=== PATIENT | female | born 1950 | race Caucasian/White ===

== ENCOUNTER 2016-04-01 16:04 | Inpatient (IN) | payer BC, MEDICARE, OTHER ==
[~2016-04-01] VITALS: Ht 167.6 cm; Wt 186.4 kg
[~2016-04-01 16:04] MED LIST: AC325T PO; ACHD5005 PO; AMLO10TA82 PO; AMLO5TAB2 PO; ASP325TEC PO; ASP81CT PO; ASP81TEC PO; CTLP20T PO; DICL75TA2 PO; DICY20TA57 PO; GABA-488 PO; HCT25T PO; INSASP10V SC; INSU100I14 SQ; INSU100I16 SQ; LEVO25TA PO; LIRA0.6P SQ; LISI40TA PO; METO100T5 PO; MTP25TSR PO; PRAS10TA6 PO; TRAM50TA2 PO
[2016-04-01] MEDS ORDERED: RT-ALBUTEROL/IPRATROPIUM 3 ML (DUONEB) VIAL INH PRN (16:15)
[2016-04-01 16:30] VITALS: BP 122/78
--- OUTSIDE RECORDS SUMMARY | 2016-04-01 17:02 | XMS REPORT ---
Author Author ROXIE PONCE Organization [employer] Address Unknown Phone Unavailable Care Team Providers Care Injection Molding Process Technician Name Role Phone ROXIE PONCE CP Unavailable Allergies No Known Allergies Problems Problem Type Condition Code Onset Dates Condition Status Problem Hernia of unspecified site of abdominal cavity without mention of obstruction or gangrene 553.9 Active Problem Depressive disorder, not elsewhere classified 311 Active Problem Cellulitis and abscess of leg, except foot 682.6 Active Problem Diverticulosis of colon (without mention of hemorrhage) 562.10 Active Assessment Hypothyroid E03.9 Active Problem Unspecified peripheral vertigo 386.10 Active Problem CAD (coronary artery disease) 414.00 Active Problem Esophageal reflux 530.81 Active Problem Postprocedural percutaneous transluminal coronary angioplasty status V45.82 Active Problem Unspecified peripheral vascular disease 443.9 Active Problem Abdominal pain, other specified site 789.09 Active Problem Other specified cardiac dysrhythmias 427.89 Active Problem Palpitations 785.1 Active Problem Unspecified hereditary and idiopathic peripheral neuropathy 356.9 Active Problem Unspecified hypothyroidism 244.9 Active Problem Unspecified gastritis and gastroduodenitis without mention of hemorrhage 535.50 Active Problem Atrial fibrillation 427.31 Active Problem Major depressive disorder, recurrent episode, severe, without mention of psychotic behavior 296.33 Active Problem Lumbago 724.2 Active Problem Abdominal pain, generalized 789.07 Active Problem Irritable bowel syndrome 564.1 Active Medications Medication Code System Code Instructions Start Date End Date Status Dosage Levothyroxine Sodium [facility] [address]-95 75 MCG Orally Once a day 1 tablet Results No Known Results Summary Purpose [employer] Submission
[2016-04-01 17:52] LABS: BASOPHILS % (AUTO) 0 % (0-10); EOSINOPHILS # (AUTO) 0.1 10^3/uL (0.0-0.3); EOSINOPHILS % (AUTO) 1 % (0-10); LYMPHOCYTES # (AUTO) 1.1 X 10^3 (1.0-4.0); LYMPHOCYTES % (AUTO) 12 % (12-44); MEAN CORPUSCULAR HEMOGLOBIN 33 PG (25-34); MEAN CORPUSCULAR HGB CONC 32 G/DL (32-36); MEAN CORPUSCULAR VOLUME 101 FL (80-99); MEAN PLATELET VOLUME 13.7 FL (7.4-10.4); MONOCYTES # (AUTO) 0.7 X 10^3 (0.0-1.0); MONOCYTES % (AUTO) 7 % (0-12); NEUTROPHILS # (AUTO) 7.1 X 10^3 (1.8-7.8); NEUTROPHILS % (AUTO) 79 % (42-75); PLATELET COUNT 121 10^3/uL (130-400); RED BLOOD COUNT 4.26 10^6/uL (4.35-5.85); RED CELL DISTRIBUTION WIDTH 14.3 % (10.0-14.5)
[2016-04-01 18:15] LABS: ALBUMIN 3.5 G/DL (3.2-4.5); BILIRUBIN,TOTAL 0.6 MG/DL (0.1-1.0); CALCIUM 9.1 MG/DL (8.5-10.1); CREATININE SERUM 1.05 MG/DL (0.60-1.30); POTASSIUM 4.6 MMOL/L (3.6-5.0); TOTAL PROTEIN 6.6 G/DL (6.4-8.2)
[2016-04-01] MEDS ORDERED: FLU TRIvalent (5 YOA+) 2016-17 (AFLURIA) 0.5 ML IM ONE (18:39)
[2016-04-01] MEDS: FUROSEMIDE 40 MG/4 ML INJ (LASIX) IV SCH (19:37)
[2016-04-01 20:59] VITALS: BP 147/99
[2016-04-01] MEDS: inSUlin ASPART (NovoLOG) 1 UNIT/0.01 ML (CHARGE PER UNIT) SC SCH (21:00)
[2016-04-01] MEDS ORDERED: inSUlin DETERMIR 1 UNIT/0.01 ML (LEVEMIR) CHARGE PER UNIT SQ SCH (21:00)
[2016-04-01] MEDS: meTOprolol SUCCINATE 100 MG (TOPROL XL) TAB PO SCH (21:17)
[2016-04-01] MEDS: inSUlin DETERMIR 1 UNIT/0.01 ML (LEVEMIR) CHARGE PER UNIT SQ SCH (21:18)
[2016-04-01] MEDS: GABAPENTIN 300 MG (NEURONTIN) CAP PO SCH (21:18)
[2016-04-01] MEDS: APIXABAN 5 MG (ELIQUIS) TABLET PO SCH (21:29)
[2016-04-02] VITALS: BP 137/99
[2016-04-02 04:00] VITALS: BP 141/75
[2016-04-02] MEDS: inSUlin ASPART (NovoLOG) 1 UNIT/0.01 ML (CHARGE PER UNIT) SC SCH ×7 (06:00→19:12)
[2016-04-02] MEDS ORDERED: INSULIN ASPART 25 UNIT SQ SCH (06:00)
[2016-04-02] MEDS ORDERED: INSULIN ASPART 15 UNIT SQ SCH (06:00)
[2016-04-02] MEDS ORDERED: FLU TRIvalent (5 YOA+) 2016-17 (AFLURIA) 0.5 ML IM ONE (07:15)
[2016-04-02 08:00] VITALS: BP 149/92
[2016-04-02] MEDS: ASPIRIN E.C. 81 MG (ECOTRIN) TAB PO SCH (08:55)
[2016-04-02] MEDS: APIXABAN 5 MG (ELIQUIS) TABLET PO SCH ×2 (08:55→20:21)
[2016-04-02] MEDS: FUROSEMIDE 40 MG/4 ML INJ (LASIX) IV SCH ×2 (08:55→20:21)
[2016-04-02] MEDS: meTOprolol SUCCINATE 100 MG (TOPROL XL) TAB PO SCH ×2 (08:55→20:21)
[2016-04-02] MEDS: GABAPENTIN 300 MG (NEURONTIN) CAP PO SCH ×2 (08:55→20:21)
[2016-04-02] MEDS: inSUlin DETERMIR 1 UNIT/0.01 ML (LEVEMIR) CHARGE PER UNIT SQ SCH (08:56)
[2016-04-02] MEDS ORDERED: LEVOTHYROXINE 25 MCG (LEVOTHROID) TAB PO SCH (09:00)
[2016-04-02] MEDS ORDERED: LEVO75TA6 PO (09:53)
[2016-04-02] MEDS ORDERED: DILT120C53 PO (09:53)
[2016-04-02] MEDS ORDERED: EXEN2PEN SQ (09:53)
[2016-04-02] MEDS ORDERED: LISI40TA PO (09:53)
[2016-04-02] MEDS ORDERED: APIX5TAB PO (09:53)
[2016-04-02] MEDS ORDERED: PIOG30TA38 PO (09:53)
[2016-04-02] MEDS ORDERED: INSU100I29 SQ (09:53)
[2016-04-02] MEDS ORDERED: INSU100I14 SQ (09:53)
[2016-04-02 12:00] VITALS: BP 112/76
--- NOTE | 2016-04-02 14:20 | History & Physicial (CHS) ---
HPI History of Present Illness: 66 yo Patient that [facility]CP Evita Jackson for worsening shortness of breath. She states that in about 6 weeks she has gained 40 pounds. Patient states that she has noticed in the last few weeks that she has been much more short of breath. She has a h/o CAD with retained heart function. Patient states that she does not wear her CPAP because she is not able to sleep or get comfortable with it on. Denies any chest or abdominal pain. Source: patient, RN/MD Exam Limitations: no limitations Date seen by provider: Apr 02, 2016 Attending Physician Krishna Andino MD PCP Eliz Puri DO Consult Date of Admission Apr 01, 2016 at 4:58 pm Home Medications Home Medications Reviewed patient Home Medication Reconciliation Form Allergies Coded Allergies: liraglutide (Verified Allergy, Intermediate, NAUSEA, 04/01/16) VOMITING AND CHEST PAIN THAT RADIATES TO HER BACK simvastatin (Verified Allergy, Intermediate, 04/01/16) PT HAS ELEVATED LIVER ENZYMES WITH ANY STATIN DRUG Bacitracin Zinc (Verified Allergy, Mild, RASH, 04/01/16) bacitracin (Verified Allergy, Mild, RASH, 04/01/16) colistimethate sodium (Verified Allergy, Mild, RASH, 04/01/16) gramicidin D (Verified Allergy, Mild, RASH, 04/01/16) metformin HCl (Verified Allergy, Mild, 04/01/16) neomycin sulfate (Verified Allergy, Mild, RASH, 04/01/16) polymyxin B (Verified Allergy, Mild, RASH, 04/01/16) polymyxin B sulfate (Verified Allergy, Mild, RASH, 04/01/16) pramoxine HCl (Verified Allergy, Mild, RASH, 04/01/16) TFL-Kapdyt-Tewzcz Hx Patient Social History Alcohol Use: Denies Use Recreational Drug Use: No Smoking Status: Former Smoker Type Used: Cigarettes Recent Foreign Travel: No Contact w/other who traveled: No Recent Hopitalizations: Yes (had gall bladder surgery and uterine cancer) Recent Infectious Disease Expo: No Physical Abuse Screen: No Sexual Abuse: No Immunizations Up To Date Tetanus Booster (TDap): Less than 5yrs Date of Influenza Vaccine: Dec 30, 2013 Past Medical History IDDM II CAD with Stent ALEXIS that needs CPAP but patient does not wear it Paroxysmal Afib Family Medical History Family History: Patient reports no known family medical history. Review of Systems (CHC) Constitutional: no symptoms reportedNo fever, No malaise, weakness EENTM: no symptoms reported Respiratory: No cough, dyspnea on exertionNo hemoptysis, orthopnea short of breathNo wheezing Cardiovascular: no symptoms reportedNo chest pain, edemaNo palpitations Gastrointestinal: no symptoms reportedNo abdominal pain, No constipation, No diarrhea, No hematemesis, No nausea, No vomiting Genitourinary: frequency (with lasix) Musculoskeletal: no symptoms reportedNo back pain, No joint pain, No muscle pain Skin: No rash, other Psychiatric/Neurological: No Symptoms Reported Reviewed Test Results Reviewed Test Results Lab Laboratory Tests Test 04/01/16 17:47 04/01/16 21:06 04/02/16 06:34 04/02/16 11:34 Range/Units Alanine Aminotransferase (ALT/SGPT) 19 0-55 U/L Albumin 3.5 3.2-4.5 G/DL Alkaline Phosphatase 82 40-136 U/L Anion Gap 11 5-14 MMOL/L Aspartate Amino Transf (AST/SGOT) 20 5-34 U/L BUN/Creatinine Ratio 20 Basophils # (Auto) 0.0 0.0-0.1 10^3/uL Basophils (%) (Auto) 0 0-10 % Blood Urea Nitrogen 21 H 7-18 MG/DL Calcium Level 9.1 8.5-10.1 MG/DL Carbon Dioxide Level 28 21-32 MMOL/L Chloride Level 102 98-107 MMOL/L Creatinine 1.05 0.60-1.30 MG/DL Eosinophils # (Auto) 0.1 0.0-0.3 10^3/uL Eosinophils (%) (Auto) 1 0-10 % Estimat Glomerular Filtration Rate 52 Glucose Level 145 H 70-105 MG/DL Hematocrit 43 35-52 % Hemoglobin 13.9 11.5-16.0 G/DL Lymphocytes # (Auto) 1.1 1.0-4.0 X 10^3 Lymphocytes (%) (Auto) 12 12-44 % Mean Corpuscular Hemoglobin 33 25-34 PG Mean Corpuscular Hemoglobin Concent 32 32-36 G/DL Mean Corpuscular Volume 101 H 80-99 FL Mean Platelet Volume 13.7 H 7.4-10.4 FL Monocytes # (Auto) 0.7 0.0-1.0 X 10^3 Monocytes (%) (Auto) 7 0-12 % Neutrophils # (Auto) 7.1 1.8-7.8 X 10^3 Neutrophils (%) (Auto) 79 H 42-75 % Platelet Count 121 L 130-400 10^3/uL Potassium Level 4.6 3.6-5.0 MMOL/L Red Blood Count 4.26 L 4.35-5.85 10^6/uL Red Cell Distribution Width 14.3 10.0-14.5 % Sodium Level 141 135-145 MMOL/L Total Bilirubin 0.6 0.1-1.0 MG/DL Total Protein 6.6 6.4-8.2 G/DL White Blood Count 9.0 4.3-11.0 10^3/uL Glucometer 148 H 110 76 70-110 MG/DL Radiology CXR pending Echo: pending Physical Exam-(CHC) Physical Exam Vital Signs VS - Last 72 Hours, by Label 04/01/16 04/01/16 04/01/16 04/01/16 16:30 17:15 19:00 20:00 Temp 98.8 Pulse 80 131 Resp 22 B/P 122/78 Pulse Ox 93 O2 Delivery Room Air Room Air Room Air 04/01/16 04/01/16 04/01/16 04/02/16 20:59 21:00 22:06 00:00 Temp 98.4 98.3 Pulse 85 105 Resp 24 22 B/P 147/99 137/99 Pulse Ox 93 95 O2 Delivery Room Air Room Air Room Air Room Air 04/02/16 04/02/16 04/02/16 04/02/16 00:58 04:00 07:57 08:00 Temp 99.0 Pulse 93 108 Resp 24 B/P 141/75 Pulse Ox 91 O2 Delivery Nasal Cannula Nasal Cannula Room Air O2 Flow Rate 2.00 2.00 04/02/16 04/02/16 04/02/16 08:00 08:00 12:00 Temp 96.8 98.7 Pulse 105 106 Resp 20 21 B/P 149/92 112/76 Pulse Ox 95 96 O2 Delivery Nasal Cannula Room Air Nasal Cannula O2 Flow Rate 2.00 2.00 Capillary Refill : General Appearance: WD/WN mild distress (2-4 words before short of breath) other (Morbidly obese female) HEENT: PERRL/EOMI normal ENT inspection pharynx normal Neck: non-tender full range of motion supple normal inspection other (Large neck diameter) Respiratory: chest non-tender normal breath sounds other (distant lung sounds due to body habitus, decrease basilar lung sounds) Cardiovascular: normal peripheral pulses regular rate, rhythm systolic murmur Gastrointestinal: normal bowel sounds non tender soft no organomegalyNo distended, No guarding, No tenderness Back: normal inspection no CVA tenderness no vertebral tenderness Extremities: normal range of motion non-tender pedal edema (3 +) 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 no motor/sensory deficits Skin: normal color warm/dry other (chronic venous stasis scars on bilateral LE ) Assessment/Plan Assessment/Plan Admission Dx Acute Respiratory Distress with hypoxia ALEXIS Morbid Obesity Insulin Dependent DM HTN Paroxsymal Atrial Fibrillation CAD with Stent placement Plan 66 yo F admitted for respiratory distress with hypoxia in the 80s, with recent 40 pound weight gain Acute Respiratory Distress with hypoxia DDx: Decompensated CHF vs Decompensated ALEXIS vs morbid obesity vs PE - Concerned for CHF given recent 40 lb weight gain - CXR pending, Echo pending - Lasix 40 mg IV BID, Strict I/Os, daily BMP - Encouraged patient to get up to chair and use IS 3x per hour ALEXIS - Patient does not tolerate CPAP at home because of mask, will need referral to sleep center for desensitization - Discussed the importance of wearing CPAP every time she lays down because of added stress on her heart Morbid Obesity - Patient needs to focus on weight loss Insulin Dependent DM - Started home insulin therapy HTN: Controlled Paroxsymal Atrial Fibrillation: In Sinus, continue rhythm control medications CAD with Stent placement Dispo: Continue admission to Medical [facility] DVT PPX: On PO anticoagulation FEN: CHO diet Diagnosis/Problems: Clinical Quality Measures DVT/VTE Risk/Contraindication: Risk Factor Score Per Nursin RFS Level Per Nursing on Admit: 4+=Very High Contraindications-Mechi: Other *list below* Other: On KRISHNA Alejandro MD Apr 02, 2016 2:20 pm
--- NOTE | 2016-04-02 15:17 | Diagnostic Imaging Report ---
Indication: Dyspnea, heart failure. Discussion: Single portable upright view of the chest was obtained, comparison 11/23/2014. Cardiomegaly is present. Bilateral mixed interstitial and alveolar opacities are noted, consistent with moderate pulmonary edema. No pleural fluid identified. Elevated right hemidiaphragm is stable. No pneumothorax. No acute osseous abnormality. Impression: 1. Cardiomegaly with moderate failure. Dictated by: Dictated on workstation # [id number]
--- NOTE | 2016-04-02 15:57 | Physical Therapy Evaluation ---
PT Evaluation-General Medical Diagnosis Admission Date Apr 01, 2016 at 16:58 Medical Diagnosis: CHF Onset Date: Mar 31, 2016 Therapy Diagnosis Therapy Diagnosis: decreased cardiopulmonary function Height/Weight Height (Feet): 5 Height (Inches): 6.00 Weight (Pounds): 376 Weight (Ounces): 0.0 Precautions Precautions/Isolations: Fall Prevention, Standard Precautions Referral Physician: Sina Reason for Referral: Evaluation/Treatment Medical History Pertinent Medical History: Atrial Fib, CAD, DM, HTN, Smoking Additional Medical History morbid obesity Current History 40# wt gain in 6 wks; increase SOA; resp. distress with hypoxia; has CPap and does not use Reviewed History: Yes Social History Home: Single Level Current Living Status: Children Entry Into Home: Stairs With Railing PT Steps Into Home: 3 Prior/Core FIM Prior Level of Function Functional [place] Measure 0=Not Assessed/NA 4=Minimal Assistance 1=Total Assistance 5=Supervision or Setup 2=Maximal Assistance 6=Modified [place] 3=Moderate Assistance 7=Complete [place] Bed Mobility: 6 Transfers (B,C,W/C) (FIM): 6 Gait: 6 uses a cane, 4WW and a scooter to shop PT Evaluation-Current Subjective Patient agrees to therapy. Pain Numeric Pain Scale: 0-No Pain Location: No Pain Reported Objective Patient Orientation: Normal For Age Problem Solving: Good Attachments: Oxygen 2-3L NC ROM/Strength ROM Lower Extremities bilateral LE WFL Strenght Lower Extremities bilateral LE WFL grossly Integumentary/Posture Integumentary refer to nursing notes Bowel Incontinence: No Bladder Incontinence: No Posture WNL Neuromuscular (Tone, Coordination, Reflexes) grossly intact coordination Transfers Functional [place] Measure 0=Not Assessed/NA 4=Minimal Assistance 1=Total Assistance 5=Supervision or Setup 2=Maximal Assistance 6=Modified [place] 3=Moderate Assistance 7=Complete [place] Transfers (B, C, W/C) (FIM): 5 Scootin Rollin Supine to/from Sit: 5 Sit to/from Stand: 5 Gait Mode of Locomotion: Walk Anticipated Mode of Locomotion: Walk Gait (FIM): 1 Distance (FIM): 1=up to 49 ft Distance: 45' Gait Level of Assist: 5 Gait Assistive Device: Cane Single Point Comments/Gait Description Patient will benefit from use of FWW to advance distance goal and improve function Balance Sitting Static: Normal Sitting Dynamic: Normal Standing Static: Normal Standing Dynamic: Normal Assessment/Needs 66 y.o. female, will benefit from short term skilled PT to address cardiopulmonary function with exercise and increase functional mobility. Rehab Potential: Fair Post Rehab Potential-Barriers: morbid obesity PT Short Term Goals Short Term Goals Time Frame: Apr 05, 2016 Transfers (B,C,W/C) (FIM): 6 Gait (FIM): 2 Distance (FIM): 1=095-12 ft Gait Distance Comment: 125' Gait Level of Assist: 5 Gait Assistive Device: FWW, Cane Single Point PT Plan Problem List Problem List: Activity Tolerance, Functional Strength, Other (diminished cardiopulmonary function) Treatment/Plan Treatment Plan: Continue Plan of Care Treatment Plan: Bed Mobility, Education, Functional Activity Fred, Functional Strength, Gait, Safety, Therapeutic Exercise, Transfers Treatment Duration: Apr 05, 2016 # of days/week 4 Visits Per Week: 4 Pt/Family Agrees w/Plan: Yes Safety Risks/Education Patient Education: Gait Training, Safety Issues Teaching Recipient: Patient, Primary Caregiver Teaching Methods: Discussion Response to Teaching: Verbalize Understanding, Return Demonstration Time/GCodes Time In: 1325 Time Out: 1345 Total Billed Treatment Time: 20 Total Billed Treatment 1 visit EV 20 min CLAUDIA SOLIZ PT Apr 02, 2016 15:57
[2016-04-02 16:06] VITALS: BP 131/78
[2016-04-02 19:28] VITALS: BP 121/74
[2016-04-03] VITALS: BP 124/73
[2016-04-03 04:00] VITALS: BP 132/92
[2016-04-03 05:51] LABS: BASOPHILS % (AUTO) 0 % (0-10); EOSINOPHILS # (AUTO) 0.2 10^3/uL (0.0-0.3); EOSINOPHILS % (AUTO) 3 % (0-10); LYMPHOCYTES # (AUTO) 0.9 X 10^3 (1.0-4.0); LYMPHOCYTES % (AUTO) 11 % (12-44); MEAN CORPUSCULAR HEMOGLOBIN 32 PG (25-34); MEAN CORPUSCULAR HGB CONC 31 G/DL (32-36); MEAN CORPUSCULAR VOLUME 103 FL (80-99); MONOCYTES # (AUTO) 0.8 X 10^3 (0.0-1.0); MONOCYTES % (AUTO) 9 % (0-12); NEUTROPHILS # (AUTO) 6.3 X 10^3 (1.8-7.8); NEUTROPHILS % (AUTO) 77 % (42-75); PLATELET COUNT 124 10^3/uL (130-400); RED BLOOD COUNT 4.48 10^6/uL (4.35-5.85); RED CELL DISTRIBUTION WIDTH 14.4 % (10.0-14.5); WHITE BLOOD COUNT 8.2 10^3/uL (4.3-11.0)
[2016-04-03] MEDS: inSUlin ASPART (NovoLOG) 1 UNIT/0.01 ML (CHARGE PER UNIT) SC SCH ×7 (06:00→20:39)
[2016-04-03 06:10] LABS: CALCIUM 9.1 MG/DL (8.5-10.1); CREATININE SERUM 1.27 MG/DL (0.60-1.30); POTASSIUM 4.4 MMOL/L (3.6-5.0)
[2016-04-03 08:56] VITALS: BP 126/87
[2016-04-03] MEDS ORDERED: DILTIAZEM 120 MG (CARDIZEM CD) CAP PO SCH (09:00)
[2016-04-03] MEDS: FUROSEMIDE 40 MG/4 ML INJ (LASIX) IV SCH (09:01)
[2016-04-03] MEDS: GABAPENTIN 300 MG (NEURONTIN) CAP PO SCH ×2 (09:01→20:44)
[2016-04-03] MEDS: LEVOTHYROXINE 75 MCG (LEVOTHROID) TABLET PO SCH (09:01)
[2016-04-03] MEDS: lisINopril 20 MG (ZESTRIL) TAB PO SCH (09:01)
[2016-04-03] MEDS: APIXABAN 5 MG (ELIQUIS) TABLET PO SCH ×2 (09:01→20:44)
[2016-04-03] MEDS: inSUlin DETERMIR 1 UNIT/0.01 ML (LEVEMIR) CHARGE PER UNIT SQ SCH ×2 (09:02→20:39)
[2016-04-03] MEDS: ASPIRIN E.C. 81 MG (ECOTRIN) TAB PO SCH (09:02)
[2016-04-03] MEDS: meTOprolol SUCCINATE 100 MG (TOPROL XL) TAB PO SCH ×2 (09:09→20:44)
[2016-04-03 12:00] VITALS: BP 126/79
[2016-04-03 16:03] VITALS: BP 135/61
--- NOTE | 2016-04-03 16:03 | Physical Therapy Daily Note ---
PT Daily Note-Current Subjective Pt supine in bed upon arrival. Pt agrees to supine EX for PT. Pain Numeric Pain Scale: 0-No Pain Location: No Pain Reported Mental Status Patient Orientation: Person, Normal For Age Attachments: Oxygen, IV Transfers Functional [place] Measure 0=Not Assessed/NA 4=Minimal Assistance 1=Total Assistance 5=Supervision or Setup 2=Maximal Assistance 6=Modified [place] 3=Moderate Assistance 7=Complete IndependenceIRFPAI Quality Coding Scale 6 Independent with activity with or without an assistive device 5 Patient requires set up or clean up by helper. Patient completes activity by themselves 4 Supervision or touching assist (CGA). [place] provide cues , steadying assist 3 The helper provides less than half the effort to complete the activity 2 The helper provides more than half the effort to complete the activity 1 Dependent. The helper does all the effort to complete an activity 7 Patient refused to complete or attempt activity 9 The patient did not perform the activity before the current illness or injury 88 Not attempted due to Medical conditions or safety concerns Exercises Supine Ex: Ankle pumps, Quad Set, Heel Slides, Straight leg raise, Hip abd/add Supine Reps: 15 Treatments Pt asked to hospital socks at the beginning of tx b/c her feet were cold. Pt agreed to supine EX in bed to work on ROM and strength. Pt was supine in bed with all needs met at end of tx. Assessment Current Status: Fair Progress Pt has difficulty with ROM during EX. Pt weaker on LLE than RLE. Pt wants to get better and discharge. PT Short Term Goals Short Term Goals Time Frame: Apr 05, 2016 Transfers (B,C,W/C) (FIM): 6 Gait (FIM): 2 Distance (FIM): 1=417-42 ft Gait Distance Comment: 125' Gait Level of Assist: 5 Gait Assistive Device: FWW, Cane Single Point PT Plan Problem List Problem List: Activity Tolerance, Functional Strength, Safety, Balance, Gait, Transfer, Bed Mobility, ROM Treatment/Plan Treatment Plan: Continue Plan of Care Treatment Plan: Bed Mobility, Education, Functional Activity Fred, Functional Strength, Gait, Safety, Therapeutic Exercise, Transfers Treatment Duration: Apr 05, 2016 Visits Per Week: 4 Safety Risks/Education Patient Education: Transfer Techniques, Correct Positioning, Safety Issues Teaching Recipient: Patient Teaching Methods: Discussion Response to Teaching: Verbalize Understanding Time/GCodes Time In: 1540 Time Out: 1555 Total Billed Treatment Time: 15 Total Billed Treatment visit, EX (15m) SHRUTI HAGEN CAR JOCKEY Apr 03, 2016 16:03
--- NOTE | 2016-04-03 17:38 | Progress Note (SOAP) ---
Subjective Subjective/Events-last exam Patient laying in bed this AM. States that she has urinated alot in the last 2 days. Feels like her legs are not as heavy. Still on oxygen because it makes her feel more comfortable. + BM last night. States that she walked to the chair and still gets very short of breath with activity. No other concerns this AM Date seen by provider: Apr 03, 2016 Objective Exam Last Set of Vital Signs Vital Signs Date Time Temp Pulse Resp B/P Pulse Ox O2 Delivery O2 Flow Rate FiO2 04/03/16 16:00 98 04/03/16 12:00 98.1 20 126/79 92 Nasal Cannula 2.00 Capillary Refill : I&O Intake and Output 04/03/16 00:00 Intake Total 1800 ml Output Total 2600 ml Balance -800 ml Intake Oral 1800 ml Output Urine Total 2600 ml # Bowel Movements 1 General: Alert, Oriented X3, Cooperative, Other (morbidly obese) Lungs: Clear to Auscultation, Normal Air Movement Heart: Regular Rate, Normal S1, Normal S2, No Murmurs Abdomen: Normal Bowel Sounds, Soft, No Tenderness Extremities: Other (2+ edema equal bilaterally) Skin: No Rashes, No Breakdown Psych/Mental Status: Mental Status NL, Mood NL Results/Procedures Lab Laboratory Tests 04/02/16 18:56: Glucometer 89 04/02/16 20:26: Glucometer 106 04/03/16 03:38: Glucometer 98 04/03/16 05:35: Anion Gap 11, BUN/Creatinine Ratio 19, Basophils # (Auto) 0.0, Basophils (%) ( Auto) 0, Blood Urea Nitrogen 24H, Calcium Level 9.1, Carbon Dioxide Level 29, Chloride Level 98, Creatinine 1.27, Eosinophils # (Auto) 0.2, Eosinophils (%) ( Auto) 3, Estimat Glomerular Filtration Rate 42, Glucose Level 118H, Hematocrit 46, Hemoglobin 14.4, Lymphocytes # (Auto) 0.9L, Lymphocytes (%) (Auto) 11L, Mean Corpuscular Hemoglobin 32, Mean Corpuscular Hemoglobin Concent 31L, Mean Corpuscular Volume 103H, Mean Platelet Volume , Monocytes # (Auto) 0.8, Monocytes (%) (Auto) 9, Neutrophils # (Auto) 6.3, Neutrophils (%) (Auto) 77H, Platelet Count 124L, Potassium Level 4.4, Red Blood Count 4.48, Red Cell Distribution Width 14.4, Sodium Level 138, White Blood Count 8.2 04/03/16 10:46: Glucometer 120H 04/03/16 15:48: Glucometer 103 Radiology CXR: showing moderate pulmonary edema present Procedures Echo: pending Assessment/Plan Assessment/Plan Admission Dx Acute Respiratory Distress with hypoxia ALEXIS Morbid Obesity Insulin Dependent DM HTN Paroxsymal Atrial Fibrillation CAD with Stent placement Plan 66 yo F admitted for respiratory distress with hypoxia in the 80s, with recent 40 pound weight gain Acute Respiratory Distress with hypoxia DDx: Decompensated CHF vs Decompensated ALEXIS vs morbid obesity vs PE - Concerned for CHF given recent 40 lb weight gain - CXR consistent with pulm edema, Echo pending - Lasix decreased to 40 mg PO daily - Strict I/Os, daily BMP - Encouraged patient to get up to chair and use IS 3x per hour ALEXIS - Patient does not tolerate CPAP at home because of mask, will need referral to sleep center for desensitization - Discussed the importance of wearing CPAP every time she lays down because of added stress on her heart - Will notify Dr German of patient's admission as she sees him outpatient Morbid Obesity - Patient needs to focus on weight loss Insulin Dependent DM - Started home insulin therapy HTN: Controlled Paroxsymal Atrial Fibrillation: In Sinus, continue rhythm control medications CAD with Stent placement Debility: - PT evaluated patient and feel that she would benefit from skilled PT Dispo: Continue admission to Medical [facility] DVT PPX: On PO anticoagulation FEN: CHO diet Diagnosis/Problems: Clinical Quality Measures DVT/VTE Risk/Contraindication: Risk Factor Score Per Nursin RFS Level Per Nursing on Admit: 4+=Very High Contraindications-Mechi: Other *list below* Other: On KRISHNA Alejandro MD Apr 03, 2016 17:38
[2016-04-03] MEDS: FUROSEMIDE 40 MG (LASIX) TAB PO SCH (18:08)
[2016-04-03 20:10] VITALS: BP 110/59
[2016-04-03] MEDS: ACETAMINOPHEN 325 MG TABLET/CAPLET (TYLENOL) PO PRN (20:44)
[2016-04-04] VITALS: BP 103/66
[2016-04-04 04:00] VITALS: BP 130/82
[2016-04-04] MEDS: inSUlin ASPART (NovoLOG) 1 UNIT/0.01 ML (CHARGE PER UNIT) SC SCH ×7 (06:00→20:53)
[2016-04-04 07:09] LABS: CALCIUM 9.1 MG/DL (8.5-10.1); CREATININE SERUM 1.36 MG/DL (0.60-1.30); POTASSIUM 4.5 MMOL/L (3.6-5.0)
[2016-04-04 08:00] VITALS: BP 132/72
[2016-04-04] MEDS: GABAPENTIN 300 MG (NEURONTIN) CAP PO SCH ×2 (10:47→21:12)
[2016-04-04] MEDS: lisINopril 20 MG (ZESTRIL) TAB PO SCH (10:47)
[2016-04-04] MEDS: FUROSEMIDE 40 MG (LASIX) TAB PO SCH (10:47)
[2016-04-04] MEDS: LEVOTHYROXINE 75 MCG (LEVOTHROID) TABLET PO SCH (10:47)
[2016-04-04] MEDS: meTOprolol SUCCINATE 100 MG (TOPROL XL) TAB PO SCH ×2 (10:47→21:12)
[2016-04-04] MEDS: ASPIRIN E.C. 81 MG (ECOTRIN) TAB PO SCH (10:48)
[2016-04-04] MEDS: APIXABAN 5 MG (ELIQUIS) TABLET PO SCH ×2 (10:48→21:12)
[2016-04-04] MEDS: inSUlin DETERMIR 1 UNIT/0.01 ML (LEVEMIR) CHARGE PER UNIT SQ SCH ×2 (10:50→21:13)
[2016-04-04 12:00] VITALS: BP 131/78
--- NOTE | 2016-04-04 12:00 | Physical Therapy Daily Note ---
PT Daily Note-Current Subjective Patient is in recliner without O2 in place. Lips cyanotic, PT assessed SAO2 at 72%. 2.5L O2 applied, RN notified and recovery to 92% within 1 min. Pain Numeric Pain Scale: 0-No Pain Location: No Pain Reported Mental Status Patient Orientation: Normal For Age Attachments: Oxygen Transfers Functional [place] Measure 0=Not Assessed/NA 4=Minimal Assistance 1=Total Assistance 5=Supervision or Setup 2=Maximal Assistance 6=Modified [place] 3=Moderate Assistance 7=Complete IndependenceIRFPAI Quality Coding Scale 6 Independent with activity with or without an assistive device 5 Patient requires set up or clean up by helper. Patient completes activity by themselves 4 Supervision or touching assist (CGA). [place] provide cues , steadying assist 3 The helper provides less than half the effort to complete the activity 2 The helper provides more than half the effort to complete the activity 1 Dependent. The helper does all the effort to complete an activity 7 Patient refused to complete or attempt activity 9 The patient did not perform the activity before the current illness or injury 88 Not attempted due to Medical conditions or safety concerns Transfers (B, C, W/C) (FIM): 2 Scootin Sit to/from Stand: 2 required max assist sit to stand from low chair Gait Training Gait (FIM): 2 Distance (FIM): 6=130-58 ft Distance: 100' Gait Level of Assist: 5 Gait Persons Needed: 1 Gait Assistive Device: FWW safe and functional with FWW Assessment Patient remained up in recliner after treatment. Patient continues to be limited with pulmonary function. Patient states she desires to dismiss to [place] in [facility] for continued care. PT Short Term Goals Short Term Goals Time Frame: Apr 05, 2016 Transfers (B,C,W/C) (FIM): 6 Gait (FIM): 2 Distance (FIM): 5=552-43 ft Gait Distance Comment: 125' Gait Level of Assist: 5 Gait Assistive Device: FWW, Cane Single Point PT Plan Treatment/Plan Treatment Plan: Continue Plan of Care Treatment Plan: Bed Mobility, Education, Functional Activity Fred, Functional Strength, Gait, Safety, Therapeutic Exercise, Transfers Treatment Duration: Apr 05, 2016 Visits Per Week: 4 Time/GCodes Time In: 1130 Time Out: 1145 Total Billed Treatment Time: 15 Total Billed Treatment 1 visit FA 15 min CLAUDIA SOLIZ PT Apr 04, 2016 11:59
--- NOTE | 2016-04-04 14:25 | Physician Query-Heart Failure ---
Physician Query-Heart Failure Query to Physician: Provider's Document Request-Please contact youth counselor listed on document for more information. Dear Provider, We need your assistance to accurately capture the severity of the patients heart failure. Physician participation is requested in all cases of rv repairer uncertainty to minimize errors in code assignment and to avoid compliance issues. Please select the type of heart failure the patient has below. Clinical Findings: Treatment given: IV Lasix Type of Heart Failure: Type of Heart Failure: Heart Failure NOS Note Waiting for Echo report in order to code properly If you have questions please contact: Explosives Mixer Operator:Sylvia Sanchez [facility],CCDS Ext:[phone] Thank you for your time and cooperation. Clinical Screen Examiner/Explosives Mixer Operator This is a permanent part of the medical record SYLVIA SANCHEZ Apr 04, 2016 14:25 KRISHNA CABRERA MD Apr 04, 2016 16:35
[2016-04-04 16:00] VITALS: BP_SYST 111; BP_SYST 120; BP_DIAS 74; BP_DIAS 75
--- NOTE | 2016-04-04 16:39 | Progress Note (SOAP) ---
Subjective Subjective/Events-last exam Patient laying in bed this AM taking a nap. States that she feels the same. She has been urinating a lot per patient. Tolerating PO. States that she was up in hallway yesterday 2x walking with PT and nursing. + BM last night. Date seen by provider: Apr 04, 2016 Objective Exam Last Set of Vital Signs Vital Signs Date Time Temp Pulse Resp B/P Pulse Ox O2 Delivery O2 Flow Rate FiO2 04/04/16 15:01 Nasal Cannula 2.00 04/04/16 12:00 97.8 110 20 131/78 97 Capillary Refill : I&O Intake and Output 04/04/16 00:00 Intake Total 1900 ml Output Total 1850 ml Balance 50 ml Intake Oral 1900 ml Output Urine Total 1850 ml # Voids 3 General: Alert, Oriented X3, Cooperative, Mild Distress HEENT: Mucous Memb Moist/[place] Lungs: Clear to Auscultation, Normal Air Movement Heart: Regular Rate, Normal S1, Normal S2, No Murmurs Abdomen: Normal Bowel Sounds, Soft, No Tenderness Extremities: Other (Edema 1+ (improving)) Skin: No Rashes, No Breakdown Neuro: Normal Speech, Sensation Intact, Cranial Nerves 3-12 NL Psych/Mental Status: Mental Status NL, Mood NL Results/Procedures Lab Laboratory Tests 04/03/16 20:30: Glucometer 95 04/04/16 05:20: Glucometer 116H 04/04/16 06:06: Anion Gap 11, BUN/Creatinine Ratio 21, Blood Urea Nitrogen 29H, Calcium Level 9.1, Carbon Dioxide Level 34H, Chloride Level 96L, Creatinine 1.36H, Estimat Glomerular Filtration Rate 39, Glucose Level 124H, Potassium Level 4.5, Sodium Level 141 04/04/16 10:55: Glucometer 176H 04/04/16 16:08: Glucometer 113H Radiology CXR: showing moderate pulmonary edema present Procedures Echo: pending Assessment/Plan Assessment/Plan Admission Dx Acute Respiratory Distress with hypoxia ALEXIS Morbid Obesity Insulin Dependent DM HTN Paroxsymal Atrial Fibrillation CAD with Stent placement Plan 66 yo F admitted for respiratory distress with hypoxia in the 80s, with recent 40 pound weight gain Acute Respiratory Distress with hypoxia DDx: Decompensated CHF vs Decompensated ALEXIS vs morbid obesity vs PE - Concerned for CHF given recent 40 lb weight gain - CXR consistent with pulm edema, Echo pending - Continue lasix 40 mg PO daily - Strict I/Os, daily BMP - 2 L fluid restriction - Encouraged patient to get up to chair and use IS 3x per hour ALEXIS - Patient does not tolerate CPAP at home because of mask, will need referral to sleep center for desensitization - Discussed the importance of wearing CPAP every time she lays down because of added stress on her heart - Will notify Dr German of patient's admission as she sees him outpatient Morbid Obesity - Patient needs to focus on weight loss Insulin Dependent DM - Started home insulin therapy HTN: Controlled Paroxsymal Atrial Fibrillation: In Sinus, continue rhythm control medications CAD with Stent placement Debility: - PT evaluated patient and feel that she would benefit from skilled PT, SW notified Dispo: [facility] admission to [facility] Social: See SW note, patient will d/c to SNF for PT DVT PPX: On PO anticoagulation FEN: CHO diet Diagnosis/Problems: Clinical Quality Measures DVT/VTE Risk/Contraindication: Risk Factor Score Per Nursin RFS Level Per Nursing on Admit: 4+=Very High Contraindications-Mechi: Other *list below* Other: On KRISHNA Alejandro MD Apr 04, 2016 16:39
[2016-04-04 19:51] VITALS: BP 111/74
[2016-04-05] VITALS (7 sets, daily range): BP systolic 105–135; BP diastolic 62–81
[2016-04-05] MEDS: inSUlin ASPART (NovoLOG) 1 UNIT/0.01 ML (CHARGE PER UNIT) SC SCH ×7 (05:53→21:00)
[2016-04-05 06:42] LABS: BASOPHILS % (AUTO) 1 % (0-10); EOSINOPHILS # (AUTO) 0.3 10^3/uL (0.0-0.3); EOSINOPHILS % (AUTO) 4 % (0-10); LYMPHOCYTES % (AUTO) 14 % (12-44); MEAN CORPUSCULAR HEMOGLOBIN 33 PG (25-34); MEAN CORPUSCULAR HGB CONC 32 G/DL (32-36); MEAN CORPUSCULAR VOLUME 103 FL (80-99); MEAN PLATELET VOLUME 13.8 FL (7.4-10.4); MONOCYTES # (AUTO) 0.8 X 10^3 (0.0-1.0); MONOCYTES % (AUTO) 11 % (0-12); NEUTROPHILS % (AUTO) 70 % (42-75); PLATELET COUNT 110 10^3/uL (130-400); RED BLOOD COUNT 4.14 10^6/uL (4.35-5.85); RED CELL DISTRIBUTION WIDTH 13.9 % (10.0-14.5); WHITE BLOOD COUNT 7.2 10^3/uL (4.3-11.0)
[2016-04-05 06:57] LABS: CALCIUM 8.4 MG/DL (8.5-10.1); CREATININE SERUM 0.99 MG/DL (0.60-1.30); POTASSIUM 4.1 MMOL/L (3.6-5.0)
[2016-04-05] MEDS: ASPIRIN E.C. 81 MG (ECOTRIN) TAB PO SCH (08:05)
[2016-04-05] MEDS: APIXABAN 5 MG (ELIQUIS) TABLET PO SCH ×2 (08:05→21:00)
[2016-04-05] MEDS: FUROSEMIDE 40 MG (LASIX) TAB PO SCH (08:05)
[2016-04-05] MEDS: lisINopril 20 MG (ZESTRIL) TAB PO SCH (08:05)
[2016-04-05] MEDS: meTOprolol SUCCINATE 100 MG (TOPROL XL) TAB PO SCH ×2 (08:06→21:00)
[2016-04-05] MEDS: GABAPENTIN 300 MG (NEURONTIN) CAP PO SCH ×2 (08:06→21:00)
[2016-04-05] MEDS: LEVOTHYROXINE 75 MCG (LEVOTHROID) TABLET PO SCH (08:06)
[2016-04-05] MEDS: inSUlin DETERMIR 1 UNIT/0.01 ML (LEVEMIR) CHARGE PER UNIT SQ SCH ×2 (08:07→21:00)
--- NOTE | 2016-04-05 09:49 | Physical Therapy Daily Note ---
PT Daily Note-Current Subjective Patient is in recliner and agrees to therapy. No c/o at this time. Pain Numeric Pain Scale: 0-No Pain Location: No Pain Reported Mental Status Patient Orientation: Normal For Age Attachments: Oxygen (2-3L) Transfers Functional [place] Measure 0=Not Assessed/NA 4=Minimal Assistance 1=Total Assistance 5=Supervision or Setup 2=Maximal Assistance 6=Modified [place] 3=Moderate Assistance 7=Complete IndependenceIRFPAI Quality Coding Scale 6 Independent with activity with or without an assistive device 5 Patient requires set up or clean up by helper. Patient completes activity by themselves 4 Supervision or touching assist (CGA). [employer] provide cues , steadying assist 3 The helper provides less than half the effort to complete the activity 2 The helper provides more than half the effort to complete the activity 1 Dependent. The helper does all the effort to complete an activity 7 Patient refused to complete or attempt activity 9 The patient did not perform the activity before the current illness or injury 88 Not attempted due to Medical conditions or safety concerns Transfers (B, C, W/C) (FIM): 5 Scootin Sit to/from Stand: 5 Gait Training Gait (FIM): 2 Distance (FIM): 7=591-54 ft Distance: 125' Gait Level of Assist: 6 Gait Persons Needed: 1 Gait Assistive Device: FWW functional with FWW; patient fatigues quickly with minimal activity due to decreased cardiopulmonary function and morbid obesity Assessment Patient continues to be limited with cardiopulmonary function due to inactivity PLOF. [facility] PT Short Term Goals Short Term Goals Time Frame: Apr 05, 2016 Transfers (B,C,W/C) (FIM): 6 Gait (FIM): 2 Distance (FIM): 9=121-26 ft Gait Distance Comment: 125' Gait Level of Assist: 5 Gait Assistive Device: FWW, Cane Single Point PT Plan Treatment/Plan Treatment Plan: Discontinue PT, goals met Treatment Plan: Bed Mobility, Education, Functional Activity Fred, Functional Strength, Gait, Safety, Therapeutic Exercise, Transfers Treatment Duration: Apr 05, 2016 Visits Per Week: 4 Time/GCodes Time In: 855 Time Out: 905 Total Billed Treatment Time: 10 Total Billed Treatment 1 visit GT 10 min CLAUDIA SOLIZ PT Apr 05, 2016 09:49
--- NOTE | 2016-04-05 11:35 | Progress Note (SOAP) ---
Subjective Subjective/Events-last exam Patient states that she is tired and worn out from walking this AM. States that she is still having alot of shortness of breath with ambulation. Continues to have good UOP. Tolerating PO. Denies any pain. Date seen by provider: Apr 05, 2016 Objective Exam Last Set of Vital Signs Vital Signs Date Time Temp Pulse Resp B/P Pulse Ox O2 Delivery O2 Flow Rate FiO2 04/05/16 09:00 94 Nasal Cannula 2.00 04/05/16 08:44 98.2 90 20 128/73 Capillary Refill : I&O Intake and Output 04/05/16 00:00 Intake Total 1270 ml Output Total 950 ml Balance 320 ml Intake Oral 1270 ml Output Urine Total 950 ml # Voids 3 General: Alert, Oriented X3, Cooperative, Mild Distress (improving, dyspneic with converstation) HEENT: Mucous Memb Moist/[place] Lungs: Clear to Auscultation, Normal Air Movement Heart: Regular Rate, No Murmurs Abdomen: Normal Bowel Sounds, Soft, No Tenderness Extremities: Other (2+ pitting edema bilaterally) Neuro: Normal Gait Psych/Mental Status: Mental Status NL, Mood NL Results/Procedures Lab Laboratory Tests 04/04/16 16:08: Glucometer 113H 04/04/16 20:44: Glucometer 125H 04/05/16 05:17: Glucometer 121H 04/05/16 05:53: Anion Gap 10, BUN/Creatinine Ratio 28, Basophils # (Auto) 0.0, Basophils (%) ( Auto) 1, Blood Urea Nitrogen 28H, Calcium Level 8.4L, Carbon Dioxide Level 34H, Chloride Level 96L, Creatinine 0.99, Eosinophils # (Auto) 0.3, Eosinophils (%) ( Auto) 4, Estimat Glomerular Filtration Rate 56, Glucose Level 126H, Hematocrit 43, Hemoglobin 13.5, Lymphocytes # (Auto) 1.0, Lymphocytes (%) (Auto) 14, Mean Corpuscular Hemoglobin 33, Mean Corpuscular Hemoglobin Concent 32, Mean Corpuscular Volume 103H, Mean Platelet Volume 13.8H, Monocytes # (Auto) 0.8, Monocytes (%) (Auto) 11, Neutrophils # (Auto) 5.0, Neutrophils (%) (Auto) 70, Platelet Count 110L, Potassium Level 4.1, Red Blood Count 4.14L, Red Cell Distribution Width 13.9, Sodium Level 140, White Blood Count 7.2 04/05/16 11:03: Glucometer 112H Radiology CXR: showing moderate pulmonary edema present Procedures Echo: pending Assessment/Plan Assessment/Plan Admission Dx Acute Respiratory Distress with hypoxia ALEXIS Morbid Obesity Insulin Dependent DM HTN Paroxsymal Atrial Fibrillation CAD with Stent placement Plan 66 yo F admitted for respiratory distress with hypoxia in the 80s, with recent 40 pound weight gain Acute Respiratory Distress with hypoxia DDx: Decompensated CHF vs Decompensated ALEXIS vs morbid obesity vs PE - Concerned for CHF given recent 40 lb weight gain - CXR consistent with pulm edema, Echo pending - Continue lasix 40 mg PO daily - Strict I/Os, daily BMP - 2 L fluid restriction - Encouraged patient to get up to chair and use IS 3x per hour - Titrated Oxygen as tolerated to maintain > 92 % ALEXIS - Patient does not tolerate CPAP at home because of mask, will need referral to sleep center for desensitization - Discussed the importance of wearing CPAP every time she lays down because of added stress on her heart - Will notify Dr German of patient's admission as she sees him outpatient Morbid Obesity - Patient needs to focus on weight loss Insulin Dependent DM - Started home insulin therapy HTN: Controlled Paroxsymal Atrial Fibrillation: In Sinus, continue rhythm control medications CAD with Stent placement Debility: - Patient to go to [facility] Dispo: Continue admission to [facility] Social: See SW note, patient will d/c to SNF for PT DVT PPX: On PO anticoagulation FEN: CHO diet Diagnosis/Problems: Clinical Quality Measures DVT/VTE Risk/Contraindication: Risk Factor Score Per Nursin RFS Level Per Nursing on Admit: 4+=Very High Contraindications-Mechi: Other *list below* Other: On KRISHNA Alejandro MD Apr 05, 2016 11:35
[2016-04-05] MEDS ORDERED: IPRA3AMP INH (11:39)
[2016-04-05] MEDS ORDERED: INSU100V5 SQ (11:39)
--- NOTE | 2016-04-05 11:43 | ECHOCARDIOGRAPHY REPORT ---
PROCEDURE PHYSICIAN: ILIANA MILLER DATE OF PROCEDURE: 04/02/2016 TWO DIMENSIONAL ECHOCARDIOGRAM REPORT PRIMARY PHYSICIAN: Eliz Puri OTHER PHYSICIAN: Evita Jackson APRN REFERRING PHYSICIAN: ORDERING PHYSICIAN: ATTENDING PHYSICIAN: Jamaica Andino FAMILY PHYSICIAN: READING PHYSICIAN: INDICATION FOR THE PROCEDURE: Congestive heart failure. MEASUREMENTS DERIVED VALUES LV DIAMETER (LAX) NORMALS NORMALS Diastolic (3.6-5.2) Eject. Fract. (60%+/-6%) Systolic (2.3-3.9) Diastolic Vol. % Shortening (0.22-0.42) Systolic Vol. Aortic Root IVS THICKNESS Diastolic (0.6-1.1) LVPW THICKNESS Diastolic (0.6-1.1) LA DIAMETER Systolic (2.1-3.7) FINDINGS: 1. Atrial fibrillation. 2. This is a technically difficult study because of obesity. 3. The left atrial enlargement is noted. Left atrial diameter is 5.1 cm. 4. LV function is mildly reduced. LV EF is 40%. Mild concentric LVH present. Diastolic intraventricular septal diameter is 1.2 centimeters. However the study is limited and some osorio are not well visualized. 5. On the osorio that are visualized, there is no significant wall motion abnormality. 6. RV size and function is normal. 7. IVC is 1.2 cm. 8. Diastolic evaluation was not performed due to atrial fibrillation. 9. There is no pericardial effusion. VALVULAR STRUCTURE OF THE HEART: 1. Mild tricuspid regurgitation with RVSP of 39 mmHg. 2. Aortic valve is sclerotic with no significant stenosis. 3. There is no significant mitral valve or pulmonic valve disease. CONCLUSION: 1. This is a technically difficult study secondary to obesity. If accurate delineation of LV function and wall motion is required, then contrast echocardiogram is recommended. 2. In the views that are visualized, there is mildly reduced LV function with an EF of 40%. 3. Study was performed in atrial fibrillation. 4. There is mild concentric LVH present. 5. There is left atrial enlargement noted. 6. Mild pulmonary hypertension with RVSP of 39 mmHg is noted. Job ID: [id number] Dictated Date: 04/04/2016 21:02:05 Corrections Specialist Date: 04/05/2016 11:36:10 / nichelle BAKER
[2016-04-05] MEDS: ACETAMINOPHEN 325 MG TABLET/CAPLET (TYLENOL) PO PRN (11:52)
[2016-04-06] VITALS: BP 106/66
[2016-04-06 04:00] VITALS: BP 117/64
[2016-04-06] MEDS: ACETAMINOPHEN 325 MG TABLET/CAPLET (TYLENOL) PO PRN (05:33)
[2016-04-06] MEDS: inSUlin ASPART (NovoLOG) 1 UNIT/0.01 ML (CHARGE PER UNIT) SC SCH ×2 (05:34→08:21)
[2016-04-06 06:31] LABS: ANION GAP 10 MMOL/L (5-14); BLOOD UREA NITROGEN 29 MG/DL (7-18); BUN/CREATININE RATIO 33; CALCIUM 8.8 MG/DL (8.5-10.1); CARBON DIOXIDE 33 MMOL/L (21-32); CHLORIDE 97 MMOL/L (98-107); CREATININE SERUM 0.87 MG/DL (0.60-1.30); GFR ESTIMATED > 60; GLUCOSE 138 MG/DL (70-105); POTASSIUM 4.4 MMOL/L (3.6-5.0); SODIUM 140 MMOL/L (135-145)
[2016-04-06] MEDS: inSUlin DETERMIR 1 UNIT/0.01 ML (LEVEMIR) CHARGE PER UNIT SQ SCH (08:20)
[2016-04-06] MEDS: FUROSEMIDE 40 MG (LASIX) TAB PO SCH (08:20)
[2016-04-06] MEDS: lisINopril 20 MG (ZESTRIL) TAB PO SCH (08:20)
[2016-04-06] MEDS: GABAPENTIN 300 MG (NEURONTIN) CAP PO SCH (08:20)
[2016-04-06] MEDS: LEVOTHYROXINE 75 MCG (LEVOTHROID) TABLET PO SCH (08:20)
[2016-04-06] MEDS: APIXABAN 5 MG (ELIQUIS) TABLET PO SCH (08:20)
[2016-04-06] MEDS: ASPIRIN E.C. 81 MG (ECOTRIN) TAB PO SCH (08:20)
[2016-04-06] MEDS: meTOprolol SUCCINATE 100 MG (TOPROL XL) TAB PO SCH (08:20)
[2016-04-06 08:32] VITALS: BP 107/64
--- NOTE | 2016-04-06 09:47 | Discharge Inst-Skilled Nursing ---
Discharge Inst-Skilled NF Patient Instructions Patient Problems: Acute Respiratory Distress CHF Insulin Dependent DM ALEXIS on CPAP Paroxysmal A fib Morbid Obesity Deconditioning and debility Goal: - Improve overall endurance with activity - Weight loss - Decrease fall risk Patient Instructions: It is important for you to have your son bring you CPAP machine to use at the SNF Consult/Follow Up/Orders Follow up appt.: Evita Jackson your PCP will see you in the SNF Skilled NF Admit to: [facility] Certifications SNF I certify that SNF services are required to be given on an inpatient basis because of the above named patient's need for [facility] care on a continuing basis for the conditions(s) for which he/she was receiving inpatient hospital services prior to his/her transfer to the SNF. Halfway Facility Order: Nursing Services, Luggage Repairer-Evaluate & Treat, Physical Therapy-Evaluate & Treat Discharge Diet: ADA Diet (1600 minnie diet with 2L fluid restriction) Daily Activity as Tolerated: Yes New & Resume Previous Orders New & Resume Previous Orders Daily PT Evaluate and Treat [address] diet restriction 2L fluid restriction Bariatric bed Pneu Vac Indicated: Yes Discharge Medications New, Converted or Re-Newed RX: Call to Patients Pharmacy New Medications: Insulin Determir (Levemir) 1,000 Units/10 Ml Soln 10 UNIT SQ BID Days 30 EA Ipratropium/Albuterol Sulfate (Iprat-Albut 0.5-3(2.5) mg/3 ml) 3 Ml Ampul.neb 3 ML INH Q6HR PRN shortness of breath Days 30 INHALER Continued Medications: Apixaban (Eliquis) 5 Mg Tablet 5 MG PO BID TAB Aspirin (Aspirin Ec 81 Mg) 81 Mg Tabec 81 MG PO DAILY Diltiazem HCl (Cartia Xt) 120 Mg Cap.er.24h 120 MG PO DAILY CAP Exenatide Microspheres (Bydureon Pen) 2 Mg/0.65 Ml Pen.injctr 2 MG SQ WEEK INJECTS EVERY SATURDAYS Gabapentin (Gabapentin) 300 Mg Capsule 300 MG PO TID Insulin Aspart (Novolog Flexpen) 300 Units/3 Ml Solution 15 UNITS SQ AC Levothyroxine Sodium (Levothyroxine Sodium) 75 Mcg Tablet 75 MCG PO DAILY TAB Lisinopril (Lisinopril) 40 Mg Tablet 40 MG PO DAILY TAB Metoprolol Succinate (Metoprolol Succinate Xl 100 Mg) 100 Mg Tab.sr.24h 100 MG PO DAILY Metoprolol Succinate (Metoprolol Succinate Xl 100 Mg) 100 Mg Tab.sr.24h 50 MG PO HS TAKES 1/2 (100MG) TABLET Pioglitazone HCl (Actos) 30 Mg Tablet 30 MG PO DAILY TAB Discontinued Medications: Insulin Detemir (Levemir Flextouch) 100 Unit/1 Ml Insuln.pen 20 UNITS SQ BID Krishna Andino Apr 05, 2016 11:40 KRISHNA ANDINO MD Apr 05, 2016 11:50 am
--- NOTE | 2016-04-06 09:48 | Discharge Summary ---
Diagnosis/Chief Complaint Date of Admission Apr 01, 2016 at 4:58 pm Date of Discharge Apr 06, 2016 Admission Diagnosis Admission Diagnosis Acute Respiratory Distress with hypoxia ALEXIS Morbid Obesity Insulin Dependent DM HTN Paroxsymal Atrial Fibrillation CAD with Stent placement Discharge Diagnosis See Above Chief Complaint/HPI Chief Complaint/HPI 66 yo Patient that presented to [facility] to see her PCP Evita Jackson for worsening shortness of breath. She states that in about 6 weeks she has gained 40 pounds. Patient states that she has noticed in the last few weeks that she has been much more short of breath. She has a h/o CAD with retained heart function. Patient states that she does not wear her CPAP because she is not able to sleep or get comfortable with it on. Denies any chest or abdominal pain. Discharge Summary-Simple/Stand Procedures Echo: pending Consultations Discharge Physical Examination Allergies: Coded Allergies: liraglutide (Verified Allergy, Intermediate, NAUSEA, 04/01/16) VOMITING AND CHEST PAIN THAT RADIATES TO HER BACK simvastatin (Verified Allergy, Intermediate, 04/01/16) PT HAS ELEVATED LIVER ENZYMES WITH ANY STATIN DRUG Bacitracin Zinc (Verified Allergy, Mild, RASH, 04/01/16) bacitracin (Verified Allergy, Mild, RASH, 04/01/16) colistimethate sodium (Verified Allergy, Mild, RASH, 04/01/16) gramicidin D (Verified Allergy, Mild, RASH, 04/01/16) metformin HCl (Verified Allergy, Mild, 04/01/16) neomycin sulfate (Verified Allergy, Mild, RASH, 04/01/16) polymyxin B (Verified Allergy, Mild, RASH, 04/01/16) polymyxin B sulfate (Verified Allergy, Mild, RASH, 04/01/16) pramoxine HCl (Verified Allergy, Mild, RASH, 04/01/16) Vitals & I&Os Vital Sign - Last 12Hours Date Time Temp Pulse Resp B/P Pulse Ox O2 Delivery O2 Flow Rate FiO2 04/06/16 09:00 Nasal Cannula 2.00 04/06/16 08:32 97.1 103 18 107/64 94 Intake and Output 04/06/16 00:00 Intake Total 1580 ml Output Total 400 ml Balance 1180 ml General Appearance: Alert, Oriented X3, Cooperative, Mild Distress (with minimal activity), Other (Morbid obesity) HEENT: Atraumatic, PERRLA, EOMI, Mucous Memb Moist/[employer] Respiratory: Clear to Auscultation, Normal Air Movement Cardiovascular: Regular Rate, No Murmurs Abdominal: Normal Bowel Sounds, Soft, No Tenderness Extremities: No Clubbing, No Cyanosis, No Tenderness/Swelling, Other (2+ edema LE bilatearlly) Skin: No Rashes, No Breakdown, Other (Chronic hemociderin deposition on LE bilaterally) Neuro: Normal Speech, Sensation Intact, Cranial Nerves 3-12 NL Psych/Mental Status: Mental Status NL, Mood NL Hospital Course See final discharge diagnosis. Pending Labs none Other pending tests Echo: pending Radiology Reviewed CXR: showing moderate pulmonary edema present Discussion & Recommendations 66 yo morbidly obese F admitted for weight gain increasing shortness of breath for clinic. Patient was placed on IV lasix and diuresed with improving shortness of breath. She is very deconditioned and would benefit from SNF placement for PT and calorie restriction. [facility] [place] Patient has not been wearing CPAP at home which could be playing a role in decompensation of heart. F/u Needs - Desensitization to CPAP at sleep lab Discharge Condition at discharge Stable Instructions to patient/family Please see electonic discharge instructions given to patient. Discharge Medications Reviewed and agree with Discharge Medication list on patient's Discharge Instruction sheet Clinical Quality Measures DVT/VTE Risk/Contraindication: Risk Factor Score Per Nursin RFS Level Per Nursing on Admit: 4+=Very High Contraindications-Mechi: Other *list below* Other: On [employer]al[employer] Copy Copies To 1: [facility] KRISHNA Horne MD Apr 06, 2016 09:48
--- NOTE | 2016-04-09 10:27 | Physician Query-General Query ---
Physician Query-General Query to Physician: 1.What is the underlying cause of the acute respiratory distress with hypoxia? 2. The CXR lists moderate failure. EF is 40%, Pt treated with 40 mg IV lasix. Please clarify if this is: a. systolic, diastolic or both systolic and diastolic b. acute, chronic or acute on chronic. PHYSICIAN RESPONSE: Based on the clinical findings in the record, please respond to the query above on this document as an addendum. Possible, probable, or questionable diagnosis can be coded for INPATIENTS ONLY. Physician Response: Physician Response Acute systolic failure If you have questions please contact: Rn Private Duty: Jean Ext: [phone] Thank you for your time and cooperation. Clinical Youth Career Specialist/Rn Private Duty This is a permanent part of the medical record JEAN RODRÍGUEZ Apr 09, 2016 10:27 KRISHNA CABRERA MD Apr 17, 2016 13:17
[2016-06-07] MEDS ORDERED: VANC1PLA9 IV (10:05)
== END 2016-04-06 12:41 | DRG 292 ==
LOC: 4TH 16:58
PROVIDERS: ADMIT Family Medicine; ATTEND Family Medicine
DX: I11.0 Hypertensive heart disease with heart failure (principal); I50.21 Acute systolic (congestive) heart failure; G47.33 Obstructive sleep apnea (adult) (pediatric); R09.02 Hypoxemia; E66.01 Morbid (severe) obesity due to excess calories; Z68.44 Body mass index [BMI] 60.0-69.9, adult; I25.10 Atherosclerotic heart disease of native coronary artery without angina pectoris; I48.0 Paroxysmal atrial fibrillation; E11.9 Type 2 diabetes mellitus without complications; R53.81 Other malaise; Z91.19 Patient's noncompliance with other medical treatment and regimen; Z95.5 Presence of coronary angioplasty implant and graft; Z87.891 Personal history of nicotine dependence; Z85.42 Personal history of malignant neoplasm of other parts of uterus; Z79.4 Long term (current) use of insulin; Z23 Encounter for immunization
CPT/HCPCS: 36415; 71010; 80048; 80053; 82962; 85025; 93306; 94664; 94760; G0378

== ENCOUNTER → 2016-05-04 | Outpatient (CLI) | payer MEDICARE, OTHER ==
[~2016-05-04] MED LIST changes: +ACET-2267 PO; +ACET-789 PO; +APIX5TAB PO; +DILT120C53 PO; +DILT180C PO; +DILT180C84 PO; +EXEN2PEN SQ; +FURO40TA4 PO; +IBUP-1773 PO; +INSU100I29 SC; +INSU100I29 SQ; +INSU100V5 SQ; +IPRA3AMP IH; +IPRA3AMP INH; +LEVO75TA6 PO; +MAGN400O7 PO; +METO-333 PO; +NYST15CR TP; +PIOG30TA38 PO; +VANC1PLA9 IV
[2016-05-04 17:56] LABS: KETONES,URINE NEGATIVE (NEGATIVE); LEUKOCYTE ESTERASE ,URINE 3+ (NEGATIVE); NITRITE,URINE NEGATIVE (NEGATIVE); PH,URINE 5 (5-9); PROTEIN,URINE 3+ (NEGATIVE); UROBILINOGEN,URINE 1 MG/DL (NORMAL)
[2016-05-04 18:10] LABS: BILIRUBIN,URINE NEGATIVE (NEGATIVE); SQUAMOUS EPITHELIAL CELL,UR 0-2 /HPF; WBC,URINE >100 /HPF
== END ==
PROVIDERS: ATTEND Nurse Practitioner Community Health
DX: N39.0 Urinary tract infection, site not specified (principal)
CPT/HCPCS: 81000; 87077; 87088; 87186

== ENCOUNTER 2016-05-07 15:05 | Inpatient (IN) | payer MEDICARE, OTHER ==
[2016-05-07] VITALS (11 sets, daily range): BP systolic 83–122; BP diastolic 50–86
[~2016-05-07] VITALS: Ht 167.6 cm; Wt 203.7 kg
[~2016-05-07 15:05] MED LIST changes: -ACET-2267 PO; -ACET-789 PO; -DILT180C PO; -DILT180C84 PO; -FURO40TA4 PO; -IBUP-1773 PO; -INSU100I29 SC; -IPRA3AMP IH; -MAGN400O7 PO; -METO-333 PO; -NYST15CR TP; -VANC1PLA9 IV
[2016-05-07 15:37] LABS: BASOPHILS % (AUTO) 0 % (0-10); EOSINOPHILS # (AUTO) 0.1 10^3/uL (0.0-0.3); EOSINOPHILS % (AUTO) 2 % (0-10); LYMPHOCYTES # (AUTO) 0.7 X 10^3 (1.0-4.0); LYMPHOCYTES % (AUTO) 11 % (12-44); MEAN CORPUSCULAR HEMOGLOBIN 32 PG (25-34); MEAN CORPUSCULAR HGB CONC 30 G/DL (32-36); MEAN CORPUSCULAR VOLUME 109 FL (80-99); MONOCYTES # (AUTO) 0.7 X 10^3 (0.0-1.0); MONOCYTES % (AUTO) 12 % (0-12); NEUTROPHILS # (AUTO) 4.5 X 10^3 (1.8-7.8); NEUTROPHILS % (AUTO) 75 % (42-75); PLATELET COUNT 76 10^3/uL (130-400); RED BLOOD COUNT 3.71 10^6/uL (4.35-5.85); RED CELL DISTRIBUTION WIDTH 14.9 % (10.0-14.5); WHITE BLOOD COUNT 5.9 10^3/uL (4.3-11.0)
[2016-05-07] MEDS ORDERED: ACET-789 PO (15:40)
[2016-05-07] MEDS ORDERED: NYST15CR TP (15:42)
[2016-05-07 15:57] LABS: ALBUMIN 3.3 G/DL (3.2-4.5); BILIRUBIN,TOTAL 0.4 MG/DL (0.1-1.0); CALCIUM 9.2 MG/DL (8.5-10.1); CREATININE SERUM 1.58 MG/DL (0.60-1.30); POTASSIUM 5.7 MMOL/L (3.6-5.0); TOTAL PROTEIN 6.6 G/DL (6.4-8.2)
[2016-05-07 16:17] LABS: THYROID STIMULATING HORMONE 3.3 UIU/ML (0.35-4.94)
--- NOTE | 2016-05-07 16:22 | Diagnostic Imaging Report ---
Portable upright radiograph of the chest. INDICATION: Shortness of breath. FINDINGS: The heart size is markedly enlarged. There is interstitial thickening in a diffuse fashion suggestive of interstitial pulmonary edema. The right hemidiaphragm is elevated with lateralization of the diaphragm peak, which may relate to subpulmonic effusion. No pneumothorax. Mediastinum and maryjane appear similar to 04/02/2016. IMPRESSION: Cardiomegaly with interstitial pulmonary edema. Question of right subpulmonic effusion. Dictated by: Dictated on workstation # [id number]
[2016-05-07] MEDS ORDERED: RT-ALBUTEROL/IPRATROPIUM 3 ML (DUONEB) VIAL INH ONE (16:30)
[2016-05-07] MEDS ORDERED: cefTRIAXone INJECTION 1,000 MG in NS (IVPB) 50 ML IV ONE (16:45)
[2016-05-07 16:59] LABS: ABG BASE EXCESS 6.5 MMOL/L (-2.5-2.5); ABG HCO3 38 MMOL/L (23-27); ABG OXYGEN SATURATION 95 % (94-100); ABG PO2 77 MMHG (79-93); ABG TCO2 41.3 MMOL/L (21.0-31.0)
[2016-05-07 17:02] LABS: ABG PCO2 100 MMHG (35-45); ABG PH 7.19 (7.37-7.43); ALLENS TEST POSITIVE; PATIENT TEMP 96.3
[2016-05-07] MEDS ORDERED: FUROSEMIDE 40 MG/4 ML INJ (LASIX) IVP ONE (17:45)
[2016-05-07] MEDS ORDERED: SOD POLYSTERENE 15 GM/60 ML (KAYEXALATE) UNIT DOSE PO ONE (17:45)
--- NOTE | 2016-05-07 17:54 | ED General ---
General Chief Complaint: Altered Mental Status Stated Complaint: AMS Nursing Triage Note: pt sent from [facility] for altered mental status. Upon arrival pt alert and oriented and able to follow commands. Pt denies any pain or known illness at this time. Nursing Sepsis Screen: No Definite Risk Source of Information: Patient Exam Limitations: No Limitations History of Present Illness Time Seen by Provider: 15:05 Initial Comments This 66-year-old woman presents to the emergency room via EMS from [facility] in [place] with primary complaint of altered mental status per staff. Change in mental status occurred rather abruptly. She reportedly had stable blood sugars in the 110s. Oxygen saturation was in the low 90s on 3 L nasal cannula. A urinalysis performed on May for grew out Proteus sensitive to most antibiotics. Patient reportedly has had significant weight gain, presumably from water weight, since the beginning of February. longterm staff reported nearly 60 pounds in weight gain during that time. She is also morbidly obese. They also reported leg weeping this morning. She has a history of acute respiratory failure for which she was admitted in March. The H&P from that visit notes that she is not comfortable with her CPAP. Patient reportedly had normal mental status earlier in the day until she abruptly became obtunded this afternoon. She was actually alert and oriented and conversational upon arrival to the ER. She has a history of atrial fibrillation and is anticoagulated with Eliquis. She also has a history of coronary artery disease with her last heart catheter in 2013 demonstrating a patent stent with otherwise mild coronary artery disease. An echocardiogram one month ago reported an ejection fraction of 40 percent. Patient denies any shortness of breath or chest pain. Allergies and Home Medications Allergies Coded Allergies: liraglutide (Verified Allergy, Intermediate, NAUSEA, 04/01/16) VOMITING AND CHEST PAIN THAT RADIATES TO HER BACK simvastatin (Verified Allergy, Intermediate, 04/01/16) PT HAS ELEVATED LIVER ENZYMES WITH ANY STATIN DRUG Bacitracin Zinc (Verified Allergy, Mild, RASH, 04/01/16) bacitracin (Verified Allergy, Mild, RASH, 04/01/16) colistimethate sodium (Verified Allergy, Mild, RASH, 04/01/16) gramicidin D (Verified Allergy, Mild, RASH, 04/01/16) metformin HCl (Verified Allergy, Mild, 04/01/16) neomycin sulfate (Verified Allergy, Mild, RASH, 04/01/16) polymyxin B (Verified Allergy, Mild, RASH, 04/01/16) polymyxin B sulfate (Verified Allergy, Mild, RASH, 04/01/16) pramoxine HCl (Verified Allergy, Mild, RASH, 04/01/16) Home Medications Apixaban 5 Mg Tablet 5 MG PO BID (Reported) Aspirin 81 Mg Tabec 81 MG PO DAILY (Reported) Diltiazem HCl 180 Mg Cap.er.24h 180 MG PO DAILY (Reported) Exenatide Microspheres 2 Mg/0.65 Ml Pen.injctr 2 MG SQ Sa (Reported) Furosemide 40 Mg Tablet 40 MG PO DAILY (Reported) Gabapentin 300 Mg Capsule 300 MG PO TID (Reported) Ibuprofen 600 Mg Tablet 600 MG PO Q6H PRN PRN PAIN (Reported) Insulin Aspart 300 Units/3 Ml Solution 15 UNITS SQ AC (Reported) Insulin Detemir 100 Unit/1 Ml Insuln.pen 10 UNITS SC BID (Reported) Ipratropium/Albuterol Sulfate 3 Ml Ampul.neb 3 ML IH Q6H PRN PRN SHORTNESS OF BREATH (Reported) Levothyroxine Sodium 75 Mcg Tablet 75 MCG PO DAILY (Reported) Metoprolol Tartrate 25 Mg Tablet 25 MG PO BID (Reported) Nystatin 15 Gm Cream..g. TP BID (Reported) APPLY TO ABDOMINAL FOLDS Pioglitazone HCl 30 Mg Tablet 30 MG PO DAILY (Reported) Constitutional: no symptoms reported EENTM: no symptoms reported Respiratory: see HPI Cardiovascular: see HPI Gastrointestinal: no symptoms reported Genitourinary: see HPI : No Musculoskeletal: no symptoms reported Skin: see HPI Psychiatric/Neurological: See HPI Hematologic/Lymphatic: No Symptoms Reported Immunological/Allergic: no symptoms reported Past Awzunxp-Ycjmyn-Wsxgla Hx Patient Social History Alcohol Use: Denies Use Recreational Drug Use: No Smoking Status: Former Smoker Type Used: Cigarettes Recent Foreign Travel: No Contact w/Someone Who Travel: No Recent Infectious Disease Expo: No Recent Hopitalizations: Yes (had gall bladder surgery and uterine cancer) Immunizations Up To Date Tetanus Booster (TDap): Less than 5yrs Date of Influenza Vaccine: Jan 09, 2016 Seasonal Allergies Seasonal Allergies: No Surgeries HX Surgeries: Yes (CARDIAC STENT, hernia) Surgeries: Coronary Stent, Gallbladder, Hysterectomy Respiratory Hx Respiratory Disorders: Yes (history of respiratory failure) Respiratory Disorders: Sleep Apnea Cardiovascular Hx Cardiac Disorders: Yes (palpitations, congestive heart failure) Cardiac Disorders: Atrial Fibrillation, Coronary Artery Disease, Hypertension Neurological Hx Neurological Disorders: Yes Neurological Disorders: Neuropathy Reproductive System Hx Reproductive Disorders: No Sexually Transmitted Disease: No HIV/AIDS: No Female Reproductive Disorders: Denies Genitourinary Hx Genitourinary Disorders: No Gastrointestinal Hx Gastrointestinal Disorders: No Musculoskeletal Hx Musculoskeletal Disorders: Yes (muscle weakness) Endocrine Hx Endocrine Disorders: Yes (morbid obesity) Endocrine Disorders: Diabetes, Insulin dep, Hypothyroidsim HEENT HX ENT Disorders: No Cancer Hx Cancer: Yes (uterine) Cancer: Uterine Psychosocial Hx Psychiatric Problems: No (does take celexa) Integumentary HX Skin/Integumentary Disorder: No Blood Transfusions Hx Blood Disorders: No Adverse Reaction to a Blood Tr: No Family Medical History Family Medial History: Patient reports no known family medical history. Physical Exam Vital Signs Vital Sign - Last 12Hours 05/10/16 00:00 Temp 99.0 Pulse 130 Resp 25 B/P 105/59 Pulse Ox 94 O2 Delivery Nasal Cannula O2 Flow Rate 5.00 Capillary Refill : Less Than 3 Seconds General Appearance: No Apparent Distress WD/WN Obese HEENT: PERRL/EOMI Normal ENT Inspection Neck: Normal Inspection Respiratory: Decreased Breath Sounds Other (diminished breath sounds without crackles or wheezing. 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 No focal deficits identified) Skin: Normal Color Warm/Dry Progress/Results/Core Measures Results/Orders Lab Results My Orders Medications Given in ED Vital Signs/I&O Blood Pressure Mean: 80 Point of Care Testing Finger Stick Blood Glucose: 114 Progress Note : Time: 18:37 Progress Note Patient was actually alert and oriented on arrival. However, as staff interventions became less frequent, she became more relaxed and subsequently became less alert. CO2 retention was suspected. ABG showed a marked hypercarbia. BiPAP was initiated along with a DuoNeb treatment. Patient was felt to have fluid overload, especially as evidenced by the pulmonary edema on chest x-ray. Lasix 40 mg IV was administered. A Moulton catheter was placed. There is some gross blood in the urine. For this reason, anticoagulation will be suspended. Prior urine culture from May 04 was reviewed and Rocephin was initiated. Patient did not appear septic as she was afebrile without tachycardia or leukocytosis. Case was reviewed with Dr. Bansal who requested a pulmonary and cardiology consultation. Dr. Hanson excepts consultation and agrees with Lasix administration. He also requested Kayexalate for treatment of hyperkalemia. Patient was not alert enough to take oral at the time of this dictation and Kayexalate was therefore being temporarily deferred. Dr. German was notified of the pulmonary consult. The eICU physician was notified of patient's condition. He requested a repeat potassium level be drawn around 19: 30. This was placed on the admission order set. An ABG was ordered for the same time. Blood sugars were monitored closely while in the emergency room. Although very somnolent, patient remained arousable. Diagnostic Imaging Diagonstic Imaging: Xray Plain Films/CT/US/NM/MRI: chest Comments Chest x-ray viewed by me and report reviewed. See report below: NAME: RYAN MENDIETA [facility] REC#: [id number] PT STATUS: REG ER : 1950 PHYSICIAN: KALEB BRAGA MD ADMIT DATE: 05/07/16/ER Signed Date of Exam:05/07/16 CHEST 1 VIEW, AP/PA ONLY Portable upright radiograph of the chest. INDICATION: Shortness of breath. FINDINGS: The heart size is markedly enlarged. There is interstitial thickening in a diffuse fashion suggestive of interstitial pulmonary edema. The right hemidiaphragm is elevated with lateralization of the diaphragm peak, which may relate to subpulmonic effusion. No pneumothorax. Mediastinum and maryjane appear similar to 04/02/2016. IMPRESSION: Cardiomegaly with interstitial pulmonary edema. Question of right subpulmonic effusion. Dictated by: Dictated on workstation # [id number] Dict: 05/07/16 1559 Trans: 05/07/16 1639 [id number] Interpreted by: OLEGARIO PHELPS MD Electronically signed by: OLEGARIO PHELPS MD 05/07/16 1641 Departure Impression Impression: Primary Impression: Hypoventilation associated with obesity Additional Impressions: Hypercarbia Respiratory acidosis Fluid overload Qualified Code: E87.70 - Fluid overload, unspecified Urinary tract infection Qualified Code: N39.0 - Urinary tract infection, site not specified Hyperkalemia Hematuria Renal insufficiency Disposition: ADMITTED INPATIENT Condition: Stable Decision to Admit Reason: Admit from ER (General) Decision to Admit/Date: May 07, 2016 Time/Decision to Admit Time: 19:50 Departure-Patient Inst. Referrals: KRISHNA CABRERA MD (PCP/Family) Primary Care Physician KALEB BRAGA MD May 07, 2016 17:54 32-36 G/DL Mean Corpuscular Volume 109 H 80-99 FL Mean Platelet Volume 7.4-10.4 FL Monocytes # (Auto) 0.7 0.0-1.0 X 10^3 Monocytes (%) (Auto) 12 0-12 % Neutrophils # (Auto) 4.5 1.8-7.8 X 10^3 Neutrophils (%) (Auto) 75 42-75 % Platelet Count 76 L 130-400 10^3/uL Potassium Level 5.7 H 3.6-5.0 MMOL/L Red Blood Count 3.71 L 4.35-5.85 10^6/uL Red Cell Distribution Width 14.9 H 10.0-14.5 % Sodium Level 138 135-145 MMOL/L Thyroid Stimulating Hormone (TSH) 3.30 0.35-4.94 UIU/ML Total Bilirubin 0.4 0.1-1.0 MG/DL Total Protein 6.6 6.4-8.2 G/DL White Blood Count 5.9 4.3-11.0 10^3/uL Ben Test POSITIVE Arterial Blood Base Excess 6.5 H -2.5-2.5 MMOL/L Arterial Blood HCO3 38 H 23-27 MMOL/L Arterial Blood Oxygen Saturation 95 94-100 % Arterial Blood Partial Pressure CO2 100 *H 35-45 MMHG Arterial Blood Partial Pressure O2 77 L 79-93 MMHG Arterial Blood Total CO2 41.3 H 21.0-31.0 MMOL/L Arterial Blood pH 7.19 *L 7.37-7.43 Blood Gas Inspired Oxygen 4L Blood Gas Patient Temperature 96.3 Blood Gas Puncture Site LEFT RADIAL Blood Gas Ventilator Setting NO Urine Bacteria FEW H /HPF Urine Bilirubin 1+ H NEGATIVE Urine Casts NONE /LPF Urine Clarity BLOODY H Urine Color BROWN H Urine Crystals NONE /LPF Urine Culture Indicated YES Urine Glucose (UA) NEGATIVE NEGATIVE Urine Ketones NEGATIVE NEGATIVE Urine Leukocyte Esterase 3+ H NEGATIVE Urine Mucus NEGATIVE /LPF Urine Nitrite POSITIVE H NEGATIVE Urine Protein 3+ H NEGATIVE Urine RBC TNTC H /HPF Urine RBC (Auto) 5+ H NEGATIVE Urine Specific [place] 1.025 H 1.016-1.022 Urine Squamous Epithelial Cells NONE /HPF Urine Urobilinogen 1 NORMAL MG/DL Urine WBC >100 H /HPF Urine pH 5 5-9 Glucometer 114 H 70-110 MG/DL My Orders Orders-KALEB BRAGA MD Chest 1 View, Ap/Pa Only (05/07/16 15:27) BNP (05/07/16 15:27) Cbc With Automated Diff (05/07/16 15:27) Comprehensive Metabolic Panel (05/07/16 15:27) Thyroid Stimulating Hormone (05/07/16 15:27) Saline Lock/Iv-Start (05/07/16 15:27) O2 (05/07/16 15:27) Monitor-Rhythm Ecg Trace Only (05/07/16 15:27) Free T4 (Free Thyroxine) (05/07/16 15:27) Arterial Blood Gas (05/07/16 16:28) Accucheck Stat ONCE (05/07/16 16:28) Albuterol/Ipra Inhalation Soln (Duoneb I (05/07/16 16:30) Svn Sm Volume Nebulizer Rt-Rfs (05/07/16 16:28) CPAP (05/07/16 16:28) Ceftriaxone Injection (Rocephin Injectio (05/07/16 16:45) Furosemide Injection (Lasix Injection) (05/07/16 17:45) Sodium Polystyrene Sulfonate (Kayexalate (05/07/16 17:45) Accucheck Stat ONCE (05/07/16 17:46) Accucheck Stat ONCE (05/07/16 17:46) Ua Culture If Indicated (05/07/16 17:48) Urine Culture (05/07/16 17:02) Medications Given in ED Current Medications Medications Dose Ordered Sig/Essence Route Start Time Stop Time Status Last Admin Dose Admin Ceftriaxone Sodium/Sodium Chloride 50 ml @ 100 mls/hr ONCE ONCE IV 05/07/16 16:45 05/07/16 17:14 DC 05/07/16 17:08 100 MLS/HR Vital Signs/I&O Vital Sign - Last 12Hours 05/07/16 05/07/16 05/07/16 15:18 15:31 16:55 Temp 96.5 Pulse 84 88 Resp 18 18 B/P 98/71 Pulse Ox 96 100 O2 Delivery Nasal Cannula O2 Flow Rate 4 50 Blood Pressure Mean: 80 Point of Care Testing Finger Stick Blood Glucose: 114 Progress Note : Time: 18:37 Progress Note Patient was actually alert and oriented on arrival. However, as staff interventions became less frequent, she became more relaxed and subsequently became less alert. ABG showed a marked hypercarbia. BiPAP was initiated along with a DuoNeb treatment. Patient was felt to have fluid overload, especially as evidenced by the pulmonary edema on chest x-ray. Lasix 40 mg IV was administered. A Moulton catheter was placed. There is some gross blood in the urine. For this reason, anticoagulation will be suspended. Prior urine culture from May 04 was reviewed and Rocephin was initiated. Patient did not appear septic as she was afebrile without tachycardia or leukocytosis. After Nimisha who requested a pulmonary and cardiology consultation. Dr. Hanson excepts consultation and agrees with Lasix administration. He also requested Kayexalate for treatment of hyperkalemia. Patient was not alert enough to take oral at the time of this dictation and Kayexalate was therefore being temporarily deferred. Dr. German was notified of the pulmonary consult. The eICU physician was notified of patient's condition. He requested a repeat potassium level be drawn around 19:30. This was placed on the admission order set. An ABG was ordered for the same time. Blood sugars were monitored closely while in the emergency room. Although very somnolent, patient remained arousable. Diagnostic Imaging Diagonstic Imaging: Xray Plain Films/CT/US/NM/MRI: chest Comments Chest x-ray viewed by me and report reviewed. See report below: NAME: RYAN MENDIETA [facility] REC#: [id number] PT STATUS: REG ER : 1950 PHYSICIAN: KALEB BRAGA MD ADMIT DATE: 05/07/16/ER Signed Date of Exam:05/07/16 CHEST 1 VIEW, AP/PA ONLY Portable upright radiograph of the chest. INDICATION: Shortness of breath. FINDINGS: The heart size is markedly enlarged. There is interstitial thickening in a diffuse fashion suggestive of interstitial pulmonary edema. The right hemidiaphragm is elevated with lateralization of the diaphragm peak, which may relate to subpulmonic effusion. No pneumothorax. Mediastinum and maryjane appear similar to 04/02/2016. IMPRESSION: Cardiomegaly with interstitial pulmonary edema. Question of right subpulmonic effusion. Dictated by: Dictated on workstation # [id number] Dict: 05/07/16 1559 Trans: 05/07/16 1639 [id number] Interpreted by: OLEGARIO PHELPS MD Electronically signed by: OLEGARIO PHELPS MD 05/07/16 1641 Departure Impression Impression: Primary Impression: Hypoventilation associated with obesity Additional Impressions: Hypercarbia Respiratory acidosis Fluid overload Qualified Code: E87.70 - Fluid overload, unspecified Urinary tract infection Qualified Code: N39.0 - Urinary tract infection, site not specified Hyperkalemia Hematuria Renal insufficiency Disposition: 09 ADMITTED INPATIENT Condition: Stable Decision to Admit Reason: Admit from ER (General) Decision to Admit/Date: May 07, 2016 Time/Decision to Admit Time: 19:50 Departure-Patient Inst. Referrals: KRISHNA CABRERA MD (PCP/Family) Primary Care Physician KALEB BRAGA MD May 07, 2016 17:54
[2016-05-07 18:06] LABS: BILIRUBIN,URINE 1+ (NEGATIVE); KETONES,URINE NEGATIVE (NEGATIVE); LEUKOCYTE ESTERASE ,URINE 3+ (NEGATIVE); NITRITE,URINE POSITIVE (NEGATIVE); PH,URINE 5 (5-9); PROTEIN,URINE 3+ (NEGATIVE); UROBILINOGEN,URINE 1 MG/DL (NORMAL); WBC,URINE >100 /HPF
[2016-05-07] MEDS: inSUlin (REGULAR) HUMAN 1 UNIT/0.01 ML (CHARGE PER UNIT) SC SCH ×5 (19:30→23:30)
[2016-05-07] MEDS ORDERED: ONDANSETRON 4 MG/2 ML (SDV) Z0FRAN IV PRN (19:30)
[2016-05-07] MEDS ORDERED: CATHETER FLUSH 10 ML SYR IV PRN (19:30)
[2016-05-07 20:12] LABS: CALCIUM 9.1 MG/DL (8.5-10.1); CREATININE SERUM 1.5 MG/DL (0.60-1.30); POTASSIUM 5.8 MMOL/L (3.6-5.0)
[2016-05-07 20:18] LABS: ABG BASE EXCESS 5.9 MMOL/L (-2.5-2.5); ABG HCO3 37 MMOL/L (23-27); ABG OXYGEN SATURATION 99 % (94-100); ABG PO2 199 MMHG (79-93); ABG TCO2 39.4 MMOL/L (21.0-31.0)
[2016-05-07 20:22] LABS: ABG PCO2 92 MMHG (35-45); ABG PH 7.21 (7.37-7.43); ALLENS TEST POSITIVE
[2016-05-07 20:23] LABS: PATIENT TEMP 98.1
[2016-05-07] MEDS ORDERED: RT-ALBUTEROL/IPRATROPIUM 3 ML (DUONEB) VIAL INH PRN (22:00)
[2016-05-07] MEDS: RT-ALBUTEROL/IPRATROPIUM 3 ML (DUONEB) VIAL INH SCH (22:15)
[2016-05-08] VITALS (18 sets, daily range): BP systolic 82–142; BP diastolic 32–111
[2016-05-08] MEDS: inSUlin (REGULAR) HUMAN 1 UNIT/0.01 ML (CHARGE PER UNIT) SC SCH ×12 (00:23→20:16)
[2016-05-08] MEDS ORDERED: FUROSEMIDE 40 MG/4 ML INJ (LASIX) IV ONE (00:45)
[2016-05-08] MEDS: RT-ALBUTEROL/IPRATROPIUM 3 ML (DUONEB) VIAL INH SCH ×6 (02:28→21:58)
[2016-05-08 04:34] LABS: BASOPHILS % (AUTO) 1 % (0-10); EOSINOPHILS # (AUTO) 0.2 10^3/uL (0.0-0.3); EOSINOPHILS % (AUTO) 4 % (0-10); LYMPHOCYTES # (AUTO) 0.8 X 10^3 (1.0-4.0); LYMPHOCYTES % (AUTO) 15 % (12-44); MEAN CORPUSCULAR HEMOGLOBIN 32 PG (25-34); MEAN CORPUSCULAR HGB CONC 30 G/DL (32-36); MEAN CORPUSCULAR VOLUME 108 FL (80-99); MONOCYTES # (AUTO) 0.6 X 10^3 (0.0-1.0); MONOCYTES % (AUTO) 12 % (0-12); NEUTROPHILS # (AUTO) 3.5 X 10^3 (1.8-7.8); NEUTROPHILS % (AUTO) 69 % (42-75); PLATELET COUNT 64 10^3/uL (130-400); RED BLOOD COUNT 3.54 10^6/uL (4.35-5.85); RED CELL DISTRIBUTION WIDTH 14.8 % (10.0-14.5); WHITE BLOOD COUNT 5.1 10^3/uL (4.3-11.0)
[2016-05-08 05:11] LABS: CALCIUM 9.1 MG/DL (8.5-10.1); CREATININE SERUM 1.32 MG/DL (0.60-1.30); PHOSPHORUS 4.1 MG/DL (2.3-4.7)
[2016-05-08 05:15] LABS: POTASSIUM 5.4 MMOL/L (3.6-5.0)
[2016-05-08] MEDS ORDERED: KCL 20 MEQ TAB (K-DUR) PO SCH (06:00)
[2016-05-08] MEDS ORDERED: MAGNESIUM 1 GM/100 ML IVPB 100 ML IV SCH (06:00)
[2016-05-08] MEDS ORDERED: POTASSIUM CL 10MEQ/50ML IVPB 50 ML IV SCH (06:00)
[2016-05-08] MEDS: NS IV 1000 ML 1,000 ML IV SCH ×2 (06:27→13:46)
--- NOTE | 2016-05-08 06:45 | Pulmonary Consultation ---
History of Present Illness History of Present Illness Date of Consultation 05/08/16 06:37 Date of Admission History of Present Illness 66yo presented from [facility] in [place] secondary to MS changes. SHe recently treated for UTI that grew Proteus. SHe has also had a 60lb wt gain and bilateral LE edema. An echocardiogram one month ago reported an ejection fraction of 40 percent. Allergies and Home Medications Allergies Coded Allergies: liraglutide (Verified Allergy, Intermediate, NAUSEA, 04/01/16) VOMITING AND CHEST PAIN THAT RADIATES TO HER BACK simvastatin (Verified Allergy, Intermediate, 04/01/16) PT HAS ELEVATED LIVER ENZYMES WITH ANY STATIN DRUG Bacitracin Zinc (Verified Allergy, Mild, RASH, 04/01/16) bacitracin (Verified Allergy, Mild, RASH, 04/01/16) colistimethate sodium (Verified Allergy, Mild, RASH, 04/01/16) gramicidin D (Verified Allergy, Mild, RASH, 04/01/16) metformin HCl (Verified Allergy, Mild, 04/01/16) neomycin sulfate (Verified Allergy, Mild, RASH, 04/01/16) polymyxin B (Verified Allergy, Mild, RASH, 04/01/16) polymyxin B sulfate (Verified Allergy, Mild, RASH, 04/01/16) pramoxine HCl (Verified Allergy, Mild, RASH, 04/01/16) Home Medications Acetaminophen with Codeine 1 Each Tablet 1 EACH PO Q6H (Reported) Apixaban 5 Mg Tablet 5 MG PO BID (Reported) Aspirin 81 Mg Tabec 81 MG PO DAILY (Reported) Diltiazem HCl 120 Mg Cap.er.24h 120 MG PO DAILY (Reported) Exenatide Microspheres 2 Mg/0.65 Ml Pen.injctr 2 MG SQ WEEK (Reported) INJECTS EVERY SATURDAYS Gabapentin 300 Mg Capsule 300 MG PO TID (Reported) Insulin Aspart 300 Units/3 Ml Solution 15 UNITS SQ AC (Reported) Insulin Determir 1,000 Units/10 Ml Soln 30Days 10 UNIT SQ BID Prescribed by: KRISHNA CABRERA on 04/05/16 1139 Ipratropium/Albuterol Sulfate 3 Ml Ampul.neb 30Days 3 ML INH Q6HR PRN PRN shortness of breath Prescribed by: KRISHNA CABRERA on 04/05/16 1139 Levothyroxine Sodium 75 Mcg Tablet 75 MCG PO DAILY (Reported) Lisinopril 40 Mg Tablet 40 MG PO DAILY (Reported) Metoprolol Succinate 100 Mg Tab.sr.24h 100 MG PO DAILY (Reported) Metoprolol Succinate 100 Mg Tab.sr.24h 50 MG PO HS (Reported) TAKES 1/2 (100MG) TABLET Nystatin 15 Gm Cream..g. 1 GM TP (Reported) Pioglitazone HCl 30 Mg Tablet 30 MG PO DAILY (Reported) Past Xweozex-Udoopg-Uydmdw Hx Patient Social History Alcohol Use: Denies Use Recreational Drug Use: No Smoking Status: Former Smoker Type Used: Cigarettes Recent Foreign Travel: No Contact w/Someone Who Travel: No Recent Infectious Disease Expo: No Recent Hopitalizations: Yes (had gall bladder surgery and uterine cancer) Physical Abuse Screen: No Sexual Abuse: No Immunizations Up To Date Tetanus Booster (TDap): Less than 5yrs Date of Influenza Vaccine: Jan 09, 2016 Seasonal Allergies Seasonal Allergies: No Surgeries HX Surgeries: Yes (CARDIAC STENT, hernia) Surgeries: Coronary Stent, Gallbladder, Hysterectomy Respiratory Hx Respiratory Disorders: Yes (history of respiratory failure) Respiratory Disorders: Sleep Apnea Cardiovascular Hx Cardiac Disorders: Yes (palpitations, congestive heart failure) Cardiac Disorders: Atrial Fibrillation, Coronary Artery Disease, Hypertension Neurological Hx Neurological Disorders: Yes Neurological Disorders: Neuropathy Reproductive System Hx Reproductive Disorders: No Sexually Transmitted Disease: No HIV/AIDS: No Female Reproductive Disorders: Denies Genitourinary Hx Genitourinary Disorders: No Gastrointestinal Hx Gastrointestinal Disorders: No Musculoskeletal Hx Musculoskeletal Disorders: Yes (muscle weakness) Endocrine Hx Endocrine Disorders: Yes (morbid obesity) Endocrine Disorders: Diabetes, Insulin dep, Hypothyroidsim HEENT HX ENT Disorders: No Cancer Hx Cancer: Yes (uterine) Cancer: Uterine Psychosocial Hx Psychiatric Problems: No (does take celexa) Integumentary HX Skin/Integumentary Disorder: No Blood Transfusions Hx Blood Disorders: No Adverse Reaction to a Blood Tr: No Family Medical History Family Medial History: Patient reports no known family medical history. Exam Exam Vital Signs Date Time Temp Pulse Resp B/P Pulse Ox O2 Delivery O2 Flow Rate FiO2 05/08/16 06:00 108 32 82 NIV Bilevel 35.00 05/08/16 05:00 101 20 101/32 95 NIV Bilevel 35.00 05/08/16 04:00 93 5.00 05/08/16 04:00 91 17 129/96 NIV Bilevel 35.00 05/08/16 03:22 97.0 05/08/16 03:00 92 12 113/57 NIV Bilevel 35.00 05/08/16 02:28 89 18 100 35.00 05/08/16 02:22 96.0 05/08/16 02:00 93 19 124/98 95 NIV Bilevel 35.00 05/08/16 01:00 82 19 82/57 100 NIV Bilevel 35.00 05/08/16 01:00 82 05/08/16 00:14 91 18 98 35.00 05/08/16 00:00 93 35.00 05/08/16 00:00 91 17 129/96 NIV Bilevel 35.00 05/07/16 23:00 104 21 93/66 98 NIV Bilevel 35.00 05/07/16 22:15 89 18 98 35.00 05/07/16 22:00 81 19 122/85 91 NIV Bilevel 35.00 05/07/16 21:50 98 35 05/07/16 21:46 100 05/07/16 21:30 81 11 83/50 92 NIV Bilevel 35.00 05/07/16 21:00 90 21 100/85 100 NIV Bilevel 35.00 05/07/16 20:30 84 14 117/82 100 NIV Bilevel 35.00 05/07/16 20:00 95.8 77 27 121/86 98 NIV Bilevel 35.00 05/07/16 20:00 98 35.00 05/07/16 20:00 100 35.00 05/07/16 19:45 94 13 97/70 97 NIV Bilevel 35.00 05/07/16 19:30 95.8 05/07/16 19:30 77 16 104/68 97 NIV Bilevel 35.00 05/07/16 19:15 83 16 89/70 98 NIV Bilevel 35.00 05/07/16 19:00 89 15 102/72 98 NIV Bilevel 35.00 05/07/16 19:00 89 05/07/16 18:50 105 21 98 50.00 05/07/16 18:27 96.5 88 18 100 50 05/07/16 16:55 88 18 100 50 05/07/16 15:31 96 Nasal Cannula 4 05/07/16 15:18 96.5 84 18 98/71 I & O 05/08/16 07:00 Intake Total 50 ml Balance 50 ml General Appearance: No Apparent Distress WD/WN Obese HEENT: PERRL/EOMI Normal ENT Inspection Neck: Normal Inspection Respiratory: Decreased Breath Sounds Other (diminished breath sounds without crackles or wheezing. 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 No focal deficits identified) Skin: Normal Color Warm/Dry Results Lab Laboratory Tests 05/07/16 15:25 05/07/16 19:34 05/08/16 04:05 Assessment/Plan Assessment/Plan Unresponsive on admission - now A&0x 3 -continue neuro checks Q2hrs CHFAE with EF 40% per echo -start Lasix ( pt was not on lasix as out patient) Morbid obesity with obesity hypoventilation syndrome Acute on chronic respiratory failure -BiPAP PRN -repeat ABG UTI -Rocephin Debility -PT/OT -increase activity Transfer to ICU stepdown status. Clinical Quality Measures DVT/VTE Risk/Contraindication: Risk Factor Score Per Nursin RFS Level Per Nursing on Admit: 4+=Very High STAN BOOKER DO May 08, 2016 06:45
[2016-05-08] MEDS ORDERED: cefTRIAXone 1 GM (ROCEPHIN) VIAL ONE (08:01)
[2016-05-08] MEDS ORDERED: NS (IVPB) 50 ML ONE (08:02)
[2016-05-08] MEDS: FUROSEMIDE 40 MG/4 ML INJ (LASIX) IVP SCH ×2 (08:34→20:06)
[2016-05-08] MEDS: cefTRIAXone 1 GM/NS 50 ML IVPB IV SCH ×2 (08:34)
[2016-05-08] MEDS ORDERED: INSU100I29 SC (08:42)
[2016-05-08] MEDS ORDERED: IBUP-1773 PO (08:42)
[2016-05-08] MEDS ORDERED: ACET-2267 PO (08:42)
[2016-05-08] MEDS ORDERED: MAGN400O7 PO (08:42)
[2016-05-08] MEDS ORDERED: IPRA3AMP IH (08:42)
--- NOTE | 2016-05-08 08:58 | Diagnostic Imaging Report ---
EXAMINATION: Portable semi-upright radiograph of the chest. INDICATION: Dyspnea. FINDINGS: There is moderate cardiomegaly with interstitial pulmonary edema and some alveolar component noted at this time. There is no definite effusion. No pneumothorax. IMPRESSION: Extensive mixed interstitial and alveolar infiltrates, increased from the prior study, presumably worsening pulmonary edema. Dictated by: Dictated on workstation # [id number]
[2016-05-08] MEDS ORDERED: FUROSEMIDE 40 MG/4 ML INJ (LASIX) IVP NR (09:45)
[2016-05-08] MEDS ORDERED: SOD POLYSTERENE 15 GM/60 ML (KAYEXALATE) UNIT DOSE PO NR (09:45)
--- NOTE | 2016-05-08 09:50 | Consultation-Cardiology ---
HPI-Cardiology Cardiology Consultation: Date of Consultation 05/08/16 Date of Admission 05-07-16 Attending Physician Jamaica Andino MD Admitting Physician Jamaica Andino MD Consulting Physician Bartolome Hanson MD HPI: Chief Complaint: Dyspnea Ms. Gallego is a 66 year old female admitted to ICU 12 from the ED. She resides at [facility]. She reports increasing shortness of breath over the last few weeks. She also has had increasing weight gain over the last couple months. She has had increasing LE edema over the last couple months. She currently has bi-pap in place. She is not reporting any c/o CP, palpitations. She is reporting dyspnea. Review of Systems-Cardiology Review of Systems Constitutional: As described under HPI Eyes: No blurred vision, No drainage, No pain, No vision change Ears/Nose/Throat: No ear discharge, No ear pain, No nasal drainage, No ulcerations Respiratory: As described under HPI Cardiovascular: As described under HPI Gastrointestinal: No constipation, No diarrhea, No nausea, No vomiting, No stool coloration changes Genitourinary: No dysuria, No discharge, No frequency, No hematuria, No urgency : No Skin: No rash, No skin related problems, No ulcerations Psychiatric/Neurological: No anxiety, No depression, No focal weakness, No seizure, No syncope Hematologic: No bleeding abnormalities ULA-Pomxrp-Uyfabq Hx Patient Social History Alcohol Use: Denies Use Recreational Drug Use: No Smoking Status: Former Smoker Type Used: Cigarettes Recent Foreign Travel: No Recent Infectious Disease Expo: No Physical Abuse Screen: No Sexual Abuse: No Immunizations Up To Date Tetanus Booster (TDap): Less than 5yrs Date of Influenza Vaccine: Jan 09, 2016 Past Medical History PMH As described under Assessment. Family Medical History Family History: Patient reports no known family medical history. Allergies and Home Medications Allergies Coded Allergies: liraglutide (Verified Allergy, Intermediate, NAUSEA, 04/01/16) VOMITING AND CHEST PAIN THAT RADIATES TO HER BACK simvastatin (Verified Allergy, Intermediate, 04/01/16) PT HAS ELEVATED LIVER ENZYMES WITH ANY STATIN DRUG Bacitracin Zinc (Verified Allergy, Mild, RASH, 04/01/16) bacitracin (Verified Allergy, Mild, RASH, 04/01/16) colistimethate sodium (Verified Allergy, Mild, RASH, 04/01/16) gramicidin D (Verified Allergy, Mild, RASH, 04/01/16) metformin HCl (Verified Allergy, Mild, 04/01/16) neomycin sulfate (Verified Allergy, Mild, RASH, 04/01/16) polymyxin B (Verified Allergy, Mild, RASH, 04/01/16) polymyxin B sulfate (Verified Allergy, Mild, RASH, 04/01/16) pramoxine HCl (Verified Allergy, Mild, RASH, 04/01/16) Home Medications Acetaminophen 500 Mg Tablet 500 MG PO Q8H PRN PRN PAIN (Reported) Acetaminophen with Codeine 1 Each Tablet 1 TAB PO Q6H PRN PRN PAIN (Reported) Apixaban 5 Mg Tablet 5 MG PO BID (Reported) Aspirin 81 Mg Tabec 81 MG PO DAILY (Reported) Diltiazem HCl 120 Mg Cap.er.24h 120 MG PO DAILY (Reported) Exenatide Microspheres 2 Mg/0.65 Ml Pen.injctr 2 MG SQ Sa (Reported) Gabapentin 300 Mg Capsule 300 MG PO TID (Reported) Ibuprofen 600 Mg Tablet 600 MG PO Q6H PRN PRN PAIN (Reported) Insulin Aspart 300 Units/3 Ml Solution 15 UNITS SQ AC (Reported) Insulin Detemir 100 Unit/1 Ml Insuln.pen 10 UNITS SC 0600,1999 (Reported) Ipratropium/Albuterol Sulfate 3 Ml Ampul.neb 3 ML IH Q6H PRN PRN SHORTNESS OF BREATH (Reported) Levothyroxine Sodium 75 Mcg Tablet 75 MCG PO DAILY (Reported) Lisinopril 40 Mg Tablet 40 MG PO DAILY (Reported) Magnesium Hydroxide 400 Mg/5 Ml Oral.susp 30 ML PO DAILY PRN PRN CONSTIPATION ( Reported) Metoprolol Succinate 100 Mg Tab.sr.24h 100 MG PO DAILY (Reported) Metoprolol Succinate 100 Mg Tab.sr.24h 50 MG PO HS (Reported) TAKES 1/2 (100MG) TABLET Nystatin 15 Gm Cream..g. TP BID (Reported) APPLY TO ABDOMINAL FOLDS Pioglitazone HCl 30 Mg Tablet 30 MG PO DAILY (Reported) Physical Exam-Cardiology Physical Exam Vital Signs/I&O Vital Sign - Last 12Hours 05/08/16 05/08/16 05/08/16 05/08/16 05:00 06:00 06:00 07:00 Temp 98.0 Pulse 101 117 108 121 Resp 20 27 32 B/P 101/32 129/89 Pulse Ox 95 92 82 O2 Delivery NIV Bilevel Room Air NIV Bilevel O2 Flow Rate 35.00 35.00 05/08/16 05/08/16 05/08/16 05/08/16 07:14 11:07 13:00 13:27 Temp 98.8 Pulse 130 Pulse Ox 92 98 O2 Flow Rate 3.00 3.00 05/08/16 15:00 Pulse 89 Resp 18 Pulse Ox 100 O2 Flow Rate 35.00 Intake and Output 05/08/16 00:00 Intake Total 50 ml Balance 50 ml Capillary Refill : Less Than 3 SecondsLess Than 3 Seconds Constitutional: appears stated ageNo apparent distress, well-developed well- nourished HEENT: PERRLNo discharge, hearing is well preserved oral hygience is goodNo ulceration, No xanthelasmas are seen Neck: No carotid bruit, carotid pulses are 2 + bilaterally Respiratory: chest expansion is symmetric chest is bilaterally symmetric crackles (bilat lower lobes) Cardiovascular: irregularly irregular S1 and S2 systolic murmur Gastrointestinal: No tender, soft roundNo spleenomegaly Extremities: No clubbing, No cyanosis, significant edema (2-3 (+) bilat LE) Neurologic/Psychiatric: alert oriented x 3 power is 5/5 both on sides Skin: No rash, No ulcerations, other (scaling to bilat lower limbs) Data Review Labs Laboratory Tests 05/07/16 17:02: Urine Bacteria FEWH, Urine Bilirubin 1+H, Urine Casts NONE, Urine Clarity BLOODYH, Urine Color BROWNH, Urine Crystals NONE, Urine Culture Indicated YES, Urine Glucose (UA) NEGATIVE, Urine Ketones NEGATIVE, Urine Leukocyte Esterase 3+ H, Urine Mucus NEGATIVE, Urine Nitrite POSITIVEH, Urine Protein 3+H, Urine RBC TNTCH, Urine RBC (Auto) 5+H, Urine Specific [place] 1.025H, Urine Squamous Epithelial Cells NONE, Urine Urobilinogen 1, Urine WBC >100H, Urine pH 5 05/07/16 17:24: Glucometer 114H 05/07/16 18:24: Glucometer 105 05/07/16 19:34: Anion Gap 5, BUN/Creatinine Ratio 41, Blood Urea Nitrogen 62H, Calcium Level 9.1 , Carbon Dioxide Level 34H, Chloride Level 100, Creatinine 1.50H, Estimat Glomerular Filtration Rate 35, Glucose Level 119H, Potassium Level 5.8H, Sodium Level 139 05/07/16 19:51: Glucometer 124H 05/07/16 20:05: Ben Test POSITIVE, Arterial Blood Base Excess 5.9H, Arterial Blood HCO3 37H, Arterial Blood Oxygen Saturation 99, Arterial Blood Partial Pressure CO2 92*H, Arterial Blood Partial Pressure O2 199H, Arterial Blood Total CO2 39.4H, Arterial Blood pH 7.21*L, Blood Gas Inspired Oxygen 50% BIPAP, Blood Gas Patient Temperature 98.1, Blood Gas Puncture Site LEFT RADIAL, Blood Gas Ventilator Setting NO 05/07/16 22:46: Glucometer 107 05/08/16 04:05: Anion Gap 9, BUN/Creatinine Ratio 44, Basophils # (Auto) 0.0, Basophils (%) ( Auto) 1, Blood Urea Nitrogen 58H, Calcium Level 9.1, Carbon Dioxide Level 32, Chloride Level 101, Creatinine 1.32H, Eosinophils # (Auto) 0.2, Eosinophils (%) (Auto) 4, Estimat Glomerular Filtration Rate 40, Glucose Level 92, Hematocrit 38 , Hemoglobin 11.4L, Lymphocytes # (Auto) 0.8L, Lymphocytes (%) (Auto) 15, Magnesium Level 2.0, Mean Corpuscular Hemoglobin 32, Mean Corpuscular Hemoglobin Concent 30L, Mean Corpuscular Volume 108H, Mean Platelet Volume , Monocytes # (Auto) 0.6, Monocytes (%) (Auto) 12, Neutrophils # (Auto) 3.5, Neutrophils (%) (Auto) 69, Phosphorus Level 4.1, Platelet Count 64L, Potassium Level 5.4H, Red Blood Count 3.54L, Red Cell Distribution Width 14.8H, Sodium Level 142, White Blood Count 5.1 05/08/16 08:47: Glucometer 93 05/08/16 13:28: Glucometer 82 Microbiology 05/07/16 Urine Culture - Preliminary, Resulted [facility]us [facility] NAME: ANAMRYAN D [facility] REC#: [id number] PT STATUS: ADM IN : 1950 PHYSICIAN: RADHA VO DO ADMIT DATE: 05/07/16/ICU Draft Date of Exam:05/08/16 CHEST 1 VIEW, AP/PA ONLY EXAMINATION: Portable semi-upright radiograph of the chest. INDICATION: Dyspnea. FINDINGS: There is moderate cardiomegaly with interstitial pulmonary edema and some alveolar component noted at this time. There is no definite effusion. No pneumothorax. IMPRESSION: Extensive mixed interstitial and alveolar infiltrates, increased from the prior study, presumably worsening pulmonary edema. Dictated on workstation # [id number] Dict: 05/08/16 0824 Trans: 05/08/16 0858 [id number] Interpreted by: OLEGARIO PHELPS MD Electronically signed by: ECG Impression ECG Initial ECG Impression: Atrial Fibrillation A/P-Cardiology Assessment/Admission Diagnosis Paroxysmal A-flutter/A-fib per Holter study of 02-10-2014. Currently a-fib with RVR. CAD. CAROLYN of LAD with Oberon 3.5x30 mm in Nov 2010. Repeat cath of 01/25/14 showed patent stent, mild CAD and some elevation of LVEDP, indicating diastolic dysfunction Echo of 09/26/14 showed LVEF 60%, triv TR, and PASP 40 mmHg. This is a technically difficult study secondary to obesity. If accurate delineation of LV function and wall motion is required, then contrast echocardiogram is recommended. In the views that are visualized, there is mildly reduced LV function with an EF of 40%. Study was performed in atrial fibrillation. There is mild concentric LVH present. There is left atrial enlargement noted. Mild pulmonary hypertension with RVSP of 39 mmHg is noted. Per echo of March [address] Gutierrez. Chronic LBBB Chronic chest and mid back pain, etiology undetermined, currently unchanged and stable H/o intermittent hyperkalemia Hypertension - currently low blood pressure DM II Obesity with BMI 72 Intolerance to statins and refusal to take fibrates H/o leg venous ulcers, managed by Dr Yu in [facility] No significant PAD on angio of 01/25/14 Chronic anticoagulation with Eliquis Chronic leg swelling, likely due to venous insufficiency along with acute on chronic diastolic CHF Discussion and Recomendations Complex management issue. A-fib with RVR. Rate not well controlled. We will continue the Cardizem CD. D/t low blood pressure we will hold on her home dose of Metoprolol for now and increase her Cardizem CD dose. H/O PAF, she is on OAC with Eliquis which we will continue. Thrombocytopenia of undetermined etiology, medical services managing. Acute on chronic diastolic CHF for which we will give diuretics. Echocardiogram today. Hyperkalemia for which we will give Kayexalate. Obesity hypoventilation for which she is on Bi-pap and is being managed by Dr. German. Monitor lab closely. We would like to thank Dr. Vo for this consult. Further recommendations will be based on her hospital course. This consult is being scribed by Amanda Carmen APRN on behalf of Dr. Hanson after discussion regarding plan of care. Clinical Quality Measures DVT/VTE Risk/Contraindication: Risk Factor Score Per Nursin RFS Level Per Nursing on Admit: 4+=Very High Physician Assessment Physician Assessment Lungs: diminished air entry at bases; prolonged exp; exp wheezes Cor: irreg Generalized swelling A&R * As documented in our note above * Very complex management due to multiple advanced comorbidities * I discussed her issues with her and answered questions * I also discussed her case with Dr Vo this am * Monitor closely MIGUEL ANGEL CARMEN May 08, 2016 09:50 BARTOLOME HANSON MD [facility] May 08, 2016 16:56 H/o leg venous ulcers, managed by Dr Yu in [facility] No significant PAD on angio of 01/25/14 Chronic anticoagulation with Eliquis Chronic leg swelling, likely due to venous insufficiency along with acute on chronic diastolic CHF Discussion and Recomendations Complex management issue. A-fib with RVR. Rate not well controlled. We will continue the Cardizem CD. D/t low blood pressure we will hold on her home dose of Metoprolol for now and increase her Cardizem CD dose. H/O PAF, she is on OAC with Eliquis which we will continue. Thrombocytopenia of undetermined etiology, medical services managing. Acute on chronic diastolic CHF for which we will give diuretics. Echocardiogram today. Hyperkalemia for which we will give Kayexalate. Obesity hypoventilation for which she is on Bi-pap and is being managed by Dr. German. Monitor lab closely. We would like to thank Dr. Vo for this consult. Further recommendations will be based on her hospital course. This consult is being scribed by Amanda Carmen APRN on behalf of Dr. Hanson after discussion regarding plan of care. Clinical Quality Measures DVT/VTE Risk/Contraindication: Risk Factor Score Per Nursin RFS Level Per Nursing on Admit: 4+=Very High MIGUEL ANGEL CARMEN May 08, 2016 09:50 Complex management issue. A-fib with RVR. Rate not well controlled. We will continue the Cardizem CD. D/t low blood pressure we will hold on her home dose of Metoprolol for now and increase her Cardizem CD dose. H/O PAF, she is on OAC with Eliquis which we will continue. Thrombocytopenia of undetermined etiology, medical services managing. Acute on chronic diastolic CHF for which we will give diuretics. Echocardiogram today. Hyperkalemia for which we will give Kayexalate. Obesity hypoventilation for which she is on Bi-pap and is being managed by Dr. German. Monitor lab closely. We would like to thank Dr. Vo for this consult. Further recommendations will be based on her hospital course. This consult is being scribed by Amanda Carmen APRN on behalf of Dr. Hanson after discussion regarding plan of care. Clinical Quality Measures DVT/VTE Risk/Contraindication: Risk Factor Score Per Nursin RFS Level Per Nursing on Admit: 4+=Very High MIGUEL ANGEL CARMEN May 08, 2016 09:50 MIGUEL ANGEL CARMEN May 08, 2016 09:50
[2016-05-08] MEDS ORDERED: MILK OF MAGNESIA 400 MG/5 ML 30 ML UDC PO PRN (10:00)
[2016-05-08] MEDS ORDERED: RT-ALBUTEROL/IPRATROPIUM 3 ML (DUONEB) VIAL IH PRN (10:00)
[2016-05-08] MEDS ORDERED: DILTIAZEM 240 MG (CARDIZEM CD) CAP PO ONE (10:18)
--- NOTE | 2016-05-08 10:47 | History & Physical-Hospitalist ---
HPI History of Present Illness: HPI/Chief Complaint CC: CO2 narcosis HPI: This is a 66yo[place] [facility] Pt of Dr. Andino with hx of morbid obesity and severe ALEXIS, AF on Eliquis, and DM that presents to the ER with altered mental status per senior living. Upon arrival, pt denied any of those symptoms but when left alone during workup she became semi-unresponsive and workup revealed elevated CO2 requiring BiPAP. She has hx of noncompliance with CPAP. I have consulted Cardiology for elevated BNP with vascular congestion on CXR. WBC 5.1, Hgb 11.4, Platelets 64k- appears to be chronic. Will obtain records from [facility] to evaluate thrombocytopenia source. ABG reveals 7./199 on BiPAP 50%. Ua shows >100 WBCs, Ucx shows Proteus, pt empirically on Rocephin. 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 Pt placed back on BiPAP Pt is supposed to use CPAP at senior living but is noncompliant and often does not use CPAP or O2. Patient Interview: Physical exam stable. Pt was non-responsive during visit. Scribed by Vinay Palacios under the direct supervision of Dr. Bansal. Source: RN/MD Exam Limitations: clinical condition Date Seen 05/08/16 Attending Physician Jamaica Andino MD PCP Jamaica Andino MD Referring Physician Date of Admission May 07, 2016 at 17:30 Home Medications & Allergies Home Medications Reviewed patient Home Medication Reconciliation Form Allergies Coded Allergies: liraglutide (Verified Allergy, Intermediate, NAUSEA, 04/01/16) VOMITING AND CHEST PAIN THAT RADIATES TO HER BACK simvastatin (Verified Allergy, Intermediate, 04/01/16) PT HAS ELEVATED LIVER ENZYMES WITH ANY STATIN DRUG Bacitracin Zinc (Verified Allergy, Mild, RASH, 04/01/16) bacitracin (Verified Allergy, Mild, RASH, 04/01/16) colistimethate sodium (Verified Allergy, Mild, RASH, 04/01/16) gramicidin D (Verified Allergy, Mild, RASH, 04/01/16) metformin HCl (Verified Allergy, Mild, 04/01/16) neomycin sulfate (Verified Allergy, Mild, RASH, 04/01/16) polymyxin B (Verified Allergy, Mild, RASH, 04/01/16) polymyxin B sulfate (Verified Allergy, Mild, RASH, 04/01/16) pramoxine HCl (Verified Allergy, Mild, RASH, 04/01/16) Past [id number] Hx Patient Social History Marrital Status: single Employed/Student: unemployed Alcohol Use: Denies Use Recreational Drug Use: No Smoking Status: Former Smoker Type Used: Cigarettes Physical Abuse Screen: No Sexual Abuse: No Recent Foreign Travel: No Contact w/other who traveled: No Recent Hopitalizations: Yes (had gall bladder surgery and uterine cancer) Recent Infectious Disease Expo: No Immunizations Up To Date Tetanus Booster (TDap): Less than 5yrs Date of Influenza Vaccine: Jan 09, 2016 Seasonal Allergies Seasonal Allergies: No Surgeries HX Surgeries: Yes (CARDIAC STENT, hernia) Surgeries: Coronary Stent, Gallbladder, Hysterectomy Respiratory Hx Respiratory Disorders: Yes (history of respiratory failure) Respiratory Disorders: Sleep Apnea Cardiovascular Hx Cardiovascular Disorders: Yes (palpitations, congestive heart failure) Cardiac Disorders: Atrial Fibrillation, Coronary Artery Disease, Hypertension Neurological Hx Neurological Disorders: Yes Neurological Disorders: Neuropathy Reproductive System Hx Reproductive Disorders: No Sexually Transmitted Disease: No HIV/AIDS: No Female Reproductive Disorders: Denies Genitourinary Hx Genitourinary Disorders: Yes Genitourinary Disorders: Renal Failure Gastrointestinal Hx Gastrointestinal Disorders: No Musculoskeletal Hx Musculoskeletal Disorders: Yes (muscle weakness) Endocrine Hx Endocrine Disorders: Yes (morbid obesity) Endocrine Disorders: Diabetes, Insulin dep, Hypothyroidsim HEENT HX ENT Disorders: No Cancer Hx Cancer: Yes (uterine) Cancer: Uterine Psychosocial Hx Psychiatric Problems: No (does take celexa) Integumentary HX Skin/Integumentary Disorder: No Blood Transfusions Hx Blood Disorders: No Adverse Reaction to a Blood Tr: No Family Medical History Family Hx: Patient reports no known family medical history. Review of Systems ROS-Unable to Obtain: patient on noninvasive ventilator support unable to respond to questions Constitutional: see HPI Physical Exam Physical Exam Vital Signs Vital Sign - Last 12Hours 05/07/16 05/07/16 05/07/16 15:18 15:31 21:50 Temp 96.5 Pulse 84 Resp 18 B/P 98/71 Pulse Ox 96 O2 Delivery Nasal Cannula O2 Flow Rate 4 FiO2 35 Capillary Refill : Less Than 3 SecondsLess Than 3 Seconds General Appearance: WD/WN Chronically ill Mild Distress Eyes: Bilateral Eye Normal Inspection, Bilateral Eye PERRL HEENT: PERRL/EOMI Other (Limited exam due to BiPAP) Neck: Full Range of Motion Normal Inspection Non Tender Supple Carotid Bruit Respiratory: Chest Non Tender No Accessory Muscle Use No Respiratory Distress Crackles Decreased Breath Sounds Cardiovascular: Regular Rate, Rhythm No Edema No Gallop No JVD No Murmur Normal Peripheral Pulses Gastrointestinal: Normal Bowel Sounds No Organomegaly No Pulsatile Mass Non Tender Soft Back: Normal Inspection No CVA Tenderness No Vertebral Tenderness Extremity: Normal Capillary Refill Normal Inspection Normal Range of Motion Non Tender No Calf Tenderness Swelling Neurologic/Psychiatric: Alert Other (incomplete exam due to respiratory failure but does move all extremities) Skin: Normal Color Warm/Dry Lymphatic: No Adenopathy Results Results/Procedures Lab Laboratory Tests 05/07/16 15:25 05/07/16 19:34 05/08/16 04:05 Assessment/Plan Admission Diagnosis Assessment: CO2 Narcosis Respiratory failure ALEXIS severe Super obesity Volume overload Systolic Dysfunction EF of 40% AF DM HTN CAD two stents placed 12/09 Uterine CA hx Assessment and Plan Plan: Reconciled home meds Will obtain records from [facility] to evaluate thrombocytopenia source. Midline SCDs Clinical Quality Measures DVT/VTE Risk/Contraindication: Risk Factor Score Per Nursin RFS Level Per Nursing on Admit: 4+=Very High RADHA BANSAL DO May 08, 2016 10:47
--- NOTE | 2016-05-08 10:52 | Physical Therapy Evaluation ---
PT Evaluation-General Medical Diagnosis Admission Date May 07, 2016 at 17:30 Onset Date: May 04, 2016 Therapy Diagnosis Therapy Diagnosis: immobility Height/Weight Height (Feet): 5 Height (Inches): 6.00 Weight (Pounds): 449 Weight (Ounces): 2.0 Precautions Precautions/Isolations: Standard Precautions Referral Physician: Dusty German Reason for Referral: Up in Chair, ROM Medical History Pertinent Medical History: Atrial Fib, CAD, DM, HTN, Neuropathy, Smoking Current History altered mental status, wt gain Social History Home: Detention Pt was limited in mobility prior to this admission. she was a 4 [facility] transfer [facility] the [place]. Pt is not a reliable historian due to confusion. Prior/Core FIM Prior Level of Function Functional [place] Measure 0=Not Assessed/NA 4=Minimal Assistance 1=Total Assistance 5=Supervision or Setup 2=Maximal Assistance 6=Modified [place] 3=Moderate Assistance 7=Complete [place] Bed Mobility: 1 Transfers (B,C,W/C) (FIM): 1 Gait: 0 Locomotion: 0 PT Evaluation-Current Subjective Pt reports she does not know how she got here. She is confused as to her location, medical history, and current state of physical ability. Objective Patient Orientation: Confused Problem Solving: Poor Attachments: Central Line, Oxygen, [place] Catheter ROM/Strength ROM Upper Extremities WFL ROM Lower Extremities In supine: (B) knee flexion 20 degrees, hip flexion 15 degrees, hip abduction 10 degrees. ROM limited by positioning and obesity causing tissue approximation. Strength Upper Extremities 4/5 throughout Strenght Lower Extremities gross 2/5 throughout Sensory Vision: Functional Hearing: Functional Hand Dominance: Right Sensation Right Upper Extremit: Intact Sensation Left Upper Extremity: Intact Sensation Right Lower Extremit: Impaired Sensation Left Lower Extremity: Impaired Transfers Functional [place] Measure 0=Not Assessed/NA 4=Minimal Assistance 1=Total Assistance 5=Supervision or Setup 2=Maximal Assistance 6=Modified [place] 3=Moderate Assistance 7=Complete [place] transfers not tested at initial evaluation due to elevated HR and decreased O2 sats. She is expected to be a dependent transfer utilizing kwame lift. Gait Comments/Gait Description non ambulatory prior to this admission Assessment/Needs Pt has poor potential for improved function based on the complexity of her medical history, obesity, and mental confusion. She will benefit from therapy to assist up to chair and perform LE ROM as tolerated in order to prevent further decline in skin integrity and lung function. Rehab Potential: Poor Equipment Needs Kwame lift PT Snf Goals Snf Goals PT Snf Goals Time Frame: May 15, 2016 Transfers (B,C,W/C) (FIM): 1 Primary purpose of therapy will be to prevent skin breakdown and joint contracture through positioning, ROM, and Kwame transfers to chair. PT Plan Problem List Problem List: Transfer, ROM Treatment/Plan Treatment Plan: Continue Plan of Care Treatment Plan: Therapeutic Exercise, Transfers # of days/week 5 Visits Per Week: 5 Pt/Family Agrees w/Plan: Yes Safety Risks/Education Patient Education: Transfer Techniques Teaching Recipient: Patient Teaching Methods: Demonstration Discharge Recommendations Therapy D/C Recommendations: Detention Placement Barriers to Progress medical complexity, obesity, mental confusion Time/GCodes Time In: 1030 Time Out: 1100 Total Billed Treatment 30 minute EValuation complex, visit G Codes Necessary: No KIMBERLY BLACKWELL PT May 08, 2016 10:52
--- NOTE | 2016-05-08 11:04 | ST Dysphagia Evaluation ---
Speech Evaluation-General Medical Diagnosis Altered Mental Status Onset Date: May 04, 2016 Therapy Diagnosis Therapy Diagnosis: Questionable Oropharyngeal Dysphagia Precautions Precautions/Isolations: Standard Precautions Referral Referring Physician: Dr. Mariana Bansal Reason for Referral: Evaluation/Treatment Clinical Bedside Swallowing Evaluation Medical History Pertinent Medical History: Atrial Fib, CAD, DM, HTN, Neuropathy, Smoking Reviewed History: Yes Speech PLF/Current-Dysphagia Prior Level of Function The patient denied signs/symptoms of aspiration or laryngeal penetration with any consistency she currently consumes (regular diet with thin liquids). Subjective The patient was recently admitted to [facility] with a diagnosis of altered mental status. The patient was seated upright in bed upon entrance and greeted the clinician appropriately. The patient agreed to participate in the dysphagia evaluation on this date. The patient is currently using 5L supplemental oxygen via nasal cannula. Prior to bolus trials, the patient SpO2% was 98%. 05/08/16: Extensive mixed interstitial and alveolar infiltrates, increased from the prior study, presumably worsening pulmonary edema. Cognitive Status Patient Orientation: Person, Place Oral Motor Skills Dentition: Natural (Missing dentition noted.) Current Food Consistancy: Regular, Thin Liquids Ability to Follow Directions: Good Oral Expression Ability: No Impairment Voice Voice Phonatory-Based Quality: Glottal Dumont Voice Pitch: Normal Voice Loudness: Mildly Soft/Quiet Face Facial Symmetry: Symmetrical Oral-Facial Assessment Oral-Facial Dentition: Normal Labial Seal Description: Normal Smile: Normal Puff Cheeks: Normal Lingual Protrusion: Normal Lingual ROM: Normal Lingual Strength: Normal Pharynx Velopharyngeal Move.: Normal Volitional Dry Swallow: Yes Dysphagia Evaluation Consistencies Presented: Regular, Thin Liquid, Pureed No oral impairments were noted throughout the evaluation. No pharyngeal impairments were noted throughout the evaluation. - Thin Liquid (via teaspoon, straw), Puree, Solid: No signs/symptoms of aspiration were demonstrated with any consistency tested throughout the evaluation. The patient's SpO2% remained stable at 98% throughout the evaluation. Dietary Recommendations: Regular Liquid Recommendations: Thin Swallowing Precautions: Decreased Bolus 1/2 Tsp, Decreased Rate of Oral Intake , Small Bites and Sips, Sitting Upright 90 Degrees Dysphagia Evaluation Summary The patient demonstrated an oropharyngeal swallow function grossly within functional limits. Speech-Plan Treatment Plan Speech Therapy Treatment Plan: Discontinue ST Eval, only. Rehab Potential: Fair Safety Risks/Education Teaching Recipient: Patient Teaching Methods: Discussion Response to Teaching: Verbalize Understanding Education Topics Provided: Signs/symptoms of aspiration, Swallowing Strategies, Results, Recommendations Time Speech Therapy Time In: 11:00 Speech Therapy Time Out: 11:20 Total Billed Time: 20 Billed Treatment Time 1NATHANAEL ELIZABETH ST May 08, 2016 11:04
[2016-05-08] MEDS ORDERED: DIGOXIN 0.25 MG/ML (LANOXIN) 2 ML AMP IV ONE (11:15)
[2016-05-08] MEDS: inSUlin ASPART (NovoLOG) 1 UNIT/0.01 ML (CHARGE PER UNIT) SC SCH ×2 (13:43→17:39)
--- NOTE | 2016-05-08 14:49 | Occ Therapy Progress Note ---
Therapy Progress Note Order received for OT eval and treat. Chart review completed. Attempted evaluation x2 this pm. Pt unavailable on first attempt secondary to midline placement. Discussed pt status with RN. Pt has increased heart rate at this time. Will hold therapy today and attempt to complete evaluation tomorrow as pt able to tolerate and participate. RN in agreement with plan. NOEMI AUGUSTINE OT May 08, 2016 14:49
--- NOTE | 2016-05-08 14:57 | Physical Therapy Daily Note ---
PT Daily Note-Current Subjective Nursing requesting assistance to help position patient, change bedding, and do skin checks. Pt minimally responsive to treatment. Transfers Functional [place] Measure 0=Not Assessed/NA 4=Minimal Assistance 1=Total Assistance 5=Supervision or Setup 2=Maximal Assistance 6=Modified [place] 3=Moderate Assistance 7=Complete IndependenceIRFPAI Quality Coding Scale 6 Independent with activity with or without an assistive device 5 Patient requires set up or clean up by helper. Patient completes activity by themselves 4 Supervision or touching assist (CGA). [place] provide cues , steadying assist 3 The helper provides less than half the effort to complete the activity 2 The helper provides more than half the effort to complete the activity 1 Dependent. The helper does all the effort to complete an activity 7 Patient refused to complete or attempt activity 9 The patient did not perform the activity before the current illness or injury 88 Not attempted due to Medical conditions or safety concerns Treatments Rolling (L) and (R) with assist of 4 people. During this time was able to work on LE ROM for hip abduction and flexion, and knee flexion. Pt required assist of 4 people for sliding up in bed and positioning. Assessment Pt will benefit from continued ROM and transfers to sitting in order to prevent contracture and skin breakdown. Use of Kwame lift is recommended for any out of bed transfer for patient and caregiver safety. PT Nutrition Assistant Goals [facility] Goals PT Nutrition Assistant Goals Time Frame: May 15, 2016 Transfers (B,C,W/C) (FIM): 1 PT Plan Problem List Problem List: Transfer, ROM Treatment/Plan Treatment Plan: Continue Plan of Care Treatment Plan: Bed Mobility, Therapeutic Exercise, Transfers Visits Per Week: 5 Time/GCodes Time In: 1430 Time Out: 1455 Total Billed Treatment Time: 25 Total Billed Treatment visit, KIMBERLY FINN PT May 08, 2016 14:57
[2016-05-08] MEDS ORDERED: ALPRAZolam 0.25 MG (XANAX) TAB ONE (20:02)
[2016-05-08] MEDS: APIXABAN 5 MG (ELIQUIS) TABLET PO SCH (20:06)
[2016-05-08] MEDS: ACETAMINOPHEN 500 MG TAB (TYLENOL) PO PRN (20:06)
[2016-05-08] MEDS: ALPRAZolam 0.25 MG (XANAX) TAB PO PRN (20:07)
[2016-05-08] MEDS ORDERED: NYSTATIN CREAM (MYCOSTATIN) 30 GM TUBE TP SCH (21:00)
[2016-05-08] MEDS ORDERED: meTOproloL SUCCINATE 50 MG (TOPROL XL) TAB PO SCH (21:00)
[2016-05-08] MEDS: MICONAZOLE 2% POWDER (DESENEX AF) 90 GM TOP SCH (22:11)
[2016-05-08] MEDS: inSUlin DETERMIR 1 UNIT/0.01 ML (LEVEMIR) CHARGE PER UNIT SQ SCH (22:17)
[2016-05-09] VITALS (9 sets, daily range): BP systolic 107–135; BP diastolic 56–83
[2016-05-09] MEDS: IBUPROFEN 600 MG (MOTRIN) TAB PO PRN (00:26)
[2016-05-09] MEDS: ALPRAZolam 0.25 MG (XANAX) TAB PO PRN ×4 (00:26→22:06)
[2016-05-09] MEDS: RT-ALBUTEROL/IPRATROPIUM 3 ML (DUONEB) VIAL INH SCH ×6 (02:08→22:14)
[2016-05-09 04:54] LABS: BASOPHILS % (AUTO) 1 % (0-10); EOSINOPHILS # (AUTO) 0.3 10^3/uL (0.0-0.3); EOSINOPHILS % (AUTO) 5 % (0-10); LYMPHOCYTES # (AUTO) 0.8 X 10^3 (1.0-4.0); LYMPHOCYTES % (AUTO) 15 % (12-44); MEAN CORPUSCULAR HEMOGLOBIN 32 PG (25-34); MEAN CORPUSCULAR HGB CONC 31 G/DL (32-36); MEAN CORPUSCULAR VOLUME 105 FL (80-99); MONOCYTES # (AUTO) 0.7 X 10^3 (0.0-1.0); MONOCYTES % (AUTO) 12 % (0-12); NEUTROPHILS # (AUTO) 3.8 X 10^3 (1.8-7.8); NEUTROPHILS % (AUTO) 68 % (42-75); PLATELET COUNT 69 10^3/uL (130-400); RED BLOOD COUNT 3.37 10^6/uL (4.35-5.85); RED CELL DISTRIBUTION WIDTH 14.8 % (10.0-14.5); WHITE BLOOD COUNT 5.6 10^3/uL (4.3-11.0)
--- NOTE | 2016-05-09 05:01 | Pulmonary Progress Note ---
Subjective Subjective/Events-last exam PT is doing better however she is very weak. Exam Exam Vital Signs Date Time Temp Pulse Resp B/P Pulse Ox O2 Delivery O2 Flow Rate FiO2 05/09/16 03:49 5.00 05/09/16 03:10 98.2 05/09/16 02:08 94 5.00 05/09/16 01:18 98.9 05/09/16 01:00 151 05/09/16 00:47 5.00 05/09/16 00:14 115 19 97 35.00 05/09/16 00:00 111 22 126/60 94 Nasal Cannula 5.00 05/08/16 22:19 98.9 05/08/16 22:18 98.9 05/08/16 21:58 94 6.00 05/08/16 21:30 98.8 05/08/16 20:00 5.00 05/08/16 20:00 113 23 104/51 96 Nasal Cannula 5.00 05/08/16 19:00 113 05/08/16 18:35 93 5.00 05/08/16 18:00 115 16 118/86 98 Nasal Cannula 5.00 05/08/16 17:00 101 21 104/70 91 Nasal Cannula 5.00 05/08/16 16:00 5.00 05/08/16 16:00 99.2 121 30 113/86 89 NIV Bilevel 35.00 05/08/16 15:00 89 18 100 35.00 05/08/16 15:00 110 15 97/82 90 Nasal Cannula 5.00 05/08/16 14:00 110 13 122/75 89 NIV Bilevel 35.00 05/08/16 13:27 98.8 05/08/16 13:00 128 14 90 Nasal Cannula 5.00 05/08/16 13:00 130 05/08/16 12:00 5.00 05/08/16 12:00 128 16 97 Nasal Cannula 5.00 05/08/16 11:07 98 3.00 05/08/16 11:00 147 14 140/107 97 NIV Bilevel 35.00 05/08/16 10:00 97.8 106 23 142/111 90 NIV Bilevel 35.00 05/08/16 09:00 105 18 117/101 91 NIV Bilevel 35.00 05/08/16 08:00 5.00 05/08/16 08:00 106 23 142/111 90 Nasal Cannula 5.00 05/08/16 07:14 92 3.00 05/08/16 07:00 110 28 140/90 92 Nasal Cannula 5.00 05/08/16 07:00 121 05/08/16 06:00 108 32 82 NIV Bilevel 35.00 05/08/16 06:00 98.0 117 27 129/89 92 Room Air 05/08/16 05:00 101 20 101/32 95 NIV Bilevel 35.00 I & O 05/09/16 07:00 Intake Total 450 ml Output Total 4625 ml Balance -4175 ml General Appearance: WD/WN Chronically ill Mild Distress HEENT: PERRL/EOMI Other (Limited exam due to BiPAP) Neck: Full Range of Motion Normal Inspection Non Tender Supple Carotid Bruit Respiratory: Chest Non Tender No Accessory Muscle Use No Respiratory Distress Crackles Decreased Breath Sounds Cardiovascular: Regular Rate, Rhythm No Edema No Gallop No JVD No Murmur Normal Peripheral Pulses Capillary Refill: Less Than 3 Seconds Extremity: Normal Capillary Refill Normal Inspection Normal Range of Motion Non Tender No Calf Tenderness Swelling Neurologic/Psychiatric: Alert Other (incomplete exam due to respiratory failure but does move all extremities) Skin: Normal Color Warm/Dry Lymphatic: No Adenopathy Results Lab Laboratory Tests 05/07/16 15:25 05/07/16 19:34 05/08/16 04:05 Assessment/Plan Assessment/Plan Unresponsive on admission - now A&0x 3 -now much improved. CHFAE with EF 40% per echo -Lasix ( pt was not on lasix as out patient) Morbid obesity with obesity hypoventilation syndrome and severe ALEXIS -Pt would be a good candidate for home vent to mask however she is so weak currently and with confusion i do not believe she would be able to manage any type of equipment like this. -PT has CPAP however she is noncompliant with it Acute on chronic respiratory failure -BiPAP PRN -repeat ABG COPD quit smoking in 2003 -She is on 3 liters of oxygen 24/ UTI with proteus -Rocephin Debility -PT/OT -increase activity Thrombocytopenia -Consider consulting oncology if pt does not want to go on hospice care. 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 She is going to be even more weak with this hospitalization. PT/OT is consulted currently and did work with her yesterday. Overall prognosis is very poor. Hospice care should be strongly considered. -Will consult hospice for eduction Clinical Quality Measures DVT/VTE Risk/Contraindication: Risk Factor Score Per Nursin RFS Level Per Nursing on Admit: 4+=Very High STAN BOOKER DO May 09, 2016 05:01
[2016-05-09 05:37] LABS: ALBUMIN 2.9 G/DL (3.2-4.5); BILIRUBIN,TOTAL 0.5 MG/DL (0.1-1.0); CALCIUM 8.8 MG/DL (8.5-10.1); CREATININE SERUM 1.08 MG/DL (0.60-1.30); MAGNESIUM 1.7 MG/DL (1.8-2.4); PHOSPHORUS 3.4 MG/DL (2.3-4.7); POTASSIUM 4.8 MMOL/L (3.6-5.0); TOTAL PROTEIN 5.7 G/DL (6.4-8.2)
[2016-05-09] MEDS: inSUlin ASPART (NovoLOG) 1 UNIT/0.01 ML (CHARGE PER UNIT) SC SCH (06:00)
[2016-05-09] MEDS: inSUlin (REGULAR) HUMAN 1 UNIT/0.01 ML (CHARGE PER UNIT) SC SCH ×4 (06:00→20:57)
[2016-05-09] MEDS: LEVOTHYROXINE 75 MCG (LEVOTHROID) TABLET PO SCH (06:40)
[2016-05-09] MEDS: PIOGLITAZONE 30MG (ACTOS) TAB PO SCH (07:12)
[2016-05-09] MEDS ORDERED: cefTRIAXone 1 GM (ROCEPHIN) VIAL ONE (08:01)
[2016-05-09] MEDS ORDERED: NS (IVPB) 50 ML ONE (08:01)
[2016-05-09] MEDS: cefTRIAXone 1 GM/NS 50 ML IVPB IV SCH ×2 (08:04)
[2016-05-09] MEDS: ASPIRIN E.C. 81 MG (ECOTRIN) TAB PO SCH (08:05)
[2016-05-09] MEDS: inSUlin DETERMIR 1 UNIT/0.01 ML (LEVEMIR) CHARGE PER UNIT SQ SCH ×2 (08:05→22:05)
[2016-05-09] MEDS: APIXABAN 5 MG (ELIQUIS) TABLET PO SCH ×2 (08:05→22:05)
[2016-05-09] MEDS: FUROSEMIDE 40 MG/4 ML INJ (LASIX) IVP SCH ×2 (08:05→22:05)
--- NOTE | 2016-05-09 08:06 | Diagnostic Imaging Report ---
INDICATION: Dyspnea 0536 hours Comparison is made to study of 05/08/2016. Cardiomegaly and prominence of the mediastinum have not significantly changed. There is also persistent bilateral airspace disease without pneumothorax or other significant change appreciated. IMPRESSION: Bilateral airspace disease likely represents edema without significant change from previous study. There is unchanged cardiomegaly and prominence of the mediastinum compared to previous exam. Dictated by: Dictated on workstation # [id number]
[2016-05-09] MEDS: MICONAZOLE 2% POWDER (DESENEX AF) 90 GM TOP SCH ×2 (08:10→22:06)
--- NOTE | 2016-05-09 08:38 | Progress Note-Cardiology ---
Cardiology SOAP Progress Note Subjective: In bed. No new c/o. Objective: I&O/Vital Signs Vital Sign - Last 12Hours 05/08/16 05/08/16 05/09/16 05/09/16 22:18 22:19 00:00 00:14 Temp 98.9 98.9 Pulse 111 115 Resp 22 19 B/P 126/60 Pulse Ox 94 97 O2 Delivery Nasal Cannula O2 Flow Rate 5.00 35.00 05/09/16 05/09/16 05/09/16 05/09/16 00:47 01:00 01:18 02:08 Temp 98.9 Pulse 151 Pulse Ox 94 O2 Flow Rate 5.00 5.00 05/09/16 05/09/16 05/09/16 05/09/16 03:10 03:49 07:00 07:04 Temp 98.2 Pulse 90 Pulse Ox 93 O2 Flow Rate 5.00 5.00 Intake and Output 05/09/16 00:00 Intake Total 360 ml Output Total 2850 ml Balance -2490 ml Weight (Pounds): 449 Weight (Ounces): 2.0 Weight (Calculated Kilograms): 203.952459 Constitutional: appears stated ageNo apparent distress, well-developed well- nourished Respiratory: chest expansion is symmetric chest is bilaterally symmetric crackles (bilat lower lobes) other (diminished AE) Cardiovascular: irregularly irregular S1 and S2 systolic murmur Gastrointestional: No tender, soft roundNo spleenomegaly Extremities: No clubbing, No cyanosis, significant edema (2-3 (+) bilat LE) Neurologic/Psychiatric: alert oriented x 3 power is 5/5 both on sides Skin: No rash, No ulcerations, other (scaling to bilat lower limbs) Results/Procedures: Labs Laboratory Tests 05/08/16 13:28: Glucometer 82 05/08/16 17:30: Glucometer 125H 05/08/16 20:12: Glucometer 134H 05/09/16 03:47: Alanine Aminotransferase (ALT/SGPT) 10, Albumin 2.9L, Alkaline Phosphatase 60, Anion Gap 11, Aspartate Amino Transf (AST/SGOT) 14, BUN/Creatinine Ratio 47, Basophils # (Auto) 0.0, Basophils (%) (Auto) 1, Blood Urea Nitrogen 51H, Calcium Level 8.8, Carbon Dioxide Level 34H, Chloride Level 99, Cholesterol Level 88, Creatinine 1.08, Eosinophils # (Auto) 0.3, Eosinophils (%) (Auto) 5, Estimat Glomerular Filtration Rate 51, Glucose Level 99, HDL Cholesterol 39L, Hematocrit 35, Hemoglobin 10.9L, LDL Cholesterol Direct 37, Lymphocytes # (Auto ) 0.8L, Lymphocytes (%) (Auto) 15, Magnesium Level 1.7L, Mean Corpuscular Hemoglobin 32, Mean Corpuscular Hemoglobin Concent 31L, Mean Corpuscular Volume 105H, Mean Platelet Volume , Monocytes # (Auto) 0.7, Monocytes (%) (Auto) 12, Neutrophils # (Auto) 3.8, Neutrophils (%) (Auto) 68, Phosphorus Level 3.4, Platelet Count 69L, Potassium Level 4.8, Red Blood Count 3.37L, Red Cell Distribution Width 14.8H, Sodium Level 144, Total Bilirubin 0.5, Total Protein 5.7L, Triglycerides Level 77, VLDL Cholesterol 15, White Blood Count 5.6 05/09/16 03:48: Glucometer 103 Microbiology 05/07/16 Urine Culture - Preliminary, Resulted Proteus Mirabilis Procedures NAME: RYAN MENDIETA [facility] REC#: [id number] PT STATUS: ADM IN : 1950 PHYSICIAN: RADHA VO DO ADMIT DATE: 05/07/16/ICU Draft Date of Exam:05/09/16 CHEST 1 VIEW, AP/PA ONLY INDICATION: Dyspnea 0536 hours Comparison is made to study of 05/08/2016. Cardiomegaly and prominence of the mediastinum have not significantly changed. There is also persistent bilateral airspace disease without pneumothorax or other significant change appreciated. IMPRESSION: Bilateral airspace disease likely represents edema without significant change from previous study. There is unchanged cardiomegaly and prominence of the mediastinum compared to previous exam. Dictated on workstation # [id number] Dict: 05/09/16 0751 Trans: 05/09/16 0805 BRAULIO [id number] Interpreted by: SIXTO SHUKLA MD Electronically signed by: A/P: Assessment: Paroxysmal A-flutter/A-fib per Holter study of 02-10-2014. Currently a-fib with RVR. CAD. CAROLYN of LAD with [place] 3.5x30 mm in Nov 2010. Repeat cath of 01/25/14 showed patent stent, mild CAD and some elevation of LVEDP, indicating diastolic dysfunction Echo of 09/26/14 showed LVEF 60%, triv TR, and PASP 40 mmHg. This is a technically difficult study secondary to obesity. If accurate delineation of LV function and wall motion is required, then contrast echocardiogram is recommended. In the views that are visualized, there is mildly reduced LV function with an EF of 40%. Study was performed in atrial fibrillation. There is mild concentric LVH present. There is left atrial enlargement noted. Mild pulmonary hypertension with RVSP of 39 mmHg is noted. Per echo of March [address] Gutierrez. Chronic LBBB Chronic chest and mid back pain, etiology undetermined, currently unchanged and stable H/o intermittent hyperkalemia - currently WNL Hypertension - currently low blood pressure DM II Obesity with BMI 72 Intolerance to statins and refusal to take fibrates H/o leg venous ulcers, managed by Dr Yu in [facility] No significant PAD on angio of 01/25/14 Chronic anticoagulation with Eliquis Chronic leg swelling, likely due to venous insufficiency along with acute on chronic diastolic CHF Plan: Complex management issue. A-fib with RVR. Rate not well controlled. We will increase the Cardizem CD to 360mg We will add Dig Low blood pressure prevents us from adding BB at this time OAC with Eliquis which we will continue. Thrombocytopenia of undetermined etiology, medical services managing. Acute on chronic diastolic CHF for which we will give diuretics. Echocardiogram today. Hyperkalemia resolved Obesity hypoventilation for which she is on Bi-pap and is being managed by Dr. German. Monitor lab closely Physician Assessment Physician Assessment Lungs: dec bs at bases, increased exp phase Cor: irreg Gen swelling A&R * As documented in our note above * Complex management due to multiple comorbidities that primarily seem to be emanating from morbid obesity * Focus of CV management on vent rate control and diuresis * I spoke with her and explained management plan and answered questions MIGUEL ANGEL TELLEZ May 09, 2016 08:38 ANGELA ROBERT MD FACP FAC CCDS May 09, 2016 10:01 MIGUEL ANGEL TELLEZ May 09, 2016 08:38
[2016-05-09] MEDS ORDERED: FUROSEMIDE 40 MG/4 ML INJ (LASIX) IVP NR (08:45)
[2016-05-09] MEDS ORDERED: DILTIAZEM 240 MG (CARDIZEM CD) CAP PO SCH (09:00)
[2016-05-09] MEDS ORDERED: DILTIAZEM 120 MG (CARDIZEM CD) CAP PO SCH ×2 (09:00)
[2016-05-09] MEDS ORDERED: lisINopril 20 MG (ZESTRIL) TAB PO SCH (09:00)
[2016-05-09] MEDS ORDERED: meTOprolol SUCCINATE 100 MG (TOPROL XL) TAB PO SCH (09:00)
[2016-05-09] MEDS: DIGOXIN 0.25 MG/ML (LANOXIN) 2 ML AMP IV SCH (09:32)
[2016-05-09] MEDS: NS IV 1000 ML 1,000 ML IV SCH (10:53)
[2016-05-09] MEDS: inSUlin ASPART (NovoLOG) 1 UNIT/0.01 ML (CHARGE PER UNIT) SC PRN (11:33)
--- NOTE | 2016-05-09 11:44 | Progress Note-Hospitalist ---
Progress Note HPI/CC on Admission CC: CO2 narcosis HPI: This is a 66yo[place] Pt of Dr. Andino with hx of morbid obesity and severe ALEXIS, AF on Eliquis, and DM that presents to the ER with altered mental status per [facility]. Upon arrival, pt denied any of those symptoms but when left alone during workup she became semi-unresponsive and workup revealed elevated CO2 requiring BiPAP. She has hx of noncompliance with CPAP. I have consulted Cardiology for elevated BNP with vascular congestion on CXR. WBC 5.1, Hgb 11.4, Platelets 64k- appears to be chronic. Will obtain records from [facility] to evaluate thrombocytopenia source. ABG reveals 7.21//199 on BiPAP 50%. Ua shows >100 WBCs, Ucx shows Proteus, pt empirically on Rocephin. 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 Pt placed back on BiPAP Pt is supposed to use CPAP at [facility] but is noncompliant and often does not use CPAP or O2. Patient Interview: Physical exam stable. Pt was non-responsive during visit. Scribed by Vinay Palacios under the direct supervision of Dr. Vo. Progress Notes/Assess & Plan Date Seen 05/09/16 Admission Dx/Process Assessment: CO2 Narcosis Respiratory failure ALEXIS severe Super obesity Volume overload Systolic Dysfunction EF of 40% AF DM HTN CAD two stents placed 12/09 Uterine CA hx Diagonsis/Assessment & Plan Chart Review: WBC 5.6 Hgb 10.9 Creat 1.08 Did have Hypoglycemia so adjusted insulin. Pt on Rocephin and on Cardizem po. 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 Cardizem has been increased. Pt is on-and-off BIPAP whenever pt allows it to be used. Hospice will be up to see pt today. Patient Interview: Pt feels that she is improving. Pt was tired during visit. Physical exam stable. Pt denies having pain currently. No fever, vital signs stable, pleasant, lying supine, tachypneic Irregular irregular rhythm with heart rate of 102, clear to auscultation bilaterally but distant breath sounds all fitzgerald 1+ pitting edema lower legs Laboratory Tests 05/09/16 03:47 Assessment: CO2 Narcosis Respiratory failure ALEXIS severe UTI Super obesity Volume overload Systolic Dysfunction EF of 40% AF DM HTN CAD two stents placed 12/09 Uterine CA hx Plan: NovoLog 5 units before meals prn sugar>150 ventilator support Hospice consult Poor prognosis Scribed by Vinay Palacios under the direct supervision of Dr. Vo. RADHA VO DO May 09, 2016 11:44
--- NOTE | 2016-05-09 13:50 | Occupational Therapy Eval ---
OT Evaluation-General/PLF Medical Diagnosis Admission Date May 07, 2016 at 17:30 Medical Diagnosis: Altered Mental Status Onset Date: May 04, 2016 Therapy Diagnosis Therapy Diagnosis: weakness, impaired self care Height/Weight Height (Feet): 5 Height (Inches): 6.00 Weight (Pounds): 449 Weight (Ounces): 2.0 Precautions Precautions/Isolations: Fall Prevention, Standard Precautions, Pressure Ulcer Safety Interventions: None Referral Physician: Dusty German Medical History Pertinent Medical History: Atrial Fib, CAD, DM, HTN, Neuropathy, Smoking Additional Medical History coronary stent, sleep apnea, morbid obesity, uterine cancer Reviewed History: Yes Social History Home: [facility] ADL-Prior Level of Function ADL PLOF Comments Pt unable to provide detailed information regarding PLOF. RN reports pt required assist x4 for transfers at [place]. Pt had assist for ADLs. OT Current Status Subjective Pt in bed, agrees to treatment. Pt states she is not currently having any pain. Mental Status/Objective Patient Orientation: Person, Place Attachments: IV, Oxygen Current Glasses/Contacts: Yes (reading) Hearing Aids: No Dentures/Partials: No Hand Dominance: Right Upper Extremity ROM Shoulder flexion 90degrees Upper Extremity Coordination Fair. Upper Extremity Strength Unable to perform formal MMT. Pt has impaired strength bilateral UE ADL-Treatment ADL-Current Pt in bed, finishing lunch. Pt is feeding self after set up. UE assessment completed with pt in supine. Pt has shortness of breath with activity and requires rest breaks to recover. Unable to perform ADL assessment or transfers at this time. Will assess as pt able to tolerate. Pt in bed with needs met and RN present after session. Functional [place] Measure 0=Not Assessed/NA 4=Minimal Assistance 1=Total Assistance 5=Supervision or Setup 2=Maximal Assistance 6=Modified [place] 3=Moderate Assistance 7=Complete IndependenceIRFPAI Quality Coding Scale 6 Independent with activity with or without an assistive device 5 Patient requires set up or clean up by helper. Patient completes activity by themselves 4 Supervision or touching assist (CGA). [place] provide cues , steadying assist 3 The helper provides less than half the effort to complete the activity 2 The helper provides more than half the effort to complete the activity 1 Dependent. The helper does all the effort to complete an activity 7 Patient refused to complete or attempt activity 9 The patient did not perform the activity before the current illness or injury 88 Not attempted due to Medical conditions or safety concerns Eating (FIM): 5 Education OT Patient Education: Rehab process Teaching Recipient: Patient Teaching Methods: Discussion Response to Teaching: Reinforcement Needed OT Short Term Goals Short Term Goals 1=Demonstrate adherence to instructed precautions during ADL tasks. 2=Patient will verbalize/demonstrate understanding of assistive devices/ modifications for ADL. 3=Patient will improve strength/tolerance for activity to enable patient to perform ADL's. OT Detention Goals Detention Goals Time Frame: May 23, 2016 Eating (FIM): 6 Grooming(FIM): 5 Additional Goals: 1-Demonstrate ADL Tasks, 2-Verbalize Understanding, 3- ImproveStrength/Fred 1=Demonstrate adherence to instructed precautions during ADL tasks. 2=Patient will verbalize/demonstrate understanding of assistive devices/ modifications for ADL. 3=Patient will improve strength/tolerance for activity to enable patient to perform ADL's. OT Education/Plan Problem List/Assessment Assessment: Decreased Activ Tolerance, Decreased Safety Aware, Decreased UE Strength, Dependent Transfers, Impaired Self-Care Skills Pt demonstrates decreased strength, mobility, ADL functioning, and activity tolerance. Pt to benefit from skilled OT intervention for UE ADL completion and strengthening to promote increased participation in ADLs. Discharge Recommendations Plan/Recommendations: Continue POC Treatment Plan/Plan of Care Treatment,Training & Education: Yes Patient would benefit from OT for education, treatment and training to promote independence in ADL's, mobility, safety and/or upper extremity function for ADL' s. Plan of Care: ADL Retraining, UE Funct Exercise/Act Treatment Duration: May 23, 2016 # of days/week 5 Visits Per Week: 5 Rehab Potential: Poor Time/GCodes Start Time: 11:13 Stop Time: 11:28 Total Time Billed (hr/min): 15 Billed Treatment Time 1 visit, KAIDEN(15minutes) NOEMI AUGUSTINE OT May 09, 2016 13:49
--- NOTE | 2016-05-09 16:33 | Physical Therapy Daily Note ---
PT Daily Note-Current Subjective Pt reports she is willing to get into the chair but notes that she is nervous about it. Transfers Functional [place] Measure 0=Not Assessed/NA 4=Minimal Assistance 1=Total Assistance 5=Supervision or Setup 2=Maximal Assistance 6=Modified [place] 3=Moderate Assistance 7=Complete IndependenceIRFPAI Quality Coding Scale 6 Independent with activity with or without an assistive device 5 Patient requires set up or clean up by helper. Patient completes activity by themselves 4 Supervision or touching assist (CGA). [place] provide cues , steadying assist 3 The helper provides less than half the effort to complete the activity 2 The helper provides more than half the effort to complete the activity 1 Dependent. The helper does all the effort to complete an activity 7 Patient refused to complete or attempt activity 9 The patient did not perform the activity before the current illness or injury 88 Not attempted due to Medical conditions or safety concerns Transfers (B, C, W/C) (FIM): 1 Total assist of 4 people to roll patient and place terrie lift sling. Pt transferred to a bedside chair using a terrie l lift. [address] her into a bedside chair. Assessment Patient was totally dependent for transfer. She was able to initiate lifting her legs but had only trace movement. Pt left up in bedside chair with nursing instructed on how to transfer pt back to bed. PT Senior Living Goals Cable Tower Operator Goals PT Cable Tower Operator Goals Time Frame: May 15, 2016 Transfers (B,C,W/C) (FIM): 1 PT Plan Problem List Problem List: Bed Mobility, ROM Treatment/Plan Treatment Plan: Continue Plan of Care Treatment Plan: Bed Mobility, Therapeutic Exercise, Transfers # of days/week 5 Visits Per Week: 5 Pt/Family Agrees w/Plan: Yes Time/GCodes Time In: 1320 Time Out: 1340 Total Billed Treatment Time: 20 Total Billed Treatment visit, Functional activity 20 min KIMBERLY BLACKWELL PT May 09, 2016 16:33
[2016-05-09] MEDS: ACETAMINOPHEN 500 MG TAB (TYLENOL) PO PRN (23:19)
[2016-05-10] VITALS (7 sets, daily range): BP systolic 105–157; BP diastolic 56–98
[2016-05-10] MEDS: IBUPROFEN 600 MG (MOTRIN) TAB PO PRN (02:34)
[2016-05-10] MEDS: RT-ALBUTEROL/IPRATROPIUM 3 ML (DUONEB) VIAL INH SCH ×6 (02:48→22:13)
[2016-05-10 04:41] LABS: BASOPHILS % (AUTO) 0 % (0-10); EOSINOPHILS # (AUTO) 0.4 10^3/uL (0.0-0.3); EOSINOPHILS % (AUTO) 7 % (0-10); LYMPHOCYTES % (AUTO) 16 % (12-44); MEAN CORPUSCULAR HEMOGLOBIN 32 PG (25-34); MEAN CORPUSCULAR HGB CONC 31 G/DL (32-36); MEAN CORPUSCULAR VOLUME 103 FL (80-99); MONOCYTES # (AUTO) 0.8 X 10^3 (0.0-1.0); MONOCYTES % (AUTO) 14 % (0-12); NEUTROPHILS # (AUTO) 3.7 X 10^3 (1.8-7.8); NEUTROPHILS % (AUTO) 63 % (42-75); PLATELET COUNT 69 10^3/uL (130-400); RED BLOOD COUNT 3.42 10^6/uL (4.35-5.85)
[2016-05-10 04:55] LABS: CALCIUM 9.1 MG/DL (8.5-10.1); CREATININE SERUM 0.98 MG/DL (0.60-1.30); MAGNESIUM 1.4 MG/DL (1.8-2.4); PHOSPHORUS 2.6 MG/DL (2.3-4.7); POTASSIUM 4.2 MMOL/L (3.6-5.0)
[2016-05-10] MEDS: inSUlin (REGULAR) HUMAN 1 UNIT/0.01 ML (CHARGE PER UNIT) SC SCH ×4 (04:57→22:09)
[2016-05-10 05:02] LABS: DIGOXIN 0.48 NG/ML (0.80-2.00)
[2016-05-10] MEDS: ACETAMINOPHEN 500 MG TAB (TYLENOL) PO PRN ×2 (05:41→22:13)
[2016-05-10] MEDS: NS IV 1000 ML 1,000 ML IV SCH (06:36)
[2016-05-10] MEDS: PIOGLITAZONE 30MG (ACTOS) TAB PO SCH (06:53)
[2016-05-10] MEDS: LEVOTHYROXINE 75 MCG (LEVOTHROID) TABLET PO SCH (06:53)
[2016-05-10] MEDS: ALPRAZolam 0.25 MG (XANAX) TAB PO PRN (06:53)
[2016-05-10] MEDS: inSUlin DETERMIR 1 UNIT/0.01 ML (LEVEMIR) CHARGE PER UNIT SQ SCH ×2 (06:54→22:13)
--- NOTE | 2016-05-10 07:12 | Diagnostic Imaging Report ---
INDICATION: Shortness of breath. Portable chest 5:37 AM. Image is underpenetrated. Heart size and pulmonary vascularity are normal. Lungs are clear. There are no effusions or pneumothoraces. IMPRESSION: No acute abnormalities in the chest. There appears to be less vascular congestion compared to the previous day. Dictated by: Dictated on workstation # [id number]
--- NOTE | 2016-05-10 07:22 | Pulmonary Progress Note ---
Subjective Subjective/Events-last exam PT is much more awake and appears much improved. Exam Exam Vital Signs Date Time Temp Pulse Resp B/P Pulse Ox O2 Delivery O2 Flow Rate FiO2 05/10/16 04:00 122 29 113/72 89 Nasal Cannula 5.00 05/10/16 02:49 107 26 93 35.00 05/10/16 01:00 112 05/10/16 00:00 130 25 105/59 94 Nasal Cannula 5.00 05/10/16 00:00 99.0 05/09/16 23:00 117 28 111/64 91 Nasal Cannula 5.00 05/09/16 22:15 93 4.00 05/09/16 22:00 96 22 112/83 92 Nasal Cannula 5.00 05/09/16 21:00 112 22 122/80 95 Nasal Cannula 5.00 05/09/16 20:00 5.00 05/09/16 20:00 97.6 113 22 135/76 Nasal Cannula 5.00 05/09/16 19:06 95 4.00 05/09/16 19:00 111 24 128/77 100 Nasal Cannula 5.00 05/09/16 19:00 111 05/09/16 18:00 102 36 114/77 Nasal Cannula 5.00 05/09/16 16:00 98.6 05/09/16 13:50 92 4.00 05/09/16 13:00 104 05/09/16 12:00 113 29 115/71 95 Nasal Cannula 5.00 05/09/16 11:56 97.8 05/09/16 10:22 94 5.00 05/09/16 08:00 5.00 05/09/16 08:00 96.9 05/09/16 08:00 121 23 107/56 97 Nasal Cannula 5.00 I & O 05/10/16 06:59 Intake Total 1090 ml Output Total 5025 ml Balance -3935 ml General Appearance: WD/WN Chronically ill Mild Distress HEENT: PERRL/EOMI Other (Limited exam due to BiPAP) Neck: Full Range of Motion Normal Inspection Non Tender Supple Carotid Bruit Respiratory: Chest Non Tender No Accessory Muscle Use No Respiratory Distress Crackles Decreased Breath Sounds Cardiovascular: Regular Rate, Rhythm No Edema No Gallop No JVD No Murmur Normal Peripheral Pulses Capillary Refill: Less Than 3 Seconds Extremity: Normal Capillary Refill Normal Inspection Normal Range of Motion Non Tender No Calf Tenderness Swelling Neurologic/Psychiatric: Alert Other (incomplete exam due to respiratory failure but does move all extremities) Skin: Normal Color Warm/Dry Lymphatic: No Adenopathy Results Lab Laboratory Tests 05/09/16 03:47 05/10/16 03:58 Assessment/Plan Assessment/Plan Unresponsive on admission - now A&0x 3 -now much improved. CHFAE with EF 40% per echo -Lasix ( pt was not on lasix as out patient) Morbid obesity with obesity hypoventilation syndrome and severe ALEXIS -Pt would be a good candidate for home vent to mask however she is so weak currently and with confusion i do not believe she would be able to manage any type of equipment like this. -PT has CPAP however she is noncompliant with it Acute on chronic respiratory failure -BiPAP PRN COPD quit smoking in 2003 -She is on 3 liters of oxygen 24/ UTI with proteus -Rocephin Debility -PT/OT -increase activity Thrombocytopenia -Consider consulting oncology if pt does not want to go on hospice care. -monitor Afib RVR - on PO Cardizem CAD with hx of stent placement Chronic LBBB H/o leg venous ulcers, managed by Dr Yu in [facility] Chronic leg swelling, likely due to venous insufficiency along with acute on chronic diastolic CHF Pt is ok to transfer to 4th floor with telemetry. Clinical Quality Measures DVT/VTE Risk/Contraindication: Risk Factor Score Per Nursin RFS Level Per Nursing on Admit: 4+=Very High STAN BOOKER DO May 10, 2016 07:22
[2016-05-10] MEDS: FUROSEMIDE 40 MG/4 ML INJ (LASIX) IVP SCH ×2 (08:04→22:13)
[2016-05-10] MEDS: ASPIRIN E.C. 81 MG (ECOTRIN) TAB PO SCH (08:04)
[2016-05-10] MEDS: DIGOXIN 0.25 MG/ML (LANOXIN) 2 ML AMP IV SCH (08:04)
[2016-05-10] MEDS: DILTIAZEM 180 MG (CARDIZEM CD) CAP PO SCH (08:04)
[2016-05-10] MEDS: APIXABAN 5 MG (ELIQUIS) TABLET PO SCH ×2 (08:04→22:13)
[2016-05-10] MEDS: cefTRIAXone 1 GM/NS 50 ML IVPB IV SCH ×2 (09:29)
[2016-05-10] MEDS: MICONAZOLE 2% POWDER (DESENEX AF) 90 GM TOP SCH ×2 (09:29→22:16)
--- NOTE | 2016-05-10 09:45 | Progress Note-Cardiology ---
Cardiology SOAP Progress Note Subjective: Transferred to 414 from ICU. Feels somewhat better today. No c/o CP or palpitations. Objective: I&O/Vital Signs Vital Sign - Last 12Hours 05/10/16 05/10/16 05/10/16 05/10/16 04:00 07:00 07:10 08:00 Pulse 122 131 Resp 29 B/P 113/72 Pulse Ox 89 94 O2 Delivery Nasal Cannula O2 Flow Rate 5.00 4.00 5.00 05/10/16 05/10/16 05/10/16 05/10/16 08:00 08:30 08:40 09:28 Temp 97.0 Pulse 122 120 98 Resp 21 18 B/P 157/98 119/57 Pulse Ox 94 90 90 O2 Delivery Nasal Cannula Nasal Cannula Nasal Cannula Nasal Cannula O2 Flow Rate 5.00 2.00 2.00 2.00 05/10/16 05/10/16 05/10/16 05/10/16 11:00 12:00 14:07 14:46 Temp 98.6 Pulse 110 108 102 Resp 18 28 B/P 114/56 Pulse Ox 92 98 91 O2 Delivery Nasal Cannula O2 Flow Rate 4.00 2.00 35.00 Intake and Output 05/10/16 00:00 Intake Total 340 ml Output Total 1875 ml Balance -1535 ml Weight (Pounds): 449 Weight (Ounces): 2.0 Weight (Calculated Kilograms): [phone] Constitutional: appears stated ageNo apparent distress, well-developed well- nourished Respiratory: chest expansion is symmetric chest is bilaterally symmetric crackles (bilat lower lobes) other (diminished AE) Cardiovascular: irregularly irregular S1 and S2 systolic murmur Gastrointestional: No tender, soft roundNo spleenomegaly Extremities: No clubbing, No cyanosis, significant edema (2-3 (+) bilat LE) Neurologic/Psychiatric: alert oriented x 3 power is 5/5 both on sides Skin: No rash, No ulcerations, other (scaling to bilat lower limbs) Results/Procedures: Labs Laboratory Tests 05/09/16 16:51: Glucometer 111H 05/09/16 20:56: Glucometer 115H 05/10/16 03:58: Anion Gap 13, BUN/Creatinine Ratio 44, Basophils # (Auto) 0.0, Basophils (%) ( Auto) 0, Blood Urea Nitrogen 43H, Calcium Level 9.1, Carbon Dioxide Level 37H, Chloride Level 95L, Creatinine 0.98, Digoxin Level 0.48L, Eosinophils # (Auto) 0.4H, Eosinophils (%) (Auto) 7, Estimat Glomerular Filtration Rate 57, Glucose Level 109H, Hematocrit 35, Hemoglobin 11.0L, Lymphocytes # (Auto) 1.0, Lymphocytes (%) (Auto) 16, Magnesium Level 1.4L, Mean Corpuscular Hemoglobin 32 , Mean Corpuscular Hemoglobin Concent 31L, Mean Corpuscular Volume 103H, Mean Platelet Volume , Monocytes # (Auto) 0.8, Monocytes (%) (Auto) 14H, Neutrophils # (Auto) 3.7, Neutrophils (%) (Auto) 63, Phosphorus Level 2.6, Platelet Count 69L, Potassium Level 4.2, Red Blood Count 3.42L, Red Cell Distribution Width 15.0H, Sodium Level 145, White Blood Count 6.0 05/10/16 11:11: Glucometer 146H Microbiology 05/07/16 Urine Culture - Final, Complete Proteus Mirabilis A/P: Assessment: Paroxysmal A-flutter/A-fib per Holter study of 02-10-2014. Currently a-fib with RVR. CAD. CAROLYN of LAD with [place] 3.5x30 mm in Nov 2010. Repeat cath of 01/25/14 showed patent stent, mild CAD and some elevation of LVEDP, indicating diastolic dysfunction Echo of 09/26/14 showed LVEF 60%, triv TR, and PASP 40 mmHg. This is a technically difficult study secondary to obesity. If accurate delineation of LV function and wall motion is required, then contrast echocardiogram is recommended. In the views that are visualized, there is mildly reduced LV function with an EF of 40%. Study was performed in atrial fibrillation. There is mild concentric LVH present. There is left atrial enlargement noted. Mild pulmonary hypertension with RVSP of 39 mmHg is noted. Per echo of March [address] Gutierrez. Chronic LBBB Chronic chest and mid back pain, etiology undetermined, currently unchanged and stable H/o intermittent hyperkalemia - currently WNL Hypertension - currently low blood pressure DM II Obesity with BMI 72 Intolerance to statins and refusal to take fibrates H/o leg venous ulcers, managed by Dr Yu in [facility] No significant PAD on angio of 01/25/14 Chronic anticoagulation with Eliquis Chronic leg swelling, likely due to venous insufficiency along with acute on chronic diastolic CHF Plan: Complex management issue. A-fib with RVR. Rate somewhat better We will continue Cardizem CD and Dig Low blood pressure prevents us from adding BB at this time OAC with Eliquis which we will continue. Thrombocytopenia of undetermined etiology, medical services managing. Acute on chronic diastolic CHF for which we will give diuretics. Obesity hypoventilation for which she is on Bi-pap and is being managed by Dr. German. Monitor lab closely Physician Assessment Physician Assessment Cor: irreg Lungs: dec bs at bases; increased exp phase A&R * As documented in our note above * I spoke with her and explained treatment plan MIGUEL ANGEL TELLEZ May 10, 2016 09:45 ANGELA ROBERT MD FACP FAC CCDS May 10, 2016 14:58
[2016-05-10] MEDS ORDERED: FUROSEMIDE 40 MG/4 ML INJ (LASIX) IVP NR (10:00)
[2016-05-10] MEDS: MAGNESIUM 1 GM/100 ML IVPB 100 ML IV SCH ×3 (10:04→12:25)
--- NOTE | 2016-05-10 11:09 | Physical Therapy Daily Note ---
PT Daily Note-Current Subjective Pt had been moved from ICU to 4th fl earlier and pt asked for PT to check back for tx. Upon return, pt agreed to Kwame lift from bed to recliner. Mental Status Patient Orientation: Person, Unable to Assess Attachments: Oxygen, [place] Catheter, IV Transfers Functional [place] Measure 0=Not Assessed/NA 4=Minimal Assistance 1=Total Assistance 5=Supervision or Setup 2=Maximal Assistance 6=Modified [place] 3=Moderate Assistance 7=Complete IndependenceIRFPAI Quality Coding Scale 6 Independent with activity with or without an assistive device 5 Patient requires set up or clean up by helper. Patient completes activity by themselves 4 Supervision or touching assist (CGA). [place] provide cues , steadying assist 3 The helper provides less than half the effort to complete the activity 2 The helper provides more than half the effort to complete the activity 1 Dependent. The helper does all the effort to complete an activity 7 Patient refused to complete or attempt activity 9 The patient did not perform the activity before the current illness or injury 88 Not attempted due to Medical conditions or safety concerns Transfers (B, C, W/C) (FIM): 1 Scootin Rollin Supine to/from Sit: 1 Sit to/from Stand: 88 Bed to/from Chair: 1 Weight Bearing Pt has no WB restriction given although can not WB and is Kwame lifted from bed to recliner. Treatments Pt was rolled side to side to secure Kwame sling under pt. Pt was lifted via Kwame at Max X3 from bed to recliner. Pt was positioned to comfort with pillows under RUE and under LLE avoiding heel at end of tx. Pt was left with all needs met at end of tx. Assessment Current Status: Fair Progress Pt continues to have limited movement with rolling/bed mobility and transfers. PT Clinical Abstractor Goals Clinical Abstractor Goals PT Clinical Abstractor Goals Time Frame: May 15, 2016 Transfers (B,C,W/C) (FIM): 1 PT Plan Problem List Problem List: Activity Tolerance, Functional Strength, Safety, Balance, Gait, Transfer, Bed Mobility, ROM Treatment/Plan Treatment Plan: Continue Plan of Care Treatment Plan: Bed Mobility, Therapeutic Exercise, Transfers Visits Per Week: 5 Safety Risks/Education Patient Education: Gait Training, Transfer Techniques, Correct Positioning, Safety Issues Teaching Recipient: Patient Teaching Methods: Discussion Response to Teaching: Reinforcement Needed Time/GCodes Time In: 1015 Time Out: 1030 Total Billed Treatment Time: 15 Total Billed Treatment visit, ELIZABETH (15m) SHRUTI HAGEN SALES UTILITY REPRESENTATIVE May 10, 2016 11:09
--- NOTE | 2016-05-10 11:14 | Progress Note-Hospitalist ---
Progress Note HPI/CC on Admission CC: CO2 narcosis HPI: This is a 66yoWF [facility] Pt of Dr. Andino with hx of morbid obesity and severe ALEXIS, AF on Eliquis, and DM that presents to the ER with altered mental status per [facility]. Upon arrival, pt denied any of those symptoms but when left alone during workup she became semi-unresponsive and workup revealed elevated CO2 requiring BiPAP. She has hx of noncompliance with CPAP. I have consulted Cardiology for elevated BNP with vascular congestion on CXR. WBC 5.1, Hgb 11.4, Platelets 64k- appears to be chronic. Will obtain records from [facility] to evaluate thrombocytopenia source. ABG reveals 7.21//199 on BiPAP 50%. Ua shows >100 WBCs, Ucx shows Proteus, pt empirically on Rocephin. auto clutch specialist: Pt was switched to stepdown. Pt placed back on BiPAP Pt is supposed to use CPAP at [facility] but is noncompliant and often does not use CPAP or O2. Patient Interview: Physical exam stable. Pt was non-responsive during visit. Scribed by Vinay Palacios under the direct supervision of Dr. Vo. Progress Notes/Assess & Plan Date Seen 05/10/16 Admission Dx/Process Assessment: CO2 Narcosis Respiratory failure ALEXIS severe Super obesity Volume overload Systolic Dysfunction EF of 40% AF DM HTN CAD two stents placed 12/09 Uterine CA hx Diagonsis/Assessment & Plan Chart Review: WBC 6 Hgb 11 Platelets 69k Creat 0.98 CXR less vascular congestion Patient Interview: Pt states that she is breathing better. Pt states that she lives in [facility]. Dr. Vo asks pt if she lives in a nursing facility, and pt states that she was only at [facility] temporarily. Physical exam stable. Pt denies having significant pain. Pt is having regular BMs. No fever, vital signs stable, pleasant, lying supine, tachypneic Irregular irregular rhythm, clear to auscultation bilaterally but distant breath sounds all fitzgerald 1+ pitting edema lower legs Laboratory Tests 05/10/16 03:58 Assessment: CO2 Narcosis Respiratory failure ALEXIS severe UTI Super obesity Volume overload Systolic Dysfunction EF of 40% AF DM HTN CAD two stents placed 12/09 Uterine CA hx Plan: Plan for DC to home on hospice soon NovoLog 5 units before meals prn sugar>150 CPAP/biPAP Poor prognosis Scribed by Vinay Palacios under the direct supervision of Dr. Vo. RADHA VO DO May 10, 2016 11:14
--- NOTE | 2016-05-10 11:28 | Occupational Ther Daily Note ---
OT Current Status-Daily Note Subjective Pt in bed, states she is feeling a little better today. Agrees to treatment. Pt has no c/o pain. Mental Status/Objective Functional [place] Measure 0=Not Assessed/NA 4=Minimal Assistance 1=Total Assistance 5=Supervision or Setup 2=Maximal Assistance 6=Modified [place] 3=Moderate Assistance 7=Complete [place] ADL-Treatment Pt washed face with set up while supine in bed. Other Treatment Pt performed bilateral UE exercises to promote increased strength and activity tolerance needed for functional tasks. Pt performed AROM x10 reps at shoulders, elbows, forearms, wrists, and hands. Rest breaks taken between all exercises. Assisted PT with transfer to chair. Pt rolled with assist x3 for placement of sling. Transfer to chair dependent with lift. Pt sitting in chair with needs met after session. OT Short Term Goals Short Term Goals 1=Demonstrate adherence to instructed precautions during ADL tasks. 2=Patient will verbalize/demonstrate understanding of assistive devices/ modifications for ADL. 3=Patient will improve strength/tolerance for activity to enable patient to perform ADL's. OT Process Technician Goals [facility] Goals Time Frame: May 23, 2016 Eating (FIM): 6 Grooming(FIM): 5 Additional Goals: 1-Demonstrate ADL Tasks, 2-Verbalize Understanding, 3- ImproveStrength/Fred 1=Demonstrate adherence to instructed precautions during ADL tasks. 2=Patient will verbalize/demonstrate understanding of assistive devices/ modifications for ADL. 3=Patient will improve strength/tolerance for activity to enable patient to perform ADL's. OT Education/Plan Problem List/Assessment Pt demonstrates decreased strength, mobility, ADL functioning, and activity tolerance. Pt to benefit from skilled OT intervention for UE ADL completion and strengthening to promote increased participation in ADLs. Discharge Recommendations Plan/Recommendations: Continue POC Treatment Plan/Plan of Care Patient would benefit from OT for education, treatment and training to promote independence in ADL's, mobility, safety and/or upper extremity function for ADL' s. Plan of Care: ADL Retraining, UE Funct Exercise/Act Treatment Duration: May 23, 2016 Visits Per Week: 5 Rehab Potential: Poor Time/GCodes Start Time: 10:00 Stop Time: 10:30 Total Time Billed (hr/min): 15 Billed Treatment Time 1 visit, EX(15minutes) [id number] Co-treat with PT [id number] NOEMI AUGUSTINE OT May 10, 2016 11:28
--- NOTE | 2016-05-10 12:15 | Physical Therapy Progress Note ---
Therapy Progress Note PT consulted with Dr. Bansal on POC and agrees to dismiss patient from skilled PT services due to Kwame Transfers are not a skilled treatment plan. Nursing to continue with transfers as tolerated by patient. CLAUDIA SOLIZ PT May 10, 2016 12:14
[2016-05-11] VITALS: BP 136/71
[2016-05-11] MEDS: RT-ALBUTEROL/IPRATROPIUM 3 ML (DUONEB) VIAL INH SCH ×6 (02:40→23:34)
[2016-05-11] MEDS: ALPRAZolam 0.25 MG (XANAX) TAB PO PRN ×2 (04:01→23:58)
[2016-05-11] MEDS: IBUPROFEN 600 MG (MOTRIN) TAB PO PRN ×2 (04:01→19:45)
[2016-05-11 04:19] VITALS: BP 140/82
[2016-05-11 05:32] LABS: BASOPHILS % (AUTO) 0 % (0-10); EOSINOPHILS # (AUTO) 0.3 10^3/uL (0.0-0.3); EOSINOPHILS % (AUTO) 5 % (0-10); LYMPHOCYTES # (AUTO) 0.9 X 10^3 (1.0-4.0); LYMPHOCYTES % (AUTO) 13 % (12-44); MEAN CORPUSCULAR HEMOGLOBIN 32 PG (25-34); MEAN CORPUSCULAR HGB CONC 31 G/DL (32-36); MEAN CORPUSCULAR VOLUME 103 FL (80-99); MONOCYTES % (AUTO) 14 % (0-12); NEUTROPHILS # (AUTO) 4.6 X 10^3 (1.8-7.8); NEUTROPHILS % (AUTO) 68 % (42-75); PLATELET COUNT 74 10^3/uL (130-400); RED BLOOD COUNT 3.52 10^6/uL (4.35-5.85); RED CELL DISTRIBUTION WIDTH 15.4 % (10.0-14.5); WHITE BLOOD COUNT 6.8 10^3/uL (4.3-11.0)
[2016-05-11 05:56] LABS: CALCIUM 9.1 MG/DL (8.5-10.1); CREATININE SERUM 0.94 MG/DL (0.60-1.30); MAGNESIUM 1.8 MG/DL (1.8-2.4); POTASSIUM 3.9 MMOL/L (3.6-5.0)
[2016-05-11] MEDS: inSUlin (REGULAR) HUMAN 1 UNIT/0.01 ML (CHARGE PER UNIT) SC SCH ×3 (06:00→16:00)
--- NOTE | 2016-05-11 06:15 | Progress Note (SOAP) ---
Subjective Subjective/Events-last exam Patient informs me she slept restlessness last night due to not being able to get comfortable. She does not one to go back on BiPAP. She is currently utilizing nasal cannula oxygen Ultimately as she improves she realizes she will o back to medical [place] Objective Exam Last Set of Vital Signs Vital Signs Date Time Temp Pulse Resp B/P Pulse Ox O2 Delivery O2 Flow Rate FiO2 05/11/16 04:19 98.4 110 24 140/82 92 Nasal Cannula 2.00 05/07/16 21:50 35 Capillary Refill : Less Than 3 SecondsLess Than 3 Seconds I&O Intake and Output 05/11/16 00:00 Intake Total 1610 ml Output Total 5350 ml Balance -3740 ml Intake Oral 1260 ml IV Total 350 ml Output Urine Total 5350 ml # Bowel Movements 2 General: Mild Distress Neck: Supple Lungs: Clear to Auscultation Heart: Regular Rate Abdomen: Soft Results/Procedures Lab Laboratory Tests 05/10/16 11:11: Glucometer 146H 05/10/16 15:57: Glucometer 158H 05/10/16 20:44: Glucometer 131H 05/11/16 03:58: Glucometer 125H 05/11/16 05:15: Anion Gap 14, BUN/Creatinine Ratio 35, Basophils # (Auto) 0.0, Basophils (%) ( Auto) 0, Blood Urea Nitrogen 33H, Calcium Level 9.1, Carbon Dioxide Level 37H, Chloride Level 93L, Creatinine 0.94, Eosinophils # (Auto) 0.3, Eosinophils (%) ( Auto) 5, Estimat Glomerular Filtration Rate 60, Glucose Level 125H, Hematocrit 36, Hemoglobin 11.3L, Lymphocytes # (Auto) 0.9L, Lymphocytes (%) (Auto) 13, Magnesium Level 1.8, Mean Corpuscular Hemoglobin 32, Mean Corpuscular Hemoglobin Concent 31L, Mean Corpuscular Volume 103H, Mean Platelet Volume , Monocytes # (Auto) 1.0, Monocytes (%) (Auto) 14H, Neutrophils # (Auto) 4.6, Neutrophils (%) (Auto) 68, Phosphorus Level 3.0, Platelet Count 74L, Potassium Level 3.9, Red Blood Count 3.52L, Red Cell Distribution Width 15.4H, Sodium Level 144, White Blood Count 6.8 Microbiology 05/07/16 Urine Culture - Final, Complete Proteus Mirabilis Radiology NAME: RYAN [facility]ENDIETA [facility] REC#: [id number] PT STATUS: ADM IN : 1950 PHYSICIAN: RADHA VO DO ADMIT DATE: 05/07/16/ICU Draft Date of Exam:05/08/16 CHEST 1 VIEW, AP/PA ONLY EXAMINATION: Portable semi-upright radiograph of the chest. INDICATION: Dyspnea. FINDINGS: There is moderate cardiomegaly with interstitial pulmonary edema and some alveolar component noted at this time. There is no definite effusion. No pneumothorax. IMPRESSION: Extensive mixed interstitial and alveolar infiltrates, increased from the prior study, presumably worsening pulmonary edema. Dictated on workstation # [id number] Dict: 05/08/16823 Trans: 05/08/1658 [id number] Interpreted by: OLEGARIO PHELPS MD Electronically signed by: Assessment/Plan Assessment/Plan Admission Dx 1. Respiratory failure on admission 2. Congestive heart failure, acute on chronic 3. History of COPD 4. Urinary tract infection-Proteus 5. Diabetes mellitus 6. Hypertension 7. Atrial fibrillation atrial flutter Plan 1. Respiratory failure on admission -initially on BiPAP but is now off -pulmonary management 05/11 She remains on nasal cannula oxygen -Ultimately she will be released to the medical [place] 2. Congestive heart failure, acute on chronic -Patient on Lasix -cardiology management 3. History of COPD 4. Urinary tract infection-Proteus -Patient on Rocephin 5. Diabetes mellitus 6. Hypertension 7. Atrial fibrillation atrial flutter Diagnosis/Problems: Clinical Quality Measures DVT/VTE Risk/Contraindication: Risk Factor Score Per Nursin RFS Level Per Nursing on Admit: 4+=Very High ELIAN ADAN MD May 11, 2016 06:15
[2016-05-11] MEDS: LEVOTHYROXINE 75 MCG (LEVOTHROID) TABLET PO SCH (06:27)
[2016-05-11] MEDS: PIOGLITAZONE 30MG (ACTOS) TAB PO SCH (06:27)
[2016-05-11] MEDS: inSUlin DETERMIR 1 UNIT/0.01 ML (LEVEMIR) CHARGE PER UNIT SQ SCH (06:28)
[2016-05-11 08:40] VITALS: BP 123/75
[2016-05-11] MEDS: DIGOXIN 0.25 MG/ML (LANOXIN) 2 ML AMP IV SCH (09:01)
[2016-05-11] MEDS: cefTRIAXone 1 GM/NS 50 ML IVPB IV SCH ×2 (09:01)
[2016-05-11] MEDS: FUROSEMIDE 40 MG/4 ML INJ (LASIX) IVP SCH ×2 (09:01→23:58)
[2016-05-11] MEDS: DILTIAZEM 180 MG (CARDIZEM CD) CAP PO SCH (09:02)
[2016-05-11] MEDS: MICONAZOLE 2% POWDER (DESENEX AF) 90 GM TOP SCH ×2 (09:02→23:59)
[2016-05-11] MEDS: APIXABAN 5 MG (ELIQUIS) TABLET PO SCH ×2 (09:02→23:58)
[2016-05-11] MEDS: ASPIRIN E.C. 81 MG (ECOTRIN) TAB PO SCH (09:02)
--- NOTE | 2016-05-11 09:52 | Diagnostic Imaging Report ---
Portable semi-erect AP chest at 05:05 a.m. INDICATION: Dyspnea. FINDINGS: This study is less than optimal due to the patient's body habitus. There is also shallow inspiration. Allowing for these technical factors, there does not appear to have been any significant change since the prior exam of 05/10/2016. The heart is enlarged. The lungs, where visualized show no evidence for pneumonia or for a significant pleural effusion. The central pulmonary vascularity is prominent, but there is no sign of overt failure. The mediastinum is widened but no different than on the prior exam. The osseous structures are intact. IMPRESSION: 1. There is no evidence for an acute abnormality on this suboptimal exam. 2. If further imaging is desired then CT of the chest will be recommended. Dictated by: Dictated on workstation # [id number]
--- NOTE | 2016-05-11 10:29 | Cardiology Progress Note ---
Subjective Subjective/Events-last exam patient is laying down in bed, lethargic, having shortness of breath. No chest pain. Review of Systems General: No Chills, No Night Sweats, No Fatigue, No Malaise, No Appetite, No Other HEENT: No Head Aches, No Visual Changes, No Eye Pain, No Ear Pain, No Dysphasia , No Sinus Congestion, No Post Nasal Drip, No Sore Throat, No Other Pulmonary: DyspneaNo Cough, No Pleuritic Chest Pain, No Other Cardiovascular: : EdemaNo: Chest Pain, Lt Headedness, Orthopnea, Other, Palpitations, Paroxysmal Noc. Dyspnea Objective-Cardiology Exam Last Set of Vital Signs Vital Signs 05/07/16 05/11/16 05/11/16 21:50 08:40 09:24 Temp 97.8 Pulse 119 Resp 20 B/P 123/75 Pulse Ox 90 O2 Delivery Nasal Cannula O2 Flow Rate 3.00 FiO2 35 Capillary Refill : Less Than 3 SecondsLess Than 3 Seconds I&O Intake and Output 05/11/16 00:00 Intake Total 1610 ml Output Total 5350 ml Balance -3740 ml Intake Oral 1260 ml IV Total 350 ml Output Urine Total 5350 ml # Bowel Movements 2 General: Mild Distress Neck: Supple, No JVD Lungs: Clear to Auscultation Heart: Regular Rate, Normal S1, Normal S2 Abdomen: Soft Extremities: No Clubbing, No Cyanosis Neuro: Normal Speech Results Lab Laboratory Tests 05/11/16 05:15 A/P-Cardiology Admission Diagnosis Acute respiratory failure COPD Atrial fibrillation Hypertension Assessment/Plan Status post acute respiratory failure, CO2 narcosis, improving. Managed by primary care physician and Dr. German. Paroxysmal A-flutter/A-fib per Holter study of 02-10-2014, heart rate is better controlled. Continue on current medication monitor heart rate and blood pressure. I will add low-dose beta shasha and evaluate her response CAD. CAROLYN of LAD with [place] 3.5x30 mm in Nov 2010. Repeat cath of 01/25/14 showed patent stent, mild CAD and some elevation of LVEDP, indicating diastolic dysfunction, continue to monitor. Echo of 09/26/14 showed LVEF 60%, triv TR, and PASP 40 mmHg. This is a technically difficult study secondary to obesity. If accurate delineation of LV function and wall motion is required, then contrast echocardiogram is recommended. In the views that are visualized, there is mildly reduced LV function with an EF of 40%. Study was performed in atrial fibrillation. There is mild concentric LVH present. There is left atrial enlargement noted. Mild pulmonary hypertension with RVSP of 39 mmHg is noted. Per echo of March [address] Gutierrez. monitor response to beta blockers X Intolerance to JAQUAN inhibitor and/or ARB due to hypotension. Chronic LBBB, continue to monitor Chronic chest and mid back pain, etiology undetermined, currently unchanged and stable H/o intermittent hyperkalemia - currently WNL, monitor electrolytes Hypertension, currently borderline low blood pressure, maintained on Cardizem, I will add low-dose beta blockers and monitor her tolerance and response. DM II Obesity with BMI 72 Intolerance to statins and refusal to take fibrates H/o leg venous ulcers, managed by Dr Yu in [facility] No significant PAD on angio of 01/25/14 Chronic anticoagulation with Eliquis Chronic leg swelling, likely due to venous insufficiency along with acute on chronic diastolic CHF Clinical Quality Measures DVT/VTE Risk/Contraindication: Risk Factor Score Per Nursin RFS Level Per Nursing on Admit: 4+=Very High THERESA THOMAS MD May 11, 2016 10:28
[2016-05-11] MEDS: meTOprolol TARTRATE 25 MG (LOPRESSOR) TABLET PO SCH ×2 (11:30→23:58)
[2016-05-11] MEDS: inSUlin ASPART (NovoLOG) 1 UNIT/0.01 ML (CHARGE PER UNIT) SC PRN (11:30)
[2016-05-11 12:00] VITALS: BP 130/84
[2016-05-11 16:00] VITALS: BP 127/74
[2016-05-11] MEDS: APAP 300 MG/CODEINE 30 MG (TYLENOL #3) TAB PO PRN ×3 (16:40→23:58)
[2016-05-11 21:00] VITALS: BP 131/67
[2016-05-12] VITALS: BP 142/82
[2016-05-12] MEDS: inSUlin (REGULAR) HUMAN 1 UNIT/0.01 ML (CHARGE PER UNIT) SC SCH ×5 (00:03→21:00)
[2016-05-12] MEDS: RT-ALBUTEROL/IPRATROPIUM 3 ML (DUONEB) VIAL INH SCH ×6 (02:22→22:56)
[2016-05-12 04:00] VITALS: BP 138/74
[2016-05-12 04:40] LABS: BASOPHILS % (AUTO) 0 % (0-10); EOSINOPHILS # (AUTO) 0.6 10^3/uL (0.0-0.3); EOSINOPHILS % (AUTO) 8 % (0-10); LYMPHOCYTES % (AUTO) 14 % (12-44); MEAN CORPUSCULAR HEMOGLOBIN 32 PG (25-34); MEAN CORPUSCULAR HGB CONC 30 G/DL (32-36); MEAN CORPUSCULAR VOLUME 106 FL (80-99); MONOCYTES # (AUTO) 0.8 X 10^3 (0.0-1.0); MONOCYTES % (AUTO) 11 % (0-12); NEUTROPHILS # (AUTO) 4.8 X 10^3 (1.8-7.8); NEUTROPHILS % (AUTO) 67 % (42-75); PLATELET COUNT 88 10^3/uL (130-400); RED BLOOD COUNT 3.52 10^6/uL (4.35-5.85); RED CELL DISTRIBUTION WIDTH 15.3 % (10.0-14.5); WHITE BLOOD COUNT 7.2 10^3/uL (4.3-11.0)
[2016-05-12 04:58] LABS: ANION GAP 12 MMOL/L (5-14); BLOOD UREA NITROGEN 29 MG/DL (7-18); BUN/CREATININE RATIO 34; CALCIUM 8.8 MG/DL (8.5-10.1); CARBON DIOXIDE 41 MMOL/L (21-32); CHLORIDE 92 MMOL/L (98-107); CREATININE SERUM 0.86 MG/DL (0.60-1.30); GFR ESTIMATED > 60; GLUCOSE 113 MG/DL (70-105); MAGNESIUM 1.6 MG/DL (1.8-2.4); PHOSPHORUS 3.5 MG/DL (2.3-4.7); POTASSIUM 3.6 MMOL/L (3.6-5.0); SODIUM 145 MMOL/L (135-145)
[2016-05-12] MEDS: inSUlin DETERMIR 1 UNIT/0.01 ML (LEVEMIR) CHARGE PER UNIT SQ SCH ×3 (06:00→21:12)
[2016-05-12] MEDS: PIOGLITAZONE 30MG (ACTOS) TAB PO SCH (06:00)
[2016-05-12] MEDS: LEVOTHYROXINE 75 MCG (LEVOTHROID) TABLET PO SCH (06:00)
[2016-05-12 08:00] VITALS: BP 136/68
--- NOTE | 2016-05-12 09:08 | Cardiology Progress Note ---
Subjective Subjective/Events-last exam patient is laying down in bed, feeling the same. No chest pain, still having some dyspnea. Review of Systems General: No Chills, No Night Sweats, No Fatigue, No Malaise, No Appetite, No Other HEENT: No Head Aches, No Visual Changes, No Eye Pain, No Ear Pain, No Dysphasia , No Sinus Congestion, No Post Nasal Drip, No Sore Throat, No Other Pulmonary: DyspneaNo Cough, No Pleuritic Chest Pain, No Other Cardiovascular: : EdemaNo: Chest Pain, Lt Headedness, Orthopnea, Other, Palpitations, Paroxysmal Noc. Dyspnea Objective-Cardiology Exam Last Set of Vital Signs Vital Signs 05/07/16 05/12/16 05/12/16 21:50 04:00 07:13 Temp 98.7 Pulse 92 Resp 18 B/P 138/74 Pulse Ox 95 O2 Delivery Nasal Cannula O2 Flow Rate 5.00 FiO2 35 Capillary Refill : Less Than 3 SecondsLess Than 3 Seconds I&O Intake and Output 05/12/16 00:00 Intake Total 960 ml Output Total 2110 ml Balance -1150 ml Intake Oral 910 ml IV Total 50 ml Output Urine Total 2110 ml # Bowel Movements 3 General: Alert, Oriented X3, Mild Distress Neck: Supple, No JVD Lungs: Clear to Auscultation Heart: Regular Rate, Normal S1, Normal S2 Abdomen: Soft Extremities: No Clubbing, No Cyanosis Neuro: Normal Speech Results Lab Laboratory Tests 05/12/16 03:42 A/P-Cardiology Admission Diagnosis Acute respiratory failure COPD Atrial fibrillation Hypertension Assessment/Plan Status post acute respiratory failure, CO2 narcosis, improving. Managed by primary care physician and Dr. German. Paroxysmal A-flutter/A-fib per Holter study of 02-10-2014, has been on Cardizem 360 mg daily. Appear to be tolerating low-dose beta blockers, continue to monitor, she has been maintained on aspirin, Eliquis and Motrin, I will add PPI. Dr. Hanson will take over tomorrow CAD. CAROLYN of LAD with [place] 3.5x30 mm in Nov 2010. Repeat cath of 01/25/14 showed patent stent, mild CAD and some elevation of LVEDP, indicating diastolic dysfunction, continue to monitor. Echo of 09/26/14 showed LVEF 60%, triv TR, and PASP 40 mmHg. This is a technically difficult study secondary to obesity. If accurate delineation of LV function and wall motion is required, then contrast echocardiogram is recommended. In the views that are visualized, there is mildly reduced LV function with an EF of 40%. Study was performed in atrial fibrillation. There is mild concentric LVH present. There is left atrial enlargement noted. Mild pulmonary hypertension with RVSP of 39 mmHg is noted. Per echo of March [address] Gutierrez. monitor response to beta blockers X Intolerance to JAQUAN inhibitor and/or ARB due to hypotension. Chronic LBBB, continue to monitor Chronic chest and mid back pain, etiology undetermined, currently unchanged and stable H/o intermittent hyperkalemia - currently WNL, monitor electrolytes Hypertension, currently borderline low blood pressure, maintained on Cardizem, I will add low-dose beta blockers and monitor her tolerance and response. DM II Obesity with BMI 72 Intolerance to statins and refusal to take fibrates H/o leg venous ulcers, managed by Dr Yu in [facility] No significant PAD on angio of 01/25/14 Chronic anticoagulation with Eliquis Chronic leg swelling, likely due to venous insufficiency along with acute on chronic diastolic CHF Clinical Quality Measures DVT/VTE Risk/Contraindication: Risk Factor Score Per Nursin RFS Level Per Nursing on Admit: 4+=Very High THERESA THOMAS MD May 12, 2016 09:08 THERESA THOMSA MD May 12, 2016 09:08
[2016-05-12] MEDS ORDERED: PANTOPRAZOLE 40 MG (PROTONIX) TAB PO NR (09:15)
--- NOTE | 2016-05-12 09:20 | Diagnostic Imaging Report ---
INDICATION: Dyspnea. EXAMINATION: Chest, 05/12/2016. COMPARISON: 05/11/2016. FINDINGS: There is cardiomegaly and pulmonary vascular congestion. Findings of edema throughout both lungs. Mid and lower lung infiltrates not excluded. No significant effusions are seen. IMPRESSION: Fairly stable appearing chest with congestion and infiltrates noted. Dictated by: Dictated on workstation # [id number]
--- NOTE | 2016-05-12 09:28 | Progress Note (SOAP) ---
Subjective Subjective/Events-last exam Patient does not voice any major concerns. She reports her breathing seems to be going okay. She is still planning on going ack to [facility] upon dismissal. Objective Exam Last Set of Vital Signs Vital Signs Date Time Temp Pulse Resp B/P Pulse Ox O2 Delivery O2 Flow Rate FiO2 05/12/16 07:13 95 5.00 05/12/16 04:00 98.7 92 18 138/74 Nasal Cannula 05/07/16 21:50 35 Capillary Refill : Less Than 3 SecondsLess Than 3 Seconds I&O Intake and Output 05/11/16 23:59 Intake Total 960 ml Output Total 2110 ml Balance -1150 ml Intake Oral 910 ml IV Total 50 ml Output Urine Total 2110 ml # Bowel Movements 3 General: No Acute Distress Lungs: Other (air movement normal but slight coarseness) Heart: Regular Rate Abdomen: Soft Results/Procedures Lab Laboratory Tests 05/11/16 11:11: Glucometer 203H 05/11/16 16:09: Glucometer 114H 05/11/16 22:01: Glucometer 125H 05/12/16 03:42: Anion Gap 12, BUN/Creatinine Ratio 34, Basophils # (Auto) 0.0, Basophils (%) ( Auto) 0, Blood Urea Nitrogen 29H, Calcium Level 8.8, Carbon Dioxide Level 41H, Chloride Level 92L, Creatinine 0.86, Eosinophils # (Auto) 0.6H, Eosinophils (%) (Auto) 8, Estimat Glomerular Filtration Rate > 60, Glucose Level 113H, Hematocrit 37, Hemoglobin 11.3L, Lymphocytes # (Auto) 1.0, Lymphocytes (%) (Auto ) 14, Magnesium Level 1.6L, Mean Corpuscular Hemoglobin 32, Mean Corpuscular Hemoglobin Concent 30L, Mean Corpuscular Volume 106H, Mean Platelet Volume , Monocytes # (Auto) 0.8, Monocytes (%) (Auto) 11, Neutrophils # (Auto) 4.8, Neutrophils (%) (Auto) 67, Phosphorus Level 3.5, Platelet Count 88L, Potassium Level 3.6, Red Blood Count 3.52L, Red Cell Distribution Width 15.3H, Sodium Level 145, White Blood Count 7.2 Microbiology 05/07/16 Urine Culture - Final, Complete Proteus Mirabilis Radiology NAME: RYAN [facility] REC#: [id number] PT STATUS: ADM IN : 1950 PHYSICIAN: RADHA VO DO ADMIT DATE: 05/07/16/ICU Draft Date of Exam:05/08/16 CHEST 1 VIEW, AP/PA ONLY EXAMINATION: Portable semi-upright radiograph of the chest. INDICATION: Dyspnea. FINDINGS: There is moderate cardiomegaly with interstitial pulmonary edema and some alveolar component noted at this time. There is no definite effusion. No pneumothorax. IMPRESSION: Extensive mixed interstitial and alveolar infiltrates, increased from the prior study, presumably worsening pulmonary edema. Dictated on workstation # [id number] Dict: 05/08/16823 Trans: 05/08/1658 [id number] Interpreted by: OLEGARIO PHELPS MD Electronically signed by: Assessment/Plan Assessment/Plan Admission Dx 1. Respiratory failure on admission 2. Congestive heart failure, acute on chronic 3. History of COPD 4. Urinary tract infection-Proteus 5. Diabetes mellitus 6. Hypertension 7. Atrial fibrillation atrial flutter Plan 1. Respiratory failure on admission -initially on BiPAP but is now off -pulmonary management 05/11 She remains on nasal cannula oxygen -Ultimately she will be released to the medical [place] 05/12 today I spoke with her regarding discharge planning for Friday 2. Congestive heart failure, acute on chronic -Patient on Lasix -cardiology management 3. History of COPD 4. Urinary tract infection-Proteus -Patient on Rocephin 05/12 will switch to po antibiotics upon dismissal. 5. Diabetes mellitus -she is on home regimen 6. Hypertension -stable 7. Atrial fibrillation atrial flutter -stable Diagnosis/Problems: Clinical Quality Measures DVT/VTE Risk/Contraindication: Risk Factor Score Per Nursin RFS Level Per Nursing on Admit: 4+=Very High ELIAN ADAN MD May 12, 2016 09:28
[2016-05-12] MEDS: FUROSEMIDE 40 MG/4 ML INJ (LASIX) IVP SCH ×2 (09:37→21:11)
[2016-05-12] MEDS: cefTRIAXone 1 GM/NS 50 ML IVPB IV SCH ×2 (09:37)
[2016-05-12] MEDS: DIGOXIN 0.25 MG/ML (LANOXIN) 2 ML AMP IV SCH (09:38)
[2016-05-12] MEDS: APIXABAN 5 MG (ELIQUIS) TABLET PO SCH ×2 (09:41→21:14)
[2016-05-12] MEDS: meTOprolol TARTRATE 25 MG (LOPRESSOR) TABLET PO SCH ×2 (09:41→21:11)
[2016-05-12] MEDS: ASPIRIN E.C. 81 MG (ECOTRIN) TAB PO SCH (09:41)
[2016-05-12] MEDS: MICONAZOLE 2% POWDER (DESENEX AF) 90 GM TOP SCH ×2 (09:42→21:12)
[2016-05-12] MEDS: DILTIAZEM 180 MG (CARDIZEM CD) CAP PO SCH (09:42)
[2016-05-12 12:00] VITALS: BP 121/66
[2016-05-12] MEDS: APAP 300 MG/CODEINE 30 MG (TYLENOL #3) TAB PO PRN (14:06)
[2016-05-12 16:00] VITALS: BP 154/58
[2016-05-12 20:00] VITALS: BP 126/60
[2016-05-13] VITALS: BP 110/58
[2016-05-13] MEDS: RT-ALBUTEROL/IPRATROPIUM 3 ML (DUONEB) VIAL INH SCH ×4 (02:58→13:24)
[2016-05-13 04:00] VITALS: BP 138/70
[2016-05-13 04:59] LABS: BASOPHILS % (AUTO) 0 % (0-10); EOSINOPHILS # (AUTO) 0.5 10^3/uL (0.0-0.3); EOSINOPHILS % (AUTO) 7 % (0-10); LYMPHOCYTES # (AUTO) 0.6 X 10^3 (1.0-4.0); LYMPHOCYTES % (AUTO) 8 % (12-44); MEAN CORPUSCULAR HEMOGLOBIN 32 PG (25-34); MEAN CORPUSCULAR HGB CONC 30 G/DL (32-36); MEAN CORPUSCULAR VOLUME 106 FL (80-99); MONOCYTES # (AUTO) 0.9 X 10^3 (0.0-1.0); MONOCYTES % (AUTO) 11 % (0-12); NEUTROPHILS # (AUTO) 5.8 X 10^3 (1.8-7.8); NEUTROPHILS % (AUTO) 74 % (42-75); PLATELET COUNT 105 10^3/uL (130-400); RED BLOOD COUNT 3.42 10^6/uL (4.35-5.85); RED CELL DISTRIBUTION WIDTH 14.9 % (10.0-14.5); WHITE BLOOD COUNT 7.8 10^3/uL (4.3-11.0)
[2016-05-13 05:16] LABS: ANION GAP 12 MMOL/L (5-14); BLOOD UREA NITROGEN 27 MG/DL (7-18); BUN/CREATININE RATIO 31; CALCIUM 8.9 MG/DL (8.5-10.1); CARBON DIOXIDE 41 MMOL/L (21-32); CHLORIDE 90 MMOL/L (98-107); CREATININE SERUM 0.87 MG/DL (0.60-1.30); GFR ESTIMATED > 60; GLUCOSE 135 MG/DL (70-105); MAGNESIUM 1.4 MG/DL (1.8-2.4); PHOSPHORUS 2.6 MG/DL (2.3-4.7); POTASSIUM 3.7 MMOL/L (3.6-5.0); SODIUM 143 MMOL/L (135-145)
[2016-05-13] MEDS: PIOGLITAZONE 30MG (ACTOS) TAB PO SCH (05:39)
[2016-05-13] MEDS: LEVOTHYROXINE 75 MCG (LEVOTHROID) TABLET PO SCH (05:39)
[2016-05-13] MEDS: inSUlin DETERMIR 1 UNIT/0.01 ML (LEVEMIR) CHARGE PER UNIT SQ SCH (05:39)
[2016-05-13] MEDS: inSUlin (REGULAR) HUMAN 1 UNIT/0.01 ML (CHARGE PER UNIT) SC SCH ×3 (05:39→17:23)
[2016-05-13] MEDS ORDERED: PANTOPRAZOLE 40 MG (PROTONIX) TAB PO SCH (07:00)
--- NOTE | 2016-05-13 07:17 | Pulmonary Progress Note ---
Subjective Subjective/Events-last exam Pt is doing well. She is wanting to be discharged today. Exam Exam Vital Signs Date Time Temp Pulse Resp B/P Pulse Ox O2 Delivery O2 Flow Rate FiO2 05/13/16 06:39 92 05/13/16 06:33 92 6.00 05/13/16 02:58 90 6.00 05/13/16 01:00 68 05/13/16 00:00 97.4 86 20 110/58 93 Nasal Cannula 4.00 05/12/16 22:56 91 6.00 05/12/16 21:00 Nasal Cannula 5.00 05/12/16 20:00 98.1 84 20 126/60 96 Nasal Cannula 4.00 05/12/16 19:36 88 5.00 05/12/16 19:00 67 05/12/16 16:00 96.3 61 20 154/58 92 Nasal Cannula 4.00 05/12/16 15:05 92 5.00 05/12/16 12:00 97.7 90 18 121/66 92 Nasal Cannula 4.00 05/12/16 10:42 90 5.00 05/12/16 09:00 Nasal Cannula 5.00 05/12/16 08:00 96.4 86 16 136/68 96 Nasal Cannula 5.00 I & O 05/13/16 07:00 Intake Total 1150 ml Output Total 1600 ml Balance -450 ml General Appearance: No Apparent Distress WD/WN Chronically ill HEENT: PERRL/EOMI Other (Limited exam due to BiPAP) Neck: Full Range of Motion Normal Inspection Non Tender Supple Carotid Bruit Respiratory: Chest Non Tender No Accessory Muscle Use No Respiratory Distress Decreased Breath Sounds Cardiovascular: Regular Rate, Rhythm No Edema No Gallop No JVD No Murmur Normal Peripheral Pulses Capillary Refill: Less Than 3 Seconds Extremity: Normal Capillary Refill Normal Inspection Normal Range of Motion Non Tender No Calf Tenderness Swelling Neurologic/Psychiatric: Alert Other (incomplete exam due to respiratory failure but does move all extremities) Skin: Normal Color Warm/Dry Lymphatic: No Adenopathy Results Lab Laboratory Tests 05/12/16 03:42 05/13/16 04:38 Assessment/Plan Assessment/Plan Unresponsive on admission - now A&0x 3 -now much improved. CHFAE with EF 40% per echo -Lasix ( pt was not on lasix as out patient) Morbid obesity with obesity hypoventilation syndrome and severe ALEXIS -Pt would be a good candidate for home vent to mask however she is so weak currently and with confusion i do not believe she would be able to manage any type of equipment like this. -PT has CPAP however she is noncompliant with it Acute on chronic respiratory failure -BiPAP PRN COPD quit smoking in 2003 -She is on 3 liters of oxygen 24/7 UTI with proteus Debility -PT/OT -increase activity Thrombocytopenia Afib RVR - on PO Cardizem CAD with hx of stent placement Chronic LBBB H/o leg venous ulcers, managed by Dr Yu in [facility] Chronic leg swelling, likely due to venous insufficiency along with acute on chronic diastolic CHF Possible discharge today to ECF. Clinical Quality Measures DVT/VTE Risk/Contraindication: Risk Factor Score Per Nursin RFS Level Per Nursing on Admit: 4+=Very High STAN BOOKER DO May 13, 2016 07:16
[2016-05-13 08:00] VITALS: BP 150/86
[2016-05-13] MEDS ORDERED: MAGNESIUM 1 GM/100 ML IVPB 100 ML IV SCH (08:45)
--- NOTE | 2016-05-13 08:47 | Progress Note-Cardiology ---
Cardiology SOAP Progress Note Subjective: States overall she is feeling better today. Feels breathing is better. No c/o CP, palpitations. Objective: I&O/Vital Signs Vital Sign - Last 12Hours 05/12/16 05/13/16 05/13/16 05/13/16 22:56 00:00 01:00 02:58 Temp 97.4 Pulse 86 68 Resp 20 B/P 110/58 Pulse Ox 91 93 90 O2 Delivery Nasal Cannula O2 Flow Rate 6.00 4.00 6.00 05/13/16 05/13/16 05/13/16 05/13/16 04:00 06:33 06:39 08:00 Temp 97.8 97.8 Pulse 89 89 Resp 21 18 B/P 138/70 150/86 Pulse Ox 90 92 92 94 O2 Delivery Nasal Cannula Nasal Cannula O2 Flow Rate 4.00 6.00 4.00 05/13/16 10:10 Pulse Ox 92 O2 Flow Rate 6.00 Intake and Output 05/13/16 00:00 Intake Total 1000 ml Output Total 1400 ml Balance -400 ml Weight (Pounds): 449 Weight (Ounces): 2.0 Weight (Calculated Kilograms): [phone] Constitutional: appears stated ageNo apparent distress, well-developed well- nourished Respiratory: chest expansion is symmetric chest is bilaterally symmetric other (diminished AE) Cardiovascular: irregularly irregular S1 and S2 systolic murmur Gastrointestional: No tender, soft roundNo spleenomegaly Genital/Rectal: other (indwelling urinary catheter to DD with clear, dark yellow urine) Extremities: No clubbing, No cyanosis, significant edema (mod bilat LE - improved) Neurologic/Psychiatric: alert oriented x 3 power is 5/5 both on sides Skin: No rash, No ulcerations, other (scaling to bilat lower limbs) Results/Procedures: Labs Laboratory Tests 05/12/16 11:25: Glucometer 186H 05/12/16 15:32: Glucometer 180H 05/12/16 20:51: Glucometer 134H 05/13/16 04:38: Anion Gap 12, BUN/Creatinine Ratio 31, Basophils # (Auto) 0.0, Basophils (%) ( Auto) 0, Blood Urea Nitrogen 27H, Calcium Level 8.9, Carbon Dioxide Level 41H, Chloride Level 90L, Creatinine 0.87, Digoxin Level 0.92, Eosinophils # (Auto) 0.5H, Eosinophils (%) (Auto) 7, Estimat Glomerular Filtration Rate > 60, Glucose Level 135H, Hematocrit 36, Hemoglobin 10.9L, Lymphocytes # (Auto) 0.6L, Lymphocytes (%) (Auto) 8L, Magnesium Level 1.4L, Mean Corpuscular Hemoglobin 32 , Mean Corpuscular Hemoglobin Concent 30L, Mean Corpuscular Volume 106H, Mean Platelet Volume , Monocytes # (Auto) 0.9, Monocytes (%) (Auto) 11, Neutrophils # (Auto) 5.8, Neutrophils (%) (Auto) 74, Phosphorus Level 2.6, Platelet Count 105L, Potassium Level 3.7, Red Blood Count 3.42L, Red Cell Distribution Width 14.9H, Sodium Level 143, White Blood Count 7.8 Microbiology 05/07/16 Urine Culture - Final, Complete Proteus Mirabilis A/P: Assessment: Paroxysmal A-flutter/A-fib per Holter study of 02-10-2014. Currently a-fib with controlled rate CAD. CAROLYN of LAD with [place] 3.5x30 mm in Nov 2010. Repeat cath of 01/25/14 showed patent stent, mild CAD and some elevation of LVEDP, indicating diastolic dysfunction Echo of 09/26/14 showed LVEF 60%, triv TR, and PASP 40 mmHg. This is a technically difficult study secondary to obesity. If accurate delineation of LV function and wall motion is required, then contrast echocardiogram is recommended. In the views that are visualized, there is mildly reduced LV function with an EF of 40%. Study was performed in atrial fibrillation. There is mild concentric LVH present. There is left atrial enlargement noted. Mild pulmonary hypertension with RVSP of 39 mmHg is noted. Per echo of March [address] Gutierrez. Chronic LBBB Chronic chest and mid back pain, etiology undetermined, currently unchanged and stable H/o intermittent hyperkalemia - currently WNL Hypertension - controlled DM II Obesity with BMI 72 Intolerance to statins and refusal to take fibrates H/o leg venous ulcers, managed by Dr Yu in [facility] No significant PAD on angio of 01/25/14 Chronic anticoagulation with Eliquis Chronic leg swelling, likely due to venous insufficiency along with acute on chronic diastolic CHF Mild thrombocytopenia being managed by medical services Hypomagnesia - replace Plan: Complex management issue. A-fib with improved ventricular response BP improved, BB have been added back to regimen. We will continue Cardizem, but stop dig. Having her on three rate controlling agents places her at risk for bradycardia. OAC with Eliquis which we will continue. Thrombocytopenia of undetermined etiology, medical services managing. Somewhat improved Acute on chronic diastolic CHF - clinically improved Change IV lasix to oral Obesity hypoventilation for which she is on Bi-pap and is being managed by Dr. German. Replace mag Cardiac status clinically improved Monitor lab Physician Assessment Physician Assessment Lungs: fair air entry, diminished at the bases Cor: irreg A&R * As documented in our note above * I spoke with her and answered questions MIGUEL ANGEL TELLZE STATEMENT CLERK May 13, 2016 08:47 ANGELA ROBERT MD FACP FAC CCDS May 13, 2016 10:48
[2016-05-13] MEDS ORDERED: METO-333 PO (08:55)
[2016-05-13] MEDS ORDERED: DILT180C84 PO (08:55)
[2016-05-13] MEDS ORDERED: FURO40TA4 PO (08:55)
[2016-05-13] MEDS: MICONAZOLE 2% POWDER (DESENEX AF) 90 GM TOP SCH (09:00)
[2016-05-13] MEDS: MAGNESIUM 1 GM/100 ML IVPB 100 ML IV SCH ×3 (09:00→11:41)
[2016-05-13] MEDS ORDERED: FUROSEMIDE 40 MG (LASIX) TAB PO SCH (09:00)
[2016-05-13] MEDS: DILTIAZEM 180 MG (CARDIZEM CD) CAP PO SCH (09:01)
[2016-05-13] MEDS: meTOprolol TARTRATE 25 MG (LOPRESSOR) TABLET PO SCH (09:01)
[2016-05-13] MEDS: APIXABAN 5 MG (ELIQUIS) TABLET PO SCH (09:01)
[2016-05-13] MEDS: ASPIRIN E.C. 81 MG (ECOTRIN) TAB PO SCH (09:01)
--- NOTE | 2016-05-13 09:54 | Occupational Ther Daily Note ---
OT Current Status-Daily Note Subjective Pt. does not report pain. Appearance Pt. in bed with covers pulled up to neck. Does not initiate movement but does agree to work with OT. Mental Status/Objective Patient Orientation: Person Functional [place] Measure 0=Not Assessed/NA 4=Minimal Assistance 1=Total Assistance 5=Supervision or Setup 2=Maximal Assistance 6=Modified [place] 3=Moderate Assistance 7=Complete [place] Other Treatment Pt. supine in bed. Pt. agrees to bilateral UE exercises. This is an effort for her. OT put HOB up. Encouraged her to utilize stomach muscles and pull self upward. Pt. unable to do this and no trace movement noted. Completed 7 bilateral UE exercises x 10 reps each in all planes. Pt. educated to continue doing these on her own, as she will need to regain arm strength. Pt. verbalizes understanding. However, at end of treatment does not initiate pulling blankets back up. OT does this for her. All needs met in room. Education OT Patient Education: Correct positioning, Progress toward Goal/Update tx plan , Purpose of tx/functional activities, Reviewed precautions, Rehab process Teaching Recipient: Patient Teaching Methods: Demonstration, Discussion Response to Teaching: Verbalize Understanding, Return Demonstration OT Short Term Goals Short Term Goals 1=Demonstrate adherence to instructed precautions during ADL tasks. 2=Patient will verbalize/demonstrate understanding of assistive devices/ modifications for ADL. 3=Patient will improve strength/tolerance for activity to enable patient to perform ADL's. OT Usp Goals Usp Goals Time Frame: May 23, 2016 Eating (FIM): 6 Grooming(FIM): 5 Additional Goals: 1-Demonstrate ADL Tasks, 2-Verbalize Understanding, 3- ImproveStrength/Fred 1=Demonstrate adherence to instructed precautions during ADL tasks. 2=Patient will verbalize/demonstrate understanding of assistive devices/ modifications for ADL. 3=Patient will improve strength/tolerance for activity to enable patient to perform ADL's. OT Education/Plan Problem List/Assessment Assessment: Decreased Activ Tolerance, Decreased UE Strength, Dependent Transfers, Impaired Bed Mobility, Impaired Funct Balance, Impaired I ADL's, Impaired Self-Care Skills, Restricted Funct UE ROM Pt demonstrates decreased strength, mobility, ADL functioning, and activity tolerance. Pt to benefit from skilled OT intervention for UE ADL completion and strengthening to promote increased participation in ADLs. Discharge Recommendations Plan/Recommendations: Continue POC Therapy D/C Recommendations: 24 hr Supervision, Half-Way Placement Barriers to Progress Lethargy, motivation Target Placement Pt. states that she might be [facility] to [facility] today. Treatment Plan/Plan of Care Treatment,Training & Education: Yes Patient would benefit from OT for education, treatment and training to promote independence in ADL's, mobility, safety and/or upper extremity function for ADL' s. Plan of Care: ADL Retraining, UE Funct Exercise/Act Treatment Duration: May 23, 2016 # of days/week 5-6 Visits Per Week: 5 Agreement: Yes Rehab Potential: Poor Time/GCodes Start Time: 09:20 Stop Time: 09:35 Total Time Billed (hr/min): 15 Billed Treatment Time 1, EX RAMBO AC OT May 13, 2016 09:54
--- NOTE | 2016-05-13 10:27 | Discharge Inst-Skilled Nursing ---
Discharge Inst-Skilled NF Consult/Follow Up/Orders Follow up appt.: Evita Jackson APRN will see you at [facility] Skilled NF Admit to: [facility] Certifications SNF I certify that SNF services are required to be given on an inpatient basis because of the above named patient's need for assisted care on a continuing basis for the conditions(s) for which he/she was receiving inpatient hospital services prior to his/her transfer to the SNF. [facility] Facility Order: Nursing Services, It Applications Manager-Evaluate & Treat, Physical Therapy-Evaluate & Treat Discharge Diet: ADA Diet Daily Activity as Tolerated: Yes New & Resume Previous Orders Pneu Vac Indicated: Yes Discharge Medications New Medications: Diltiazem HCl (Diltiazem 24Hr Cd) 180 Mg Cap.er.24h 360 MG PO DAILY #30 Ref 5 CAP Furosemide (Furosemide) 40 Mg Tablet 40 MG PO DAILY #30 Ref 5 TAB Metoprolol Tartrate (Metoprolol Tartrate) 25 Mg Tablet 25 MG PO BID #60 Ref 5 TAB Continued Medications: Acetaminophen (Tylenol Extra Strength) 500 Mg Tablet 500 MG PO Q8H PRN PAIN TAB Apixaban (Eliquis) 5 Mg Tablet 5 MG PO BID TAB Aspirin (Aspirin Ec 81 Mg) 81 Mg Tabec 81 MG PO DAILY TAB Exenatide Microspheres (Bydureon Pen) 2 Mg/0.65 Ml Pen.injctr 2 MG SQ Sa EA Gabapentin (Gabapentin) 300 Mg Capsule 300 MG PO TID CAP Ibuprofen (Ibuprofen) 600 Mg Tablet 600 MG PO Q6H PRN PAIN TAB Insulin Aspart (Novolog Flexpen) 300 Units/3 Ml Solution 15 UNITS SQ AC EA Insulin Detemir (Levemir Flextouch) 100 Unit/1 Ml Insuln.pen 10 UNITS SC 0600,2000 EA Ipratropium/Albuterol Sulfate (Iprat-Albut 0.5-3(2.5) mg/3 ml) 3 Ml Ampul.neb 3 ML IH Q6H PRN SHORTNESS OF BREATH EACH Levothyroxine Sodium (Levothyroxine Sodium) 75 Mcg Tablet 75 MCG PO DAILY TAB Magnesium Hydroxide (Milk of Magnesia) 400 Mg/5 Ml Oral.susp 30 ML PO DAILY PRN CONSTIPATION ML Nystatin (Nystatin) 15 Gm Cream..g. TP BID APPLY TO ABDOMINAL FOLDS TUBE Pioglitazone HCl (Actos) 30 Mg Tablet 30 MG PO DAILY TAB Discontinued Medications: Acetaminophen with Codeine (Tylenol with Codeine #3 Tablet) 1 Each Tablet 1 TAB PO Q6H PRN PAIN TAB Diltiazem HCl (Cartia Xt) 120 Mg Cap.er.24h 120 MG PO DAILY CAP Lisinopril (Lisinopril) 40 Mg Tablet 40 MG PO DAILY TAB Metoprolol Succinate (Metoprolol Succinate Xl 100 Mg) 100 Mg Tab.sr.24h 100 MG PO DAILY TAB Metoprolol Succinate (Metoprolol Succinate Xl 100 Mg) 100 Mg Tab.sr.24h 50 MG PO HS TAKES 1/2 (100MG) TABLET TAB Triny Mariano May 13, 2016 10:25 TRINY MARIANO MD May 13, 2016 10:26 am
--- NOTE | 2016-05-13 10:28 | Discharge Summary ---
Diagnosis/Chief Complaint Date of Admission May 07, 2016 at 5:30 pm Date of Discharge May 13, 2016 Admission Diagnosis Admission Diagnosis 1. Respiratory failure on admission 2. Congestive heart failure, acute on chronic 3. History of COPD 4. Urinary tract infection-Proteus 5. Diabetes mellitus 6. Hypertension 7. Atrial fibrillation atrial flutter Discharge Diagnosis 1. Respiratory failure on admission -initially on BiPAP but is now off -pulmonary management 05/11 She remains on nasal cannula oxygen -Ultimately she will be released to the medical [place] 2. Congestive heart failure, acute on chronic -Patient on Lasix -cardiology management- continued lasix PO on discharge and labs ordered for follow-up by Cardiology 3. History of COPD 4. Urinary tract infection-Proteus -Completed 7 doses of rocephin while inpatient 5. Diabetes mellitus -she is on home regimen 6. Hypertension -stable 7. Atrial fibrillation atrial flutter -stable -Discharged on metoprolol and carvedilol per Cardiology recommendations, no digoxin. Chief Complaint/HPI Chief Complaint/HPI From H&P "HPI: This is a 66yo[place] [facility] Pt of Dr. Andino with hx of morbid obesity and severe ALEXIS, AF on Eliquis, and DM that presents to the ER with altered mental status per usp. Upon arrival, pt denied any of those symptoms but when left alone during workup she became semi-unresponsive and workup revealed elevated CO2 requiring BiPAP. She has hx of noncompliance with CPAP. I have consulted Cardiology for elevated BNP with vascular congestion on CXR. WBC 5.1, Hgb 11.4, Platelets 64k- appears to be chronic. Will obtain records from [facility] to evaluate thrombocytopenia source. ABG reveals 7./199 on BiPAP 50%. Ua shows >100 WBCs, Ucx shows Proteus, pt empirically on Rocephin." Discharge Summary-Simple/Stand Consultations Discharge Physical Examination Allergies: Coded Allergies: liraglutide (Verified Allergy, Intermediate, NAUSEA, 04/01/16) VOMITING AND CHEST PAIN THAT RADIATES TO HER BACK simvastatin (Verified Allergy, Intermediate, 04/01/16) PT HAS ELEVATED LIVER ENZYMES WITH ANY STATIN DRUG Bacitracin Zinc (Verified Allergy, Mild, RASH, 04/01/16) bacitracin (Verified Allergy, Mild, RASH, 04/01/16) colistimethate sodium (Verified Allergy, Mild, RASH, 04/01/16) gramicidin D (Verified Allergy, Mild, RASH, 04/01/16) metformin HCl (Verified Allergy, Mild, 04/01/16) neomycin sulfate (Verified Allergy, Mild, RASH, 04/01/16) polymyxin B (Verified Allergy, Mild, RASH, 04/01/16) polymyxin B sulfate (Verified Allergy, Mild, RASH, 04/01/16) pramoxine HCl (Verified Allergy, Mild, RASH, 04/01/16) Vitals & I&Os Vital Sign - Last 12Hours Date Time Temp Pulse Resp B/P Pulse Ox O2 Delivery O2 Flow Rate FiO2 05/13/16 10:10 92 6.00 05/13/16 08:00 97.8 89 18 150/86 Nasal Cannula 05/07/16 21:50 35 Intake and Output 05/12/16 23:59 Intake Total 1000 ml Output Total 1400 ml Balance -400 ml General Appearance: Alert, No Acute Distress Respiratory: Other (ronchi throughout, unable to sit up for complete exam) Cardiovascular: Other (irregular rhythm, normal rate) Abdominal: Normal Bowel Sounds Neuro: Normal Speech Psych/Mental Status: Mental Status NL Hospital Course See final discharge diagnosis. Labs Laboratory Tests Test 05/11/16 16:09 05/11/16 22:01 05/12/16 03:42 05/12/16 11:25 Range/Units Glucometer 114 H 125 H 186 H 70-110 MG/DL Anion Gap 12 5-14 MMOL/L BUN/Creatinine Ratio 34 Basophils # (Auto) 0.0 0.0-0.1 10^3/uL Basophils (%) (Auto) 0 0-10 % Blood Urea Nitrogen 29 H 7-18 MG/DL Calcium Level 8.8 8.5-10.1 MG/DL Carbon Dioxide Level 41 H 21-32 MMOL/L Chloride Level 92 L 98-107 MMOL/L Creatinine 0.86 0.60-1.30 MG/DL Eosinophils # (Auto) 0.6 H 0.0-0.3 10^3/uL Eosinophils (%) (Auto) 8 0-10 % Estimat Glomerular Filtration Rate > 60 Glucose Level 113 H 70-105 MG/DL Hematocrit 37 35-52 % Hemoglobin 11.3 L 11.5-16.0 G/DL Lymphocytes # (Auto) 1.0 1.0-4.0 X 10^3 Lymphocytes (%) (Auto) 14 12-44 % Magnesium Level 1.6 L 1.8-2.4 MG/DL Mean Corpuscular Hemoglobin 32 25-34 PG Mean Corpuscular Hemoglobin Concent 30 L 32-36 G/DL Mean Corpuscular Volume 106 H 80-99 FL Mean Platelet Volume 7.4-10.4 FL Monocytes # (Auto) 0.8 0.0-1.0 X 10^3 Monocytes (%) (Auto) 11 0-12 % Neutrophils # (Auto) 4.8 1.8-7.8 X 10^3 Neutrophils (%) (Auto) 67 42-75 % Phosphorus Level 3.5 2.3-4.7 MG/DL Platelet Count 88 L 130-400 10^3/uL Potassium Level 3.6 3.6-5.0 MMOL/L Red Blood Count 3.52 L 4.35-5.85 10^6/uL Red Cell Distribution Width 15.3 H 10.0-14.5 % Sodium Level 145 135-145 MMOL/L White Blood Count 7.2 4.3-11.0 10^3/uL Test 05/12/16 15:32 05/12/16 20:51 05/13/16 04:38 Range/Units Glucometer 180 H 134 H 70-110 MG/DL Anion Gap 12 5-14 MMOL/L BUN/Creatinine Ratio 31 Basophils # (Auto) 0.0 0.0-0.1 10^3/uL Basophils (%) (Auto) 0 0-10 % Blood Urea Nitrogen 27 H 7-18 MG/DL Calcium Level 8.9 8.5-10.1 MG/DL Carbon Dioxide Level 41 H 21-32 MMOL/L Chloride Level 90 L 98-107 MMOL/L Creatinine 0.87 0.60-1.30 MG/DL Digoxin Level 0.92 0.80-2.00 NG/ML Eosinophils # (Auto) 0.5 H 0.0-0.3 10^3/uL Eosinophils (%) (Auto) 7 0-10 % Estimat Glomerular Filtration Rate > 60 Glucose Level 135 H 70-105 MG/DL Hematocrit 36 35-52 % Hemoglobin 10.9 L 11.5-16.0 G/DL Lymphocytes # (Auto) 0.6 L 1.0-4.0 X 10^3 Lymphocytes (%) (Auto) 8 L 12-44 % Magnesium Level 1.4 L 1.8-2.4 MG/DL Mean Corpuscular Hemoglobin 32 25-34 PG Mean Corpuscular Hemoglobin Concent 30 L 32-36 G/DL Mean Corpuscular Volume 106 H 80-99 FL Mean Platelet Volume 7.4-10.4 FL Monocytes # (Auto) 0.9 0.0-1.0 X 10^3 Monocytes (%) (Auto) 11 0-12 % Neutrophils # (Auto) 5.8 1.8-7.8 X 10^3 Neutrophils (%) (Auto) 74 42-75 % Phosphorus Level 2.6 2.3-4.7 MG/DL Platelet Count 105 L 130-400 10^3/uL Potassium Level 3.7 3.6-5.0 MMOL/L Red Blood Count 3.42 L 4.35-5.85 10^6/uL Red Cell Distribution Width 14.9 H 10.0-14.5 % Sodium Level 143 135-145 MMOL/L White Blood Count 7.8 4.3-11.0 10^3/uL Radiology Reviewed NAME: RYAN MENDIETA [facility] REC#: [id number] PT STATUS: ADM IN : 1950 PHYSICIAN: RADHA VO DO ADMIT DATE: 05/07/16/ICU Draft Date of Exam:05/08/16 CHEST 1 VIEW, AP/PA ONLY EXAMINATION: Portable semi-upright radiograph of the chest. INDICATION: Dyspnea. FINDINGS: There is moderate cardiomegaly with interstitial pulmonary edema and some alveolar component noted at this time. There is no definite effusion. No pneumothorax. IMPRESSION: Extensive mixed interstitial and alveolar infiltrates, increased from the prior study, presumably worsening pulmonary edema. Dictated on workstation # [id number] Dict: 05/08/1624 Trans: 05/08/16 [id number] Interpreted by: OLEGARIO PHELPS MD Electronically signed by: Discharge Instructions to patient/family Please see electonic discharge instructions given to patient. Discharge Medications Reviewed and agree with Discharge Medication list on patient's Discharge Instruction sheet Clinical Quality Measures DVT/VTE Risk/Contraindication: Risk Factor Score Per Nursin RFS Level Per Nursing on Admit: 4+=Very High Copy Copies To 1: JOMAR Garcia BETHANY N MD May 13, 2016 10:28 am
[2016-05-13 12:00] VITALS: BP 148/77
== END 2016-05-13 17:58 | DRG 189 ==
LOC: ER 15:05 → EDUNIT# 15:05 → ICU 17:30 → 4TH 05-10 08:40
PROVIDERS: ADMIT Internal Medicine; ATTEND Family Medicine
DX: J96.20 Acute and chronic respiratory failure, unspecified whether with hypoxia or hypercapnia (principal); I11.0 Hypertensive heart disease with heart failure; I50.33 Acute on chronic diastolic (congestive) heart failure; E66.2 Morbid (severe) obesity with alveolar hypoventilation; Z68.45 Body mass index [BMI] 70 or greater, adult; N39.0 Urinary tract infection, site not specified; R31.9 Hematuria, unspecified; I48.92 Unspecified atrial flutter; E11.40 Type 2 diabetes mellitus with diabetic neuropathy, unspecified; Z79.4 Long term (current) use of insulin; Z91.19 Patient's noncompliance with other medical treatment and regimen; Z95.5 Presence of coronary angioplasty implant and graft; I48.0 Paroxysmal atrial fibrillation; I25.10 Atherosclerotic heart disease of native coronary artery without angina pectoris; E03.9 Hypothyroidism, unspecified; Z85.42 Personal history of malignant neoplasm of other parts of uterus; J44.9 Chronic obstructive pulmonary disease, unspecified; Z87.891 Personal history of nicotine dependence; B96.4 Proteus (mirabilis) (morganii) as the cause of diseases classified elsewhere; R53.81 Other malaise; D69.6 Thrombocytopenia, unspecified; I44.7 Left bundle-branch block, unspecified; I27.2 Other secondary pulmonary hypertension; Z79.01 Long term (current) use of anticoagulants
CPT/HCPCS: 36415; 51702; 71010; 80048; 80053; 80061; 80162; 81000; 82805; 82962; 83735; 83880; 84100; 84439; 84443; 85025; 85027; 87077; 87088; 87186; 93041; 94640; 94660; 94760

== ENCOUNTER 2016-05-15 10:29 | Inpatient (IN) | payer MEDICARE, OTHER ==
[~2016-05-15] VITALS: Ht 165.1 cm; Wt 203.7 kg
[~2016-05-15 10:29] MED LIST changes: +ACET-2267 PO; +ACET-789 PO; +DILT180C84 PO; +FURO40TA4 PO; +IBUP-1773 PO; +INSU100I29 SC; +IPRA3AMP IH; +MAGN400O7 PO; +METO-333 PO; +NYST15CR TP
[2016-05-15 10:41] VITALS: BP 122/69
--- NOTE | 2016-05-15 10:52 | ED Respiratory ---
General Chief Complaint: Respiratory Problems Stated Complaint: LOW O2 Nursing Triage Note: Pt to ED via [facility] from [facility] w/ c/o low o2 saturation. Facility reports initial o2 saturation of 60% improved to 90% via [facility]. Pt on cPAP upon arrival to ED. Pt has hx COPD and CHF and was recently discharged from this facility. Source: EMS, old records Exam Limitations: no limitations History of Present Illness Time seen by provider: 10:47 Initial Comments The patient is a 66-year-old white female who was dismissed on 05/13 after a one- week stay for respiratory insufficiency. She was noted to have an SaO2 of 60 this morning was poorly alert. The ambulance was called and she was sent from the care home to the ER. She weighs 204 kg Timing/Duration: just prior to arrival Prior Episodes/Possible Cause: frequent episodes Modifying Factors: Improves With Oxygen Allergies and Home Medications Allergies Coded Allergies: liraglutide (Verified Allergy, Intermediate, NAUSEA, 04/01/16) VOMITING AND CHEST PAIN THAT RADIATES TO HER BACK simvastatin (Verified Allergy, Intermediate, 04/01/16) PT HAS ELEVATED LIVER ENZYMES WITH ANY STATIN DRUG Bacitracin Zinc (Verified Allergy, Mild, RASH, 04/01/16) bacitracin (Verified Allergy, Mild, RASH, 04/01/16) colistimethate sodium (Verified Allergy, Mild, RASH, 04/01/16) gramicidin D (Verified Allergy, Mild, RASH, 04/01/16) metformin HCl (Verified Allergy, Mild, 04/01/16) neomycin sulfate (Verified Allergy, Mild, RASH, 04/01/16) polymyxin B (Verified Allergy, Mild, RASH, 04/01/16) polymyxin B sulfate (Verified Allergy, Mild, RASH, 04/01/16) pramoxine HCl (Verified Allergy, Mild, RASH, 04/01/16) Home Medications Acetaminophen 500 Mg Tablet 500 MG PO Q8H PRN PRN PAIN (Reported) Apixaban 5 Mg Tablet 5 MG PO BID (Reported) Aspirin 81 Mg Tabec 81 MG PO DAILY (Reported) Diltiazem HCl 180 Mg Cap.er.24h #30 360 MG PO DAILY Prescribed by: MIGUEL ANGEL TELLEZ on 05/13/16 0855 Exenatide Microspheres 2 Mg/0.65 Ml Pen.injctr 2 MG SQ Sa (Reported) Furosemide 40 Mg Tablet #30 40 MG PO DAILY Prescribed by: MIGUEL ANGEL TELLEZ on 05/13/16 08 Gabapentin 300 Mg Capsule 300 MG PO TID (Reported) Ibuprofen 600 Mg Tablet 600 MG PO Q6H PRN PRN PAIN (Reported) Insulin Aspart 300 Units/3 Ml Solution 15 UNITS SQ AC (Reported) Insulin Detemir 100 Unit/1 Ml Insuln.pen 10 UNITS SC 06,1999 (Reported) Ipratropium/Albuterol Sulfate 3 Ml Ampul.neb 3 ML IH Q6H PRN PRN SHORTNESS OF BREATH (Reported) Levothyroxine Sodium 75 Mcg Tablet 75 MCG PO DAILY (Reported) Magnesium Hydroxide 400 Mg/5 Ml Oral.susp 30 ML PO DAILY PRN PRN CONSTIPATION ( Reported) Metoprolol Tartrate 25 Mg Tablet #60 25 MG PO BID Prescribed by: MIGUEL ANGEL TELLEZ on 05/13/16854 Nystatin 15 Gm Cream..g. TP BID (Reported) APPLY TO ABDOMINAL FOLDS Pioglitazone HCl 30 Mg Tablet 30 MG PO DAILY (Reported) Constitutional: other Respiratory: short of breath : No Past Idovwdr-Ywpady-Zcxvjf Hx Patient Social History Alcohol Use: Denies Use Recreational Drug Use: No Smoking Status: Former Smoker Type Used: Cigarettes Recent Foreign Travel: No Contact w/Someone Who Travel: No Recent Infectious Disease Expo: No Recent Hopitalizations: Yes (had gall bladder surgery and uterine cancer) Immunizations Up To Date Tetanus Booster (TDap): Less than 5yrs Date of Influenza Vaccine: Jan 09, 2016 Seasonal Allergies Seasonal Allergies: No Surgeries HX Surgeries: Yes (CARDIAC STENT, hernia) Surgeries: Coronary Stent, Gallbladder, Hysterectomy Respiratory Hx Respiratory Disorders: Yes (history of respiratory failure) Respiratory Disorders: Sleep Apnea Cardiovascular Hx Cardiac Disorders: Yes (palpitations, congestive heart failure) Cardiac Disorders: Atrial Fibrillation, Coronary Artery Disease, Hypertension Neurological Hx Neurological Disorders: Yes Neurological Disorders: Neuropathy Reproductive System Hx Reproductive Disorders: No Sexually Transmitted Disease: No HIV/AIDS: No Female Reproductive Disorders: Denies Genitourinary Hx Genitourinary Disorders: Yes Genitourinary Disorders: Renal Failure Gastrointestinal Hx Gastrointestinal Disorders: No Musculoskeletal Hx Musculoskeletal Disorders: Yes (muscle weakness) Endocrine Hx Endocrine Disorders: Yes (morbid obesity) Endocrine Disorders: Diabetes, Insulin dep, Hypothyroidsim HEENT HX ENT Disorders: No Cancer Hx Cancer: Yes (uterine) Cancer: Uterine Psychosocial Hx Psychiatric Problems: No (does take celexa) Integumentary HX Skin/Integumentary Disorder: No Blood Transfusions Hx Blood Disorders: No Adverse Reaction to a Blood Tr: No Family Medical History Family Medial History: Patient reports no known family medical history. Physical Exam Vital Signs Vital Sign - Last 12Hours 05/15/16 05/15/16 10:34 10:41 Temp 97.3 Pulse 77 Resp 20 B/P 107/96 Pulse Ox 86 O2 Delivery NIV/Bilevel O2 Flow Rate 60 Capillary Refill : Greater Than 3 Seconds General Appearance: obese (the patient has morbidly morbid obesity. The weight is approximately 450 pounds) Neck: other (patient has short neck large double chin) Respiratory: other (CPAP is in place there are minimal breath sounds) Cardiovascular: other (heart tones are not heard because of obesity) Gastrointestinal: other (abdomen is huge and forearm) Progress/Results/Core Measures Results/Orders Lab Results Laboratory Tests Test 05/15/16 10:40 05/15/16 10:48 Range/Units Alanine Aminotransferase (ALT/SGPT) 145 H 0-55 U/L Albumin 3.5 3.2-4.5 G/DL Alkaline Phosphatase 58 40-136 U/L Anion Gap 12 5-14 MMOL/L Aspartate Amino Transf (AST/SGOT) 214 H 5-34 U/L BUN/Creatinine Ratio 25 Basophils # (Auto) 0.0 0.0-0.1 10^3/uL Basophils (%) (Auto) 0 0-10 % Blood Urea Nitrogen 41 H 7-18 MG/DL Calcium Level 9.2 8.5-10.1 MG/DL Carbon Dioxide Level 39 H 21-32 MMOL/L Chloride Level 90 L 98-107 MMOL/L Creatinine 1.66 H 0.60-1.30 MG/DL Eosinophils # (Auto) 0.1 0.0-0.3 10^3/uL Eosinophils (%) (Auto) 1 0-10 % Estimat Glomerular Filtration Rate 31 Glucose Level 161 H 70-105 MG/DL Hematocrit 42 35-52 % Hemoglobin 12.4 11.5-16.0 G/DL Lymphocytes # (Auto) 0.7 L 1.0-4.0 X 10^3 Lymphocytes (%) (Auto) 8 L 12-44 % Mean Corpuscular Hemoglobin 32 25-34 PG Mean Corpuscular Hemoglobin Concent 30 L 32-36 G/DL Mean Corpuscular Volume 108 H 80-99 FL Mean Platelet Volume 14.5 H 7.4-10.4 FL Monocytes # (Auto) 0.8 0.0-1.0 X 10^3 Monocytes (%) (Auto) 9 0-12 % Neutrophils # (Auto) 7.2 1.8-7.8 X 10^3 Neutrophils (%) (Auto) 81 H 42-75 % Platelet Count 110 L 130-400 10^3/uL Potassium Level 5.6 H 3.6-5.0 MMOL/L Red Blood Count 3.83 L 4.35-5.85 10^6/uL Red Cell Distribution Width 15.4 H 10.0-14.5 % Sodium Level 141 135-145 MMOL/L Total Bilirubin 0.7 0.1-1.0 MG/DL Total Protein 7.3 6.4-8.2 G/DL White Blood Count 8.9 4.3-11.0 10^3/uL Ben Test YES-POS Arterial Blood Base Excess 15.3 H -2.5-2.5 MMOL/L Arterial Blood HCO3 46 *H 23-27 MMOL/L Arterial Blood Oxygen Saturation 94 94-100 % Arterial Blood Partial Pressure CO2 100 *H 35-45 MMHG Arterial Blood Partial Pressure O2 73 L 79-93 MMHG Arterial Blood Total CO2 49.4 H 21.0-31.0 MMOL/L Arterial Blood pH 7.28 *L 7.37-7.43 Blood Gas Inspired Oxygen 80% BIPAP Blood Gas Patient Temperature 97.8 Blood Gas Puncture Site LT RADIAL Blood Gas Ventilator Setting YES My Orders Orders-KENIA ALLEN MD Cbc With Automated Diff (05/15/16 10:39) Comprehensive Metabolic Panel (05/15/16 10:39) Chest 1 View, Ap/Pa Only (05/15/16 10:39) Saline Lock/Iv-Start (05/15/16 10:44) Arterial Blood Gas (05/15/16 10:51) [place] Cath Insertion (05/15/16 10:56) Vital Signs/I&O Vital Sign - Last 12Hours 05/15/16 05/15/16 10:34 10:41 Temp 97.3 Pulse 77 79 Resp 20 30 B/P 107/96 Pulse Ox 86 O2 Delivery NIV/Bilevel O2 Flow Rate 60 Blood Pressure Mean: 100 Departure Communication Progress Notes [address] Mariano who is on-call for [facility] the patient will be admitted. Impression Impression: Primary Impression: respiratory failure/hypercapnia of extreme obesity Disposition: ADMITTED INPATIENT Condition: Critical Decision to Admit Reason: Admit from ER (General) Decision to Admit/Date: May 15, 2016 Time/Decision to Admit Time: 11:40 Departure-Patient Inst. Referrals: KRISHNA CABRERA MD (PCP/Family) Primary Care Physician KENIA ALLEN MD May 15, 2016 10:52
[2016-05-15 10:56] LABS: ABG BASE EXCESS 15.3 MMOL/L (-2.5-2.5); ABG HCO3 46 MMOL/L (23-27); ABG OXYGEN SATURATION 94 % (94-100); ABG PCO2 100 MMHG (35-45); ABG PH 7.28 (7.37-7.43); ABG PO2 73 MMHG (79-93); ABG TCO2 49.4 MMOL/L (21.0-31.0)
[2016-05-15 10:57] LABS: ALLENS TEST YES-POS; PATIENT TEMP 97.8
[2016-05-15 11:02] LABS: BASOPHILS % (AUTO) 0 % (0-10); EOSINOPHILS # (AUTO) 0.1 10^3/uL (0.0-0.3); EOSINOPHILS % (AUTO) 1 % (0-10); LYMPHOCYTES # (AUTO) 0.7 X 10^3 (1.0-4.0); LYMPHOCYTES % (AUTO) 8 % (12-44); MEAN CORPUSCULAR HEMOGLOBIN 32 PG (25-34); MEAN CORPUSCULAR HGB CONC 30 G/DL (32-36); MEAN CORPUSCULAR VOLUME 108 FL (80-99); MEAN PLATELET VOLUME 14.5 FL (7.4-10.4); MONOCYTES # (AUTO) 0.8 X 10^3 (0.0-1.0); MONOCYTES % (AUTO) 9 % (0-12); NEUTROPHILS # (AUTO) 7.2 X 10^3 (1.8-7.8); NEUTROPHILS % (AUTO) 81 % (42-75); PLATELET COUNT 110 10^3/uL (130-400); RED BLOOD COUNT 3.83 10^6/uL (4.35-5.85); RED CELL DISTRIBUTION WIDTH 15.4 % (10.0-14.5); WHITE BLOOD COUNT 8.9 10^3/uL (4.3-11.0)
[2016-05-15 11:24] LABS: ALBUMIN 3.5 G/DL (3.2-4.5); BILIRUBIN,TOTAL 0.7 MG/DL (0.1-1.0); CALCIUM 9.2 MG/DL (8.5-10.1); CREATININE SERUM 1.66 MG/DL (0.60-1.30); POTASSIUM 5.6 MMOL/L (3.6-5.0); TOTAL PROTEIN 7.3 G/DL (6.4-8.2)
--- NOTE | 2016-05-15 11:26 | Diagnostic Imaging Report ---
EXAMINATION: Portable semiupright radiograph of the chest. INDICATION: Shortness of breath. FINDINGS: There is moderate cardiomegaly with predominantly interstitial and some superimposed alveolar infiltrates in both lungs, slightly worse on the left side, probably related to pulmonary edema. No effusion. No pneumothorax. The mediastinum and maryjane appear unremarkable. IMPRESSION: Cardiomegaly with extensive mixed infiltrates, likely related to pulmonary edema. Dictated by: Dictated on workstation # [id number]
[2016-05-15 12:50] VITALS: BP 121/94
[2016-05-15] MEDS ORDERED: METO-333 PO (13:14)
[2016-05-15] MEDS ORDERED: DILT180C PO (13:14)
[2016-05-15] MEDS ORDERED: FURO40TA4 PO (13:14)
--- NOTE | 2016-05-15 14:33 | History & Physicial (CHS) ---
HPI History of Present Illness: Patient sent by EMS from care home due to low oxygen saturation and decreased alertness. Upon my evaluation, she is drowsy but arousable and answers questions appropriately when cued verbally to stay awake. She states she doesn't know when this really happened and does admit to feeling more short of breath but is unable to clarify any further. She is afebrile. Her son is present and notes that last night when he was visiting her she had a low oxygen saturation while lying down and didn't answer him, but after sitting up to eat dinner improved. She was just discharged May 13 after a stay for similar breathing problems and UTI. Source: patient, family Attending Physician Jamaica Andino MD PCP Jamaica Andino MD Consult Date of Admission May 15, 2016 at 11:56 Home Medications Home Medications Reviewed patient Home Medication Reconciliation Form Allergies Coded Allergies: liraglutide (Verified Allergy, Intermediate, NAUSEA, 04/01/16) VOMITING AND CHEST PAIN THAT RADIATES TO HER BACK simvastatin (Verified Allergy, Intermediate, 04/01/16) PT HAS ELEVATED LIVER ENZYMES WITH ANY STATIN DRUG Bacitracin Zinc (Verified Allergy, Mild, RASH, 04/01/16) bacitracin (Verified Allergy, Mild, RASH, 04/01/16) colistimethate sodium (Verified Allergy, Mild, RASH, 04/01/16) gramicidin D (Verified Allergy, Mild, RASH, 04/01/16) metformin HCl (Verified Allergy, Mild, 04/01/16) neomycin sulfate (Verified Allergy, Mild, RASH, 04/01/16) polymyxin B (Verified Allergy, Mild, RASH, 04/01/16) polymyxin B sulfate (Verified Allergy, Mild, RASH, 04/01/16) pramoxine HCl (Verified Allergy, Mild, RASH, 04/01/16) VJY-Scdlru-Gqikyu Hx Patient Social History Alcohol Use: Denies Use Recreational Drug Use: No Smoking Status: Former Smoker Type Used: Cigarettes Recent Foreign Travel: No Contact w/other who traveled: No Recent Hopitalizations: Yes (had gall bladder surgery and uterine cancer) Recent Infectious Disease Expo: No Physical Abuse Screen: No Sexual Abuse: No Immunizations Up To Date Tetanus Booster (TDap): Less than 5yrs Date of Influenza Vaccine: Jan 09, 2016 Past Medical History IDDM II CAD with Stent ALEXIS that needs CPAP but patient does not wear it Paroxysmal Afib Obesity hypoventilation Family Medical History Significant Family History: No Pertinent Family Hx Review of Systems (CHC) Constitutional: No fever EENTM: no symptoms reported Respiratory: see HPI Cardiovascular: no symptoms reported Gastrointestinal: no symptoms reported Genitourinary: no symptoms reported Musculoskeletal: no symptoms reported Skin: no symptoms reported Psychiatric/Neurological: No Symptoms Reported Reviewed Test Results Reviewed Test Results Lab Laboratory Tests Test 05/15/16 10:40 05/15/16 10:48 Range/Units Alanine Aminotransferase (ALT/SGPT) 145 H 0-55 U/L Albumin 3.5 3.2-4.5 G/DL Alkaline Phosphatase 58 40-136 U/L Anion Gap 12 5-14 MMOL/L Aspartate Amino Transf (AST/SGOT) 214 H 5-34 U/L BUN/Creatinine Ratio 25 Basophils # (Auto) 0.0 0.0-0.1 10^3/uL Basophils (%) (Auto) 0 0-10 % Blood Urea Nitrogen 41 H 7-18 MG/DL Calcium Level 9.2 8.5-10.1 MG/DL Carbon Dioxide Level 39 H 21-32 MMOL/L Chloride Level 90 L 98-107 MMOL/L Creatinine 1.66 H 0.60-1.30 MG/DL Eosinophils # (Auto) 0.1 0.0-0.3 10^3/uL Eosinophils (%) (Auto) 1 0-10 % Estimat Glomerular Filtration Rate 31 Glucose Level 161 H 70-105 MG/DL Hematocrit 42 35-52 % Hemoglobin 12.4 11.5-16.0 G/DL Lymphocytes # (Auto) 0.7 L 1.0-4.0 X 10^3 Lymphocytes (%) (Auto) 8 L 12-44 % Mean Corpuscular Hemoglobin 32 25-34 PG Mean Corpuscular Hemoglobin Concent 30 L 32-36 G/DL Mean Corpuscular Volume 108 H 80-99 FL Mean Platelet Volume 14.5 H 7.4-10.4 FL Monocytes # (Auto) 0.8 0.0-1.0 X 10^3 Monocytes (%) (Auto) 9 0-12 % Neutrophils # (Auto) 7.2 1.8-7.8 X 10^3 Neutrophils (%) (Auto) 81 H 42-75 % Platelet Count 110 L 130-400 10^3/uL Potassium Level 5.6 H 3.6-5.0 MMOL/L Red Blood Count 3.83 L 4.35-5.85 10^6/uL Red Cell Distribution Width 15.4 H 10.0-14.5 % Sodium Level 141 135-145 MMOL/L Total Bilirubin 0.7 0.1-1.0 MG/DL Total Protein 7.3 6.4-8.2 G/DL White Blood Count 8.9 4.3-11.0 10^3/uL Ben Test YES-POS Arterial Blood Base Excess 15.3 H -2.5-2.5 MMOL/L Arterial Blood HCO3 46 *H 23-27 MMOL/L Arterial Blood Oxygen Saturation 94 94-100 % Arterial Blood Partial Pressure CO2 100 *H 35-45 MMHG Arterial Blood Partial Pressure O2 73 L 79-93 MMHG Arterial Blood Total CO2 49.4 H 21.0-31.0 MMOL/L Arterial Blood pH 7.28 *L 7.37-7.43 Blood Gas Inspired Oxygen 80% BIPAP Blood Gas Patient Temperature 97.8 Blood Gas Puncture Site LT RADIAL Blood Gas Ventilator Setting YES Radiology CXR 05/15: "Cardiomegaly with extensive mixed infiltrates likely related to pulmonary edema." Physical Exam-([facility]) Physical Exam Vital Signs VS - Last 72 Hours, by Label 05/15/16 05/15/16 05/15/16 05/15/16 10:34 10:41 12:45 12:50 Temp 97.3 98.0 97.8 Pulse 77 79 80 86 Resp 20 30 16 18 B/P 107/96 121/94 Pulse Ox 86 97 98 O2 Delivery NIV/Bilevel NIV/Bilevel O2 Flow Rate 60 80.00 Capillary Refill : Greater Than 3 Seconds General Appearance: moderate distress Respiratory: lungs clear (unable to sit up for posterior exam) Cardiovascular: irregularly irregular Gastrointestinal: normal bowel sounds non tender soft Extremities: pedal edema Neurologic/Psychiatric: oriented x 3 other (somnolent) Skin: normal color warm/dry Assessment/Plan Assessment/Plan Admission Dx 1. Acute on chronic hypercapneic hypoxic respiratory insufficiency 2. Acute renal insufficiency with hyperkalemia 3. Transaminitis 4. Atrial fibrillation with diastolic dysfunction and history of CAD 5. DMII Plan 1. Acute on chronic hypercapneic hypoxic respiratory insufficiency- requiring bipap with 80% FiO2 with continued hypercapnea and hypoxia per ABG -Pulmonology consulted -Likely secondary to obesity hypoventilation, no clear evidence of infection -CXR with possible pulmonary edema, on lasix outpatient but now with acute renal insufficiency 2. Acute renal insufficiency with hyperkalemia- unclear etiology -Monitor closely, hesitate to give IVF given her respiratory status 3. Transaminitis- unclear etiology, consider hypoxic injury -Monitor 4. Atrial fibrillation with diastolic dysfunction and history of CAD- rate controlled, on anticoagulation -Cardiology consulted, appreciate recommendations 5. DMII- resume home medications, diabetic diet when able to be off of bipap DVT ppx- SCDs, enoxaparin Disp- patient states she does not want to be intubated and is able to clearly state that she understand she may if her respiratory status worsens and she is not intubated and she confirms she does not want intubation, but does want cardiac resuscitation if needed. Discussed that if she were to have a code event , there is a significant chance it would be related to her respiratory status and therefore cardiac resuscitation alone may not be sufficient and again she is able to express understanding and confirm her code status as DNI only. Diagnosis/Problems: Clinical Quality Measures DVT/VTE Risk/Contraindication: Risk Factor Score Per Nursin RFS Level Per Nursing on Admit: 4+=Very High Copy Copies To 1: JOMAR Garcia BETHANY N MD May 15, 2016 14:33
[2016-05-15] MEDS ORDERED: RT-ALBUTEROL/IPRATROPIUM 3 ML (DUONEB) VIAL INH PRN (15:15)
[2016-05-15 15:30] VITALS: BP 135/85
[2016-05-15] MEDS ORDERED: NS IV 1000 ML 1,000 ML ONE (15:30)
[2016-05-15] MEDS: inSUlin ASPART (NovoLOG) 1 UNIT/0.01 ML (CHARGE PER UNIT) SC SCH ×2 (15:41→21:01)
[2016-05-15] MEDS: NS IV 1000 ML 1,000 ML IV SCH (15:53)
[2016-05-15 15:55] LABS: CALCIUM 9.2 MG/DL (8.5-10.1); CREATININE SERUM 1.76 MG/DL (0.60-1.30); MAGNESIUM 2.3 MG/DL (1.8-2.4); POTASSIUM 4.8 MMOL/L (3.6-5.0)
[2016-05-15] MEDS ORDERED: NON-FORMULARY MEDICATION 1 EA EA (Insulin Aspart (Novolog Flexpen) 15 UNITS) SQ SCH (16:00)
--- NOTE | 2016-05-15 17:59 | Consultation-Cardiology ---
HPI-Cardiology Cardiology Consultation: Date of Consultation 05/15/16 Date of Admission 05/15/16 Attending Physician Jamaica Andino MD Admitting Physician Jamaica Andino MD Consulting Physician ANGELA ROBERT MD, FACP, FACC, [facility] [place], CCDS Physician requesting consult: Dr Mariano HPI: Chief Complaint: Shortness of breath 66 yo woman readmitted with recurrent acute hypercapnic resp failure. Currently on BiPAP. Notes some improvement of symptoms. Does not report cp. Has chronic bilat leg swelling. Unable to say if these are worse lately. Denies syncope or palp Review of Systems-Cardiology Review of Systems Constitutional: other (The patient is on BiPAP and somewhat somnolent. A detailed review of systems in difficult to obtain. To the extent it could be obtained is described under HPI and below) Eyes: No vision change Ears/Nose/Throat: No recent hearing loss Respiratory: As described under HPI Cardiovascular: As described under HPI Gastrointestinal: No nausea, No vomiting Genitourinary: No dysuria : No Musculoskeletal: back pain (chronic) Skin: No rash Psychiatric/Neurological: No focal weakness, No syncope Hematologic: No bleeding abnormalities SPS-Kabyxr-Gxhkgb Hx Patient Social History Alcohol Use: Denies Use Recreational Drug Use: No Smoking Status: Former Smoker Type Used: Cigarettes Recent Foreign Travel: No Recent Infectious Disease Expo: No Physical Abuse Screen: No Sexual Abuse: No Immunizations Up To Date Tetanus Booster (TDap): Less than 5yrs Date of Influenza Vaccine: Jan 09, 2016 Past Medical History PMH As described under Assessment. Family Medical History Family History: Patient reports no known family medical history. Allergies and Home Medications Allergies Coded Allergies: liraglutide (Verified Allergy, Intermediate, NAUSEA, 04/01/16) VOMITING AND CHEST PAIN THAT RADIATES TO HER BACK simvastatin (Verified Allergy, Intermediate, 04/01/16) PT HAS ELEVATED LIVER ENZYMES WITH ANY STATIN DRUG Bacitracin Zinc (Verified Allergy, Mild, RASH, 04/01/16) bacitracin (Verified Allergy, Mild, RASH, 04/01/16) colistimethate sodium (Verified Allergy, Mild, RASH, 04/01/16) gramicidin D (Verified Allergy, Mild, RASH, 04/01/16) metformin HCl (Verified Allergy, Mild, 04/01/16) neomycin sulfate (Verified Allergy, Mild, RASH, 04/01/16) polymyxin B (Verified Allergy, Mild, RASH, 04/01/16) polymyxin B sulfate (Verified Allergy, Mild, RASH, 04/01/16) pramoxine HCl (Verified Allergy, Mild, RASH, 04/01/16) Home Medications Apixaban 5 Mg Tablet 5 MG PO BID (Reported) Aspirin 81 Mg Tabec 81 MG PO DAILY (Reported) Diltiazem HCl 180 Mg Cap.er.24h 180 MG PO DAILY (Reported) Exenatide Microspheres 2 Mg/0.65 Ml Pen.injctr 2 MG SQ Sa (Reported) Furosemide 40 Mg Tablet 40 MG PO DAILY (Reported) Gabapentin 300 Mg Capsule 300 MG PO TID (Reported) Ibuprofen 600 Mg Tablet 600 MG PO Q6H PRN PRN PAIN (Reported) Insulin Aspart 300 Units/3 Ml Solution 15 UNITS SQ AC (Reported) Insulin Detemir 100 Unit/1 Ml Insuln.pen 10 UNITS SC BID (Reported) Ipratropium/Albuterol Sulfate 3 Ml Ampul.neb 3 ML IH Q6H PRN PRN SHORTNESS OF BREATH (Reported) Levothyroxine Sodium 75 Mcg Tablet 75 MCG PO DAILY (Reported) Metoprolol Tartrate 25 Mg Tablet 25 MG PO BID (Reported) Nystatin 15 Gm Cream..g. TP BID (Reported) APPLY TO ABDOMINAL FOLDS Pioglitazone HCl 30 Mg Tablet 30 MG PO DAILY (Reported) Physical Exam-Cardiology Physical Exam Vital Signs/I&O Vital Sign - Last 12Hours 05/15/16 05/15/16 05/15/16 05/15/16 10:34 10:41 12:45 12:50 Temp 97.3 98.0 97.8 Pulse 77 79 80 86 Resp 20 30 16 18 B/P 107/96 121/94 Pulse Ox 86 97 98 O2 Delivery NIV/Bilevel NIV/Bilevel O2 Flow Rate 60 80.00 05/15/16 05/15/16 15:06 15:24 Pulse 94 Resp 19 Pulse Ox 98 94 O2 Flow Rate 80.00 Capillary Refill : Greater Than 3 Seconds Constitutional: other (somnolent, awaknens and answers quesitons; massively obese) HEENT: PERRL other (on BiPAP) EOMI Neck: carotid pulses are 2 + bilaterally Respiratory: other (fair air entry; diminished at the bases) Cardiovascular: irregularly irregular S1 and S2 systolic murmur (faint ASHWIN at card base) Gastrointestinal: No tender, softNo guarding, audible bowel sounds Extremities: significant edema (marked bilateral pitting and nonpitting edema) Neurologic/Psychiatric: other (somnolent; seems to be able to move all limbs) Skin: No rash on exposed areas Data Review Labs Laboratory Tests 05/15/16 10:40: Alanine Aminotransferase (ALT/SGPT) 145H, Albumin 3.5, Alkaline Phosphatase 58, Anion Gap 12, Aspartate Amino Transf (AST/SGOT) 214H, BUN/Creatinine Ratio 25, Basophils # (Auto) 0.0, Basophils (%) (Auto) 0, Blood Urea Nitrogen 41H, Calcium Level 9.2, Carbon Dioxide Level 39H, Chloride Level 90L, Creatinine 1.66H, Eosinophils # (Auto) 0.1, Eosinophils (%) (Auto) 1, Estimat Glomerular Filtration Rate 31, Glucose Level 161H, Hematocrit 42, Hemoglobin 12.4, Lymphocytes # (Auto) 0.7L, Lymphocytes (%) (Auto) 8L, Mean Corpuscular Hemoglobin 32, Mean Corpuscular Hemoglobin Concent 30L, Mean Corpuscular Volume 108H, Mean Platelet Volume 14.5H, Monocytes # (Auto) 0.8, Monocytes (%) (Auto) 9 , Neutrophils # (Auto) 7.2, Neutrophils (%) (Auto) 81H, Platelet Count 110L, Potassium Level 5.6H, Red Blood Count 3.83L, Red Cell Distribution Width 15.4H, Sodium Level 141, Total Bilirubin 0.7, Total Protein 7.3, White Blood Count 8.9 05/15/16 10:48: Ben Test YES-POS, Arterial Blood Base Excess 15.3H, Arterial Blood HCO3 46*H, Arterial Blood Oxygen Saturation 94, Arterial Blood Partial Pressure CO2 100*H, Arterial Blood Partial Pressure O2 73L, Arterial Blood Total CO2 49.4H, Arterial Blood pH 7.28*L, Blood Gas Inspired Oxygen 80% BIPAP, Blood Gas Patient Temperature 97.8, Blood Gas Puncture Site LT RADIAL, Blood Gas Ventilator Setting YES 05/15/16 15:25: Anion Gap 12, BUN/Creatinine Ratio 23, Blood Urea Nitrogen 40H, Calcium Level 9.2, Carbon Dioxide Level 40H, Chloride Level 90L, Creatinine 1.76H, Estimat Glomerular Filtration Rate 29, Glucose Level 148H, Potassium Level 4.8, Sodium Level 142, Lactic Acid Level 1.2, Magnesium Level 2.3 05/15/16 15:29: Glucometer 169H Laboratory Tests 05/15/16 10:40 05/15/16 15:25 A/P-Cardiology Assessment/Admission Diagnosis Acute on chronic hypercapnic resp failure, primarily due to massive obesity Obesity with BMI approx 75 and obesity-hypoventilation syndrome Chronic cor pulmonale and chronic diastolic CHF Ac renal failure, likely due to pre-renal azotemia due to diuretic therapy Echo of Mar 2016 (Dr Gutierrez): poor study due to body habitus and a fib, LVEF estimated to be 40%, RVSP 39 mmHg Paroxysmal A-flutter/A-fib that seems to have degenerated into chronic, permanent atrial fib CAD. CAROLYN of LAD with [place] 3.5x30 mm in Nov 2010. Repeat cath of 01/25/14 showed patent stent, mild CAD and some elevation of LVEDP, indicating diastolic dysfunction Chronic LBBB Chronic chest and mid back pain, etiology undetermined, currently unchanged and stable Hypertension - controlled DM II Intolerance to statins and refusal to take fibrates H/o leg venous ulcers, managed by Dr Yu in [facility] No significant PAD on angio of 01/25/14 Chronic anticoagulation with Eliquis Chronic leg swelling primarily due to venous insufficiency due to massive obesity Chronic mild to mod thrombocytopenia being managed by the Medical Service Discussion and Recomendations * Very complex management * The bulk of her problems seem to emanate from massive obesity * Consider perm tracheostomy to help with obesity-hypoventilation and reduce hospitalizations * 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
[2016-05-15] MEDS: RT-ALBUTEROL/IPRATROPIUM 3 ML (DUONEB) VIAL INH SCH ×2 (19:39→21:50)
[2016-05-15 19:45] VITALS: BP 110/75
[2016-05-15] MEDS: GABAPENTIN 300 MG (NEURONTIN) CAP PO SCH (20:43)
[2016-05-15] MEDS: meTOprolol TARTRATE 25 MG (LOPRESSOR) TABLET PO SCH (20:43)
[2016-05-15] MEDS: APIXABAN 5 MG (ELIQUIS) TABLET PO SCH (20:43)
[2016-05-15] MEDS ORDERED: NON-FORMULARY MEDICATION 1 EA EA (Insulin Detemir (Levemir Flextouch) 10 UNITS) SC SCH (21:00)
[2016-05-15] MEDS: inSUlin DETERMIR 1 UNIT/0.01 ML (LEVEMIR) CHARGE PER UNIT SQ SCH (21:06)
[2016-05-15] MEDS: NYSTATIN CREAM (MYCOSTATIN) 30 GM TUBE TP SCH (21:06)
[2016-05-16] VITALS: BP 118/59
[2016-05-16] MEDS: NS IV 1000 ML 1,000 ML IV SCH ×3 (01:07→21:12)
[2016-05-16] MEDS: RT-ALBUTEROL/IPRATROPIUM 3 ML (DUONEB) VIAL INH SCH ×6 (02:47→21:37)
[2016-05-16 04:00] VITALS: BP 110/57
[2016-05-16] MEDS: inSUlin ASPART (NovoLOG) 1 UNIT/0.01 ML (CHARGE PER UNIT) SC SCH ×7 (06:00→21:11)
[2016-05-16] MEDS: LEVOTHYROXINE 75 MCG (LEVOTHROID) TABLET PO SCH (06:35)
[2016-05-16 07:00] LABS: BASOPHILS % (AUTO) 0 % (0-10); EOSINOPHILS # (AUTO) 0.3 10^3/uL (0.0-0.3); EOSINOPHILS % (AUTO) 4 % (0-10); LYMPHOCYTES # (AUTO) 0.9 X 10^3 (1.0-4.0); LYMPHOCYTES % (AUTO) 11 % (12-44); MEAN CORPUSCULAR HEMOGLOBIN 33 PG (25-34); MEAN CORPUSCULAR HGB CONC 31 G/DL (32-36); MEAN CORPUSCULAR VOLUME 105 FL (80-99); MONOCYTES # (AUTO) 0.9 X 10^3 (0.0-1.0); MONOCYTES % (AUTO) 11 % (0-12); NEUTROPHILS % (AUTO) 74 % (42-75); PLATELET COUNT 94 10^3/uL (130-400); RED BLOOD COUNT 3.34 10^6/uL (4.35-5.85); RED CELL DISTRIBUTION WIDTH 14.8 % (10.0-14.5); WHITE BLOOD COUNT 8.1 10^3/uL (4.3-11.0)
[2016-05-16 07:17] LABS: ALBUMIN 2.8 G/DL (3.2-4.5); BILIRUBIN,TOTAL 0.5 MG/DL (0.1-1.0); CALCIUM 8.6 MG/DL (8.5-10.1); CREATININE SERUM 1.3 MG/DL (0.60-1.30); POTASSIUM 4.3 MMOL/L (3.6-5.0); TOTAL PROTEIN 5.9 G/DL (6.4-8.2)
[2016-05-16 07:41] VITALS: BP 123/67
--- NOTE | 2016-05-16 08:41 | Pulmonary Consultation ---
History of Present Illness History of Present Illness Date of Consultation 05/16/16 08:35 Date of Admission History of Present Illness 66yo with recent hospitalization and discharge 05/13 for similar issues from ECF presented to ED via EMS secondary to MS change and hypoxemia. She has had worsening SOB. I am consulted for pulmonary management. ABG shows acute respiratory failure Allergies and Home Medications Allergies Coded Allergies: liraglutide (Verified Allergy, Intermediate, NAUSEA, 04/01/16) VOMITING AND CHEST PAIN THAT RADIATES TO HER BACK simvastatin (Verified Allergy, Intermediate, 04/01/16) PT HAS ELEVATED LIVER ENZYMES WITH ANY STATIN DRUG Bacitracin Zinc (Verified Allergy, Mild, RASH, 04/01/16) bacitracin (Verified Allergy, Mild, RASH, 04/01/16) colistimethate sodium (Verified Allergy, Mild, RASH, 04/01/16) gramicidin D (Verified Allergy, Mild, RASH, 04/01/16) metformin HCl (Verified Allergy, Mild, 04/01/16) neomycin sulfate (Verified Allergy, Mild, RASH, 04/01/16) polymyxin B (Verified Allergy, Mild, RASH, 04/01/16) polymyxin B sulfate (Verified Allergy, Mild, RASH, 04/01/16) pramoxine HCl (Verified Allergy, Mild, RASH, 04/01/16) Home Medications Apixaban 5 Mg Tablet 5 MG PO BID (Reported) Aspirin 81 Mg Tabec 81 MG PO DAILY (Reported) Diltiazem HCl 180 Mg Cap.er.24h 180 MG PO DAILY (Reported) Exenatide Microspheres 2 Mg/0.65 Ml Pen.injctr 2 MG SQ Sa (Reported) Furosemide 40 Mg Tablet 40 MG PO DAILY (Reported) Gabapentin 300 Mg Capsule 300 MG PO TID (Reported) Ibuprofen 600 Mg Tablet 600 MG PO Q6H PRN PRN PAIN (Reported) Insulin Aspart 300 Units/3 Ml Solution 15 UNITS SQ AC (Reported) Insulin Detemir 100 Unit/1 Ml Insuln.pen 10 UNITS SC BID (Reported) Ipratropium/Albuterol Sulfate 3 Ml Ampul.neb 3 ML IH Q6H PRN PRN SHORTNESS OF BREATH (Reported) Levothyroxine Sodium 75 Mcg Tablet 75 MCG PO DAILY (Reported) Metoprolol Tartrate 25 Mg Tablet 25 MG PO BID (Reported) Nystatin 15 Gm Cream..g. TP BID (Reported) APPLY TO ABDOMINAL FOLDS Past Tsgcstb-Xvwxyz-Mmgirp Hx Patient Social History Alcohol Use: Denies Use Recreational Drug Use: No Smoking Status: Former Smoker Type Used: Cigarettes Recent Foreign Travel: No Contact w/Someone Who Travel: No Recent Infectious Disease Expo: No Recent Hopitalizations: Yes (had gall bladder surgery and uterine cancer) Physical Abuse Screen: No Sexual Abuse: No Immunizations Up To Date Tetanus Booster (TDap): Less than 5yrs Date of Influenza Vaccine: Jan 09, 2016 Seasonal Allergies Seasonal Allergies: No Surgeries HX Surgeries: Yes (CARDIAC STENT, hernia) Surgeries: Coronary Stent, Gallbladder, Hysterectomy Respiratory Hx Respiratory Disorders: Yes (history of respiratory failure) Respiratory Disorders: Sleep Apnea Cardiovascular Hx Cardiac Disorders: Yes (palpitations, congestive heart failure) Cardiac Disorders: Atrial Fibrillation, Coronary Artery Disease, Hypertension Neurological Hx Neurological Disorders: Yes Neurological Disorders: Neuropathy Reproductive System : No Hx Reproductive Disorders: No Sexually Transmitted Disease: No HIV/AIDS: No Female Reproductive Disorders: Denies Genitourinary Hx Genitourinary Disorders: Yes Genitourinary Disorders: Renal Failure Gastrointestinal Hx Gastrointestinal Disorders: No Musculoskeletal Hx Musculoskeletal Disorders: Yes (muscle weakness) Endocrine Hx Endocrine Disorders: Yes (morbid obesity) Endocrine Disorders: Diabetes, Insulin dep, Hypothyroidsim HEENT HX ENT Disorders: No Cancer Hx Cancer: Yes (uterine) Cancer: Uterine Psychosocial Hx Psychiatric Problems: No (does take celexa) Integumentary HX Skin/Integumentary Disorder: No Blood Transfusions Hx Blood Disorders: No Adverse Reaction to a Blood Tr: No Family Medical History Significant Family History: No Pertinent Family Hx Family Medial History: Patient reports no known family medical history. Review of Systems Constitutional: : Malaise: Weakness Respiratory: : Cough: Shortness of breath Cardiovascular: No: Chest Pain, Palpitations Gastrointestinal: : Nausea Exam Exam Vital Signs Date Time Temp Pulse Resp B/P Pulse Ox O2 Delivery O2 Flow Rate FiO2 05/16/16 07:41 97.4 88 18 123/67 100 NIV/Bilevel 80.00 05/16/16 07:16 95 60 05/16/16 07:16 81 26 95 60.00 05/16/16 04:02 71 16 96 60.00 05/16/16 04:00 97.3 87 17 110/57 97 NIV/Bilevel 80.00 05/16/16 02:48 74 12 95 60.00 2/16/17 00:22 74 17 94 60.00 05/16/16 00:00 96.3 86 17 118/59 97 NIV/Bilevel 80.00 05/15/16 21:51 77 12 95 60.00 05/15/16 20:10 95 NIV/Bilevel 60.00 05/15/16 19:45 96.0 87 22 110/75 97 NIV/Bilevel 80.00 05/15/16 19:39 74 17 98 80.00 05/15/16 15:30 96.6 77 24 135/85 99 NIV/Bilevel 80.00 05/15/16 15:24 94 19 94 80.00 05/15/16 15:06 98 05/15/16 12:50 97.8 86 18 121/94 98 NIV/Bilevel 80.00 05/15/16 12:45 98.0 80 16 97 05/15/16 10:41 79 30 86 60 05/15/16 10:34 97.3 77 20 107/96 NIV/Bilevel I & O 05/16/16 07:00 Intake Total 1850 ml Output Total 475 ml Balance 1375 ml General Appearance: No Apparent Distress Respiratory: No Accessory Muscle Use No Respiratory Distress Decreased Breath Sounds Capillary Refill: Greater Than 3 Seconds Gastrointestinal: normal bowel sounds non tender soft Neurologic/Psychiatric: Alert Skin: Normal Color Warm/Dry Results Lab Laboratory Tests 05/15/16 10:40 05/15/16 15:25 05/16/16 05:54 Assessment/Plan Assessment/Plan Acute on chronic respiratory failure -BiPAP PRN CHFAE with EF 40% per echo -Lasix ( pt was not on lasix as out patient) Morbid obesity with obesity hypoventilation syndrome and severe ALEXIS ARF COPD quit smoking in 2003 -She is on 3 liters of oxygen 24/7 UTI with proteus Debility -PT/OT -increase activity Thrombocytopenia Clinical Quality Measures DVT/VTE Risk/Contraindication: Risk Factor Score Per Nursin RFS Level Per Nursing on Admit: 4+=Very High STAN BOOKER DO May 16, 2016 08:41
[2016-05-16] MEDS: ASPIRIN E.C. 81 MG (ECOTRIN) TAB PO SCH (09:34)
[2016-05-16] MEDS: DILTIAZEM 180 MG (CARDIZEM CD) CAP PO SCH (09:34)
[2016-05-16] MEDS: inSUlin DETERMIR 1 UNIT/0.01 ML (LEVEMIR) CHARGE PER UNIT SQ SCH ×2 (09:34→21:12)
[2016-05-16] MEDS: meTOprolol TARTRATE 25 MG (LOPRESSOR) TABLET PO SCH ×2 (09:34→21:12)
[2016-05-16] MEDS: GABAPENTIN 300 MG (NEURONTIN) CAP PO SCH ×3 (09:35→21:12)
[2016-05-16] MEDS: APIXABAN 5 MG (ELIQUIS) TABLET PO SCH ×2 (09:35→21:12)
[2016-05-16] MEDS: NYSTATIN CREAM (MYCOSTATIN) 30 GM TUBE TP SCH ×2 (09:35→21:13)
--- NOTE | 2016-05-16 10:27 | Progress Note-Cardiology ---
Cardiology SOAP Progress Note Subjective: Sitting up in bed. She states she feels her breathing is better today. No c/o CP, palpitations. Objective: I&O/Vital Signs Vital Sign - Last 12Hours 05/16/16 05/16/16 05/16/16 05/16/16 00:00 00:22 02:48 04:00 Temp 96.3 97.3 Pulse 86 74 74 87 Resp B/P 118/59 110/57 Pulse Ox 97 94 95 97 O2 Delivery NIV/Bilevel NIV/Bilevel O2 Flow Rate 80.00 60.00 60.00 80.00 05/16/16 05/16/16 05/16/16 05/16/16 04:02 07:16 07:16 07:41 Temp 97.4 Pulse 71 81 88 Resp B/P 123/67 Pulse Ox 96 95 95 100 O2 Delivery NIV/Bilevel O2 Flow Rate 60.00 60.00 80.00 FiO2 60 05/16/16 05/16/16 08:00 10:47 Pulse 93 Resp 24 Pulse Ox 94 94 O2 Delivery NIV/Bilevel O2 Flow Rate 60.00 60.00 Intake and Output 05/16/16 00:00 Intake Total 800 ml Output Total 325 ml Balance 475 ml Weight (Pounds): 449 Weight (Ounces): 1.0 Weight (Calculated Kilograms): [phone] Constitutional: other (somnolent, awaknens and answers quesitons; massively obese) Respiratory: other (fair air entry; diminished at the bases) Cardiovascular: irregularly irregular S1 and S2 systolic murmur (faint ASHWIN at card base) Gastrointestional: No tender, soft distendedNo guarding, audible bowel sounds Extremities: significant edema (marked bilateral pitting and nonpitting edema) Neurologic/Psychiatric: grossly intact Skin: No rash on exposed areas Results/Procedures: Labs Laboratory Tests 05/15/16 15:25: Anion Gap 12, BUN/Creatinine Ratio 23, Blood Urea Nitrogen 40H, Calcium Level 9.2, Carbon Dioxide Level 40H, Chloride Level 90L, Creatinine 1.76H, Estimat Glomerular Filtration Rate 29, Glucose Level 148H, Lactic Acid Level 1.2, Magnesium Level 2.3, Potassium Level 4.8, Sodium Level 142 05/15/16 15:29: Glucometer 169H 05/15/16 20:57: Glucometer 120H 05/16/16 05:53: Glucometer 116H 05/16/16 05:54: Alanine Aminotransferase (ALT/SGPT) 165H, Albumin 2.8L, Alkaline Phosphatase 53 , Anion Gap 11, Aspartate Amino Transf (AST/SGOT) 211H, BUN/Creatinine Ratio 34 , Basophils # (Auto) 0.0, Basophils (%) (Auto) 0, Blood Urea Nitrogen 44H, Calcium Level 8.6, Carbon Dioxide Level 39H, Chloride Level 92L, Creatinine 1.30 , Eosinophils # (Auto) 0.3, Eosinophils (%) (Auto) 4, Estimat Glomerular Filtration Rate 41, Glucose Level 114H, Hematocrit 35, Hemoglobin 11.0L, Lymphocytes # (Auto) 0.9L, Lymphocytes (%) (Auto) 11L, Magnesium Level 2.0, Mean Corpuscular Hemoglobin 33, Mean Corpuscular Hemoglobin Concent 31L, Mean Corpuscular Volume 105H, Mean Platelet Volume , Monocytes # (Auto) 0.9, Monocytes (%) (Auto) 11, Neutrophils # (Auto) 6.0, Neutrophils (%) (Auto) 74, Platelet Count 94L, Potassium Level 4.3, Red Blood Count 3.34L, Red Cell Distribution Width 14.8H, Sodium Level 142, Total Bilirubin 0.5, Total Protein 5.9L, White Blood Count 8.1 Microbiology 05/15/16 Urine Culture - Preliminary, Resulted NO GROWTH A/P: Assessment: Acute on chronic hypercapnic resp failure, primarily due to massive obesity Obesity with BMI approx 75 and obesity-hypoventilation syndrome Chronic cor pulmonale and chronic diastolic CHF Ac renal failure, likely due to pre-renal azotemia due to diuretic therapy - Cr improved today with gentle IV hydration Echo of Mar 2016 (Dr Gutierrez): poor study due to body habitus and a fib, LVEF could not be accurately estimated, RVSP 39 mmHg. Definity contrast echo of : LVEF 65-70% w/o regional wall motion abnormalities Paroxysmal A-flutter/A-fib that seems to have degenerated into chronic, permanent atrial fib CAD. CAROLYN of LAD with Cambria 3.5x30 mm in Nov 2010. Repeat cath of 01/25/14 showed patent stent, mild CAD and some elevation of LVEDP, indicating diastolic dysfunction Chronic LBBB Chronic chest and mid back pain, etiology undetermined, currently unchanged and stable Hypertension - controlled DM II Intolerance to statins and refusal to take fibrates H/o leg venous ulcers, managed by Dr Yu in [facility] No significant PAD on angio of 01/25/14 Chronic anticoagulation with Eliquis Chronic leg swelling primarily due to venous insufficiency due to massive obesity Chronic mild to mod thrombocytopenia being managed by the Medical Service Elevated liver enzymes of undetermined etiology management Plan: * Very complex management * The bulk of her problems seem to emanate from massive obesity * Consider perm tracheostomy to help with obesity-hypoventilation and reduce hospitalizations * May benefit from bariatric surgery in the terminal clerk * Careful hydration for now * Diuretics as needed and as tolerated * Follow labs closely * Echo with Definity contrast for better LVEF eval - pending * Prognosis guarded at this time * Dr. Hanson discussed her case with Dr Mariano * Elevated liver enzymes of undetermined etiology - medical services managing Physician Assessment Physician Assessment Lungs: gen diminished air entry, inocencia at bases Cor: irreg Echo today (see above) A&R * As documented in our note above that I updated at the time of this writing * Management remains very complex * Diuretics along with continuing iv fluids * Monitor labs closely MIGUEL ANGEL TELLEZ APPAREL RENTAL CLERK May 16, 2016 10:27 ANGELA HANSON MD FACP [facility] May 16, 2016 11:34
[2016-05-16] MEDS ORDERED: FUROSEMIDE 40 MG/4 ML INJ (LASIX) IVP NR (10:30)
--- NOTE | 2016-05-16 11:45 | Occ Therapy Progress Note ---
Therapy Progress Note OT order received. Spoke with nursing. Pt. on bipap on 6 liters of O2. Unable to come off this. Nursing states that she de-sats easily. Request to hold for now. Only allowed to come off when eating. Pt. not motivated to eat for herself. Sent built up handles for utensils to room, to allow easier access with utensils. Pt. would benefit from Mathieu cup as well, but not in stock at this time. Will continued to monitor pt. for OT services, as she is not appropriate at this time due to low oxygen saturation and need to be on constant bipap. Thank you for the consult. 1120 RAMBO AC OT May 16, 2016 11:45
--- NOTE | 2016-05-16 11:54 | Progress Note (SOAP) ---
Subjective Subjective/Events-last exam Afebrile. Remains on bipap with 80% FiO2. She states her breathing does feel a little better than yesterday. Objective Exam Last Set of Vital Signs Vital Signs Date Time Temp Pulse Resp B/P Pulse Ox O2 Delivery O2 Flow Rate FiO2 05/16/16 10:47 93 24 94 60.00 05/16/16 08:00 NIV/Bilevel 05/16/16 07:41 97.4 123/67 05/16/16 07:16 60 Capillary Refill : Greater Than 3 Seconds I&O Bad tableGeneral: Alert, Mild Distress Lungs: Other (decreased air movement) Heart: Other (irregularly irregular) Psych/Mental Status: Mental Status NL Results/Procedures Lab Laboratory Tests 05/15/16 15:25: Anion Gap 12, BUN/Creatinine Ratio 23, Blood Urea Nitrogen 40H, Calcium Level 9.2, Carbon Dioxide Level 40H, Chloride Level 90L, Creatinine 1.76H, Estimat Glomerular Filtration Rate 29, Glucose Level 148H, Lactic Acid Level 1.2, Magnesium Level 2.3, Potassium Level 4.8, Sodium Level 142 05/15/16 15:29: Glucometer 169H 05/15/16 20:57: Glucometer 120H 05/16/16 05:53: Glucometer 116H 05/16/16 05:54: Alanine Aminotransferase (ALT/SGPT) 165H, Albumin 2.8L, Alkaline Phosphatase 53 , Anion Gap 11, Aspartate Amino Transf (AST/SGOT) 211H, BUN/Creatinine Ratio 34 , Basophils # (Auto) 0.0, Basophils (%) (Auto) 0, Blood Urea Nitrogen 44H, Calcium Level 8.6, Carbon Dioxide Level 39H, Chloride Level 92L, Creatinine 1.30 , Eosinophils # (Auto) 0.3, Eosinophils (%) (Auto) 4, Estimat Glomerular Filtration Rate 41, Glucose Level 114H, Hematocrit 35, Hemoglobin 11.0L, Lymphocytes # (Auto) 0.9L, Lymphocytes (%) (Auto) 11L, Magnesium Level 2.0, Mean Corpuscular Hemoglobin 33, Mean Corpuscular Hemoglobin Concent 31L, Mean Corpuscular Volume 105H, Mean Platelet Volume , Monocytes # (Auto) 0.9, Monocytes (%) (Auto) 11, Neutrophils # (Auto) 6.0, Neutrophils (%) (Auto) 74, Platelet Count 94L, Potassium Level 4.3, Red Blood Count 3.34L, Red Cell Distribution Width 14.8H, Sodium Level 142, Total Bilirubin 0.5, Total Protein 5.9L, White Blood Count 8.1 Microbiology 05/15/16 Urine Culture - Preliminary, Resulted NO GROWTH Radiology CXR 05/15: "Cardiomegaly with extensive mixed infiltrates likely related to pulmonary edema. Assessment/Plan Assessment/Plan Admission Dx 1. Acute on chronic hypercapneic hypoxic respiratory insufficiency 2. Acute renal insufficiency with hyperkalemia 3. Transaminitis 4. Atrial fibrillation with diastolic dysfunction and history of CAD 5. DMII Plan 1. Acute on chronic hypercapneic hypoxic respiratory insufficiency- requiring bipap with 80% FiO2 with continued hypercapnea and hypoxia per ABG -Pulmonology consulted -Likely secondary to obesity hypoventilation, no clear evidence of infection -CXR with possible pulmonary edema, on lasix outpatient but now with acute renal insufficiency 05/16 continue bipap prn, lasix IV per Cardiology, hospice has been discussed with patient per Palliative and she is agreeable, will continue to discuss further 2. Acute renal insufficiency with hyperkalemia- unclear etiology -Monitor closely, hesitate to give IVF given her respiratory status 05/16 improved 3. Transaminitis- unclear etiology, consider hypoxic injury -Monitor 4. Atrial fibrillation with diastolic dysfunction and history of CAD- rate controlled, on anticoagulation -Cardiology consulted, appreciate recommendations 5. DMII- resume home medications except for pioglitazone given her cardiac concerns, diabetic diet when able to be off of bipap DVT ppx- SCDs, continue home apixaban Disp- patient states she does not want to be intubated and is able to clearly state that she understand she may if her respiratory status worsens and she is not intubated and she confirms she does not want intubation, but does want cardiac resuscitation if needed. Discussed that if she were to have a code event , there is a significant chance it would be related to her respiratory status and therefore cardiac resuscitation alone may not be sufficient and again she is able to express understanding and confirm her code status as DNI only. Diagnosis/Problems: Clinical Quality Measures DVT/VTE Risk/Contraindication: Risk Factor Score Per Nursin RFS Level Per Nursing on Admit: 4+=Very High TRINY YAÑEZ MD May 16, 2016 11:54 am
[2016-05-16 12:00] VITALS: BP 125/65
[2016-05-16] MEDS ORDERED: CATHETER FLUSH 10 ML SYR IV PRN (12:00)
[2016-05-16 16:00] VITALS: BP 125/73
[2016-05-16 19:58] VITALS: BP 110/57
[2016-05-17 00:27] VITALS: BP 101/64
[2016-05-17] MEDS: RT-ALBUTEROL/IPRATROPIUM 3 ML (DUONEB) VIAL INH SCH ×3 (03:06→10:56)
[2016-05-17 04:25] VITALS: BP 105/53
[2016-05-17] MEDS: inSUlin ASPART (NovoLOG) 1 UNIT/0.01 ML (CHARGE PER UNIT) SC SCH ×4 (05:34→12:10)
[2016-05-17] MEDS: LEVOTHYROXINE 75 MCG (LEVOTHROID) TABLET PO SCH (06:24)
[2016-05-17 06:41] LABS: MEAN CORPUSCULAR HEMOGLOBIN 32 PG (25-34); MEAN CORPUSCULAR HGB CONC 31 G/DL (32-36); MEAN CORPUSCULAR VOLUME 105 FL (80-99); PLATELET COUNT 101 10^3/uL (130-400); RED BLOOD COUNT 3.24 10^6/uL (4.35-5.85); RED CELL DISTRIBUTION WIDTH 14.9 % (10.0-14.5); WHITE BLOOD COUNT 8.3 10^3/uL (4.3-11.0)
[2016-05-17 07:19] LABS: ALBUMIN 2.6 G/DL (3.2-4.5); BILIRUBIN,TOTAL 0.5 MG/DL (0.1-1.0); CALCIUM 8.2 MG/DL (8.5-10.1); CREATININE SERUM 1.18 MG/DL (0.60-1.30); POTASSIUM 4.4 MMOL/L (3.6-5.0); TOTAL PROTEIN 5.5 G/DL (6.4-8.2)
[2016-05-17] MEDS: NS IV 1000 ML 1,000 ML IV SCH (07:21)
--- NOTE | 2016-05-17 07:24 | Pulmonary Progress Note ---
Subjective Subjective/Events-last exam Pt is doing better. Exam Exam Vital Signs Date Time Temp Pulse Resp B/P Pulse Ox O2 Delivery O2 Flow Rate FiO2 05/17/16 04:25 98.2 89 20 105/53 95 Nasal Cannula 6.00 05/17/16 03:06 99 25 94 60.00 05/17/16 00:27 99.0 97 20 101/64 97 NIV/CPAP 05/16/16 21:37 85 22 97 60.00 05/16/16 20:09 81 13 94 60.00 05/16/16 19:58 97.7 107 20 110/57 99 NIV/Bilevel 80.00 05/16/16 19:40 94 NIV/Bilevel 60.00 05/16/16 19:10 81 22 94 60.00 05/16/16 16:00 98.3 82 20 125/73 93 NIV/Bilevel 80.00 05/16/16 14:25 88 12 96 60.00 05/16/16 12:00 97.8 96 16 125/65 99 NIV/Bilevel 80.00 05/16/16 10:47 93 24 94 60.00 05/16/16 08:00 94 NIV/Bilevel 60.00 05/16/16 07:41 97.4 88 18 123/67 100 NIV/Bilevel 80.00 I & O 05/17/16 07:00 Intake Total 4580 ml Output Total 925 ml Balance 3655 ml General Appearance: No Apparent Distress Respiratory: No Accessory Muscle Use No Respiratory Distress Decreased Breath Sounds Capillary Refill: Greater Than 3 Seconds Gastrointestinal: normal bowel sounds non tender soft Neurologic/Psychiatric: Alert Skin: Normal Color Warm/Dry Results Lab Laboratory Tests 05/15/16 10:40 05/15/16 15:25 05/16/16 05:54 05/17/16 05:32 Assessment/Plan Assessment/Plan Acute on chronic respiratory failure -BiPAP PRN CHFAE with EF 40% per echo -Lasix Morbid obesity with obesity hypoventilation syndrome and severe ALEXIS ARF COPD quit smoking in 2003 -She is on 3 liters of oxygen / UTI with proteus Debility -PT/OT -increase activity Thrombocytopenia Clinical Quality Measures DVT/VTE Risk/Contraindication: Risk Factor Score Per Nursin RFS Level Per Nursing on Admit: 4+=Very High STAN BOOKER DO May 17, 2016 07:24
[2016-05-17 08:00] VITALS: BP 106/62
[2016-05-17] MEDS ORDERED: FUROSEMIDE 40 MG/4 ML INJ (LASIX) IVP SCH (09:00)
[2016-05-17] MEDS: GABAPENTIN 300 MG (NEURONTIN) CAP PO SCH ×2 (09:14→13:13)
[2016-05-17] MEDS: DILTIAZEM 180 MG (CARDIZEM CD) CAP PO SCH (09:14)
[2016-05-17] MEDS: ASPIRIN E.C. 81 MG (ECOTRIN) TAB PO SCH (09:14)
[2016-05-17] MEDS: meTOprolol TARTRATE 25 MG (LOPRESSOR) TABLET PO SCH (09:14)
[2016-05-17] MEDS: APIXABAN 5 MG (ELIQUIS) TABLET PO SCH (09:14)
[2016-05-17] MEDS: inSUlin DETERMIR 1 UNIT/0.01 ML (LEVEMIR) CHARGE PER UNIT SQ SCH (09:15)
[2016-05-17] MEDS: NYSTATIN CREAM (MYCOSTATIN) 30 GM TUBE TP SCH (09:15)
--- NOTE | 2016-05-17 09:47 | ECHOCARDIOGRAPHY REPORT ---
PROCEDURE PHYSICIAN: ANGELA HANSON DATE OF PROCEDURE: 05/15/2016 TWO DIMENSIONAL ECHOCARDIOGRAM REPORT PRIMARY PHYSICIAN: Dr. Mariano OTHER PHYSICIAN: Dr. German REFERRING PHYSICIAN: ORDERING PHYSICIAN: Dr. Hanson DATE OF : 1950 INDICATION FOR THE PROCEDURE: Shortness of breath. MEASUREMENTS DERIVED VALUES LV DIAMETER (LAX) NORMALS NORMALS Diastolic (3.6-5.2) Eject. Fract. (60%+/-6%) Systolic (2.3-3.9) Diastolic Vol. % Shortening (0.22-0.42) Systolic Vol. Aortic Root IVS THICKNESS Diastolic (0.6-1.1) LVPW THICKNESS Diastolic (0.6-1.1) LA DIAMETER Systolic (2.1-3.7) Report. DESCRIPTION: This is a study limited to evaluation of wall motion and ejection fraction with Definity contrast injection after having obtained an informed contrast from the patient. The contrast does show the wall motion quite well. Left ventricular ejection fraction is normal to hyperdynamic and ejection fraction is estimated to be 65 to 70%. No regional wall motion abnormalities are seen on study. CONCLUSION: This echo contrast study indicates normal to hyperdynamic left ventricular systolic function with an ejection fraction of 65 to 70% and without any regional wall motion abnormality. Job ID: [id number] Dictated Date: 05/16/2016 11:46:57 Contact Lens Flashing Puncher Date: 05/17/2016 09:40:59 / nichelle
[2016-05-17 12:00] VITALS: BP 118/68
--- NOTE | 2016-05-17 12:01 | Discharge Instructions ---
Discharge [facility] Discharge Medications Continued Medications: Apixaban (Eliquis) 5 Mg Tablet 5 MG PO BID TAB Aspirin (Aspirin Ec 81 Mg) 81 Mg Tabec 81 MG PO DAILY TAB Diltiazem HCl (Diltiazem 24Hr ER) 180 Mg Cap.er.24h 180 MG PO DAILY CAP Exenatide Microspheres (Bydureon Pen) 2 Mg/0.65 Ml Pen.injctr 2 MG SQ Sa EA Furosemide (Furosemide) 40 Mg Tablet 40 MG PO DAILY TAB Gabapentin (Gabapentin) 300 Mg Capsule 300 MG PO TID CAP Ibuprofen (Ibuprofen) 600 Mg Tablet 600 MG PO Q6H PRN PAIN TAB Insulin Aspart (Novolog Flexpen) 300 Units/3 Ml Solution 15 UNITS SQ AC EA Insulin Detemir (Levemir Flextouch) 100 Unit/1 Ml Insuln.pen 10 UNITS SC BID EA Ipratropium/Albuterol Sulfate (Iprat-Albut 0.5-3(2.5) mg/3 ml) 3 Ml Ampul.neb 3 ML IH Q6H PRN SHORTNESS OF BREATH EACH Levothyroxine Sodium (Levothyroxine Sodium) 75 Mcg Tablet 75 MCG PO DAILY TAB Metoprolol Tartrate (Metoprolol Tartrate) 25 Mg Tablet 25 MG PO BID TAB Nystatin (Nystatin) 15 Gm Cream..g. TP BID APPLY TO ABDOMINAL FOLDS TUBE Discontinued Medications: Pioglitazone HCl (Actos) 30 Mg Tablet 30 MG PO DAILY TAB Patient Instructions Goal/Follow Up Appt: Evita Jackson APRN will see you at the halfway next week. Be sure to use your cpap every time you lie down and when you sleep. Return to [facility] For: Fever, inability to keep oxygen level appropriate Activity & Diet Discharge Diet: ADA Diet Orders-Post D/C & Referrals Pneu Vac Indicated: Yes Copy Copies To 1: JOMAR Garcia BETHANY N MD May 17, 2016 12:01 pm
--- NOTE | 2016-05-17 12:04 | Discharge Summary ---
Diagnosis/Chief Complaint Date of Admission May 15, 2016 at 11:56 am Date of Discharge Admission Diagnosis Admission Diagnosis 1. Acute on chronic hypercapneic hypoxic respiratory insufficiency 2. Acute renal insufficiency with hyperkalemia 3. Transaminitis 4. Atrial fibrillation with diastolic dysfunction and history of CAD 5. DMII Chief Complaint/HPI Chief Complaint/HPI Patient sent by EMS from half-way due to low oxygen saturation and decreased alertness. Upon my evaluation, she is drowsy but arousable and answers questions appropriately when cued verbally to stay awake. She states she doesn't know when this really happened and does admit to feeling more short of breath but is unable to clarify any further. She is afebrile. Her son is present and notes that last night when he was visiting her she had a low oxygen saturation while lying down and didn't answer him, but after sitting up to eat dinner improved. She was just discharged May 13 after a stay for similar breathing problems and UTI. Discharge Summary-Simple/Stand Consultations Discharge Physical Examination Allergies: Coded Allergies: liraglutide (Verified Allergy, Intermediate, NAUSEA, 04/01/16) VOMITING AND CHEST PAIN THAT RADIATES TO HER BACK simvastatin (Verified Allergy, Intermediate, 04/01/16) PT HAS ELEVATED LIVER ENZYMES WITH ANY STATIN DRUG Bacitracin Zinc (Verified Allergy, Mild, RASH, 04/01/16) bacitracin (Verified Allergy, Mild, RASH, 04/01/16) colistimethate sodium (Verified Allergy, Mild, RASH, 04/01/16) gramicidin D (Verified Allergy, Mild, RASH, 04/01/16) metformin HCl (Verified Allergy, Mild, 04/01/16) neomycin sulfate (Verified Allergy, Mild, RASH, 04/01/16) polymyxin B (Verified Allergy, Mild, RASH, 04/01/16) polymyxin B sulfate (Verified Allergy, Mild, RASH, 04/01/16) pramoxine HCl (Verified Allergy, Mild, RASH, 04/01/16) Vitals & I&Os Vital Sign - Last 12Hours Date Time Temp Pulse Resp B/P Pulse Ox O2 Delivery O2 Flow Rate FiO2 05/17/16 10:56 90 5.00 05/17/16 08:00 NIV/Bilevel 05/17/16 08:00 98.3 103 18 106/62 05/16/16 07:16 60 Intake and Output 2/17/17 00:00 Intake Total 3220 ml Output Total 675 ml Balance 2545 ml Hospital Course See final discharge diagnosis. Radiology Reviewed CXR 05/15: "Cardiomegaly with extensive mixed infiltrates likely related to pulmonary edema. Discharge Instructions to patient/family Please see electonic discharge instructions given to patient. Discharge Medications Reviewed and agree with Discharge Medication list on patient's Discharge Instruction sheet Clinical Quality Measures DVT/VTE Risk/Contraindication: Risk Factor Score Per Nursin RFS Level Per Nursing on Admit: 4+=Very High TRINY YAÑEZ MD May 17, 2016 12:03
[2016-05-17 14:15] VITALS: BP 118/68
--- NOTE | 2016-05-17 14:41 | Discharge Summary ---
Diagnosis/Chief Complaint Date of Admission May 15, 2016 at 11:56 am Date of Discharge May 17, 2016 Admission Diagnosis Admission Diagnosis 1. Acute on chronic hypercapneic hypoxic respiratory insufficiency 2. Acute renal insufficiency with hyperkalemia 3. Transaminitis 4. Atrial fibrillation with diastolic dysfunction and history of CAD 5. DMII Discharge Diagnosis 1. Acute on chronic hypercapneic hypoxic respiratory insufficiency- requiring bipap with 80% FiO2 with continued hypercapnea and hypoxia per ABG -Pulmonology consulted -Likely secondary to obesity hypoventilation, no clear evidence of infection -CXR with possible pulmonary edema, on lasix outpatient but now with acute renal insufficiency 05/16 continue bipap prn, lasix IV per Cardiology, hospice has been discussed with patient per Palliative and she is agreeable, will continue to discuss further 05/17- weaned back to 6 lpm supplemental oxygen per nasal cannula, will discharge - discussed with patient that she needs to use her cpap (had been sent home with her son and not with her at the [facility]) every time she lies down or sleeps to try to prevent recurrence as there is no clear evidence of any cause of her hypercapnea leading to this episode besides obesity hypoventilation. 2. Acute renal insufficiency with hyperkalemia- unclear etiology -Monitor closely, hesitate to give IVF given her respiratory status 05/16 improved 3. Transaminitis- unclear etiology, consider hypoxic injury -Monitor Decreasing at d/c 4. Atrial fibrillation with diastolic dysfunction and history of CAD- rate controlled, on anticoagulation -Cardiology consulted, appreciate recommendations 5. DMII- resume home medications except for pioglitazone given her cardiac concerns, diabetic diet when able to be off of bipap Discontinued pioglitazone due to heart concerns, may need adjustment of her insulin outpatient DVT ppx- SCDs, continue home apixaban Chief Complaint/HPI Chief Complaint/HPI Patient sent by EMS from [facility] due to low oxygen saturation and decreased alertness. Upon my evaluation, she is drowsy but arousable and answers questions appropriately when cued verbally to stay awake. She states she doesn't know when this really happened and does admit to feeling more short of breath but is unable to clarify any further. She is afebrile. Her son is present and notes that last night when he was visiting her she had a low oxygen saturation while lying down and didn't answer him, but after sitting up to eat dinner improved. She was just discharged May 13 after a stay for similar breathing problems and UTI. Discharge Summary-Simple/Stand Consultations Discharge Physical Examination Allergies: Coded Allergies: liraglutide (Verified Allergy, Intermediate, NAUSEA, 04/01/16) VOMITING AND CHEST PAIN THAT RADIATES TO HER BACK simvastatin (Verified Allergy, Intermediate, 04/01/16) PT HAS ELEVATED LIVER ENZYMES WITH ANY STATIN DRUG Bacitracin Zinc (Verified Allergy, Mild, RASH, 04/01/16) bacitracin (Verified Allergy, Mild, RASH, 04/01/16) colistimethate sodium (Verified Allergy, Mild, RASH, 04/01/16) gramicidin D (Verified Allergy, Mild, RASH, 04/01/16) metformin HCl (Verified Allergy, Mild, 04/01/16) neomycin sulfate (Verified Allergy, Mild, RASH, 04/01/16) polymyxin B (Verified Allergy, Mild, RASH, 04/01/16) polymyxin B sulfate (Verified Allergy, Mild, RASH, 04/01/16) pramoxine HCl (Verified Allergy, Mild, RASH, 04/01/16) Vitals & I&Os Vital Sign - Last 12Hours Date Time Temp Pulse Resp B/P Pulse Ox O2 Delivery O2 Flow Rate FiO2 05/17/16 12:00 98.7 97 18 118/68 95 Nasal Cannula 6.00 05/16/16 07:16 60 Intake and Output 05/17/16 00:00 Intake Total 3220 ml Output Total 675 ml Balance 2545 ml General Appearance: Alert, No Acute Distress Respiratory: Other (decreased air movement) Cardiovascular: Other Neuro: Normal Speech Psych/Mental Status: Mental Status NL Hospital Course See final discharge diagnosis. Labs Laboratory Tests Test 05/15/16 15:25 05/15/16 15:29 05/15/16 20:57 05/16/16 05:53 Range/Units Anion Gap 12 5-14 MMOL/L BUN/Creatinine Ratio 23 Blood Urea Nitrogen 40 H 7-18 MG/DL Calcium Level 9.2 8.5-10.1 MG/DL Carbon Dioxide Level 40 H 21-32 MMOL/L Chloride Level 90 L 98-107 MMOL/L Creatinine 1.76 H 0.60-1.30 MG/DL Estimat Glomerular Filtration Rate 29 Glucose Level 148 H 70-105 MG/DL Lactic Acid Level 1.2 0.5-2.0 MMOL/L Magnesium Level 2.3 1.8-2.4 MG/DL Potassium Level 4.8 3.6-5.0 MMOL/L Sodium Level 142 135-145 MMOL/L Glucometer 169 H 120 H 116 H 70-110 MG/DL Test 05/16/16 05:54 05/16/16 11:29 05/16/16 14:34 05/16/16 18:06 Range/Units Alanine Aminotransferase (ALT/SGPT) 165 H 0-55 U/L Albumin 2.8 L 3.2-4.5 G/DL Alkaline Phosphatase 53 40-136 U/L Anion Gap 11 5-14 MMOL/L Aspartate Amino Transf (AST/SGOT) 211 H 5-34 U/L BUN/Creatinine Ratio 34 Basophils # (Auto) 0.0 0.0-0.1 10^3/uL Basophils (%) (Auto) 0 0-10 % Blood Urea Nitrogen 44 H 7-18 MG/DL Calcium Level 8.6 8.5-10.1 MG/DL Carbon Dioxide Level 39 H 21-32 MMOL/L Chloride Level 92 L 98-107 MMOL/L Creatinine 1.30 0.60-1.30 MG/DL Eosinophils # (Auto) 0.3 0.0-0.3 10^3/uL Eosinophils (%) (Auto) 4 0-10 % Estimat Glomerular Filtration Rate 41 Glucose Level 114 H 70-105 MG/DL Hematocrit 35 35-52 % Hemoglobin 11.0 L 11.5-16.0 G/DL Lymphocytes # (Auto) 0.9 L 1.0-4.0 X 10^3 Lymphocytes (%) (Auto) 11 L 12-44 % Magnesium Level 2.0 1.8-2.4 MG/DL Mean Corpuscular Hemoglobin 33 25-34 PG Mean Corpuscular Hemoglobin Concent 31 L 32-36 G/DL Mean Corpuscular Volume 105 H 80-99 FL Mean Platelet Volume 7.4-10.4 FL Monocytes # (Auto) 0.9 0.0-1.0 X 10^3 Monocytes (%) (Auto) 11 0-12 % Neutrophils # (Auto) 6.0 1.8-7.8 X 10^3 Neutrophils (%) (Auto) 74 42-75 % Platelet Count 94 L 130-400 10^3/uL Potassium Level 4.3 3.6-5.0 MMOL/L Red Blood Count 3.34 L 4.35-5.85 10^6/uL Red Cell Distribution Width 14.8 H 10.0-14.5 % Sodium Level 142 135-145 MMOL/L Total Bilirubin 0.5 0.1-1.0 MG/DL Total Protein 5.9 L 6.4-8.2 G/DL White Blood Count 8.1 4.3-11.0 10^3/uL Glucometer 157 H 178 H 189 H 70-110 MG/DL Test 05/16/16 21:06 05/17/16 05:31 05/17/16 05:32 05/17/16 10:46 Range/Units Glucometer 150 H 129 H 159 H 70-110 MG/DL Alanine Aminotransferase (ALT/SGPT) 128 H 0-55 U/L Albumin 2.6 L 3.2-4.5 G/DL Alkaline Phosphatase 49 40-136 U/L Anion Gap 10 5-14 MMOL/L Aspartate Amino Transf (AST/SGOT) 116 H 5-34 U/L BUN/Creatinine Ratio 40 Blood Urea Nitrogen 47 H 7-18 MG/DL Calcium Level 8.2 L 8.5-10.1 MG/DL Carbon Dioxide Level 38 H 21-32 MMOL/L Chloride Level 95 L 98-107 MMOL/L Creatinine 1.18 0.60-1.30 MG/DL Estimat Glomerular Filtration Rate 46 Glucose Level 123 H 70-105 MG/DL Hematocrit 34 L 35-52 % Hemoglobin 10.5 L 11.5-16.0 G/DL Mean Corpuscular Hemoglobin 32 25-34 PG Mean Corpuscular Hemoglobin Concent 31 L 32-36 G/DL Mean Corpuscular Volume 105 H 80-99 FL Mean Platelet Volume 7.4-10.4 FL Platelet Count 101 L 130-400 10^3/uL Potassium Level 4.4 3.6-5.0 MMOL/L Red Blood Count 3.24 L 4.35-5.85 10^6/uL Red Cell Distribution Width 14.9 H 10.0-14.5 % Sodium Level 143 135-145 MMOL/L Total Bilirubin 0.5 0.1-1.0 MG/DL Total Protein 5.5 L 6.4-8.2 G/DL White Blood Count 8.3 4.3-11.0 10^3/uL Radiology Reviewed CXR 05/15: "Cardiomegaly with extensive mixed infiltrates likely related to pulmonary edema. Discharge Instructions to patient/family Please see electonic discharge instructions given to patient. Discharge Medications Reviewed and agree with Discharge Medication list on patient's Discharge Instruction sheet Clinical Quality Measures DVT/VTE Risk/Contraindication: Risk Factor Score Per Nursin RFS Level Per Nursing on Admit: 4+=Very High Copy Copies To 1: JOMAR Garcia BETHANY N MD May 17, 2016 2:41 pm
[2016-05-18] MEDS ORDERED: NON-FORMULARY MEDICATION 1 EA EA (Exenatide Microspheres (Bydureon Pen) 2 MG) SQ SCH (14:45)
[2016-05-21] MEDS ORDERED: D5 NS 1000 ML IV SOLUTION 0 ML IV ONE (12:49)
[2016-06-07] MEDS ORDERED: VANC1PLA9 IV (10:05)
== END 2016-05-17 14:15 | DRG 189 ==
LOC: EDUNIT# 10:29 → ER 10:32 → 4TH 11:56
PROVIDERS: ADMIT Family Medicine; ATTEND Family Medicine
DX: J96.22 Acute and chronic respiratory failure with hypercapnia (principal); J96.21 Acute and chronic respiratory failure with hypoxia; E66.2 Morbid (severe) obesity with alveolar hypoventilation; Z68.45 Body mass index [BMI] 70 or greater, adult; J44.9 Chronic obstructive pulmonary disease, unspecified; I11.0 Hypertensive heart disease with heart failure; I50.32 Chronic diastolic (congestive) heart failure; N17.9 Acute kidney failure, unspecified; E87.5 Hyperkalemia; I48.2 Chronic atrial fibrillation; I25.10 Atherosclerotic heart disease of native coronary artery without angina pectoris; E11.40 Type 2 diabetes mellitus with diabetic neuropathy, unspecified; E03.9 Hypothyroidism, unspecified; Z79.4 Long term (current) use of insulin; Z87.891 Personal history of nicotine dependence; Z85.42 Personal history of malignant neoplasm of other parts of uterus; Z95.5 Presence of coronary angioplasty implant and graft; T50.1X5A Adverse effect of loop [high-ceiling] diuretics, initial encounter; I27.81 Cor pulmonale (chronic); D69.6 Thrombocytopenia, unspecified; Z79.01 Long term (current) use of anticoagulants; I87.2 Venous insufficiency (chronic) (peripheral); Z87.440 Personal history of urinary (tract) infections
CPT/HCPCS: 36415; 51702; 71010; 80048; 80053; 82805; 82962; 83605; 83735; 85025; 85027; 87040; 87088; 93306; 94640; 94660

== ENCOUNTER 2016-06-05 19:41 | Inpatient (IN) | payer MEDICARE, OTHER ==
[2016-06-05] VITALS: BP 125/66
[~2016-06-05] VITALS: Ht 167.6 cm; Wt 199.3 kg
[~2016-06-05 19:41] MED LIST changes: +DILT180C PO
[2016-06-05 19:50] VITALS: BP 132/92
[2016-06-05 20:05] LABS: BASOPHILS % (AUTO) 1 % (0-10); EOSINOPHILS # (AUTO) 0.2 10^3/uL (0.0-0.3); EOSINOPHILS % (AUTO) 3 % (0-10); LYMPHOCYTES # (AUTO) 0.6 X 10^3 (1.0-4.0); LYMPHOCYTES % (AUTO) 9 % (12-44); MEAN CORPUSCULAR HEMOGLOBIN 34 PG (25-34); MEAN CORPUSCULAR HGB CONC 31 G/DL (32-36); MEAN CORPUSCULAR VOLUME 109 FL (80-99); MONOCYTES # (AUTO) 0.6 X 10^3 (0.0-1.0); MONOCYTES % (AUTO) 10 % (0-12); NEUTROPHILS # (AUTO) 5.2 X 10^3 (1.8-7.8); NEUTROPHILS % (AUTO) 79 % (42-75); PLATELET COUNT 108 10^3/uL (130-400); RED BLOOD COUNT 3.66 10^6/uL (4.35-5.85); WHITE BLOOD COUNT 6.6 10^3/uL (4.3-11.0)
[2016-06-05 20:07] LABS: BILIRUBIN,URINE NEGATIVE (NEGATIVE); KETONES,URINE 1+ (NEGATIVE); LEUKOCYTE ESTERASE ,URINE 2+ (NEGATIVE); NITRITE,URINE NEGATIVE (NEGATIVE); PH,URINE 5 (5-9); PROTEIN,URINE 3+ (NEGATIVE); UROBILINOGEN,URINE 1 MG/DL (NORMAL)
[2016-06-05 20:16] LABS: WBC,URINE 50-100 /HPF
[2016-06-05 20:22] LABS: ABG BASE EXCESS 21.1 MMOL/L (-2.5-2.5); ABG OXYGEN SATURATION 100 % (94-100); ABG PO2 146 MMHG (79-93); ABG TCO2 51.6 MMOL/L (21.0-31.0)
[2016-06-05 20:25] LABS: ABG PCO2 102 MMHG (35-45)
[2016-06-05 20:26] LABS: ALANINE AMINOTRANSFERASE 14 U/L (0-55); ALBUMIN 3.5 G/DL (3.2-4.5); ANION GAP 12 MMOL/L (5-14); ASPARTATE AMINO TRANSFERASE 20 U/L (5-34); BILIRUBIN,TOTAL 0.7 MG/DL (0.1-1.0); BLOOD UREA NITROGEN 27 MG/DL (7-18); BUN/CREATININE RATIO 35; CARBON DIOXIDE 42 MMOL/L (21-32); CHLORIDE 88 MMOL/L (98-107); CREATININE SERUM 0.78 MG/DL (0.60-1.30); GFR ESTIMATED > 60; GLUCOSE 200 MG/DL (70-105); MAGNESIUM 1.7 MG/DL (1.8-2.4); POTASSIUM 4.6 MMOL/L (3.6-5.0); SODIUM 142 MMOL/L (135-145); TOTAL PROTEIN 6.9 G/DL (6.4-8.2)
[2016-06-05 20:26] LABS: ABG HCO3 49 MMOL/L (23-27); ALLENS TEST YES-POS; PATIENT TEMP 98.5
[2016-06-05 20:29] LABS: INR 1.4 (0.8-1.4); PROTHROMBIN TIME PATIENT 17.1 SEC (12.2-14.7)
[2016-06-05] MEDS ORDERED: cefTRIAXone INJECTION 1,000 MG in NS (IVPB) 50 ML IV ONE (20:30)
[2016-06-05 20:32] LABS: TROPONIN I < 0.30 NG/ML (<0.30)
--- NOTE | 2016-06-05 20:36 | ED General ---
General Chief Complaint: Respiratory Problems Stated Complaint: SOA Source of Information: Patient Exam Limitations: No Limitations History of Present Illness Time Seen by Provider: 19:42 Initial Comments This 66-year-old female resident of [facility] in [place] presents emergency room via EMS after having respiratory failure. EMS was originally activated for a CODE BLUE situation. She was severely hypoxic and cyanotic. CPAP was placed prior to EMS arrival. Patient beginning to improve. EMS reports patient was pale upon their arrival but alert and talking to them. She is alert and oriented by the time of arrival. This patient has a history of respiratory failure due to hypoventilation syndrome. She also has congestive heart failure. I'm uncertain if she actually has COPD, but her history of hypercarbia would suggest an element of COPD. EMS administered a DuoNeb treatment. Blood pressures were noted to be rather high for EMS, but she is normotensive on arrival. Review of her chart notes and admission from May 07 through May 13. She was treated for urinary tract infection, hypoventilation, respiratory failure, and CHF. She is on Eliquis because of chronic atrial fibrillation. She has stefanie blood in her urinary catheter. Allergies and Home Medications Allergies Coded Allergies: liraglutide (Verified Allergy, Intermediate, NAUSEA, 04/01/16) VOMITING AND CHEST PAIN THAT RADIATES TO HER BACK simvastatin (Verified Allergy, Intermediate, 04/01/16) PT HAS ELEVATED LIVER ENZYMES WITH ANY STATIN DRUG Bacitracin Zinc (Verified Allergy, Mild, RASH, 04/01/16) bacitracin (Verified Allergy, Mild, RASH, 04/01/16) colistimethate sodium (Verified Allergy, Mild, RASH, 04/01/16) gramicidin D (Verified Allergy, Mild, RASH, 04/01/16) metformin HCl (Verified Allergy, Mild, 04/01/16) neomycin sulfate (Verified Allergy, Mild, RASH, 04/01/16) polymyxin B (Verified Allergy, Mild, RASH, 04/01/16) polymyxin B sulfate (Verified Allergy, Mild, RASH, 04/01/16) pramoxine HCl (Verified Allergy, Mild, RASH, 04/01/16) Home Medications Apixaban 5 Mg Tablet 5 MG PO BID (Reported) Aspirin 81 Mg Tabec 81 MG PO DAILY (Reported) Diltiazem HCl 180 Mg Cap.er.24h 180 MG PO DAILY (Reported) Exenatide Microspheres 2 Mg/0.65 Ml Pen.injctr 2 MG SQ Sa (Reported) Furosemide 40 Mg Tablet 40 MG PO DAILY (Reported) Gabapentin 300 Mg Capsule 300 MG PO TID (Reported) Ibuprofen 600 Mg Tablet 600 MG PO Q6H PRN PRN PAIN (Reported) Insulin Aspart 300 Units/3 Ml Solution 15 UNITS SQ AC (Reported) Insulin Detemir 100 Unit/1 Ml Insuln.pen 10 UNITS SC BID (Reported) Ipratropium/Albuterol Sulfate 3 Ml Ampul.neb 3 ML IH Q6H PRN PRN SHORTNESS OF BREATH (Reported) Levothyroxine Sodium 75 Mcg Tablet 75 MCG PO DAILY (Reported) Metoprolol Tartrate 25 Mg Tablet 25 MG PO BID (Reported) Nystatin 15 Gm Cream..g. TP BID (Reported) APPLY TO ABDOMINAL FOLDS Constitutional: no symptoms reported EENTM: no symptoms reported Respiratory: see HPI Cardiovascular: see HPI Gastrointestinal: no symptoms reported Genitourinary: see HPI : No Musculoskeletal: no symptoms reported Skin: no symptoms reported Psychiatric/Neurological: See HPI Hematologic/Lymphatic: No Symptoms Reported Past Rwkcduv-Wcgoeb-Rygscy Hx Patient Social History Type Used: Cigarettes Recent Hopitalizations: Yes (had gall bladder surgery and uterine cancer) Immunizations Up To Date Tetanus Booster (TDap): Less than 5yrs Date of Influenza Vaccine: Jan 09, 2016 Seasonal Allergies Seasonal Allergies: No Surgeries HX Surgeries: Yes (CARDIAC STENT, hernia) Surgeries: Coronary Stent, Gallbladder, Hysterectomy Respiratory Hx Respiratory Disorders: Yes (history of respiratory failure) Respiratory Disorders: Sleep Apnea Cardiovascular Hx Cardiac Disorders: Yes (palpitations, congestive heart failure) Cardiac Disorders: Atrial Fibrillation, Coronary Artery Disease, Hypertension Neurological Hx Neurological Disorders: Yes Neurological Disorders: Neuropathy Reproductive System Hx Reproductive Disorders: No Sexually Transmitted Disease: No HIV/AIDS: No Female Reproductive Disorders: Denies Genitourinary Hx Genitourinary Disorders: Yes Genitourinary Disorders: Renal Failure Gastrointestinal Hx Gastrointestinal Disorders: No Musculoskeletal Hx Musculoskeletal Disorders: Yes (muscle weakness, morbid obesity) Endocrine Hx Endocrine Disorders: Yes (morbid obesity) Endocrine Disorders: Diabetes, Insulin dep, Hypothyroidsim HEENT HX ENT Disorders: No Cancer Hx Cancer: Yes (uterine) Cancer: Uterine Psychosocial Hx Psychiatric Problems: No (does take celexa) Integumentary HX Skin/Integumentary Disorder: No Blood Transfusions Hx Blood Disorders: No Adverse Reaction to a Blood Tr: No Family Medical History Significant Family History: No Pertinent Family Hx Family Medial History: Patient reports no known family medical history. Physical Exam Vital Signs Vital Sign - Last 12Hours 06/05/16 06/05/16 06/05/16 00:00 19:43 23:33 Temp 98.0 Pulse 87 Resp 16 B/P 125/66 Pulse Ox 99 O2 Delivery Mechanical Ventilator O2 Flow Rate 50.00 FiO2 100 Capillary Refill : General Appearance: No Apparent Distress WD/WN Obese Other (exam is severely limited by body habitus) HEENT: PERRL/EOMI Normal ENT Inspection Respiratory: Lungs Clear Decreased Breath Sounds (severely diminished) Cardiovascular: No Edema No Murmur Irregularly Irregular Gastrointestinal: Normal Bowel Sounds Non Tender Extremity: Pedal Edema Swelling (pitting edema equal bilaterally) Neurologic/Psychiatric: Alert 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 Norm as Tested Other ( mentation dulled, generalized weakness) Skin: Normal Color Warm/Dry Progress/Results/Core Measures Results/Orders Lab Results Laboratory Tests Test 06/05/16 19:50 06/05/16 19:58 06/05/16 20:14 06/05/16 20:29 Range/Units Activated Partial Thromboplast Time 29 24-35 SEC Alanine Aminotransferase (ALT/SGPT) 14 0-55 U/L Albumin 3.5 3.2-4.5 G/DL Alkaline Phosphatase 82 40-136 U/L Anion Gap 12 5-14 MMOL/L Aspartate Amino Transf (AST/SGOT) 20 5-34 U/L B-Type Natriuretic Peptide 314.2 H <100.0 PG/ML BUN/Creatinine Ratio 35 Basophils # (Auto) 0.0 0.0-0.1 10^3/uL Basophils (%) (Auto) 1 0-10 % Blood Urea Nitrogen 27 H 7-18 MG/DL C-Reactive Protein High Sensitivity 0.48 0.00-0.50 MG/DL Calcium Level 9.0 8.5-10.1 MG/DL Carbon Dioxide Level 42 H 21-32 MMOL/L Chloride Level 88 L 98-107 MMOL/L Creatinine 0.78 0.60-1.30 MG/DL Eosinophils # (Auto) 0.2 0.0-0.3 10^3/uL Eosinophils (%) (Auto) 3 0-10 % Estimat Glomerular Filtration Rate > 60 Glucose Level 200 H 70-105 MG/DL Hematocrit 40 35-52 % Hemoglobin 12.4 11.5-16.0 G/DL INR Comment 1.4 0.8-1.4 Lactic Acid Level 1.58 0.50-2.00 MMOL/L Lymphocytes # (Auto) 0.6 L 1.0-4.0 X 10^3 Lymphocytes (%) (Auto) 9 L 12-44 % Magnesium Level 1.7 L 1.8-2.4 MG/DL Mean Corpuscular Hemoglobin 34 25-34 PG Mean Corpuscular Hemoglobin Concent 31 L 32-36 G/DL Mean Corpuscular Volume 109 H 80-99 FL Mean Platelet Volume 7.4-10.4 FL Monocytes # (Auto) 0.6 0.0-1.0 X 10^3 Monocytes (%) (Auto) 10 0-12 % Neutrophils # (Auto) 5.2 1.8-7.8 X 10^3 Neutrophils (%) (Auto) 79 H 42-75 % Platelet Count 108 L 130-400 10^3/uL Potassium Level 4.6 3.6-5.0 MMOL/L Prothrombin Time 17.1 H 12.2-14.7 SEC Red Blood Count 3.66 L 4.35-5.85 10^6/uL Red Cell Distribution Width 16.0 H 10.0-14.5 % Sodium Level 142 135-145 MMOL/L Total Bilirubin 0.7 0.1-1.0 MG/DL Total Protein 6.9 6.4-8.2 G/DL Troponin I < 0.30 <0.30 NG/ML Urine Bacteria FEW H /HPF Urine Bilirubin NEGATIVE NEGATIVE Urine Casts NONE /LPF Urine Clarity BLOODY H Urine Color RED H Urine Crystals NONE /LPF Urine Culture Indicated YES Urine Glucose (UA) NEGATIVE NEGATIVE Urine Ketones 1+ H NEGATIVE Urine Leukocyte Esterase 2+ H NEGATIVE Urine Mucus NEGATIVE /LPF Urine Nitrite NEGATIVE NEGATIVE Urine Protein 3+ H NEGATIVE Urine RBC >100 H /HPF Urine RBC (Auto) 5+ H NEGATIVE Urine Specific [place] 1.025 H 1.016-1.022 Urine Urobilinogen 1 NORMAL MG/DL Urine WBC 50-100 H /HPF Urine pH 5 5-9 White Blood Count 6.6 4.3-11.0 10^3/uL Glucometer 202 H 237 H 70-110 MG/DL Ben Test YES-POS Arterial Blood Base Excess 21.1 H -2.5-2.5 MMOL/L Arterial Blood HCO3 49 *H 23-27 MMOL/L Arterial Blood Oxygen Saturation 100 94-100 % Arterial Blood Partial Pressure CO2 102 *H 35-45 MMHG Arterial Blood Partial Pressure O2 146 H 79-93 MMHG Arterial Blood Total CO2 51.6 H 21.0-31.0 MMOL/L Arterial Blood pH 7.30 *L 7.37-7.43 Blood Gas Inspired Oxygen 100% Blood Gas Patient Temperature 98.5 Blood Gas Puncture Site LT RAD Blood Gas Ventilator Setting NO Test 06/05/16 20:51 06/05/16 21:05 Range/Units Ben Test YES-POS Arterial Blood Base Excess 21.0 H -2.5-2.5 MMOL/L Arterial Blood HCO3 49 *H 23-27 MMOL/L Arterial Blood Oxygen Saturation 94 94-100 % Arterial Blood Partial Pressure CO2 122 *H 35-45 MMHG Arterial Blood Partial Pressure O2 75 L 79-93 MMHG Arterial Blood Total CO2 53.0 H 21.0-31.0 MMOL/L Arterial Blood pH 7.23 *L 7.37-7.43 Blood Gas Inspired Oxygen 70% Blood Gas Patient Temperature 98.3 Blood Gas Puncture Site LT RAD Blood Gas Ventilator Setting NO Glucometer 198 H 70-110 MG/DL My Orders Orders-KALEB BRAGA MD Arterial Blood Gas (06/05/16 19:44) BNP (06/05/16 19:44) Cbc With Automated Diff (06/05/16 19:44) Comprehensive Metabolic Panel (06/05/16 19:44) Magnesium (06/05/16 19:44) Troponin I (06/05/16 19:44) Ua Culture If Indicated (06/05/16 19:44) Saline Lock/Iv-Start (06/05/16 19:44) Ekg Tracing (06/05/16 19:44) O2 (06/05/16 19:44) Monitor-Rhythm Ecg Trace Only (06/05/16 19:44) Chest 1 View, Ap/Pa Only (06/05/16 19:44) Bipap Rt-Rfs (06/05/16 19:44) Hs C Reactive Protein (06/05/16 20:13) Protime With Inr (06/05/16 20:13) Partial Thromboplastin Time (06/05/16 20:13) Urine Culture (06/05/16 19:50) Ceftriaxone Injection (Rocephin Injectio (06/05/16 20:30) Accucheck Stat ONCE (06/05/16 20:25) Arterial Blood Gas (06/05/16 20:25) Blood Culture (06/05/16 20:29) Lactic Acid Analyzer (06/05/16 20:29) Furosemide Injection (Lasix Injection) (06/05/16 20:45) Methylprednisolone Sod Succ (Solu-Medrol (06/05/16 21:15) Albuterol/Ipra Inhalation Soln (Duoneb I (06/05/16 21:15) Svn Sm Volume Nebulizer Rt-Rfs (06/05/16 21:15) Methylprednisolone Sod Succ (Solu-Medrol (06/05/16 21:15) Magnesium 1 Gm/100 Ml Ivpb (Magnesium [place] (06/05/16 21:30) Medications Given in ED Current Medications Medications Dose Ordered Sig/Essence Route Start Time Stop Time Status Last Admin Dose Admin Albuterol/ Ipratropium 3 ml ONCE ONCE INH 06/05/16 21:15 06/05/16 21:16 DC 06/05/16 21:25 3 ML Ceftriaxone Sodium/Sodium Chloride 50 ml @ 100 mls/hr ONCE ONCE IV 06/05/16 20:30 06/05/16 20:59 DC 06/05/16 21:11 100 MLS/HR Furosemide 80 mg ONCE ONCE IVP 06/05/16 20:45 06/05/16 20:46 DC 06/05/16 20:45 80 MG Magnesium Sulfate/ Dextrose 100 ml @ 100 mls/hr ONCE ONCE IV 06/05/16 21:30 06/05/16 22:29 DC 06/05/16 23:36 100 MLS/HR Methylprednisolone Sodium Succinate 40 mg ONCE ONCE IV 06/05/16 21:15 06/05/16 21:16 DC 06/05/16 21:17 40 MG Methylprednisolone Sodium Succinate 40 mg 40 mg STK-MED ONCE .ROUTE 06/05/16 21:15 06/05/16 21:17 DC 06/05/16 21:21 40 MG Vital Signs/I&O Vital Sign - Last 12Hours 06/05/16 06/05/16 06/05/16 06/05/16 19:43 19:50 20:35 21:25 Pulse 83 90 85 Resp 27 18 17 Pulse Ox 97 97 96 96 O2 Delivery Bi-pap O2 Flow Rate 100.00 100.00 100.00 FiO2 100 06/05/16 06/05/16 06/05/16 06/06/16 22:10 23:00 23:33 00:04 Temp 98.0 Pulse 79 124 124 98 Resp 16 16 16 16 B/P 135/75 135/75 Pulse Ox 97 100 100 99 O2 Delivery Mechanical Ventilator Mechanical Ventilator O2 Flow Rate 50.00 50.00 FiO2 50 50 06/06/16 06/06/16 06/06/16 00:18 00:28 00:34 Temp 98.0 98.0 98.0 Pulse 98 98 Resp 16 16 B/P 105/54 125/62 Pulse Ox 99 99 O2 Delivery Mechanical Ventilator Mechanical Ventilator O2 Flow Rate 50.00 50.00 50.00 Progress Note : Time: 20:31 Progress Note Patient is stable on BiPAP for the time being. ABG demonstrated a pH of 7.30 and a PCO2 of 102. A repeat ABG will be performed 30 minutes after the first. Urinary tract infection was identified on UA. Lactic acid and blood cultures have been added to the orders. Rocephin has been ordered for treatment of UTI. Patient was observed to have a brief run of what appeared to be V. fib versus artifact. Paddles were placed on the patient and she is on continuous cardiac monitoring. BNP returned elevated and chest x-ray was read as pulmonary edema. Lasix 80 mg IV will be administered. ECG Initial ECG Impression Date: Jun 05, 2016 Initial ECG Impression Time: 20:16 Initial ECG Rate: 94 Initial ECG Rhythm: A Fib/Flutter Comment atrial fibrillation with no acute ST elevation or depression. Rate is controlled. Left axis deviation noted. Diagnostic Imaging Diagonstic Imaging: Xray Plain Films/CT/US/NM/MRI: chest Comments Chest x-ray viewed by me and report reviewed. See report below: NAME: RYAN MENDIETA [employer] REC#: [id number] PT STATUS: REG ER : 1950 PHYSICIAN: KALEB BRAGA MD ADMIT DATE: 06/05/16/ER Draft Date of Exam:06/05/16 CHEST 1 VIEW, AP/PA ONLY EXAM: CHEST 1 VIEW, AP/PA ONLY INDICATION: Respiratory distress. Shortness of air. COMPARISON: Chest radiograph 05/15/2016. FINDINGS: Cardiomegaly and diffuse interstitial and airspace opacities throughout both lungs. Right pleural effusion is likely new since the prior exam. No definite left pleural effusion. Degenerative changes in the spine. IMPRESSION: Cardiomegaly with diffuse interstitial and airspace opacities throughout both lungs suggestive of pulmonary edema. Small right pleural effusion is new. Dictated on workstation # [id number] Dict: 06/05/162029 Trans: 06/05/162032 BRAULIO [id number] Interpreted by: SAYRA JOYCE MD Critical Care Note Critical Care Start Time: 21:10 Stop Time: 21:40 Total Time (minutes) 30 Progress 21:10 Patient's repeat ABG demonstrated worsening hypercarbia. PCO2 increased to 123. PH decreased to 7.23. PaO2 also decreased to 75. I discussed the case with Dr. German and he agrees with intubation. He requested changing BiPAP settings to increase inspiratory pressure and decrease PEEP. O2 was increased to 100 percent. He agrees with repeating a DuoNeb treatment and giving Solu-Medrol 40 mg IV. Respiratory therapy was informed of plan. Postintubation ventilator settings were communicated per Dr. German's orders. Anesthesia was called in for intubation and should arrive shortly. Patient was informed of the plan and is agreeable. Dr. Hanson will be notified of patient condition and plan. 21:52 Patient has been transferred to the ICU for intubation. Case was discussed with Dr. Bansal who agrees with admission. Case was discussed with Dr. Hanson. He believes the brief arrhythmia noted earlier was likely artifact and not truly V. fib. He agrees with holding anticoagulation because of the hematuria. Dr. Hanson requested a gram of IV magnesium be given. Departure Impression Impression: Primary Impression: Respiratory failure Qualified Code: J96.22 - Acute and chronic respiratory failure with hypercapnia Additional Impressions: Hypoventilation Urinary tract infection Qualified Code: N39.0 - Urinary tract infection, site not specified Hematuria Congestive heart failure Qualified Code: I50.9 - Heart failure, unspecified Atrial fibrillation Qualified Code: I48.2 - Chronic atrial fibrillation Disposition: ADMITTED INPATIENT Condition: Improved Departure-Patient Inst. Decision time for Depature: 19:42 Referrals: KRISHNA CABERRA MD (PCP/Family) Primary Care Physician KALEB BRAGA MD Jun 05, 2016 20:36
[2016-06-05] MEDS ORDERED: FUROSEMIDE 40 MG/4 ML INJ (LASIX) IVP ONE (20:45)
[2016-06-05 20:59] LABS: ABG OXYGEN SATURATION 94 % (94-100); ABG PO2 75 MMHG (79-93)
[2016-06-05 21:00] LABS: ABG HCO3 49 MMOL/L (23-27); ABG PCO2 122 MMHG (35-45); ABG PH 7.23 (7.37-7.43)
[2016-06-05 21:01] LABS: ALLENS TEST YES-POS; PATIENT TEMP 98.3
[2016-06-05] MEDS ORDERED: methylPREDNISolone 40 MG/ML (Solu-MEDROL) VIAL ONE (21:15)
[2016-06-05] MEDS ORDERED: RT-ALBUTEROL/IPRATROPIUM 3 ML (DUONEB) VIAL INH ONE (21:15)
[2016-06-05] MEDS ORDERED: methylPREDNISolone 40 MG/ML (Solu-MEDROL) VIAL IV ONE (21:15)
[2016-06-05] MEDS ORDERED: MAGNESIUM 1 GM/100 ML IVPB 100 ML IV ONE (21:30)
[2016-06-05] MEDS ORDERED: proPOfol 200 MG/20 ML (DIPRIVAN) VIAL IV ONE (21:47)
[2016-06-05] MEDS ORDERED: NS IV 1000 ML 1,000 ML ONE ×2 (21:48→21:56)
[2016-06-05] MEDS ORDERED: NOREPINEPHRINE 4 MG/4 ML (LEVOPHED) AMP IV ONE (22:17)
[2016-06-05] MEDS ORDERED: D5W 250 ML (IVPB) 250 ML IV ONE (22:17)
--- NOTE | 2016-06-05 22:46 | Progress Note-Standard ---
Standard Progress Note Progress Notes/Assess & Plan Progress/Assessment & Plan consult for intubation pre oxygenated 100 mg sux 2mg versed 200mg propofol intubated with glide scope by SRNA x 1 attempt bbs tolerated procedure well OLGA LIDIA HOOVER BURN OUT SCARFING OPERATOR Jun 05, 2016 22:46
--- NOTE | 2016-06-05 22:48 | Progress Note-Standard ---
Standard Progress Note Progress Notes/Assess & Plan Progress/Assessment & Plan consult for intubation pre oxygenated 100 mg sux 2mg versed 200mg propofol intubated with glide scope by SRNA x 1 attempt bbs tolerated procedure well Final Diagnosis consult for arterial line multiple attempts 20g a line started in l radial artery cap refill < 3 sec OLGA LIDIA HOOVER PLASTER APPLICATOR Jun 05, 2016 22:47
[2016-06-05 23:00] VITALS: BP 135/75
[2016-06-05] MEDS: NOREPINEPHRINE 4 MG in D5W 250 ML IV SCH (23:00)
[2016-06-05] MEDS ORDERED: FUROSEMIDE 40 MG/4 ML INJ (LASIX) IV ONE (23:00)
[2016-06-05] MEDS ORDERED: fentaNYL INJECTION 100 MCG/2 ML AMP IV PRN (23:00)
[2016-06-05] MEDS: MAGNESIUM 1 GM/100 ML IVPB IV SCH (23:30)
[2016-06-05] MEDS ORDERED: AMIODARONE FOR BOLUS 150 MG in D5W 100 ML IVPB 100 ML IV ONE (23:30)
[2016-06-05] MEDS: PANTOPRAZOLE 40 MG/10 ML (PROTONIX) VIAL IV SCH (23:36)
[2016-06-05] MEDS ORDERED: AMIODARONE 150 MG/3 ML (CORDARONE) AMP IV ONE (23:55)
[2016-06-05] MEDS ORDERED: MIDAZOLAM 5 MG/5 ML (VERSED) VIAL INJ ONE (23:59)
[2016-06-05] MEDS ORDERED: SUCCINYLCHOLINE INJ 100 MG/5 ML SYR INJ ONE (23:59)
[2016-06-06] VITALS (35 sets, daily range): BP systolic 110–154; BP diastolic 56–83
[2016-06-06] MEDS ORDERED: D5W 100 ML IVPB 100 ML IV ONE (00:02)
[2016-06-06] MEDS: AMIODARONE DRIP IV SCH ×2 (00:23→06:11)
[2016-06-06] MEDS: inSUlin ASPART (NovoLOG) 1 UNIT/0.01 ML (CHARGE PER UNIT) SC SCH ×6 (00:28→19:41)
[2016-06-06] MEDS ORDERED: CHLORHEXIDINE 0.12% SOLN 15 ML (PERIDEX) UDC ONE (00:46)
[2016-06-06] MEDS: MAGNESIUM 1 GM/100 ML IVPB IV SCH ×3 (02:00→05:59)
[2016-06-06 04:47] LABS: ABG BASE EXCESS 23.9 MMOL/L (-2.5-2.5); ABG OXYGEN SATURATION 91 % (94-100); ABG PCO2 50 MMHG (35-45); ABG PO2 46 MMHG (79-93); ABG TCO2 50.4 MMOL/L (21.0-31.0)
[2016-06-06 04:56] LABS: ABG HCO3 49 MMOL/L (23-27); ALLENS TEST ART LINE; PATIENT TEMP 98.5
[2016-06-06 05:14] LABS: BASOPHILS % (AUTO) 0 % (0-10); EOSINOPHILS % (AUTO) 0 % (0-10); LYMPHOCYTES # (AUTO) 0.4 X 10^3 (1.0-4.0); LYMPHOCYTES % (AUTO) 5 % (12-44); MEAN CORPUSCULAR HEMOGLOBIN 33 PG (25-34); MEAN CORPUSCULAR HGB CONC 31 G/DL (32-36); MEAN CORPUSCULAR VOLUME 107 FL (80-99); MONOCYTES # (AUTO) 0.5 X 10^3 (0.0-1.0); MONOCYTES % (AUTO) 6 % (0-12); NEUTROPHILS # (AUTO) 7.7 X 10^3 (1.8-7.8); NEUTROPHILS % (AUTO) 90 % (42-75); PLATELET COUNT 93 10^3/uL (130-400); RED BLOOD COUNT 3.74 10^6/uL (4.35-5.85); RED CELL DISTRIBUTION WIDTH 15.1 % (10.0-14.5); WHITE BLOOD COUNT 8.6 10^3/uL (4.3-11.0)
[2016-06-06 05:32] LABS: ANION GAP 15 MMOL/L (5-14); BLOOD UREA NITROGEN 26 MG/DL (7-18); BUN/CREATININE RATIO 33; CALCIUM 9.2 MG/DL (8.5-10.1); CARBON DIOXIDE 41 MMOL/L (21-32); CHLORIDE 85 MMOL/L (98-107); GFR ESTIMATED > 60; GLUCOSE 231 MG/DL (70-105); MAGNESIUM 1.7 MG/DL (1.8-2.4); PHOSPHORUS 1.3 MG/DL (2.3-4.7); POTASSIUM 3.5 MMOL/L (3.6-5.0); SODIUM 141 MMOL/L (135-145)
[2016-06-06] MEDS: KCL 20 MEQ TAB (K-DUR) PO SCH (05:39)
[2016-06-06] MEDS: MAGNESIUM 1 GM/100 ML IVPB 100 ML IV SCH (05:39)
[2016-06-06] MEDS: POTASSIUM CL 10MEQ/50ML IVPB 50 ML IV SCH ×3 (06:00→08:10)
[2016-06-06] MEDS ORDERED: methylPREDNISolone 40 MG/ML (Solu-MEDROL) VIAL ONE (06:15)
[2016-06-06] MEDS: methylPREDNISolone 40 MG/ML (Solu-MEDROL) VIAL IV SCH ×3 (06:17→17:12)
--- NOTE | 2016-06-06 06:22 | Diagnostic Imaging Report ---
INDICATION: Support tube evaluation. 2322 hrs. FINDINGS: Since examination of earlier in the day, there has been placement of endotracheal tube with tip at the level of the thoracic inlet. Nasogastric tube passes below the diaphragm. There is cardiomegaly, pulmonary venous congestion and bilateral edema similar to previous study. No pneumothorax is identified. IMPRESSION: Enteric feeding tube extends to the thoracic inlet while nasogastric tube passes below the diaphragm. No other change is identified. Dictated by: Dictated on workstation # [id number]
[2016-06-06 06:56] LABS: BAND NEUTROPHILS 4 %; BASOPHILS % (MANUAL) 0 %; EOSINOPHILS % (MANUAL) 0 %; LYMPHOCYTES % (MANUAL) 6 %; NEUTROPHILS % (MANUAL) 86 %; POLYCHROMASIA SLIGHT
--- NOTE | 2016-06-06 07:03 | Pulmonary Consultation ---
History of Present Illness History of Present Illness Date of Consultation 06/06/16 06:58 Date of Admission History of Present Illness 66yo with morbid obesity, CHF from [facility] in [place] presented to ED via EMS secondary to acute respiratory failure. Pt was found to have severe hypoxia and was cyanotic. PT was treated with BiPAP upon ED arrival however her ABG showed worsening results. PT was intubated in ED per anesthesia. Pt recently had a similar episode that required hospitalization. Unable to obtain ROS. I am consulted for pulmonary/CC management. Allergies and Home Medications Allergies Coded Allergies: liraglutide (Verified Allergy, Intermediate, NAUSEA, 04/01/16) VOMITING AND CHEST PAIN THAT RADIATES TO HER BACK simvastatin (Verified Allergy, Intermediate, 04/01/16) PT HAS ELEVATED LIVER ENZYMES WITH ANY STATIN DRUG Bacitracin Zinc (Verified Allergy, Mild, RASH, 04/01/16) bacitracin (Verified Allergy, Mild, RASH, 04/01/16) colistimethate sodium (Verified Allergy, Mild, RASH, 04/01/16) gramicidin D (Verified Allergy, Mild, RASH, 04/01/16) metformin HCl (Verified Allergy, Mild, 04/01/16) neomycin sulfate (Verified Allergy, Mild, RASH, 04/01/16) polymyxin B (Verified Allergy, Mild, RASH, 04/01/16) polymyxin B sulfate (Verified Allergy, Mild, RASH, 04/01/16) pramoxine HCl (Verified Allergy, Mild, RASH, 04/01/16) Home Medications Apixaban 5 Mg Tablet 5 MG PO BID (Reported) Aspirin 81 Mg Tabec 81 MG PO DAILY (Reported) Diltiazem HCl 180 Mg Cap.er.24h 180 MG PO DAILY (Reported) Exenatide Microspheres 2 Mg/0.65 Ml Pen.injctr 2 MG SQ Sa (Reported) Furosemide 40 Mg Tablet 40 MG PO DAILY (Reported) Gabapentin 300 Mg Capsule 300 MG PO TID (Reported) Ibuprofen 600 Mg Tablet 600 MG PO Q6H PRN PRN PAIN (Reported) Insulin Aspart 300 Units/3 Ml Solution 15 UNITS SQ AC (Reported) Insulin Detemir 100 Unit/1 Ml Insuln.pen 10 UNITS SC BID (Reported) Ipratropium/Albuterol Sulfate 3 Ml Ampul.neb 3 ML IH Q6H PRN PRN SHORTNESS OF BREATH (Reported) Levothyroxine Sodium 75 Mcg Tablet 75 MCG PO DAILY (Reported) Metoprolol Tartrate 25 Mg Tablet 25 MG PO BID (Reported) Nystatin 15 Gm Cream..g. TP BID (Reported) APPLY TO ABDOMINAL FOLDS Past Pgqnxme-Zyzpbj-Seahaj Hx Patient Social History Alcohol Use: Denies Use Recreational Drug Use: No Smoking Status: Unknown if Ever Smoked Type Used: Cigarettes Recent Foreign Travel: No Contact w/Someone Who Travel: No Recent Infectious Disease Expo: No Recent Hopitalizations: No Physical Abuse Screen: No Sexual Abuse: No Immunizations Up To Date Tetanus Booster (TDap): Less than 5yrs Date of Influenza Vaccine: Jan 09, 2016 Seasonal Allergies Seasonal Allergies: No Surgeries HX Surgeries: Yes (CARDIAC STENT, HERNIA) Surgeries: Coronary Stent, Gallbladder, Hysterectomy Respiratory Hx Respiratory Disorders: Yes (RESP FAILURE HX) Respiratory Disorders: Sleep Apnea Cardiovascular Hx Cardiac Disorders: Yes (palpitations, congestive heart failure (systolic/ diastolic)) Cardiac Disorders: Atrial Fibrillation, Coronary Artery Disease, Hypertension Neurological Hx Neurological Disorders: Yes Neurological Disorders: Neuropathy Reproductive System Hx Reproductive Disorders: No Sexually Transmitted Disease: No HIV/AIDS: No Female Reproductive Disorders: Denies Genitourinary Hx Genitourinary Disorders: Yes Genitourinary Disorders: Renal Failure Gastrointestinal Hx Gastrointestinal Disorders: No Musculoskeletal Hx Musculoskeletal Disorders: Yes (muscle weakness, morbid obesity) Endocrine Hx Endocrine Disorders: Yes (morbid obesity) Endocrine Disorders: Diabetes, Insulin dep, Hypothyroidsim HEENT HX ENT Disorders: No Cancer Hx Cancer: Yes (uterine) Cancer: Uterine Psychosocial Hx Psychiatric Problems: No Integumentary HX Skin/Integumentary Disorder: No Blood Transfusions Hx Blood Disorders: No Adverse Reaction to a Blood Tr: No Family Medical History Significant Family History: No Pertinent Family Hx Family Medial History: Patient reports no known family medical history. Exam Exam Vital Signs Date Time Temp Pulse Resp B/P Pulse Ox O2 Delivery O2 Flow Rate FiO2 06/06/16 06:41 93 12 97 50 06/06/16 06:00 89 11 137/66 97 Mechanical Ventilator 50.00 06/06/16 05:59 78 06/06/16 05:30 98.0 06/06/16 05:00 80 150/69 95 Mechanical Ventilator 50.00 06/06/16 04:29 98.5 06/06/16 04:05 84 16 97 50 06/06/16 04:02 98.0 06/06/16 04:00 81 16 139/61 97 Mechanical Ventilator 50.00 06/06/16 03:56 98.0 76 16 141/62 98 Mechanical Ventilator 50.00 06/06/16 03:29 97.1 80 16 125/58 99 Mechanical Ventilator 50.00 06/06/16 03:00 85 16 140/63 97 Mechanical Ventilator 50.00 06/06/16 02:29 98.0 06/06/16 02:04 76 16 98 50 06/06/16 02:00 84 15 137/60 98 Mechanical Ventilator 06/06/16 02:00 98.0 96 16 125/62 99 Mechanical Ventilator 50.00 06/06/16 01:00 85 15 131/63 99 Mechanical Ventilator 06/06/16 01:00 96 06/06/16 00:34 98.0 98 16 125/62 99 Mechanical Ventilator 50.00 50.00 06/06/16 00:28 98.0 06/06/16 00:18 98.0 98 16 105/54 99 Mechanical Ventilator 50.00 06/06/16 00:04 98 16 99 50 06/05/16 23:33 98.0 124 16 135/75 100 Mechanical Ventilator 50.00 06/05/16 23:00 124 16 135/75 100 Mechanical Ventilator 50.00 06/05/16 22:10 79 16 97 50 06/05/16 21:55 95 50 06/05/16 21:45 98.5 90 29 94 100.00 06/05/16 21:25 85 17 96 100.00 06/05/16 20:35 90 18 96 100.00 06/05/16 19:50 83 27 97 100.00 06/05/16 19:43 97 Bi-pap 100 06/05/16 19:43 98.5 89 32 129/84 85 Room Air I & O 06/06/16 07:00 Intake Total 613 ml Output Total 3300 ml Balance -2687 ml General Appearance: WD/WN Moderate Distress Obese HEENT: PERRL/EOMI Normal ENT Inspection Respiratory: Decreased Breath Sounds (severely diminished) Cardiovascular: No Edema No Murmur Irregularly Irregular Capillary Refill: Less Than 3 Seconds Extremity: Pedal Edema Swelling (pitting edema equal bilaterally) Neurologic/Psychiatric: Other (sedated on vent) Skin: Normal Color Warm/Dry Results Lab Laboratory Tests 06/05/16 19:50 06/06/16 05:01 Assessment/Plan Assessment/Plan Acute on chronic respiratory failure -continue ventilator support -vent -Repeat ABG pending Afib RVR - Runs of Vtach -Amio gtt CHFAE with EF 40% per echo -Lasix s/p 160mg last night Thrombocytopenia -monitor Electrolytes- replace Morbid obesity with obesity hypoventilation syndrome and severe ALEXIS ARF COPD quit smoking in 2003 -She is on 3 liters of oxygen 21/10 UTI with proteus Chronic Debility Will consult [facility] for evaluation and possible transfer Clinical Quality Measures DVT/VTE Risk/Contraindication: Risk Factor Score Per Nursin RFS Level Per Nursing on Admit: 4+=Very High STAN BOOKER DO Jun 06, 2016 07:03 STAN BOOKER DO Jun 06, 2016 07:03
[2016-06-06 07:22] LABS: ABG BASE EXCESS 24.8 MMOL/L (-2.5-2.5); ABG OXYGEN SATURATION 97 % (94-100); ABG PCO2 52 MMHG (35-45); ABG PH 7.59 (7.37-7.43); ABG PO2 63 MMHG (79-93); ABG TCO2 51.6 MMOL/L (21.0-31.0)
[2016-06-06 07:24] LABS: ABG HCO3 50 MMOL/L (23-27); ALLENS TEST ART LINE; PATIENT TEMP 98.4
[2016-06-06] MEDS: PANTOPRAZOLE 40 MG/10 ML (PROTONIX) VIAL IV SCH ×2 (08:34→22:01)
[2016-06-06] MEDS: CHLORHEXIDINE 0.12% SOLN 15 ML (PERIDEX) UDC PO SCH ×2 (08:34→22:01)
--- NOTE | 2016-06-06 08:40 | Consultation-Cardiology ---
HPI-Cardiology Cardiology Consultation: Date of Consultation 06/06/16 Date of Admission 06-05-16 Attending Physician Mariana Bansal DO Admitting Physician [place] Andino MD Consulting Physician Bartolome Hanson MD HPI: Chief Complaint: Resp failure Ms. Mendieta is a 66 year old female who resides at [facility]. She has been admitted to ICU 12 from the ED. She is currently intubated and sedated. There is no family at the bedside. Information has been obtained from a chart review and nursing staff. EMS was called to [facility] d/t being being unresponsive and hypoxic. She was found to be minimally responsive when EMS arrived, but was hypoxic. She was started on CPAP by EMS and was more responsive when she arrived to the ED. D/t worsening respiratory status decision was made to intubate. She had a brief episode of an arrhythmia which was questioned to be v-fib vs artifact. Those rhythm strips are not available for review. She is currently in a-fib with a controlled rate. She currently has Amiodarone infusing. No visible signs of distress noted. Review of Systems-Cardiology Review of Systems : No Other comments Unable to obtain d/t patient being intubated and sedated. AID-Vmdpan-Ufefsw Hx Patient Social History Alcohol Use: Denies Use Recreational Drug Use: No Smoking Status: Unknown if Ever Smoked Type Used: Cigarettes Recent Foreign Travel: No Recent Infectious Disease Expo: No Hospitalization with Isolation: Denies Physical Abuse Screen: No Sexual Abuse: No Immunizations Up To Date Tetanus Booster (TDap): Less than 5yrs Date of Influenza Vaccine: Jan 09, 2016 Past Medical History PMH As described under Assessment. Family Medical History Family Medical History: Review of previous records do not show any h/o CAD or SCD. Family History: Patient reports no known family medical history. Allergies and Home Medications Allergies Coded Allergies: liraglutide (Verified Allergy, Intermediate, NAUSEA, 04/01/16) VOMITING AND CHEST PAIN THAT RADIATES TO HER BACK simvastatin (Verified Allergy, Intermediate, 04/01/16) PT HAS ELEVATED LIVER ENZYMES WITH ANY STATIN DRUG Bacitracin Zinc (Verified Allergy, Mild, RASH, 04/01/16) bacitracin (Verified Allergy, Mild, RASH, 04/01/16) colistimethate sodium (Verified Allergy, Mild, RASH, 04/01/16) gramicidin D (Verified Allergy, Mild, RASH, 04/01/16) metformin HCl (Verified Allergy, Mild, 04/01/16) neomycin sulfate (Verified Allergy, Mild, RASH, 04/01/16) polymyxin B (Verified Allergy, Mild, RASH, 04/01/16) polymyxin B sulfate (Verified Allergy, Mild, RASH, 04/01/16) pramoxine HCl (Verified Allergy, Mild, RASH, 04/01/16) Home Medications Apixaban 5 Mg Tablet 5 MG PO BID (Reported) Aspirin 81 Mg Tabec 81 MG PO DAILY (Reported) Diltiazem HCl 180 Mg Cap.er.24h 180 MG PO DAILY (Reported) Exenatide Microspheres 2 Mg/0.65 Ml Pen.injctr 2 MG SQ Sa (Reported) Furosemide 40 Mg Tablet 40 MG PO DAILY (Reported) Gabapentin 300 Mg Capsule 300 MG PO TID (Reported) Ibuprofen 600 Mg Tablet 600 MG PO Q6H PRN PRN PAIN (Reported) Insulin Aspart 300 Units/3 Ml Solution 15 UNITS SQ AC (Reported) Insulin Detemir 100 Unit/1 Ml Insuln.pen 10 UNITS SC BID (Reported) Ipratropium/Albuterol Sulfate 3 Ml Ampul.neb 3 ML IH Q6H PRN PRN SHORTNESS OF BREATH (Reported) Levothyroxine Sodium 75 Mcg Tablet 75 MCG PO DAILY (Reported) Metoprolol Tartrate 25 Mg Tablet 25 MG PO BID (Reported) Nystatin 15 Gm Cream..g. TP BID (Reported) APPLY TO ABDOMINAL FOLDS Physical Exam-Cardiology Physical Exam Vital Signs/I&O Vital Sign - Last 12Hours 06/05/16 06/05/16 06/05/16 06/05/16 21:45 21:55 22:10 23:00 Temp 98.5 Pulse 90 79 124 Resp 29 16 16 B/P 135/75 Pulse Ox 94 95 97 100 O2 Delivery Mechanical Ventilator O2 Flow Rate 100.00 50.00 FiO2 50 50 06/05/16 06/06/16 06/06/16 06/06/16 23:33 00:04 00:18 00:28 Temp 98.0 98.0 98.0 Pulse 124 98 98 Resp 16 16 16 B/P 135/75 105/54 Pulse Ox 100 99 99 O2 Delivery Mechanical Ventilator Mechanical Ventilator O2 Flow Rate 50.00 50.00 FiO2 50 06/06/16 06/06/16 06/06/16 06/06/16 00:34 01:00 01:00 02:00 Temp 98.0 98.0 Pulse 98 96 85 96 Resp 16 15 16 B/P 125/62 131/63 125/62 Pulse Ox 99 99 99 O2 Delivery Mechanical Ventilator Mechanical Ventilator Mechanical Ventilator O2 Flow Rate 50.00 50.00 50.00 06/06/16 06/06/16 06/06/16 06/06/16 02:00 02:04 02:29 03:00 Temp 98.0 Pulse 84 76 85 Resp 15 16 16 B/P 137/60 140/63 Pulse Ox 98 98 97 O2 Delivery Mechanical Ventilator Mechanical Ventilator O2 Flow Rate 50.00 FiO2 50 06/06/16 06/06/16 06/06/16 06/06/16 03:29 03:56 04:00 04:02 Temp 97.1 98.0 98.0 Pulse 80 76 81 Resp 16 16 B/P 125/58 141/62 139/61 Pulse Ox 99 98 97 O2 Delivery Mechanical Ventilator Mechanical Ventilator Mechanical Ventilator O2 Flow Rate 50.00 50.00 50.00 06/06/16 06/06/16 06/06/16 06/06/16 04:05 04:29 05:00 05:30 Temp 98.5 98.0 Pulse 84 80 Resp 16 B/P 150/69 Pulse Ox 97 95 O2 Delivery Mechanical Ventilator O2 Flow Rate 50.00 FiO2 50 06/06/16 06/06/16 06/06/16 06/06/16 05:59 06:00 06:41 07:00 Pulse 78 89 93 84 Resp 11 12 B/P 137/66 Pulse Ox 97 97 O2 Delivery Mechanical Ventilator O2 Flow Rate 50.00 FiO2 50 06/06/16 06/06/16 06/06/16 07:47 08:00 08:06 Pulse 78 81 Resp 12 B/P 130/69 Pulse Ox 96 96 FiO2 50 50 Capillary Refill : Less Than 3 Seconds Constitutional: appears stated ageNo apparent distress, well-developed well- nourished other (Obese) HEENT: PERRLNo discharge, hearing is well preservedNo ulceration, No xanthelasmas are seen Neck: No carotid bruit, carotid pulses are 2 + bilaterally Respiratory: other (Diminished lung sounds; fair air entry; intubated and sedated) Cardiovascular: irregularly irregular S1 and S2 Gastrointestinal: soft roundNo spleenomegaly Rectal: deferred Genital/Rectal: other (Urinary catheter with pink tinged urine) Extremities: No clubbing, No cyanosis, significant edema (bilat pitting LE edema) Neurologic/Psychiatric: other (Intubated and sedated) Skin: No rash, No ulcerations, other (bruising to arms bilat) Data Review Labs Laboratory Tests 06/05/16 19:50: Activated Partial Thromboplast Time 29, Alanine Aminotransferase (ALT/SGPT) 14, Albumin 3.5, Alkaline Phosphatase 82, Anion Gap 12, Aspartate Amino Transf (AST/ SGOT) 20, B-Type Natriuretic Peptide 314.2H, BUN/Creatinine Ratio 35, Basophils # (Auto) 0.0, Basophils (%) (Auto) 1, Blood Urea Nitrogen 27H, C-Reactive Protein High Sensitivity 0.48, Calcium Level 9.0, Carbon Dioxide Level 42H, Chloride Level 88L, Creatinine 0.78, Eosinophils # (Auto) 0.2, Eosinophils (%) ( Auto) 3, Estimat Glomerular Filtration Rate > 60, Glucose Level 200H, Hematocrit 40, Hemoglobin 12.4, INR Comment 1.4, Lactic Acid Level 1.58, Lymphocytes # (Auto) 0.6L, Lymphocytes (%) (Auto) 9L, Magnesium Level 1.7L, Mean Corpuscular Hemoglobin 34, Mean Corpuscular Hemoglobin Concent 31L, Mean Corpuscular Volume 109H, Mean Platelet Volume , Monocytes # (Auto) 0.6, Monocytes (%) (Auto) 10, Neutrophils # (Auto) 5.2, Neutrophils (%) (Auto) 79H, Platelet Count 108L, Potassium Level 4.6, Prothrombin Time 17.1H, Red Blood Count 3.66L, Red Cell Distribution Width 16.0H, Sodium Level 142, Total Bilirubin 0.7, Total Protein 6.9, Troponin I < 0.30, Urine Bacteria FEWH, Urine Bilirubin NEGATIVE, Urine Casts NONE, Urine Clarity BLOODYH, Urine Color REDH, Urine Crystals NONE, Urine Culture Indicated YES, Urine Glucose (UA) NEGATIVE, Urine Ketones 1+H, Urine Leukocyte Esterase 2+H, Urine Mucus NEGATIVE, Urine Nitrite NEGATIVE, Urine Protein 3+H, Urine RBC >100H, Urine RBC (Auto) 5+H, Urine Specific [place] 1.025H, Urine Urobilinogen 1, Urine WBC 50-100H, Urine pH 5, White Blood Count 6.6 06/05/16 19:58: Glucometer 202H 06/05/16 20:14: Ben Test YES-POS, Arterial Blood Base Excess 21.1H, Arterial Blood HCO3 49*H, Arterial Blood Oxygen Saturation 100, Arterial Blood Partial Pressure CO2 102*H , Arterial Blood Partial Pressure O2 146H, Arterial Blood Total CO2 51.6H, Arterial Blood pH 7.30*L, Blood Gas Inspired Oxygen 100%, Blood Gas Patient Temperature 98.5, Blood Gas Puncture Site LT RAD, Blood Gas Ventilator Setting NO 06/05/16 20:29: Glucometer 237H 06/05/16 20:51: Ben Test YES-POS, Arterial Blood Base Excess 21.0H, Arterial Blood HCO3 49*H, Arterial Blood Oxygen Saturation 94, Arterial Blood Partial Pressure CO2 122*H, Arterial Blood Partial Pressure O2 75L, Arterial Blood Total CO2 53.0H, Arterial Blood pH 7.23*L, Blood Gas Inspired Oxygen 70%, Blood Gas Patient Temperature 98.3, Blood Gas Puncture Site LT RAD, Blood Gas Ventilator Setting NO 06/05/16 21:05: Glucometer 198H 06/06/16 00:21: Glucometer 163H 06/06/16 04:00: Glucometer 201H 06/06/16 04:30: Ben Test ART LINE, Arterial Blood Base Excess 23.9H, Arterial Blood HCO3 49*H , Arterial Blood Oxygen Saturation 91L, Arterial Blood Partial Pressure CO2 50H , Arterial Blood Partial Pressure O2 46L, Arterial Blood Total CO2 50.4H, Arterial Blood pH 7.60H, Blood Gas Inspired Oxygen 40%, Blood Gas Patient Temperature 98.5, Blood Gas Puncture Site RT ARTLINE, Blood Gas Ventilator Setting YES 06/06/16 05:01: Anion Gap 15H, BUN/Creatinine Ratio 33, Band Neutrophils 4, Basophils # (Auto) 0.0, Basophils % (Manual) 0, Basophils (%) (Auto) 0, Blood Urea Nitrogen 26H, Calcium Level 9.2, Carbon Dioxide Level 41H, Chloride Level 85L, Creatinine 0.80 , Eosinophils # (Auto) 0.0, Eosinophils % (Manual) 0, Eosinophils (%) (Auto) 0, Estimat Glomerular Filtration Rate > 60, Glucose Level 231H, Hematocrit 40, Hemoglobin 12.4, Lymphocytes # (Auto) 0.4L, Lymphocytes % (Manual) 6, Lymphocytes (%) (Auto) 5L, Macrocytosis MODERATE, Magnesium Level 1.7L, Mean Corpuscular Hemoglobin 33, Mean Corpuscular Hemoglobin Concent 31L, Mean Corpuscular Volume 107H, Mean Platelet Volume , Monocytes # (Auto) 0.5, Monocytes % (Manual) 4, Monocytes (%) (Auto) 6, Neutrophils # (Auto) 7.7, Neutrophils % (Manual) 86, Neutrophils (%) (Auto) 90H, Phosphorus Level 1.3L, Platelet Count 93L, Polychromasia SLIGHT, Potassium Level 3.5L, Red Blood Count 3.74L, Red Cell Distribution Width 15.1H, Sodium Level 141, White Blood Count 8.6 06/06/16 07:17: Ben Test ART LINE, Arterial Blood Base Excess 24.8H, Arterial Blood HCO3 50*H , Arterial Blood Oxygen Saturation 97, Arterial Blood Partial Pressure CO2 52H, Arterial Blood Partial Pressure O2 63L, Arterial Blood Total CO2 51.6H, Arterial Blood pH 7.59H, Blood Gas Inspired Oxygen 50%, Blood Gas Patient Temperature 98.4, Blood Gas Puncture Site LT ARTLINE, Blood Gas Ventilator Setting YES 06/06/16 09:05: Ben Test NA, Arterial Blood Base Excess 23.9H, Arterial Blood HCO3 49*H, Arterial Blood Oxygen Saturation 96, Arterial Blood Partial Pressure CO2 55H, Arterial Blood Partial Pressure O2 62L, Arterial Blood Total CO2 51.0H, Arterial Blood pH 7.56H, Blood Gas Inspired Oxygen 50%, Blood Gas Patient Temperature 96.9, Blood Gas Puncture Site ARTLINE, Blood Gas Ventilator Setting YES Microbiology 06/06/16 Influenza Types A,B Antigen (JOSE) - Final, Complete 06/05/16 Urine Culture - Preliminary, Resulted Probable Enterococcus Species Laboratory Tests 06/05/16 19:50 06/06/16 05:01 Radiology NAME: RYAN MENDIETA Mason [facility] REC#: [id number] PT STATUS: ADM IN : 1950 PHYSICIAN: YOVANI MOSER MD ADMIT DATE: 06/05/16/ICU Signed Date of Exam: 06/05/16 CHEST 1 VIEW, AP/PA ONLY INDICATION: Support tube evaluation. 2322 hrs. FINDINGS: Since examination of earlier in the day, there has been placement of endotracheal tube with tip at the level of the thoracic inlet. Nasogastric tube passes below the diaphragm. There is cardiomegaly, pulmonary venous congestion and bilateral edema similar to previous study. No pneumothorax is identified. IMPRESSION: Enteric feeding tube extends to the thoracic inlet while nasogastric tube passes below the diaphragm. No other change is identified. Dictated by: Dictated on workstation # [id number] Dict: 06/06/16 0607 Trans: 06/06/16 0802 [id number] Interpreted by: SIXTO SHUKLA MD Electronically signed by:SIXTO SHUKLA MD 06/06/16 0805 ECG Impression ECG Initial ECG Impression: Atrial Fibrillation A/P-Cardiology Assessment/Admission Diagnosis Acute resp failure, primarily due to massive obesity and obesity-hypoventilation Obesity with BMI approx 73 and obesity-hypoventilation syndrome UTI with probable sepsis Chronic atrial fibrillation with good vent rate control Questionable episode of v-fib on strips of 06/05/16 at 20:17: careful review of strips indicates that this 6-7 seconds episode is artifact and QRS complexes can be seen marching through the artifact Chronic cor pulmonale and chronic diastolic CHF Echo of Mar 2016 (Dr Gutierrez): poor study due to body habitus and a fib, LVEF could not be accurately estimated, RVSP 39 mmHg. Definity contrast echo of : LVEF 65-70% w/o regional wall motion abnormalities CAD. CAROLYN of LAD with [place] 3.5x30 mm in Nov 2010. Repeat cath of 01/25/14 showed patent stent, mild CAD and some elevation of LVEDP, indicating diastolic dysfunction Chronic LBBB Chronic chest and mid back pain, etiology undetermined Hypertension - controlled DM II Intolerance to statins and refusal to take fibrates H/o leg venous ulcers, managed by Dr Yu in [place] No significant PAD on angio of 01/25/14 Chronic anticoagulation with Eliquis Chronic leg swelling primarily due to venous insufficiency due to massive obesity Chronic mild to mod thrombocytopenia being managed by the Medical [facility] Discussion and Recomendations As in the past, management remains very complex. The bulk of her problems seem to be from massive obesity. Consider perm tracheostomy to help with obesity- hypoventilation and reduce hospitalizations. May benefit from bariatric surgery in the intermediate designer. Prognosis is guarded. For vent rate control, we recommend iv beta-shasha For stroke prophylaxis, we recommend enoxaparin Replenish lytes Monitor labs Clinical Quality Measures DVT/VTE Risk/Contraindication: Risk Factor Score Per Nursin RFS Level Per Nursing on Admit: 4+=Very High MIGUEL ANGEL TELLEZ Jun 06, 2016 08:40 BARTOLOME HANSON MD FACP [facility] Jun 06, 2016 09:48
--- NOTE | 2016-06-06 08:57 | Diagnostic Imaging Report ---
EXAMINATION: Portable semierect AP chest at 453h. INDICATION: Respiratory distress As noted on the prior exam of 06/05/16 there are diffuse alveolar/interstitial pulmonary infiltrates involving both lungs. In the interval since the previous study the density in the left midlung has increased somewhat. The right lung is essentially no different. The heart is obscured by the parenchymal abnormalities. The mediastinum is not widened. The osseous structures are intact. The ET tube and NG line noted previously are again visualized and essentially no different. IMPRESSION: The appearance of the chest has worsened since the prior study as there does appear to be greater involvement of the left midlung by pneumonia/atelectasis. A followup study would be recommended for continued evaluation. Dictated by: Dictated on workstation # [id number]
[2016-06-06] MEDS ORDERED: cefTRIAXone INJECTION 1,000 MG in NS (IVPB) 50 ML IV SCH (09:00)
[2016-06-06] MEDS ORDERED: ENOXAPARIN 100 MG/1 ML (LOVENOX) SYR SC SCH (09:00)
[2016-06-06 09:19] LABS: ABG BASE EXCESS 23.9 MMOL/L (-2.5-2.5); ABG OXYGEN SATURATION 96 % (94-100); ABG PCO2 55 MMHG (35-45); ABG PH 7.56 (7.37-7.43); ABG PO2 62 MMHG (79-93)
[2016-06-06 09:21] LABS: ABG HCO3 49 MMOL/L (23-27)
[2016-06-06 09:22] LABS: PATIENT TEMP 96.9
[2016-06-06] MEDS ORDERED: MAGN400O7 PO (10:09)
[2016-06-06] MEDS ORDERED: ACET-2267 PO (10:09)
[2016-06-06] MEDS: APIXABAN 5 MG (ELIQUIS) TABLET NG SCH ×2 (10:29→22:01)
--- NOTE | 2016-06-06 11:15 | History & Physical-Hospitalist ---
HPI History of Present Illness: HPI/Chief Complaint CC: SOB HPI: This is a 66yoWF that presented to ER with significant SOB, and was immediately intubated and placed in ICU. 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 Patient Interview: Pt sleeping during visit. Physical exam stable. Plan: Susank Scribed by Vinay Palacios under the direct supervision of Dr. Bansal. Source: RN/MD Exam Limitations: clinical condition (intubated) Date Seen 06/06/16 Attending Physician Mariana Bansal Holly R MD Referring Physician Date of Admission Jun 05, 2016 at 21:43 Home Medications & Allergies Home Medications Reviewed patient Home Medication Reconciliation Form Allergies Coded Allergies: liraglutide (Verified Allergy, Intermediate, NAUSEA, 04/01/16) VOMITING AND CHEST PAIN THAT RADIATES TO HER BACK simvastatin (Verified Allergy, Intermediate, 04/01/16) PT HAS ELEVATED LIVER ENZYMES WITH ANY STATIN DRUG Bacitracin Zinc (Verified Allergy, Mild, RASH, 04/01/16) bacitracin (Verified Allergy, Mild, RASH, 04/01/16) colistimethate sodium (Verified Allergy, Mild, RASH, 04/01/16) gramicidin D (Verified Allergy, Mild, RASH, 04/01/16) metformin HCl (Verified Allergy, Mild, 04/01/16) neomycin sulfate (Verified Allergy, Mild, RASH, 04/01/16) polymyxin B (Verified Allergy, Mild, RASH, 04/01/16) polymyxin B sulfate (Verified Allergy, Mild, RASH, 04/01/16) pramoxine HCl (Verified Allergy, Mild, RASH, 04/01/16) Past Dlbrndx-Zbqery-Jlmhly Hx Patient Social History Marrital Status: single Employed/Student: unemployed Alcohol Use: Denies Use Recreational Drug Use: No Smoking Status: Unknown if Ever Smoked Type Used: Cigarettes Physical Abuse Screen: No Sexual Abuse: No Recent Foreign Travel: No Contact w/other who traveled: No Recent Hopitalizations: No Recent Infectious Disease Expo: No Immunizations Up To Date Tetanus Booster (TDap): Less than 5yrs Date of Influenza Vaccine: Jan 09, 2016 Seasonal Allergies Seasonal Allergies: No Surgeries HX Surgeries: Yes (CARDIAC STENT, HERNIA) Surgeries: Coronary Stent, Gallbladder, Hysterectomy Respiratory Hx Respiratory Disorders: Yes (RESP FAILURE HX) Respiratory Disorders: Sleep Apnea Cardiovascular Hx Cardiovascular Disorders: Yes (palpitations, congestive heart failure ( systolic/diastolic)) Cardiac Disorders: Atrial Fibrillation, Coronary Artery Disease, Hypertension Neurological Hx Neurological Disorders: Yes Neurological Disorders: Neuropathy Reproductive System Hx Reproductive Disorders: No Sexually Transmitted Disease: No HIV/AIDS: No Female Reproductive Disorders: Denies Genitourinary Hx Genitourinary Disorders: Yes Genitourinary Disorders: Renal Failure Gastrointestinal Hx Gastrointestinal Disorders: No Musculoskeletal Hx Musculoskeletal Disorders: Yes (muscle weakness, morbid obesity) Endocrine Hx Endocrine Disorders: Yes (morbid obesity) Endocrine Disorders: Diabetes, Insulin dep, Hypothyroidsim HEENT HX ENT Disorders: No Cancer Hx Cancer: Yes (uterine) Cancer: Uterine Psychosocial Hx Psychiatric Problems: No Integumentary HX Skin/Integumentary Disorder: No Blood Transfusions Hx Blood Disorders: No Adverse Reaction to a Blood Tr: No Family Medical History Significant Family History: No Pertinent Family Hx Family Hx: Patient reports no known family medical history. Review of Systems ROS-Unable to Obtain: unable to ascertain since she is intubated Constitutional: see HPI Physical Exam Physical Exam Vital Signs Vital Sign - Last 12Hours 06/05/16 06/05/16 00:00 19:43 Temp 98.5 Pulse 87 Resp 16 B/P 125/66 Pulse Ox 99 O2 Delivery Mechanical Ventilator O2 Flow Rate 50.00 FiO2 100 Capillary Refill : Less Than 3 Seconds General Appearance: No Apparent Distress WD/WN Chronically ill Obese (orbited obesity) Eyes: Bilateral Eye Normal Inspection, Bilateral Eye PERRL HEENT: Other (endotracheal tube in place) Respiratory: Decreased Breath Sounds Other (course vent sounds) Cardiovascular: No Edema Irregularly Irregular Extremity: Normal Capillary Refill Swelling Neurologic/Psychiatric: Other (sedated) Skin: Normal Color Warm/Dry Lymphatic: No Adenopathy Results Results/Procedures Lab Laboratory Tests 06/05/16 19:50 06/06/16 05:01 Assessment/Plan Admission Diagnosis 1. Acute on chronic hypercapneic hypoxic respiratory insufficiency progressing to respiratory failure requiring intubation and long-term care facility management 2. h/o Acute renal insufficiency with hyperkalemia 3. Transaminitis 4. Atrial fibrillation with diastolic dysfunction and history of CAD 5. DMII 6. UTI Assessment and Plan Continue IV antibiotics Ventilator support Susank consult Poor prognosis Likely will require trach Morbid obesity complicates medical management Clinical Quality Measures DVT/VTE Risk/Contraindication: Risk Factor Score Per Nursin RFS Level Per Nursing on Admit: 4+=Very High MARIANA BANSAL DO Jun 06, 2016 11:15
[2016-06-06 11:38] LABS: ABG BASE EXCESS 23.8 MMOL/L (-2.5-2.5); ABG OXYGEN SATURATION 95 % (94-100); ABG PCO2 46 MMHG (35-45); ABG PO2 52 MMHG (79-93); ABG TCO2 50.2 MMOL/L (21.0-31.0)
[2016-06-06] MEDS: meTOprolol 5 MG/5 ML (LOPRESSOR) VIAL IV SCH ×2 (11:41→17:12)
[2016-06-06 11:47] LABS: ABG HCO3 49 MMOL/L (23-27); ABG PH 7.62 (7.37-7.43); PATIENT TEMP 96.7
[2016-06-06] MEDS: NOREPINEPHRINE 4 MG in D5W 250 ML IV SCH (12:20)
[2016-06-06 15:40] LABS: ABG BASE EXCESS 24.5 MMOL/L (-2.5-2.5); ABG OXYGEN SATURATION 97 % (94-100); ABG PCO2 65 MMHG (35-45); ABG PO2 71 MMHG (79-93); ABG TCO2 52.5 MMOL/L (21.0-31.0)
[2016-06-06 15:41] LABS: ABG HCO3 50 MMOL/L (23-27); PATIENT TEMP 96.9
[2016-06-06] MEDS ORDERED: PHARMACY TO DOSE IV SCH (16:15)
[2016-06-06] MEDS ORDERED: VANCOMYCIN 2,500 MG/NS 500 ML IVPB IV SCH ×4 (17:00→23:00)
[2016-06-06] MEDS ORDERED: SODIUM BICARB 8.4% 50 MEQ/50 ML (ABBOTT) SYR ONE (22:39)
[2016-06-07] VITALS (16 sets, daily range): BP systolic 113–152; BP diastolic 62–88
[2016-06-07] MEDS: meTOprolol 5 MG/5 ML (LOPRESSOR) VIAL IV SCH ×2 (00:53→06:04)
[2016-06-07] MEDS: methylPREDNISolone 40 MG/ML (Solu-MEDROL) VIAL IV SCH ×2 (00:53→06:05)
[2016-06-07] MEDS: NOREPINEPHRINE 4 MG in D5W 250 ML IV SCH (01:16)
[2016-06-07] MEDS ORDERED: PROPOFOL IV ONE (02:06)
[2016-06-07 05:00] LABS: ABG BASE EXCESS 21.6 MMOL/L (-2.5-2.5); ABG OXYGEN SATURATION 98 % (94-100); ABG PCO2 60 MMHG (35-45); ABG PO2 85 MMHG (79-93); ABG TCO2 49.1 MMOL/L (21.0-31.0)
[2016-06-07] MEDS: inSUlin ASPART (NovoLOG) 1 UNIT/0.01 ML (CHARGE PER UNIT) SC SCH ×3 (05:00→08:06)
[2016-06-07 05:03] LABS: BASOPHILS % (AUTO) 0 % (0-10); EOSINOPHILS % (AUTO) 0 % (0-10); LYMPHOCYTES # (AUTO) 0.3 X 10^3 (1.0-4.0); LYMPHOCYTES % (AUTO) 4 % (12-44); MEAN CORPUSCULAR HEMOGLOBIN 32 PG (25-34); MEAN CORPUSCULAR HGB CONC 32 G/DL (32-36); MEAN CORPUSCULAR VOLUME 102 FL (80-99); MONOCYTES # (AUTO) 0.4 X 10^3 (0.0-1.0); MONOCYTES % (AUTO) 5 % (0-12); NEUTROPHILS # (AUTO) 6.7 X 10^3 (1.8-7.8); NEUTROPHILS % (AUTO) 91 % (42-75); PLATELET COUNT 100 10^3/uL (130-400); RED BLOOD COUNT 3.95 10^6/uL (4.35-5.85); RED CELL DISTRIBUTION WIDTH 15.3 % (10.0-14.5); WHITE BLOOD COUNT 7.4 10^3/uL (4.3-11.0)
[2016-06-07 05:10] LABS: ABG HCO3 47 MMOL/L (23-27); ALLENS TEST YES-POS; PATIENT TEMP 96.4
[2016-06-07 05:28] LABS: ANION GAP 12 MMOL/L (5-14); BLOOD UREA NITROGEN 26 MG/DL (7-18); BUN/CREATININE RATIO 31; CALCIUM 8.8 MG/DL (8.5-10.1); CARBON DIOXIDE 42 MMOL/L (21-32); CHLORIDE 88 MMOL/L (98-107); CREATININE SERUM 0.83 MG/DL (0.60-1.30); GFR ESTIMATED > 60; GLUCOSE 201 MG/DL (70-105); MAGNESIUM 1.9 MG/DL (1.8-2.4); PHOSPHORUS 3.4 MG/DL (2.3-4.7); POTASSIUM 3.8 MMOL/L (3.6-5.0); SODIUM 142 MMOL/L (135-145)
--- NOTE | 2016-06-07 05:57 | Pulmonary Progress Note ---
Subjective Subjective/Events-last exam Pt is stable on ventilator. Exam Exam Vital Signs Date Time Temp Pulse Resp B/P Pulse Ox O2 Delivery O2 Flow Rate FiO2 06/07/16 04:50 96.4 06/07/16 04:47 135/76 06/07/16 04:14 84 10 94 50 06/07/16 04:00 97 50 06/07/16 02:41 95.9 06/07/16 02:40 120/66 06/07/16 02:20 71 10 95 50 06/07/16 02:00 80 13 123/66 95 Mechanical Ventilator 50.00 06/07/16 01:40 95.2 06/07/16 01:00 59 10 138/71 97 Mechanical Ventilator 50.00 06/07/16 01:00 66 06/07/16 00:45 94.8 06/07/16 00:11 73 06/07/16 00:06 73 10 97 50 06/07/16 00:00 97 50 06/07/16 00:00 75 9 138/75 97 Mechanical Ventilator 50.00 06/06/16 23:00 73 9 144/74 98 Mechanical Ventilator 06/06/16 22:32 73 10 98 50 06/06/16 22:03 152/87 06/06/16 22:00 74 10 154/81 95 Mechanical Ventilator 06/06/16 21:00 67 10 134/74 97 Mechanical Ventilator 06/06/16 20:38 64 10 97 50 06/06/16 20:00 96.3 06/06/16 20:00 97 50 06/06/16 20:00 70 10 139/72 98 Mechanical Ventilator 06/06/16 19:32 68 139/78 96 Mechanical Ventilator 50.00 06/06/16 19:00 77 9 128/68 95 Mechanical Ventilator 06/06/16 19:00 71 06/06/16 18:43 71 10 94 50 06/06/16 18:00 76 9 124/67 94 Mechanical Ventilator 50.00 06/06/16 17:24 84 133/72 06/06/16 17:00 77 9 125/68 93 Mechanical Ventilator 50.00 06/06/16 16:00 68 9 110/62 95 Mechanical Ventilator 50.00 06/06/16 15:59 96 50 06/06/16 15:52 83 10 94 50 06/06/16 15:27 80 128/70 3/9/17 15:00 71 9 119/64 95 Mechanical Ventilator 50.00 06/06/16 14:09 82 10 96 50 06/06/16 14:00 79 9 117/65 95 Mechanical Ventilator 50.00 06/06/16 13:35 80 10 120/68 96 Mechanical Ventilator 50.00 06/06/16 13:00 71 06/06/16 13:00 77 9 117/65 95 Mechanical Ventilator 50.00 06/06/16 12:00 96.9 06/06/16 12:00 74 15 95 50 06/06/16 11:43 79 116/72 06/06/16 11:25 96 50 06/06/16 11:00 72 14 116/57 93 Mechanical Ventilator 50.00 06/06/16 10:00 79 14 122/66 95 Mechanical Ventilator 50.00 06/06/16 09:54 79 122/66 06/06/16 09:35 72 15 96 50 06/06/16 09:00 96.9 06/06/16 09:00 84 9 128/65 97 Mechanical Ventilator 50.00 06/06/16 08:30 96 50 06/06/16 08:30 98 06/06/16 08:06 81 12 96 50 06/06/16 08:00 96 50 06/06/16 08:00 85 11 133/68 95 Mechanical Ventilator 50.00 06/06/16 07:47 78 130/69 06/06/16 07:00 86 12 126/61 93 Mechanical Ventilator 50.00 06/06/16 07:00 84 06/06/16 06:41 93 12 97 50 06/06/16 06:00 89 11 137/66 97 Mechanical Ventilator 50.00 06/06/16 05:59 78 I & O 06/07/16 07:00 Intake Total 2258 ml Output Total 1875 ml Balance 383 ml General Appearance: No Apparent Distress WD/WN Chronically ill Obese (orbited obesity) HEENT: Other (endotracheal tube in place) Respiratory: Decreased Breath Sounds Rhonci Cardiovascular: No Edema Irregularly Irregular Capillary Refill: Less Than 3 Seconds Extremity: Normal Capillary Refill Swelling Neurologic/Psychiatric: Other (sedated) Skin: Normal Color Warm/Dry Lymphatic: No Adenopathy Results Lab Laboratory Tests 06/05/16 19:50 06/06/16 05:01 06/07/16 04:55 Assessment/Plan Assessment/Plan Acute on chronic respiratory failure -continue ventilator support -vent SIMV /8/ .50 -Repeat ABG pending Pneumonia with staph - sensitivities pending -continue vancomycin UTI with proteus and enterococcus -Rocephin Afib RVR - Runs of Vtach -Amio gtt CHFAE with EF 40% per echo Contraction alkalosis -Will start acetazolamide 250mg IV BID -monitor ABG Thrombocytopenia -monitor Morbid obesity with obesity hypoventilation syndrome and severe ALEXIS ARF COPD quit smoking in 2003 -She is on 3 liters of oxygen / at home UTI with proteus Chronic Debility Clinical Quality Measures DVT/VTE Risk/Contraindication: Risk Factor Score Per Nursin RFS Level Per Nursing on Admit: 4+=Very High STAN BOOKER DO Jun 07, 2016 05:57
[2016-06-07] MEDS: MAGNESIUM 1 GM/100 ML IVPB 100 ML IV SCH (06:00)
[2016-06-07] MEDS: KCL 20 MEQ TAB (K-DUR) PO SCH (06:00)
[2016-06-07] MEDS: POTASSIUM CL 10MEQ/50ML IVPB 50 ML IV SCH (06:00)
[2016-06-07 06:51] LABS: ABG BASE EXCESS 21.4 MMOL/L (-2.5-2.5); ABG OXYGEN SATURATION 97 % (94-100); ABG PCO2 67 MMHG (35-45); ABG PH 7.46 (7.37-7.43); ABG PO2 76 MMHG (79-93); ABG TCO2 49.5 MMOL/L (21.0-31.0)
[2016-06-07 06:56] LABS: ABG HCO3 47 MMOL/L (23-27); ALLENS TEST ART LINE
[2016-06-07 06:57] LABS: PATIENT TEMP 96.5
[2016-06-07] MEDS: CHLORHEXIDINE 0.12% SOLN 15 ML (PERIDEX) UDC PO SCH (08:03)
[2016-06-07] MEDS: APIXABAN 5 MG (ELIQUIS) TABLET NG SCH (08:03)
[2016-06-07] MEDS: PANTOPRAZOLE 40 MG/10 ML (PROTONIX) VIAL IV SCH (08:05)
--- NOTE | 2016-06-07 08:53 | Progress Note-Cardiology ---
Cardiology SOAP Progress Note Subjective: Intubated and sedated Objective: I&O/Vital Signs Vital Sign - Last 12Hours 06/07/16 06/07/16 06/07/16 06/07/16 00:45 01:00 01:00 01:40 Temp 94.8 95.2 Pulse 66 59 Resp 10 B/P 138/71 Pulse Ox 97 O2 Delivery Mechanical Ventilator O2 Flow Rate 50.00 06/07/16 06/07/16 06/07/16 06/07/16 02:00 02:20 02:40 02:41 Temp 95.9 Pulse 80 71 Resp 13 10 B/P 123/66 120/66 Pulse Ox 95 95 O2 Delivery Mechanical Ventilator O2 Flow Rate 50.00 FiO2 50 06/07/16 06/07/16 06/07/16 06/07/16 03:00 04:00 04:00 04:14 Pulse 71 77 84 Resp 20 19 10 B/P 115/68 113/62 Pulse Ox 94 97 94 94 O2 Delivery Mechanical Ventilator Mechanical Ventilator O2 Flow Rate 50.00 50.00 FiO2 50 50 06/07/16 06/07/16 06/07/16 06/07/16 04:47 04:50 05:00 06:00 Temp 96.4 Pulse 96 89 Resp 20 22 B/P 135/76 147/85 149/80 Pulse Ox 96 96 O2 Delivery Mechanical Ventilator Mechanical Ventilator O2 Flow Rate 50.00 50.00 06/07/16 06/07/16 06/07/16 06/07/16 06:29 06:54 07:00 07:00 Temp 96.5 Pulse 92 93 92 98 Resp 12 12 B/P 145/79 152/83 Pulse Ox 97 95 O2 Delivery Mechanical Ventilator O2 Flow Rate 50.00 FiO2 50 06/07/16 06/07/16 06/07/16 06/07/16 08:00 08:02 08:06 08:44 Temp 97.3 Pulse 102 115 Resp 21 11 B/P 143/78 Pulse Ox 95 93 95 O2 Delivery Mechanical Ventilator O2 Flow Rate 50.00 FiO2 50 50 06/07/16 06/07/16 06/07/16 09:00 09:27 09:56 Pulse 105 95 98 Resp 24 13 B/P 145/82 142/88 147/88 Pulse Ox 96 97 O2 Delivery Mechanical Ventilator O2 Flow Rate 50.00 FiO2 50 Intake and Output 06/07/16 00:00 Intake Total 825 ml Output Total 800 ml Balance 25 ml Weight (Pounds): 439 Weight (Ounces): 7.0 Weight (Calculated Kilograms): 199.730010 Constitutional: appears stated ageNo apparent distress, well-developed well- nourished other (Obese) Respiratory: other (Diminished lung sounds; fair air entry; intubated and sedated) Cardiovascular: irregularly irregular S1 and S2 Gastrointestional: soft roundNo spleenomegaly Genital/Rectal: other (Urinary catheter with pink tinged urine) Extremities: No clubbing, No cyanosis, significant edema (bilat pitting LE edema) Neurologic/Psychiatric: other (Intubated and sedated) Skin: No rash, No ulcerations, other (bruising to arms bilat) Results/Procedures: Labs Laboratory Tests 06/06/16 15:25: Ben Test N/A, Arterial Blood Base Excess 24.5H, Arterial Blood HCO3 50*H, Arterial Blood Oxygen Saturation 97, Arterial Blood Partial Pressure CO2 65H, Arterial Blood Partial Pressure O2 71L, Arterial Blood Total CO2 52.5H, Arterial Blood pH 7.50H, Blood Gas Inspired Oxygen 50, Blood Gas Patient Temperature 96.9, Blood Gas Puncture Site ARTLINE, Blood Gas Ventilator Setting YES 06/06/16 16:26: Glucometer 212H 06/06/16 19:33: Glucometer 177H 06/07/16 00:45: Glucometer 199H 06/07/16 04:52: Glucometer 184H 06/07/16 04:55: Ben Test YES-POS, Anion Gap 12, Arterial Blood Base Excess 21.6H, Arterial Blood HCO3 47*H, Arterial Blood Oxygen Saturation 98, Arterial Blood Partial Pressure CO2 60H, Arterial Blood Partial Pressure O2 85, Arterial Blood Total CO2 49.1H, Arterial Blood pH 7.50H, BUN/Creatinine Ratio 31, Basophils # (Auto) 0.0, Basophils (%) (Auto) 0, Blood Gas Inspired Oxygen 50%, Blood Gas Patient Temperature 96.4, Blood Gas Puncture Site LEFT RADIAL, Blood Gas Ventilator Setting YES, Blood Urea Nitrogen 26H, Calcium Level 8.8, Carbon Dioxide Level 42H, Chloride Level 88L, Creatinine 0.83, Eosinophils # (Auto) 0.0, Eosinophils (%) (Auto) 0, Estimat Glomerular Filtration Rate > 60, Glucose Level 201H, Hematocrit 40, Hemoglobin 12.7, Lymphocytes # (Auto) 0.3L, Lymphocytes (%) (Auto ) 4L, Magnesium Level 1.9, Mean Corpuscular Hemoglobin 32, Mean Corpuscular Hemoglobin Concent 32, Mean Corpuscular Volume 102H, Mean Platelet Volume , Monocytes # (Auto) 0.4, Monocytes (%) (Auto) 5, Neutrophils # (Auto) 6.7, Neutrophils (%) (Auto) 91H, Phosphorus Level 3.4, Platelet Count 100L, Potassium Level 3.8, Red Blood Count 3.95L, Red Cell Distribution Width 15.3H, Sodium Level 142, White Blood Count 7.4 06/07/16 06:45: Ben Test ART LINE, Arterial Blood Base Excess 21.4H, Arterial Blood HCO3 47*H , Arterial Blood Oxygen Saturation 97, Arterial Blood Partial Pressure CO2 67H, Arterial Blood Partial Pressure O2 76L, Arterial Blood Total CO2 49.5H, Arterial Blood pH 7.46H, Blood Gas Inspired Oxygen 50%, Blood Gas Patient Temperature 96.5, Blood Gas Puncture Site LEFT ART LINE, Blood Gas Ventilator Setting YES 06/07/16 08:02: Glucometer 159H Microbiology 06/05/16 Blood Culture - Preliminary, Resulted Staph, Coag Neg ([employer]in[employer]) 06/06/16 Influenza Types A,B Antigen (JOSE) - Final, Complete 06/05/16 Urine Culture - Final, Complete Enterococcus Faecalis A/P: Assessment: Acute resp failure, primarily due to massive obesity and obesity-hypoventilation Obesity with BMI approx 73 and obesity-hypoventilation syndrome UTI with probable sepsis Chronic atrial fibrillation with good vent rate control Questionable episode of v-fib on strips of 06/05/16 at 20:17: careful review of strips indicates that this 6-7 seconds episode is artifact and QRS complexes can be seen marching through the artifact Chronic cor pulmonale and chronic diastolic CHF Echo of Mar 2016 (Dr Gutierrez): poor study due to body habitus and a fib, LVEF could not be accurately estimated, RVSP 39 mmHg. Definity contrast echo of : LVEF 65-70% w/o regional wall motion abnormalities CAD. CAROLYN of LAD with [place] 3.5x30 mm in Nov 2010. Repeat cath of 01/25/14 showed patent stent, mild CAD and some elevation of LVEDP, indicating diastolic dysfunction Chronic LBBB Chronic chest and mid back pain, etiology undetermined Hypertension - controlled DM II Intolerance to statins and refusal to take fibrates H/o leg venous ulcers, managed by Dr Yu in [facility] No significant PAD on angio of 01/25/14 Chronic anticoagulation with Eliquis Chronic leg swelling primarily due to venous insufficiency due to massive obesity Chronic mild to mod thrombocytopenia being managed by the Medical Service Plan: As in the past, management remains very complex. The bulk of her problems seem to be from massive obesity. Consider perm tracheostomy to help with obesity- hypoventilation and reduce hospitalizations. May benefit from bariatric surgery in the care home. Prognosis is guarded. For vent rate control, we recommend iv beta-shasha For stroke prophylaxis, we recommend enoxaparin Replenish lytes Monitor labs Plan per pulmonary services is to transfer to [facility] Physician Assessment Physician Assessment Lungs: fair to good air entry Cor: irreg with fair rate control A&R * As documented in our note above * Remains critically and chronically ill with apparently poor machine long goods helper prognosis MIGUEL ANGEL TELLEZ Jun 07, 2016 08:53 ANGELA ROBERT MD FACP FAC CCDS Jun 07, 2016 12:24 Intolerance to statins and refusal to take fibrates H/o leg venous ulcers, managed by Dr Gigi Vaughan No significant PAD on angio of 01/25/14 Chronic anticoagulation with Eliquis Chronic leg swelling primarily due to venous insufficiency due to massive obesity Chronic mild to mod thrombocytopenia being managed by the Medical Service Plan: As in the past, management remains very complex. The bulk of her problems seem to be from massive obesity. Consider perm tracheostomy to help with obesity- hypoventilation and reduce hospitalizations. May benefit from bariatric surgery in the care home. Prognosis is guarded. For vent rate control, we recommend iv beta-shasha For stroke prophylaxis, we recommend enoxaparin Replenish lytes Monitor labs Plan per pulmonary services is to transfer to [place] today MIGUEL ANGEL TELLEZ Jun 07, 2016 08:53
[2016-06-07] MEDS ORDERED: ACETAZOLAMIDE IV SCH (09:00)
--- NOTE | 2016-06-07 09:16 | Diagnostic Imaging Report ---
INDICATION: Respiratory failure Portable chest 5:26 AM There is an ET tube projecting over the trachea. There is an NG tube in place. The tip of the NG tube position is indeterminate. There is cardiomegaly. There is increased density throughout both lungs which is probably due to pulmonary edema. This appears similar to the previous day. IMPRESSION: Increased density throughout both lungs. This is partially due to superimposed soft tissues but diffuse pulmonary edema cannot be excluded. Overall appearance is similar to the previous day. Dictated by: Dictated on workstation # [id number]
--- NOTE | 2016-06-07 10:04 | Discharge Summary-Hospitalist ---
Diagnosis/Chief Complaint Date of Admission Jun 05, 2016 at 21:43 Date of Discharge Admission Diagnosis 1. Acute on chronic hypercapneic hypoxic respiratory insufficiency progressing to respiratory failure requiring intubation and long-term care facility management 2. h/o Acute renal insufficiency with hyperkalemia 3. Transaminitis 4. Atrial fibrillation with diastolic dysfunction and history of CAD 5. DMII 6. UTI Discharge Diagnosis 1. Acute on chronic hypercapneic hypoxic respiratory insufficiency progressing to respiratory failure requiring intubation and long-term care facility management 2. h/o Acute renal insufficiency with hyperkalemia 3. Transaminitis 4. Atrial fibrillation with diastolic dysfunction and history of CAD 5. DMII 6. UTI Continue IV antibiotics Ventilator support [place] consult Poor prognosis Likely will require trach Morbid obesity complicates medical management Reason Hospital Visit/Course CC: SOB HPI: This is a 66yoWF that presented to ER with significant SOB, and was immediately intubated and placed in ICU. 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 Patient Interview: Pt sleeping during visit. Physical exam stable. Plan: [place] Scribed by Vinay Palacios under the direct supervision of Dr. Bansal. Hospital course: Patient was maintain on ventilator support stable ABG noted labs stable and she was deemed ready for transfer to [place] likely a trach will be placed and long-term care facility will manage respiratory failure. Long-term prognosis extremely poor. Discharge Summary Discharge Physical Examination Allergies: Coded Allergies: liraglutide (Verified Allergy, Intermediate, NAUSEA, 04/01/16) VOMITING AND CHEST PAIN THAT RADIATES TO HER BACK simvastatin (Verified Allergy, Intermediate, 04/01/16) PT HAS ELEVATED LIVER ENZYMES WITH ANY STATIN DRUG Bacitracin Zinc (Verified Allergy, Mild, RASH, 04/01/16) bacitracin (Verified Allergy, Mild, RASH, 04/01/16) colistimethate sodium (Verified Allergy, Mild, RASH, 04/01/16) gramicidin D (Verified Allergy, Mild, RASH, 04/01/16) metformin HCl (Verified Allergy, Mild, 04/01/16) neomycin sulfate (Verified Allergy, Mild, RASH, 04/01/16) polymyxin B (Verified Allergy, Mild, RASH, 04/01/16) polymyxin B sulfate (Verified Allergy, Mild, RASH, 04/01/16) pramoxine HCl (Verified Allergy, Mild, RASH, 04/01/16) Vitals & I&Os Vital Signs Date Time Temp Pulse Resp B/P Pulse Ox O2 Delivery O2 Flow Rate FiO2 06/07/16 09:56 98 13 147/88 97 50 06/07/16 09:00 Mechanical Ventilator 50.00 06/07/16 08:02 97.3 Hospital Course Labs (last 24 hrs) Laboratory Tests 06/06/16 15:25: Ben Test N/A, Arterial Blood Base Excess 24.5H, Arterial Blood HCO3 50*H, Arterial Blood Oxygen Saturation 97, Arterial Blood Partial Pressure CO2 65H, Arterial Blood Partial Pressure O2 71L, Arterial Blood Total CO2 52.5H, Arterial Blood pH 7.50H, Blood Gas Inspired Oxygen 50, Blood Gas Patient Temperature 96.9, Blood Gas Puncture Site ARTLINE, Blood Gas Ventilator Setting YES 06/06/16 16:26: Glucometer 212H 06/06/16 19:33: Glucometer 177H 06/07/16 00:45: Glucometer 199H 06/07/16 04:52: Glucometer 184H 06/07/16 04:55: Ben Test YES-POS, Anion Gap 12, Arterial Blood Base Excess 21.6H, Arterial Blood HCO3 47*H, Arterial Blood Oxygen Saturation 98, Arterial Blood Partial Pressure CO2 60H, Arterial Blood Partial Pressure O2 85, Arterial Blood Total CO2 49.1H, Arterial Blood pH 7.50H, BUN/Creatinine Ratio 31, Basophils # (Auto) 0.0, Basophils (%) (Auto) 0, Blood Gas Inspired Oxygen 50%, Blood Gas Patient Temperature 96.4, Blood Gas Puncture Site LEFT RADIAL, Blood Gas Ventilator Setting YES, Blood Urea Nitrogen 26H, Calcium Level 8.8, Carbon Dioxide Level 42H, Chloride Level 88L, Creatinine 0.83, Eosinophils # (Auto) 0.0, Eosinophils (%) (Auto) 0, Estimat Glomerular Filtration Rate > 60, Glucose Level 201H, Hematocrit 40, Hemoglobin 12.7, Lymphocytes # (Auto) 0.3L, Lymphocytes (%) (Auto ) 4L, Magnesium Level 1.9, Mean Corpuscular Hemoglobin 32, Mean Corpuscular Hemoglobin Concent 32, Mean Corpuscular Volume 102H, Mean Platelet Volume , Monocytes # (Auto) 0.4, Monocytes (%) (Auto) 5, Neutrophils # (Auto) 6.7, Neutrophils (%) (Auto) 91H, Phosphorus Level 3.4, Platelet Count 100L, Potassium Level 3.8, Red Blood Count 3.95L, Red Cell Distribution Width 15.3H, Sodium Level 142, White Blood Count 7.4 06/07/16 06:45: Ben Test ART LINE, Arterial Blood Base Excess 21.4H, Arterial Blood HCO3 47*H , Arterial Blood Oxygen Saturation 97, Arterial Blood Partial Pressure CO2 67H, Arterial Blood Partial Pressure O2 76L, Arterial Blood Total CO2 49.5H, Arterial Blood pH 7.46H, Blood Gas Inspired Oxygen 50%, Blood Gas Patient Temperature 96.5, Blood Gas Puncture Site LEFT ART LINE, Blood Gas Ventilator Setting YES 06/07/16 08:02: Glucometer 159H Microbiology 06/05/16 Blood Culture - Preliminary, Resulted Staph, Coag Neg (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) 06/06/16 Influenza Types A,B Antigen (JOSE) - Final, Complete 06/05/16 Urine Culture - Final, Complete Enterococcus Faecalis Pending Labs Laboratory Tests 06/07/16 06:45: Ben Test ART LINE, Arterial Blood Base Excess 21.4, Arterial Blood HCO3 47, Arterial Blood Oxygen Saturation 97, Arterial Blood Partial Pressure CO2 67, Arterial Blood Partial Pressure O2 76, Arterial Blood Total CO2 49.5, Arterial Blood pH 7.46, Blood Gas Inspired Oxygen 50%, Blood Gas Patient Temperature 96.5 , Blood Gas Puncture Site LEFT ART LINE, Blood Gas Ventilator Setting YES 06/07/16 08:02: Glucometer 159 Discharge Home Medications: Active Scripts Active Vanco 1 Gram/250 ml-0.9% NaCl (Vancomycin/0.9 % Sod Chloride) 1 Gm/250 Ml Plast..bag 1 Gm IV Q12H Reported Tylenol Extra Strength (Acetaminophen) 500 Mg Tablet 500 Mg PO Q6H PRN Milk of Magnesia (Magnesium Hydroxide) 400 Mg/5 Ml Oral.susp 30 Ml PO DAILY PRN Metoprolol Tartrate 25 Mg Tablet 25 Mg PO BID Furosemide 40 Mg Tablet 40 Mg PO DAILY Diltiazem 24Hr ER (Diltiazem HCl) 180 Mg Cap.er.24h 180 Mg PO DAILY Iprat-Albut 0.5-3(2.5) mg/3 ml (Ipratropium/Albuterol Sulfate) 3 Ml Ampul.neb 3 Ml IH Q6H PRN Ibuprofen 600 Mg Tablet 600 Mg PO Q6H PRN Levemir Flextouch (Insulin Detemir) 100 Unit/1 Ml Insuln.pen 10 Units SC BID Nystatin 15 Gm Cream..g. TP BID APPLY TO ABDOMINAL FOLDS Eliquis (Apixaban) 5 Mg Tablet 5 Mg PO BID Levothyroxine Sodium 75 Mcg Tablet 75 Mcg PO DAILY Novolog Flexpen (Insulin Aspart) 300 Units/3 Ml Solution 15 Units SQ AC Bydureon Pen (Exenatide Microspheres) 2 Mg/0.65 Ml Pen.injctr 2 Mg SQ SA Gabapentin 300 Mg Capsule 300 Mg PO TID Aspirin Ec 81 Mg (Aspirin) 81 Mg Tabec 81 Mg PO DAILY Instructions to patient/family Please see electonic discharge instructions given to patient. Clinical Quality Measures DVT/VTE Risk/Contraindication: Risk Factor Score Per Nursin RFS Level Per Nursing on Admit: 4+=Very High RADHA BANSAL DO Jun 07, 2016 10:04 Please see electonic discharge instructions given to patient. Clinical Quality Measures DVT/VTE Risk/Contraindication: Risk Factor Score Per Nursin RFS Level Per Nursing on Admit: 4+=Very High RADHA BANSAL DO Jun 07, 2016 10:04
[2016-06-07] MEDS ORDERED: VANC1PLA9 IV (10:05)
== END 2016-06-07 10:36 | DRG 208 ==
LOC: EDUNIT# 19:41 → ER 19:42 → ICU 21:43
PROVIDERS: ADMIT Internal Medicine; ATTEND Internal Medicine
PROC: 5A1945Z Respiratory Ventilation, 24-96 Consecutive Hours (ICD-10-PCS; principal; 2016-06-05)
DX: J96.22 Acute and chronic respiratory failure with hypercapnia (principal); J15.20 Pneumonia due to staphylococcus, unspecified; E66.2 Morbid (severe) obesity with alveolar hypoventilation; Z68.45 Body mass index [BMI] 70 or greater, adult; N39.0 Urinary tract infection, site not specified; E87.3 Alkalosis; I50.32 Chronic diastolic (congestive) heart failure; N17.9 Acute kidney failure, unspecified; I48.2 Chronic atrial fibrillation; I11.0 Hypertensive heart disease with heart failure; I25.10 Atherosclerotic heart disease of native coronary artery without angina pectoris; R31.9 Hematuria, unspecified; E11.40 Type 2 diabetes mellitus with diabetic neuropathy, unspecified; J44.9 Chronic obstructive pulmonary disease, unspecified; E03.9 Hypothyroidism, unspecified; D69.6 Thrombocytopenia, unspecified; E87.5 Hyperkalemia; I27.81 Cor pulmonale (chronic); I87.2 Venous insufficiency (chronic) (peripheral); Z95.5 Presence of coronary angioplasty implant and graft; Z79.4 Long term (current) use of insulin; Z79.01 Long term (current) use of anticoagulants; Z85.42 Personal history of malignant neoplasm of other parts of uterus; Z87.891 Personal history of nicotine dependence; B96.4 Proteus (mirabilis) (morganii) as the cause of diseases classified elsewhere; B95.2 Enterococcus as the cause of diseases classified elsewhere; I44.7 Left bundle-branch block, unspecified
CPT/HCPCS: 36415; 71010; 80048; 80053; 81000; 82805; 82962; 83605; 83735; 83880; 84100; 84484; 85007; 85025; 85027; 85610; 85730; 86141; 87040; 87070; 87077; 87081; 87088; 87186; 87205; 87804; 93005; 93041; 94002; 94003; 94640; 94799; 96365; 96375